=== PATIENT | female | born 1945 | race Caucasian/White ===

== ENCOUNTER → 2016-09-24 | Outpatient (CLI) | payer BC ==
[~2016-09-24] MED LIST: ATEN-173 PO; PRAV20TA PO; SYN75 PO
[2016-09-24 09:40] LABS: ALT/SGPT 16 U/L (12-78); AST/SGOT 17 U/L (15-37); BLOOD UREA NITROGEN 14 mg/dl (7-18); BUN/CREATININE RATIO 16.9 (10-20); CARBON DIOXIDE 29 mmol/L (21-32); CHLORIDE 105 mmol/L (98-107); CHOLESTEROL 179 mg/dl (0-200); CREATININE 0.83 mg/dl (0.60-1.20); GLUCOSE 85 mg/dl (70-99); POTASSIUM 3.4 mmol/L (3.5-5.1); SODIUM 142 mmol/L (136-145); TRIGLYCERIDES 87 mg/dl (0-150); VERY LOW DENSITY LIPOPROT CALC 17 mg/dl
[2016-09-24 09:45] LABS: CALCIUM 9.5 mg/dl (8.5-10.1)
[2016-09-24 09:50] LABS: CHOLESTEROL/HDL RATIO 3.2; HDL CHOLESTEROL 56 mg/dl; LDL CHOLESTEROL CALCULATED 106 mg/dl
[2016-09-24 09:58] LABS: ESTIMATED AVERAGE GLUCOSE 117 mg/dl; HA1C FLAG Normal (Normal)
--- NOTE | 2016-09-30 09:58 | CODING QUERY MEDICAL NECESSITY ---
SUPPORTING DIAGNOSIS NEEDED Dr. Francisco, A supporting diagnosis is required for the test/procedure performed on this patient in order for us to be reimbursed by the patient's insurance. Please provide a supporting diagnosis for the following test/procedure listed below next to the test name along with your signature. *If there is no additional diagnosis for this patient that would support the following test/procedure please document that below next to the test/procedure. Test(s)/Procedure(s) that require a supporting diagnosis: * [id number] GLYCATED HEMOGLOBIN DIAGNOSIS: DATE OF SERVICE: 09/24/16 Provider Signature: Date: Thank you Christopher Olivia [facility] Information Management Once completed, please kindly fax back to [phone] For questions please call [phone]
== END | disposition home or self-care (01) ==
LOC: C.LAB 06:41
PROVIDERS: ATTEND Internal Medicine
DX: R73.03 Prediabetes (principal); E03.9 Hypothyroidism, unspecified; E78.5 Hyperlipidemia, unspecified; R73.01 Impaired fasting glucose; Z13.1 Encounter for screening for diabetes mellitus

== ENCOUNTER → 2016-11-06 | Outpatient (CLI) | payer BC ==
--- NOTE | 2016-11-06 11:24 | DIAGNOSTIC IMAGING REPORT ---
ULTRASOUND SOFT TISSUES HEAD CLINICAL HISTORY: Soft tissue lump at the crown of the head. COMPARISON STUDY: No priors. FINDINGS: Real-time, grayscale, and color flow sonography of the soft tissues of the scalp is performed at the indicated site of interest. No mass or fluid collection is identified in this region. Phelps appearing subcutaneous fat is observed. IMPRESSION: No sonographic abnormality is identified in the scalp at the indicated site of interest. Electronically signed by: Beni Urban M.D. 11/06/2016 11:23 AM Dictated Date/Time: 11/06/2016 11:22 AM
== END | disposition home or self-care (01) ==
PROVIDERS: ATTEND Physician Assistant
DX: R22.0 Localized swelling, mass and lump, head (principal); R22.1 Localized swelling, mass and lump, neck

== ENCOUNTER → 2016-11-08 | Outpatient (CLI) | payer BC | END | disposition home or self-care (01) | LOC: C.RDSM 09:00 | PROVIDERS: ATTEND Orthopaedic Surgery Sports Medicine | DX: M17.0 Bilateral primary osteoarthritis of knee (principal) ==

== ENCOUNTER → 2017-01-03 | Outpatient (CLI) | payer BC ==
--- NOTE | 2017-01-03 15:49 | MAMMOGRAPHY REPORT ---
BILATERAL DIGITAL SCREENING MAMMOGRAM TOMOSYNTHESIS WITH CAD: 01/03/2017 TECHNIQUE: Breast tomosynthesis in addition to standard 2D mammography was performed. Current study was also evaluated with a Computer Aided Detection (CAD) system. COMPARISON: Comparison is made to exams dated: 01/02/2016 mammogram, 12/26/2014 mammogram, 12/22/2013 ma mmogram, 12/21/2012 mammogram, 12/19/2011 mammogram, and 12/20/2010 mammogram - [facility] nter. BREAST COMPOSITION: There are scattered areas of fibroglandular density in both breasts. FINDINGS: No suspicious masses, calcifications, or areas of architectural distortion are noted in ei ther breast. There has been no significant interval change compared to prior exams. There are stable post surgical changes in the left breast from prior lumpectomy, including stable architectural disto rtion, surgical clips, and benign dystrophic calcification at the lumpectomy bed. Nodular focal asym metry in the right lower inner quadrant anteriorly is stable. IMPRESSION: ACR BI-RADS CATEGORY 2: BENIGN There is no mammographic evidence of malignancy. A 1 year screening mammogram is recommended. The pa tient will receive written notification of the results. Approximately 10% of breast cancers are not detected with mammography. A negative mammographic report should not delay biopsy if a clinically suggestive mass is present. Jennifer Mahmood M.D. ah/:01/03/2017 15:39:38 Alarm Mechanism Adjuster: Lynnette Noble RT(R)(M), [facility] letter sent: Normal 1/2 BI-RADS Code: ACR BI-RADS Category 2: Benign
== END | disposition home or self-care (01) ==
LOC: C.MAMM 09:25
PROVIDERS: ATTEND Internal Medicine
DX: Z12.31 Encounter for screening mammogram for malignant neoplasm of breast (principal)

== ENCOUNTER → 2017-03-26 | Outpatient (CLI) | payer BC ==
[2017-03-26 09:56] LABS: BLOOD UREA NITROGEN 13 mg/dl (7-18); BUN/CREATININE RATIO 14.4 (10-20); CALCIUM 9.1 mg/dl (8.5-10.1); CARBON DIOXIDE 31 mmol/L (21-32); CHLORIDE 105 mmol/L (98-107); CHOLESTEROL 175 mg/dl (0-200); CREATININE 0.88 mg/dl (0.60-1.20); GLUCOSE 100 mg/dl (70-99); POTASSIUM 3.8 mmol/L (3.5-5.1); SODIUM 139 mmol/L (136-145); TRIGLYCERIDES 116 mg/dl (0-150); VERY LOW DENSITY LIPOPROT CALC 23 mg/dl
[2017-03-26 10:16] LABS: CHOLESTEROL/HDL RATIO 3.2; HDL CHOLESTEROL 54 mg/dl; LDL CHOLESTEROL CALCULATED 98 mg/dl
== END | disposition home or self-care (01) ==
LOC: C.LAB 08:10
PROVIDERS: ATTEND Internal Medicine
DX: E03.9 Hypothyroidism, unspecified (principal); I10 Essential (primary) hypertension; E78.5 Hyperlipidemia, unspecified; E55.9 Vitamin D deficiency, unspecified

== ENCOUNTER 2017-07-12 15:38 | Emergency (ER) | payer BC ==
[~2017-07-12] VITALS: Ht 149.9 cm; Wt 71.8 kg
[2017-07-12 15:42] VITALS: TEMP 36.6; Ht 149.9 cm; Wt 71.8 kg
--- NOTE | 2017-07-12 16:07 | DIAGNOSTIC IMAGING REPORT ---
CHEST 2 VIEWS ROUTINE CLINICAL HISTORY: cough eval for pna dyspnea COMPARISON STUDY: No previous studies for comparison. FINDINGS: The bones soft tissues and hemidiaphragms are normal. The cardiomediastinal silhouette is normal. The lungs are clear. The pulmonary vasculature is normal. IMPRESSION: Negative chest. The above report was generated using voice recognition software. It may contain grammatical, syntax or spelling errors. Electronically signed by: Neto Mason M.D. 07/12/2017 4:06 PM Dictated Date/Time: 07/12/2017 4:06 PM
[2017-07-12] MEDS ORDERED: PRVHFAIN INH (16:30)
[2017-07-12 16:33] VITALS: BP 145/79; PULSE 79; O2SAT 95
--- NOTE | 2017-07-12 16:40 | EMERGENCY ROOM VISIT NOTE ---
History Report prepared by iJ: Suman Bhatti Under the Supervision of: Dr. Suman Shultz M.D. First contact with patient: 15:46 Chief Complaint: COUGH Stated Complaint: COUGH History of Present Illness The patient is a 72 year old female who presents to the Emergency Room with complaints of a constant cough for the past 4 weeks. The patient had congestion as well but this seemed to get better after she was treated with Zithromax. She also takes Tessalon Perles. Today she had an episode of vomiting after a coughing fit. Patient denies fevers, chest pain, shortness of breath, diarrhea, and abdominal pain. Source of History: patient Onset: 4 weeks ago Position: other (Chest) Quality: other (Cough) Timing: intermittent Modifying Factors (Relieving): other (Zithromax and Tessalon) Associated Symptoms: + vomiting, No fevers, No SOB, No abdominal pain, No diarrhea Note: Patient has congestion. Review of Systems See HPI for pertinent positives & negatives. A total of 10 systems reviewed and were otherwise negative. Past Medical & Surgical Medical Problems: (1) Arthritis (2) Hypertension Surgical Problems: (1) Hx of hysterectomy (2) Hx of partial mastectomy Family History Cancer Diabetes mellitus Hypertension Social History Smoking Status: Never Smoker Alcohol Use: none Marital Status: Housing Status: lives with significant other Occupation Status: unemployed Current/Historical Medications Scheduled Atenolol (Tenormin), 25 MG PO DAILY Levothyroxine (Synthroid *), 0.075 MG PO DAILY Pravastatin (Pravachol ), 20 MG PO DAILY Scheduled PRN Albuterol (Ventolin Hfa), 2 PUFFS INH Q4H PRN for Cough Allergies Coded Allergies: No Known Allergies (Verified , 09/20/12) Physical Exam Vital Signs Date Time Temp Pulse Resp B/P (MAP) Pulse Ox O2 Delivery O2 Flow Rate FiO2 07/12/17 16:33 79 20 145/79 95 Room Air 07/12/17 16:33 95 Room Air 07/12/17 15:42 36.6 84 18 147/87 98 Room Air Physical Exam Constitutional: Vital signs reviewed. Eyes: Pupils are equal round reactive to light. Conjunctiva are noninjected. ENT: Pharynx is clear without erythema or exudate. Mucous membranes are moist. Neck supple without meningeal signs. Respiratory: Clear to auscultation bilaterally. Breath sounds are equal bilaterally. Cardiovascular: Regular rate and rhythm. No rubs or gallops. GI: Soft, nondistended and nontender. Bowel sounds are present. Musculoskeletal: No peripheral edema. Integumentary: No cyanosis. Neurological: The patient is awake and alert. No focal deficits. Psychiatric: Normal affect. Medical Decision & Procedures ER Provider Diagnostic Interpretation: Radiology results as stated below per my review and the radiologist's interpretation: CHEST 2 VIEWS ROUTINE CLINICAL HISTORY: cough eval for pna dyspnea COMPARISON STUDY: No previous studies for comparison. FINDINGS: The bones soft tissues and hemidiaphragms are normal. The cardiomediastinal silhouette is normal. The lungs are clear. The pulmonary vasculature is normal. IMPRESSION: Negative chest. The above report was generated using voice recognition software. It may contain grammatical, syntax or spelling errors. Electronically signed by: Neto Mason M.D. 07/12/2017 4:06 PM ED Course 1343: The patient was evaluated in room C11. A complete history and physical exam was performed. 1642: Upon reevaluation, the patient appeared to have improvement of her symptoms. I discussed tonight's findings with her. She verbalized agreement of the treatment plan. She was discharged home. Medical Decision This is a 72-year-old female who presents with a cough. Differential diagnosis includes bronchitis, pneumonia, viral syndrome, mass. I did perform a limited focused review of portions of the patient's old chart on the electronic medical record. The patient has had no recent pertinent visits to this hospital. I did evaluate the patient as noted above. The patient is presenting with a cough for the past 4 weeks. She did have congestion previously but this seemed to get better after she took Zithromax. She is presenting today because she has a persistent cough. I did order and personally review the patient's chest x -ray as described above. There is no evidence of pneumonia. I did discuss the test results with the patient. I did give her prescription for an albuterol MDI to help with her cough. She was advised to follow-up with her doctor. She was discharged in good condition. Medication Reconcilliation Current Medication List: was personally reviewed by me Blood Pressure Screening Patient's blood pressure: Elevated blood pressure Blood pressure disposition: Referred to PCP Impression Primary Impression: Bronchitis Scribe Attestation The scribe's documentation has been prepared under my direct and personally reviewed by me in its entirety. I confirm that the note above accurately reflects all work, treatment, procedures, and medical decision making performed by me. Departure Information Dispostion Home / Self-Care Prescriptions Albuterol (Ventolin Hfa) 60 Puffs/5400 Mcg Aers 2 PUFFS INH Q4H Y for Cough, #1 INHALER Prov: Suman Shultz M.D. 07/12/17 Referrals ProPatrick M.D. (PCP) Forms HOME CARE DOCUMENTATION FORM, IMPORTANT VISIT INFORMATION Patient Instructions Bronchitis Acute, [facility] Additional Instructions You have been examined and treated today on an emergency basis only. This is not a substitute for, or an effort to provide, complete comprehensive medical care. It is impossible to recognize and treat all injuries or illnesses in a single emergency department visit. It is therefore important that you follow up closely with your physician. Call as soon as possible for an appointment. Return for worsening symptoms or if you develop fever, chest pain, shortness of breath or any other concerning symptoms.
[2017-07-12] MEDS ORDERED: LEVO75TA5 PO (16:59)
[2017-07-12] MEDS ORDERED: AZIT-57 PO (16:59)
[2017-07-12] MEDS ORDERED: PRVC/20 PO (16:59)
[2017-07-12] MEDS ORDERED: BENZ100C7 PO (16:59)
== END 2017-07-12 16:39 | disposition home or self-care (01) ==
LOC: C.EDB 15:40 → C.EDC 16:39
DX: J40 Bronchitis, not specified as acute or chronic (principal); I10 Essential (primary) hypertension; M19.90 Unspecified osteoarthritis, unspecified site; Z90.710 Acquired absence of both cervix and uterus; Z90.10 Acquired absence of unspecified breast and nipple; Z83.3 Family history of diabetes mellitus; Z82.49 Family history of ischemic heart disease and other diseases of the circulatory system

== ENCOUNTER → 2017-11-12 | Outpatient (CLI) | payer BC ==
[~2017-11-12] MED LIST changes: +AZIT-57 PO; +BENZ100C7 PO; +IBUP-1050 PO; +LEVO75TA5 PO; -PRAV20TA PO; +PRVC/20 PO; +PRVHFAIN INH; -SYN75 PO; +VITAMIN D PO
== END | disposition home or self-care (01) ==
LOC: C.RDSM 08:59
PROVIDERS: ATTEND Orthopaedic Surgery Sports Medicine
DX: M17.0 Bilateral primary osteoarthritis of knee (principal)

== ENCOUNTER → 2017-11-17 | Outpatient (CLI) | payer BC ==
[~2017-11-17] MED LIST changes: -AZIT-57 PO; -BENZ100C7 PO; -PRVHFAIN INH
[2017-11-17 15:47] LABS: BASO % 0.5 %; BASO ABS # 0.03 K/uL (0-0.2); EOS % 3.2 %; HEMATOCRIT 40.7 % (37-47); HEMOGLOBIN 13.2 g/dL (12.0-16.0); IG# 0.01 K/uL (0.00-0.02); LYMPH ABS # 1.38 K/uL (1.2-3.4); MEAN CELL VOLUME 88.7 fL (80-100); MEAN CORPUSCULAR HEMOGLOBIN 28.8 pg (25-34); MEAN CORPUSCULAR HGB CONC 32.4 g/dl (32-36); MEAN PLATELET VOLUME 11.7 fL (7.4-10.4); MONO % 9.9 %; MONO ABS # 0.62 K/uL (0.11-0.59); NEUT % 64.2 %; NEUT ABS # 4.03 K/uL (1.4-6.5); PLATELET COUNT 189 K/uL (130-400); RED CELL DISTRIBUTION WIDTH CV 13.6 % (11.5-14.5); RED CELL DISTRIBUTION WIDTH SD 44.5 fL (36.4-46.3); WHITE BLOOD COUNT 6.27 K/uL (4.8-10.8)
[2017-11-17 15:52] LABS: INR 1.1 (0.9-1.1); PTT PATIENT 25.4 SECONDS (21.0-31.0)
[2017-11-17 16:41] LABS: ALBUMIN 3.7 gm/dl (3.4-5.0); ALKALINE PHOSPHATASE 140 U/L (45-117); ALT/SGPT 12 U/L (12-78); AST/SGOT 19 U/L (15-37); BLOOD UREA NITROGEN 9 mg/dl (7-18); CALCIUM 9.8 mg/dl (8.5-10.1); CARBON DIOXIDE 32 mmol/L (21-32); GLUCOSE 100 mg/dl (70-99); POTASSIUM 4.3 mmol/L (3.5-5.1); SODIUM 141 mmol/L (136-145); TOTAL PROTEIN 7.1 gm/dl (6.4-8.2)
== END | disposition home or self-care (01) ==
LOC: C.CPL 14:14
PROVIDERS: ATTEND Orthopaedic Surgery Sports Medicine
DX: Z01.818 Encounter for other preprocedural examination (principal); M17.12 Unilateral primary osteoarthritis, left knee

== ENCOUNTER → 2017-11-21 | Outpatient (CLI) | payer BC | END | disposition home or self-care (01) | LOC: C.LAB1850 09:23 | PROVIDERS: ATTEND Physician Assistant | DX: Z01.818 Encounter for other preprocedural examination (principal) ==

== ENCOUNTER 2017-12-02 08:11 | Inpatient (IN) | payer BC, OTHER ==
[2017-11-14 10:58] VITALS: BMI 29.0
[2017-11-17 14:42] VITALS: BMI 29.0
--- NOTE | 2017-11-17 14:57 | PAT Medication Instructions ---
Service Date Nov 17, 2017. Current Home Medication List Atenolol (Tenormin), 25 MG PO QAM Ibuprofen (Advil), 600 MG PO PRN Levothyroxine Sodium (Levothyroxine Sodium), 75 MCG PO QAM Pravastatin Sod (Pravastatin Sodium), 20 MG PO HS [Vitamin D], 5,000 UNITS PO QAM Medication Instructions For Your Scheduled Surgery - Check with surgeon for instructions: Ibuprofen (Advil), 600 MG PO PRN - Hold the following medications the morning of surgery: [Vitamin D], 5,000 UNITS PO QAM - Take the following medications the morning of surgery with a sip of water: Atenolol (Tenormin), 25 MG PO QAM Levothyroxine Sodium (Levothyroxine Sodium), 75 MCG PO QAM - Take the following medications as scheduled the night before surgery: Pravastatin Sod (Pravastatin Sodium), 20 MG PO HS If you have any questions please call us at [phone] or [phone] or [phone]
[2017-12-02] VITALS (9 sets, daily range): BP systolic 114–156; BP diastolic 72–85; PULSE 54–70; TEMP 36.4–37; O2SAT 94–100; Ht 152.4 cm; Wt 69.0 kg
[~2017-12-02] VITALS: Ht 152.4 cm; Wt 69.0 kg
[~2017-12-02 08:11] MED LIST changes: +BUPIVACAINE 0.5 % 5 MG/1 ML PF 10ML VIAL ONE; +CEFAZOLIN 2000MG IV PUSH 15 ML IV SCH; +CEFAZOLIN 3000MG IV PUSH 22.5 ML IV SCH; +CeleBREX 200 MG CAP PO SCH; +LACTATED RINGER'S 1000ML 1,000 ML IV SCH; +LACTATED RINGER'S 1000ML 500 ML IV SCH; +LACTATED RINGER'S 1000ML IV SCH; +ROPIVACAINE 0.5% 5 MG/ML 30 ML VIAL ONE; +ROPIVACAINE 5MG/ML 30 ML 150 MG, BUPIVACAINE 0.5% MPF INJ 30 ML, EpINEphrine HCL INJ 0.... INFIL SCH; +SCOPOLAMINE 1.5 MG TDSY TD SCH
[2017-12-02] MEDS ORDERED: PHENYLEPHRINE 100MCG/ML 5ML SYR IV PRN (09:15)
[2017-12-02] MEDS ORDERED: EpHEDrine SULFATE INJ 50 MG/ML AMP IV PRN (09:15)
[2017-12-02] MEDS ORDERED: HYDROmorphone INJ 2 MG/ML SYR/VIAL IV PRN (09:15)
[2017-12-02] MEDS ORDERED: ONDANSETRON INJ 2 MG/ML 2 ML VIAL IV PRN ×2 (09:15→14:30)
[2017-12-02] MEDS ORDERED: ATROPINE SULFATE 0.1 MG/ML 5ML SYR IV PRN (09:15)
[2017-12-02] MEDS ORDERED: KETAMINE HCL INJ 50 MG/ML 10 ML VIAL ONE (09:50)
[2017-12-02] MEDS ORDERED: LIDOCAINE HCL 2% 2 ML VIAL (20MG/ML) ONE (09:53)
[2017-12-02] MEDS ORDERED: MIDAZOLAM HCL 1 MG/ML 2ML VIAL ONE ×2 (09:54)
[2017-12-02] MEDS ORDERED: FENTANYL CITRATE INJ 50 MCG/1 ML 2 ML VIAL ONE (09:54)
--- NOTE | 2017-12-02 10:47 | History & Physical Bridge Note ---
H&P Re-Evaluation Bridge Note: I have examined the patient, reviewed the History & Physical and in the interval since the performance of the History & Physical I have noted the following changes of clinical significance: No changes noted
[2017-12-02] MEDS ORDERED: POVIDONE-IODINE OP SOLN 30 ML BTL ONE (10:54)
[2017-12-02] MEDS ORDERED: ORTHO JOINT ANESTHETIC ONE (10:54)
[2017-12-02] MEDS: TRANEXAMIC ACID INJ 1,000 MG x 2 Bags IV SCH ×4 (10:54→13:12)
[2017-12-02] MEDS ORDERED: PROPOFOL IV EMULSION 10 MG/ML 20 ML VIAL ONE (13:56)
[2017-12-02] MEDS ORDERED: ONDANSETRON INJ 2 MG/ML 2 ML VIAL ONE (13:56)
--- NOTE | 2017-12-02 14:11 | [facility] Post Operative Brief Note ---
Immediate Operative Summary Operative Date Dec 02, 2017. Pre-Operative Diagnosis Left Knee End-Stage Degenerative Joint Disease Post-Operative Diagnosis Left Knee End-Stage Degenerative Joint Disease Procedure(s) Performed Left Total Knee Arthroplasty Surgeon Dr. Chad Rosen General Administrator Surgeon(s) Bernice Burrell PA-c Estimated Blood Loss 100ML Findings Consistent with Post-Op Diagnosis Fluids (cc crystalloids) 1900 Specimens Specimen A: Left knee bone and tissue Drains None Anesthesia Type MAC Spinal Regional Complication(s) none Disposition Disposition: Recovery Room / PACU (Stable)
--- NOTE | 2017-12-02 14:11 | [facility] Operative Report ---
Operative Report Operative Date Dec 02, 2017. Pre-Operative Diagnosis Left Knee End-Stage Degenerative Joint Disease Post-Operative Diagnosis Left Knee End-Stage Degenerative Joint Disease Procedure(s) Performed Left Total Knee Arthroplasty Surgeon Dr. Chad Rosen Mouse Breeder Surgeon(s) Bernice Burrell PA-c Estimated Blood Loss 100ML Findings Examined Under Anesthesia: ROM -- There was 5 degrees to 115 degrees of flexion Ligamentous examination -- revealed stable Juma, posterior drawer, varus and valgus stress at 0 and 30 degrees. [place] Type IV changes of medial compartments. Large osteophytes in all 3 compartments. Large loose bodies behind the medial and lateral femoral condyles. Fluids 1900 Specimens Specimen A: Left knee bone and tissue Drains None Anesthesia Type MAC Spinal Regional Complication(s) none Disposition Recovery Room / PACU (Stable) Indications This is a 72-year-old female who has clinical and radiographic findings consistent with osteoarthritis of the a left knee. I recommended that a left total knee replacement be performed. The patient understands the risks of surgery, which include but not limited to: bleeding, infection, re-operation, damage to nerves and arteries, continued knee pain, knee stiffness, DVT, and . The patient understands all of these instructions and explanations, all of his questions have been satisfactorily addressed and the patient has elected to proceed. Informed consent was signed. Description of Procedure IMPLANTS: 1. Femur: Triathlon #1 Right PS. 2. Tibia: Triathlon #1 [place] baseplate. 3. Insert: Triathlon #1 x 13 mm TS X3 poly. 4. Patella: Triathlon S27 x 8 mm X3 poly. Procedure: The patient was taken to the Operating Room and placed in the supine position after spinal and adductor canal nerve block was administered. My initials and a multidisciplinary time-out were used to identify the left leg as the correct operative limb. A tourniquet was placed high in the thigh. Prior to the incision, 2 grams of intravenous Ancef were given. The left leg was then prepped and draped in a standard sterile fashion. An Esmarch was used to exsanguinate the leg and the tourniquet was inflated to 250 mmHg. The planned mid-line 20 cm incision was created exposing the extensor mechanism. The medial parapatellar arthrotomy was made and the patella was everted. The patella was addressed first. It was prepared by reaming from 24 mm down to 14 mm. An S27 button was found to fit best. The peg holes were made in the standard fashion. The femur was addressed next and the guide rigo was placed intramedullary. The initial cutting block was placed with 5 degrees of valgus and removing 10 mm for the anterior cut. The cut was made and the 4-in-1 cutting block for a size 1 femur was placed. These cuts and the cuts to place the box were made in the standard fashion. Our attention was then drawn to the tibia cut with the external cutting guide, taking 4mm from the medial low side. There was sufficient extension and flexion gap to fit a 13 mm spacer. A #1 Tibial baseplate fit well. A trial with a 13 mm spacer showed excellent stability in both flexion and extension, with good ligament balance. Range of motion of 0-130 degrees. The tibial baseplate was pinned and the final preparation for the keel and stem was made for the universal tibial baseplate. Large loose bodies were removed from the posterior medial and lateral femoral condyles. All the trial components were tested again, with good stability and thumbs free tracking of the patella. All components were removed. The tourniquet was deflated. Hemostasis was obtained. 90 ml of total knee cocktail were injected into the soft tissues and periosteum. A bone plug was placed in the femur and covered with bone wax. After a 15 minute break, the limb was exsanguinated again and the tourniquet was re-inflated. All surfaces were copiously irrigated prior to placement of the components. The femoral component and Tibial baseplate were placed and cemented first and a 13 mm trial placed, followed by cementing the patella. There was slight medial laxity and a 13 mm total stabilized trial was placed. Again there was good range of motion and improved stability. Once the cement had cured, the 13 mm TS, X3 poly was placed. The extensor mechanism was closed with 1-0 and 0 Vicryl with the knee bent approximately 60 degrees in a standard fashion. The deep fascia was closed with 2-0 Vicryl. The subcutaneous layer was closed with 3-0 Vicryl. The skin was closed with Zip-line. The limb was cleaned and dried. The incision was further covered by 4x4's, ABDs, sterile Webril, and a foot to thigh Dioni bandage. The patient was then transferred to the Recovery Room in stable condition. The sponge and needle counts were correct. POST-OP INSTRUCTIONS: The patient will be WBAT. The patient will be admitted to the hospital. The patient will use the knee immobilizer when ambulating and standing until good quad control is achieved. Labs will be obtained during her stay. DVT prophylaxis will included Lovenox for 3 weeks and switching to aspirin for 3 weeks, TEDs, and mechanical foot pumps. I attest to the content of the Intraoperative Record and any orders documented therein. Any exceptions are noted below.
[2017-12-02] MEDS ORDERED: BISACODYL 10 MG SUPP PR PRN (14:30)
[2017-12-02] MEDS ORDERED: ALUMINUM/MAGNESIUM/SIMETH (MAALOX MAX) 30 ML UDC PO PRN (14:30)
[2017-12-02] MEDS ORDERED: OXYCODONE HCL IR 5 MG TAB (IMMEDIATE RELEASE) PO PRN (14:30)
[2017-12-02] MEDS ORDERED: MAGNESIUM HYDROXIDE SUSP 30 ML UDC PO PRN (14:30)
[2017-12-02] MEDS ORDERED: ACETAMINOPHEN 325 MG TAB PO PRN (14:30)
[2017-12-02] MEDS ORDERED: CEFAZOLIN IV 2,000 MG in DEXTROSE 5% 50ML 50 ML IV SCH (14:30)
[2017-12-02] MEDS ORDERED: MoRPHine SULFATE 2 MG/ML CARP IV PRN (14:30)
[2017-12-02] MEDS ORDERED: METOCLOPRAMIDE HCL INJ 5 MG/ML 2 ML VIAL IV PRN (14:30)
--- NOTE | 2017-12-02 14:40 | Anesthesiology Progress Note ---
Anesthesia Post Op Note Date & Time Dec 02, 2017 at 14:40 Vital Signs Pain Intensity: 0 Vital Signs Past 12 Hours Date Time Temp Pulse Resp B/P (MAP) Pulse Ox O2 Delivery O2 Flow Rate FiO2 12/02/17 14:32 59 16 100 12/02/17 14:32 59 16 12/02/17 14:31 142/77 12/02/17 14:27 62 16 99 12/02/17 14:27 62 16 12/02/17 14:26 145/80 12/02/17 14:22 68 15 12/02/17 14:22 65 15 100 12/02/17 14:21 136/76 12/02/17 14:18 135/75 12/02/17 14:17 36.9 66 16 135/75 100 Nasal Cannula 2 12/02/17 14:17 73 13 100 12/02/17 14:17 71 13 12/02/17 08:54 37 70 18 153/83 96 Room Air Notes Mental Status: alert / awake / arousable, participated in evaluation Pt Amnestic to Procedure: Yes Nausea / Vomiting: adequately controlled Pain: adequately controlled Airway Patency, RR, SpO2: stable & adequate BP & HR: stable & adequate Hydration State: stable & adequate Neuraxial Anesthesia: was administered, sensory block is resolving Anesthetic Complications: no major complications apparent
--- NOTE | 2017-12-02 14:51 | DIAGNOSTIC IMAGING REPORT ---
L KNEE 1 OR 2 VIEWS ROUTINE CLINICAL HISTORY: Postoperative evaluation COMPARISON: Left knee radiographs November 12, 2017. FINDINGS: Alignment of the left knee arthroplasty is anatomic. There is no fracture or unexpected radiopaque foreign body. IMPRESSION: Expected findings following total left knee arthroplasty. Electronically signed by: Jesus Bradshaw M.D. 12/02/2017 2:49 PM Dictated Date/Time: 12/02/2017 2:48 PM
[2017-12-02] MEDS: CHECK SCOPOLAMINE PATCH PLACEMENT SCH ×2 (16:00→23:31)
--- NOTE | 2017-12-02 16:04 | Medical Consult ---
Consultation Date of Consultation: Dec 02, 2017. Attending Physician: Chad Rosen MD Reason for Consultation: post op medical management History of Present Illness Ms. Stroud is status post left TKA. She is very nauseas and vomiting. Her family is bedside and state that she is always nauseas after anesthesia. She otherwise has no complaints. Pmhx of dyslipidemia, hypothyroidism, hypertension and breast cancer ROS Constitutional: no chills, aches, sweats or fever Respiratory: no sob,cough, sputum, or wheezing Cardiac: no chest pain, palpitations, edema, orthopnea or lightheadedness GI: no abdominal pain, vomiting, diarrhea or constipation : no dysuria or hesitancy Extremities: no joint pain or weakness Skin: no rash All other systems reviewed and negative Past Medical/Surgical History Medical Problems: (1) Bronchitis Status: Acute (2) Hypertension Status: Chronic Family History Family history was reviewed; no changes noted. Social History Smoking Status: Never Smoker Smokeless Tobacco Use: No Alcohol Use: none Drug Use: none Marital Status: Housing Status: lives alone Occupation Status: unemployed Allergies Coded Allergies: No Known Allergies (Verified , 12/02/17) Home Medications Active Reported [Vitamin D] 5,000 Units PO QAM Advil (Ibuprofen) 200 Mg Tab 600 Mg PO PRN Pravastatin Sodium (Pravastatin Sod) 20 Mg Tab 20 Mg PO HS Levothyroxine Sodium 75 Mcg Tab 75 Mcg PO QAM Tenormin (Atenolol) 25 Mg Tab 25 Mg PO QAM Current Inpatient Medications Current Inpatient Medications Medications (Trade) Dose Ordered Sig/Kendra Route Start Time Stop Time Status Last Admin Dose Admin Lactated Ringer's 1,000 ml @ 15 mls/hr Q24H IV 12/02/17 06:00 12/03/17 05:59 Lactated Ringer's 1,000 ml @ 60 mls/hr [id number] IV 12/02/17 06:00 12/02/17 22:39 Celecoxib (CeleBREX CAP) 200 mg PREOP PO 12/02/17 06:00 12/02/17 18:00 12/02/17 09:19 200 MG Tranexamic Acid 1000 mg/Sodium Chloride 110 ml @ 660 mls/hr TODAY@06,0630 IV 12/02/17 06:00 12/02/17 18:00 12/02/17 13:12 660 MLS/HR Cefazolin Sodium 15 ml @ 3.75 mls/ min PREOP IV 12/02/17 06:00 12/02/17 18:00 12/02/17 11:14 3.75 MLS/MIN Miscellaneous (Remove Transderm-Scop Patch) 1 ea Q72H N/A 12/05/17 06:00 12/05/17 06:01 Miscellaneous Information (Check Scopolamine Patch Placement) 1 ea QS N/A 12/02/17 16:00 12/05/17 05:59 Ropivacaine 150 mg/Bupivacaine HCl 30 ml/ Epinephrine HCl 0.15 mg/Ketorolac Tromethamine 30 mg/Dexamethasone Sodium Phosphate 4 mg/Ketamine HCl 10 mg/Clonidine 100 mcg/Sodium Chloride 93.35 ml @ 0 mls/hr TODAY@06 INFIL 12/02/17 06:00 12/02/17 16:00 12/02/17 13:37 93.35 MLS/HR Potassium Chloride/Dextrose/ Sod Cl 1,000 ml @ 100 mls/hr Q10H IV 12/02/17 16:00 12/03/17 15:59 Ketorolac Tromethamine (Toradol Inj) 15 mg Q6H IV. 12/02/17 16:00 12/03/17 15:59 Celecoxib (CeleBREX CAP) 200 mg BID PO 12/03/17 21:00 01/02/18 20:59 Oxycodone HCl (Roxicodone Immediate Rel Tab) 1 TABLET FOR PAIN RATING... Q4H PRN PO 12/02/17 14:30 12/16/17 14:29 Morphine Sulfate (MoRPHine SULFATE INJ) 2 mg Q2HWA PRN IV 12/02/17 14:30 12/16/17 14:29 Acetaminophen (Tylenol Tab) 650 mg Q6H PRN PO 12/02/17 14:30 01/01/18 14:29 Magnesium Hydroxide (Milk Of Magnesia Susp) 30 ml Q6H PRN PO 12/02/17 14:30 01/01/18 14:29 Bisacodyl (Dulcolax Supp) 10 mg DAILY PRN TN 12/02/17 14:30 01/01/18 14:29 Senna (Senokot Tab) 17.2 mg HS PO 12/02/17 21:00 01/01/18 20:59 Docusate Sodium (coLACE CAP) 100 mg BID PO 12/02/17 21:00 01/01/18 20:59 Diphenhydramine HCl (Benadryl Cap) 25 mg Q8H PRN PO 12/02/17 14:30 01/01/18 14:29 Al Hydrox/Mg Hydrox/Simethicone (Maalox Max Susp) 15 ml Q4H PRN PO 12/02/17 14:30 01/01/18 14:29 Ondansetron HCl (Zofran Inj) 4 mg Q6H PRN IV 12/02/17 14:30 01/01/18 14:29 Metoclopramide HCl (Reglan Inj) 10 mg Q6H PRN IV 12/02/17 14:30 01/01/18 14:29 12/02/17 15:37 10 MG Ferrous Gluconate (Ferrous Gluconate Tab) 324 mg TIDM PO 12/02/17 17:45 01/01/18 17:59 Pantoprazole Sodium (Protonix Tab) 40 mg QAM PO 12/03/17 09:00 12/06/17 09:01 Enoxaparin Sodium (Lovenox Inj) 30 mg Q12H SQ 12/03/17 08:00 01/02/18 07:59 UNV Ascorbic Acid (Vitamin C Tab) 250 mg BID PO 12/02/17 21:00 01/01/18 20:59 Cefazolin Sodium 2000 mg/Syringe 15 ml @ 3.75 mls/ min Q8H IV 12/02/17 19:00 12/03/17 03:03 Physical Exam Date Time Temp Pulse Resp B/P (MAP) Pulse Ox O2 Delivery O2 Flow Rate FiO2 12/02/17 15:30 99 Nasal Cannula 2.0 12/02/17 15:30 99 Nasal Cannula 2.0 12/02/17 15:25 36.6 56 15 144/82 (102) 99 Nasal Cannula 2.0 12/02/17 15:13 54 15 12/02/17 15:13 55 15 100 12/02/17 15:11 138/72 12/02/17 15:08 54 14 12/02/17 15:08 53 14 100 12/02/17 15:07 56 16 100 12/02/17 15:07 56 16 12/02/17 15:06 148/72 12/02/17 15:02 56 16 12/02/17 15:02 56 16 100 12/02/17 15:01 135/79 12/02/17 14:57 55 16 12/02/17 14:57 55 16 100 12/02/17 14:56 137/77 12/02/17 14:52 56 16 100 12/02/17 14:52 56 16 12/02/17 14:51 141/85 12/02/17 14:47 58 16 100 12/02/17 14:47 57 16 12/02/17 14:46 149/84 12/02/17 14:43 36.9 12/02/17 14:42 58 16 12/02/17 14:42 58 16 100 12/02/17 14:41 132/72 12/02/17 14:38 58 13 12/02/17 14:38 60 13 100 12/02/17 14:36 152/81 12/02/17 14:33 61 12 100 12/02/17 14:33 59 12 12/02/17 14:32 59 16 100 12/02/17 14:32 59 16 12/02/17 14:31 142/77 12/02/17 14:27 62 16 99 12/02/17 14:27 62 16 12/02/17 14:26 145/80 12/02/17 14:22 68 15 12/02/17 14:22 65 15 100 12/02/17 14:21 136/76 12/02/17 14:18 135/75 12/02/17 14:17 36.9 66 16 135/75 100 Nasal Cannula 2 12/02/17 14:17 73 13 100 12/02/17 14:17 71 13 12/02/17 08:54 37 70 18 153/83 96 Room Air General: no distress Eyes: normal inspection, PERLL Respiratory: chest non tender, clear to auscultation, normal breath sounds, no respiratory distress, no accessory muscle use Cardiac: regular rate and rhythm, no rub or gallop, no murmur, no edema, no jvd GI/: active bowel sounds, no abd pain or tenderness, soft, non distended Extremities: normal range of motion, normal strength, non tender Neuro/Psych: alert and oriented x 3, normal mood and affect Skin: normal color, dry Assessment & Plan Ms. 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 Discussed with Noemy Connelly NP and agree with findings and plan as documented in the note. Any exceptions or clarifications are listed here: None Patient stable status post status post total knee replacement maintaining atenolol for hypertension and Synthroid for her thyroidism and pravastatin for dyslipidemia DVT prevention as per orthopedic choice and she is to use Lovenox twice daily Documented By: Suman Connolly
--- NOTE | 2017-12-02 16:17 | [facility] Operative Report ---
Operative Report Operative Date Dec 02, 2017. Pre-Operative Diagnosis Left Knee End-Stage Degenerative Joint Disease Post-Operative Diagnosis Left knee End Stage Degenerative Joint Disease Procedure(s) Performed Left total knee replacement Surgeon Dr. Chad Rosen Blogs Manager Surgeon(s) Bernice Burrell PA-c Estimated Blood Loss 100ML Findings See Dr Rosen operative report. Fluids 1900 Specimens Specimen A: Left knee bone and tissue Complication(s) None Disposition Recovery Room / PACU (Stable) Indications See Dr Rosen operative report. Description of Procedure See Dr Rosen operative report. I assisted during the entire case with instrument and limb handling, and wound closure. I attest to the content of the Intraoperative Record and any orders documented therein. Any exceptions are noted below.
[2017-12-02] MEDS: KETOROLAC TROMETHAMINE 15 MG/ML VIAL IV. SCH ×2 (16:31→21:05)
[2017-12-02] MEDS: FERROUS GLUCONATE 324 MG TAB PO SCH (18:10)
[2017-12-02] MEDS: CEFAZOLIN IV 2,000 MG in SYRINGE 0 ML IV SCH (18:43)
[2017-12-02] MEDS ORDERED: TRANEXAMIC ACID INJ 1,000 MG in SODIUM CHLORIDE 0.9% 100ML 100 ML IV SCH (20:15)
[2017-12-02] MEDS ORDERED: SENNA 8.6 MG TAB PO SCH (21:00)
[2017-12-02] MEDS: DOCUSATE SODIUM 100 MG CAP PO SCH (21:05)
[2017-12-02] MEDS: ASCORBIC ACID 500 MG TAB PO SCH (21:05)
[2017-12-02] MEDS: D5W AND 1/2NSS + 20MEQ KCL 1,000 ML IV SCH (23:32)
[2017-12-03] MEDS: D5W AND 1/2NSS + 20MEQ KCL 1,000 ML IV SCH ×2 (02:00→11:36)
[2017-12-03 03:42] VITALS: BP 100/66; PULSE 58; TEMP 36.8; O2SAT 96
[2017-12-03] MEDS: CEFAZOLIN IV 2,000 MG in SYRINGE 0 ML IV SCH (03:43)
[2017-12-03] MEDS: KETOROLAC TROMETHAMINE 15 MG/ML VIAL IV. SCH ×2 (03:43→10:19)
[2017-12-03 06:49] LABS: HEMATOCRIT 33.8 % (37-47); HEMOGLOBIN 11.1 g/dL (12.0-16.0); MEAN CELL VOLUME 88.5 fL (80-100); MEAN CORPUSCULAR HEMOGLOBIN 29.1 pg (25-34); MEAN CORPUSCULAR HGB CONC 32.8 g/dl (32-36); MEAN PLATELET VOLUME 11.5 fL (7.4-10.4); PLATELET COUNT 175 K/uL (130-400); RED CELL DISTRIBUTION WIDTH CV 13.6 % (11.5-14.5); WHITE BLOOD COUNT 11.55 K/uL (4.8-10.8)
[2017-12-03 07:18] VITALS: BP 108/70; PULSE 53; TEMP 36.8; O2SAT 96
[2017-12-03 07:24] LABS: CALCIUM 8.4 mg/dl (8.5-10.1); CREATININE 0.74 mg/dl (0.60-1.20); POTASSIUM 4.1 mmol/L (3.5-5.1)
[2017-12-03] MEDS: CHECK SCOPOLAMINE PATCH PLACEMENT SCH (07:55)
--- NOTE | 2017-12-03 07:56 | Anesthesiology Progress Note ---
Anesthesia Post Op Note Date & Time Dec 03, 2017 at 07:55 Vital Signs Pain Intensity: 0.0 Vital Signs Past 12 Hours Date Time Temp Pulse Resp B/P (MAP) Pulse Ox O2 Delivery O2 Flow Rate FiO2 12/03/17 07:53 Room Air 12/03/17 07:18 36.8 53 16 108/70 (83) 96 Room Air 12/03/17 03:42 36.8 58 16 100/66 (77) 96 Room Air 12/02/17 23:20 36.8 66 16 114/72 (86) 94 Room Air 12/02/17 23:15 Room Air Notes Mental Status: alert / awake / arousable, participated in evaluation Pt Amnestic to Procedure: Yes Nausea / Vomiting: adequately controlled Pain: adequately controlled Airway Patency, RR, SpO2: stable & adequate BP & HR: stable & adequate Hydration State: stable & adequate Neuraxial Anesthesia: was administered, sensory block resolved Anesthetic Complications: no major complications apparent
[2017-12-03] MEDS ORDERED: ENOXAPARIN 30 MG/0.3 ML SYR SQ SCH (08:00)
[2017-12-03] MEDS: FERROUS GLUCONATE 324 MG TAB PO SCH ×2 (08:18→12:50)
[2017-12-03] MEDS: ASCORBIC ACID 500 MG TAB PO SCH (08:18)
[2017-12-03] MEDS: DOCUSATE SODIUM 100 MG CAP PO SCH (08:18)
[2017-12-03] MEDS ORDERED: PANTOprazole SOD 40 MG TAB PO SCH (09:00)
--- NOTE | 2017-12-03 09:11 | Orthopedic Progress Note ---
Orthopedic Progress Note Date of Service Dec 03, 2017. Subjective Post OP Day: 1 Reports: feeling well, nausea / vomiting, pain controlled w PO medications, Denies: complaints, chest pain, SOB, light headedness, calf pain, using [employer] Additional Notes: had nausea and vomiting pod 0 and into last night. today she says she is feeling much better. she would like to go home today. Objective calves soft nontender, N/V intact, capillary refill less than 2 sec., dressing C /D/I, A&O x3, toes mobile, CMS intact sister in room with patient. patient was finishing with breakfast. immobilizer on left knee. tyra hose on r leg. Date Time Temp Pulse Resp B/P (MAP) Pulse Ox O2 Delivery O2 Flow Rate FiO2 12/03/17 07:53 Room Air 12/03/17 07:18 36.8 53 16 108/70 (83) 96 Room Air 12/03/17 03:42 36.8 58 16 100/66 (77) 96 Room Air 12/02/17 23:20 36.8 66 16 114/72 (86) 94 Room Air 12/02/17 23:15 Room Air 12/02/17 18:42 36.4 54 18 134/82 (99) 98 Room Air 12/02/17 17:39 36.7 57 16 125/79 (94) 12/02/17 16:36 156/85 (108) 12/02/17 16:25 100 Nasal Cannula 2.0 12/02/17 16:08 61 16 143/83 (103) 100 Nasal Cannula 2.0 12/02/17 15:30 99 Nasal Cannula 2.0 12/02/17 15:30 99 Nasal Cannula 2.0 12/02/17 15:25 36.6 56 15 144/82 (102) 99 Nasal Cannula 2.0 12/02/17 15:13 54 15 12/02/17 15:13 55 15 100 12/02/17 15:11 138/72 12/02/17 15:08 54 14 12/02/17 15:08 53 14 100 12/02/17 15:07 56 16 100 12/02/17 15:07 56 16 12/02/17 15:06 148/72 12/02/17 15:02 56 16 12/02/17 15:02 56 16 100 12/02/17 15:01 135/79 12/02/17 14:57 55 16 12/02/17 14:57 55 16 100 12/02/17 14:56 137/77 12/02/17 14:52 56 16 100 12/02/17 14:52 56 16 12/02/17 14:51 141/85 12/02/17 14:47 58 16 100 12/02/17 14:47 57 16 12/02/17 14:46 149/84 12/02/17 14:43 36.9 12/02/17 14:42 58 16 12/02/17 14:42 58 16 100 12/02/17 14:41 132/72 12/02/17 14:38 58 13 12/02/17 14:38 60 13 100 12/02/17 14:36 152/81 12/02/17 14:33 61 12 100 12/02/17 14:33 59 12 12/02/17 14:32 59 16 100 12/02/17 14:32 59 16 12/02/17 14:31 142/77 12/02/17 14:27 62 16 99 12/02/17 14:27 62 16 12/02/17 14:26 145/80 12/02/17 14:22 68 15 12/02/17 14:22 65 15 100 12/02/17 14:21 136/76 12/02/17 14:18 135/75 12/02/17 14:17 36.9 66 16 135/75 100 Nasal Cannula 2 12/02/17 14:17 73 13 100 12/02/17 14:17 71 13 Laboratory Results 24 Hours: Test 12/03/17 05:48 Hematocrit 33.8 % Hemoglobin 11.1 g/dL Assessment & Plan Assessment: s/p L TKA, pod 1 acute post-op anemia Plan: 1) patient feeling well this am. would like to go home today with family and start outpatient physical therapy. 2) aware needs to see PT this am prior to dc. 3) patient tolerating regular diet and drinking fluids. garcia pulled. 4) appreciate medical consult. 5) DVT prophylaxis: patient will be dc on lovenox 30mg SQ x 3 wks and then ASA 325mg BID x 3 wks. Will continue with TYRA hose x 4-6wks. She already filled lovenox script prior to surgery 6) Patient aware of immobilizer for 48hrs post-op. and use of walker for ambulation. 7) re wound care: will speak to Dr Rosen re changing dressing before she leaves this pm or for outpt therapy to change at her first appt. (she currently is scheduled for this friday). 8) re pain control: aware of use of ice, will send home with tylenol and oxycodone. 9) will provide scripts for ferrous sulfate and vit c upon dc. 10) plan to go home this afternoon. will see patient around 115 for plans to dc home this pm. I, Dr. Rosen, saw and examined the patient and discussed the management with my PA. I reviewed my PAs note and agree with the documented findings and the plan of care I developed. Will keep the dressing on and it will be changed at her first outpatient PT visit. Discharge Planning Discharge Planning: home with oppt Pain Management: PO Tylenol, Oxy IR DVT Prophylaxis: Nichelle Nava Therapy: Physical Therapy
[2017-12-03 10:30] VITALS: BP 117/72; PULSE 69; TEMP 36.9; O2SAT 98
--- NOTE | 2017-12-03 11:57 | Hospitalist Progress Note ---
Hospitalist Progress Note Date of Service Dec 03, 2017. (Noemy Connelly ., EVER) Subjective Pt evaluation today including: conversation w/ patient, conversation w/ family , physical exam, chart review, lab review, review of inpatient medication list Voiding: no voiding problems Ms. De Dios nausea and vomiting has resolved. She has no complaints, feel ready to go home. ROS Constitutional: no chills, aches, sweats or fever Respiratory: no sob,cough, sputum, or wheezing Cardiac: no chest pain, palpitations, edema, orthopnea or lightheadedness GI: no abdominal pain, nausea, vomiting, diarrhea or constipation : no dysuria or hesitancy Extremities: no joint pain or weakness Skin: no rash All other systems reviewed and negative (Noemy Connelly CRNP) Medications Medications Administered Medications (Trade) Dose Ordered Sig/Kendra Route Start Time Stop Time Status Last Admin Dose Admin Lactated Ringer's 500 ml @ 999 mls/hr Q31M IV 12/02/17 06:00 12/02/17 06:30 DC 12/02/17 09:15 999 MLS/HR Celecoxib (CeleBREX CAP) 200 mg PREOP PO 12/02/17 06:00 12/02/17 18:00 DC 12/02/17 09:19 200 MG Tranexamic Acid 1000 mg/Sodium Chloride 110 ml @ 660 mls/hr TODAY@06,0630 IV 12/02/17 06:00 12/02/17 18:00 DC 12/02/17 13:12 660 MLS/HR Cefazolin Sodium 15 ml @ 3.75 mls/ min PREOP IV 12/02/17 06:00 12/02/17 18:00 DC 12/02/17 11:14 3.75 MLS/MIN Scopolamine (Transderm-Scop Patch) 1.5 mg PREOP TD 12/02/17 06:00 12/02/17 15:00 DC 12/02/17 09:19 1.5 MG Miscellaneous Information (Check Scopolamine Patch Placement) 1 ea QS N/A 12/02/17 16:00 12/05/17 05:59 12/03/17 07:55 1 EA Ropivacaine 150 mg/Bupivacaine HCl 30 ml/ Epinephrine HCl 0.15 mg/Ketorolac Tromethamine 30 mg/Dexamethasone Sodium Phosphate 4 mg/Ketamine HCl 10 mg/Clonidine 100 mcg/Sodium Chloride 93.35 ml @ 0 mls/hr TODAY@06 INFIL 12/02/17 06:00 12/02/17 16:00 DC 12/02/17 13:37 93.35 MLS/HR Povidone Iodine (Betadine Ophthalmic Prep Solution) 30 ml STK-MED ONCE .ROUTE 12/02/17 10:54 12/02/17 10:55 DC 12/02/17 13:37 20 ML Potassium Chloride/Dextrose/ Sod Cl 1,000 ml @ 100 mls/hr Q10H IV 12/02/17 16:00 12/03/17 15:59 12/02/17 23:32 100 MLS/HR Ketorolac Tromethamine (Toradol Inj) 15 mg Q6H IV. 12/02/17 16:00 12/03/17 15:59 12/03/17 10:19 15 MG Senna (Senokot Tab) 17.2 mg HS PO 12/02/17 21:00 01/01/18 20:59 12/02/17 21:05 17.2 MG Docusate Sodium (coLACE CAP) 100 mg BID PO 12/02/17 21:00 01/01/18 20:59 12/03/17 08:18 100 MG Ondansetron HCl (Zofran Inj) 4 mg Q6H PRN IV 12/02/17 14:30 01/01/18 14:29 12/02/17 20:03 4 MG Metoclopramide HCl (Reglan Inj) 10 mg Q6H PRN IV 12/02/17 14:30 01/01/18 14:29 12/02/17 15:37 10 MG Ferrous Gluconate (Ferrous Gluconate Tab) 324 mg TIDM PO 12/02/17 17:45 01/01/18 17:59 12/03/17 08:18 324 MG Pantoprazole Sodium (Protonix Tab) 40 mg QAM PO 12/03/17 09:00 12/06/17 09:01 12/03/17 08:18 40 MG Enoxaparin Sodium (Lovenox Inj) 30 mg Q12H SQ 12/03/17 08:00 01/02/18 07:59 12/03/17 07:55 30 MG Ascorbic Acid (Vitamin C Tab) 250 mg BID PO 12/02/17 21:00 01/01/18 20:59 12/03/17 08:18 250 MG Cefazolin Sodium 2000 mg/Syringe 15 ml @ 3.75 mls/ min Q8H IV 12/02/17 19:00 12/03/17 03:03 DC 12/03/17 03:43 3.75 MLS/MIN Tranexamic Acid 1000 mg/Sodium Chloride 110 ml @ 660 mls/hr TODAY@2014 IV 12/02/17 20:15 12/02/17 20:24 DC 12/02/17 19:52 660 MLS/HR (Noemy Connelly, EVER) Objective Vital Signs Date Time Temp Pulse Resp B/P (MAP) Pulse Ox O2 Delivery O2 Flow Rate FiO2 12/03/17 10:30 36.9 69 16 117/72 (87) 98 Room Air 12/03/17 07:53 Room Air 12/03/17 07:18 36.8 53 16 108/70 (83) 96 Room Air 12/03/17 03:42 36.8 58 16 100/66 (77) 96 Room Air 12/02/17 23:20 36.8 66 16 114/72 (86) 94 Room Air 12/02/17 23:15 Room Air 12/02/17 18:42 36.4 54 18 134/82 (99) 98 Room Air 12/02/17 17:39 36.7 57 16 125/79 (94) 12/02/17 16:36 156/85 (108) 12/02/17 16:25 100 Nasal Cannula 2.0 12/02/17 16:08 61 16 143/83 (103) 100 Nasal Cannula 2.0 12/02/17 15:30 99 Nasal Cannula 2.0 12/02/17 15:30 99 Nasal Cannula 2.0 12/02/17 15:25 36.6 56 15 144/82 (102) 99 Nasal Cannula 2.0 12/02/17 15:13 54 15 12/02/17 15:13 55 15 100 12/02/17 15:11 138/72 12/02/17 15:08 54 14 12/02/17 15:08 53 14 100 12/02/17 15:07 56 16 100 12/02/17 15:07 56 16 12/02/17 15:06 148/72 12/02/17 15:02 56 16 12/02/17 15:02 56 16 100 12/02/17 15:01 135/79 12/02/17 14:57 55 16 12/02/17 14:57 55 16 100 12/02/17 14:56 137/77 12/02/17 14:52 56 16 100 12/02/17 14:52 56 16 12/02/17 14:51 141/85 12/02/17 14:47 58 16 100 12/02/17 14:47 57 16 12/02/17 14:46 149/84 12/02/17 14:43 36.9 12/02/17 14:42 58 16 12/02/17 14:42 58 16 100 12/02/17 14:41 132/72 12/02/17 14:38 58 13 12/02/17 14:38 60 13 100 12/02/17 14:36 152/81 12/02/17 14:33 61 12 100 12/02/17 14:33 59 12 12/02/17 14:32 59 16 100 12/02/17 14:32 59 16 12/02/17 14:31 142/77 12/02/17 14:27 62 16 99 12/02/17 14:27 62 16 12/02/17 14:26 145/80 12/02/17 14:22 68 15 12/02/17 14:22 65 15 100 12/02/17 14:21 136/76 12/02/17 14:18 135/75 12/02/17 14:17 36.9 66 16 135/75 100 Nasal Cannula 2 12/02/17 14:17 73 13 100 12/02/17 14:17 71 13 (Noemy Connelly, EVER) Physical Exam Notes: General: no distress Eyes: normal inspection, PERLL Respiratory: chest non tender, clear to auscultation, normal breath sounds, no respiratory distress, no accessory muscle use Cardiac: regular rate and rhythm, no rub or gallop, no murmur, no edema, no jvd GI/: active bowel sounds, no abd pain or tenderness, soft, non distended Extremities: normal range of motion, normal strength, non tender Neuro/Psych: alert and oriented x 3, normal mood and affect Skin: normal color, dry (Noemy Connelly CRNP) Laboratory Results Last 24 Hours Test 12/03/17 05:48 White Blood Count 11.55 K/uL Red Blood Count 3.82 M/uL Hemoglobin 11.1 g/dL Hematocrit 33.8 % Mean Corpuscular Volume 88.5 fL Mean Corpuscular Hemoglobin 29.1 pg Mean Corpuscular Hemoglobin Concent 32.8 g/dl RDW Standard Deviation 44.0 fL RDW Coefficient of Variation 13.6 % Platelet Count 175 K/uL Mean Platelet Volume 11.5 fL Sodium Level 138 mmol/L Potassium Level 4.1 mmol/L Chloride Level 106 mmol/L Carbon Dioxide Level 27 mmol/L Anion Gap 5.0 mmol/L Blood Urea Nitrogen 12 mg/dl Creatinine 0.74 mg/dl Est Creatinine Clear Calc Drug Dose 61.3 ml/min Estimated GFR () 95.1 Estimated GFR (Non- 82.1 BUN/Creatinine Ratio 15.8 Random Glucose 145 mg/dl Calcium Level 8.4 mg/dl (Noemy Connelly CRNP) Assessment and Plan Ms. Stroud is a 72 year old woman s/p left TKA L TKA 12/02, acute blood loss anemia - Hgb 11 down from 13 this morning, no s/s of acute hemorrhage - Bowel regimen, DVT prophylaxis, pain control, PT/OT per primary team - post op nausea resolved HTN - continue atenolol Hypothyroid - continue levothyroxine Dyslipidemia - continue pravastatin Medicine will sign of for now, please let us know if we can be of further help in the future (Noemy Connelly CRNP) CLINICAL ALLERGIST Physician Supervision Note: I discussed with Noemy Connelly CLINICAL ALLERGIST and agree with findings and plan as documented in the note. Any exceptions or clarifications are listed here: None Patient doing well postoperatively likely will sign off Documented By: Suman Cononlly (Suman Connolly M.D.)
[2017-12-03 13:16] VITALS: BP 117/72; PULSE 69; TEMP 36.9; O2SAT 98
[2017-12-03] MEDS ORDERED: ASCA500 PO (13:23)
[2017-12-03] MEDS ORDERED: CLB200 PO (13:23)
[2017-12-03] MEDS ORDERED: FERR1TAB13 PO (13:23)
[2017-12-03] MEDS ORDERED: RXC5 PO (13:23)
--- NOTE | 2017-12-03 13:33 | Discharge Instructions ---
Discharge Instructions Date of Service Dec 03, 2017. Admission Reason for Admission: Left Knee Osteoarthritis Discharge Discharge Diagnosis / Problem: left knee osteoarthritis; s/p LTKR Discharge Goals Goal(s): Decrease discomfort, Improve function, Increase independence Activity Recommendations Activity Limitations: as noted below Lifting Limitations: until after follow-up appointment Exercise/Sports Limitations: until after follow-up appointment May Resume Sexual Activity: after follow-up appointment Shower/Bathe: keep incision dry (can shower with incision covered for first week. after than can leave open to air when showering as long as no significant drainage) Driving or Machine Use: until after follow-up appointment Weightbearing Status: Left weightbearing (as tolerated) with immoblizer for first 48hrs after surgery; then may remove; use walker and progress to cane when tolerated with therapist . Instructions / Follow-Up Instructions / Follow-Up Post-operative Instructions Pain Expect to be in a fair amount of pain after surgery. Remember, our goal is not to eliminate your pain, but to make it tolerable. It is a good idea to stay ahead of your pain by taking the medications you were prescribed once you get home. Typically, the pain starts improving 3-7 days after surgery. You should start weaning off the narcotic pain medication (oxycodone, hydrocodone, hydromorphone, morphine) as soon as your pain improves. Please call our office if your pain is not adequately controlled. Ice Ice your operative site at least 5 times a day for 15-30 minutes at a time. Make sure you have a thin cloth between the ice or cooling unit and your skin to prevent borrero bite. This is especially important if you received a nerve block. Continue icing your operative site for the first 5-7 days after surgery , then as needed. Diet/Nausea/Vomiting Start by drinking clear liquids and eating crackers. If you can tolerate this, then you may resume your normal diet. If you feel nauseated or vomit, take Zofran/ondansetron (if prescribed). Please call our office if you have intractable nausea or vomiting, or, if after hours, you may go to the Emergency Room for help. Constipation Constipation is a common side effect of narcotic pain medication. If you have not had a bowel movement within 2 days after surgery, we recommend purchasing an over the counter laxative such as Milk of Magnesia, Dulcolax, or Miralax from a local pharmacy, and taking it as instructed. Call our clinic if any questions. Nerve block The anesthesia team sometimes places a nerve block to help with post-operative pain control. This results in significant numbness and inability to move the extremity. The nerve block usually wears off in 8-12 hours, but sometimes can last up to 24 hours. Please call our office if you are still unable to move your extremity after 24 hours, unless you received a pain pump to take home. Nerve blocks typically wear off quickly, so start taking pain medication as soon as you start feeling soreness near your surgical site. Physical therapy You will start outpatient physical therapy after surgery. Script will be provided. Wound care and showering Your dressing will be removed with physical therapist. They will then apply a director private dry dressing under the tyra hose. You can upon dc home but dressing needs to be kept dry. After 7 days after surgery you can shower with nothing covering dressing as long as no significant drainage. Your Z-line wound incision dressing will be removed when you come into your first appointment with provider. TYRA stockings If you were given white stockings, these are to be worn at all times except to shower (on both legs) for the first 2 weeks after surgery. (once bulky dressing has been removed) Driving You may not drive while taking narcotic pain medication or using a walker. You, the patient, need to make the final determination about when you are safe to drive, however, the earliest you may consider driving after surgery is below: Hip,/Knee/Ankle Surgery: approximately 2-4 weeks Return to Work Your return to work depends on what surgery was done and what type of work you do. Please bring any paperwork your employer needs completed to your first post -operative visit. Also, bring a description of your job duties, as this helps us to understand what risks you may face at work. Travel Avoid long distance travel (greater than 1-2 hour) in airplanes and cars for the first 4-6 weeks after surgery. If you do travel, take frequent rest breaks to get out and move around Follow-up with Dr Rosen on 12-17-17 at 9am You should have a follow-up appointment already scheduled 1-2 days after surgery. If not, please contact our office to make this appointment before you leave the hospital. When to call the office It is normal to have swelling and bruising in the limb that was operated on. This will improve with time. It is also normal to have fevers for the first 2 days after surgery. Reasons you should call your doctor include: Uncontrolled pain; Nausea, vomiting, or constipation that does not improve with medication; Fevers over 101.5, chills, sweats; Drainage or bleeding from the wound; Foul odor; Spreading areas of redness; Any other concerns Current Hospital Diet Patient's current hospital diet: Regular Diet Discharge Diet Recommended Diet: Regular Diet Procedures Procedures Performed: Left Total Knee Arthroplasty Pending Studies Studies pending at discharge: no Laboratory Results Hemoglobin A1c Test 09/23/17 08:20 Range/Units Estimated Average Glucose 108 mg/dl Hemoglobin A1c 5.4 4.5-5.6 % Lipid Panel Test 09/23/17 08:20 Range/Units Triglycerides Level 102 0-150 mg/dl Cholesterol Level 172 0-200 mg/dl HDL Cholesterol 52 mg/dl Cholesterol/HDL Ratio 3.3 LDL Cholesterol, Calculated 100 mg/dl Medical Emergencies . Who to Call and When: Medical Emergencies: If at any time you feel your situation is an emergency, please call 911 immediately. . Non-Emergent Contact Non-Emergency issues call your: Surgeon Call Non-Emergent contact if: temperature is above 101.5, your pain is not controlled, wound has increased drainage . "Provider Documentation" section prepared by Bernice Burrell. . [place] Drug Monitoring Program Search Results: patient reviewed within database
[2017-12-03] MEDS ORDERED: CeleBREX 200 MG CAP PO SCH (21:00)
--- NOTE | 2017-12-24 11:58 | Discharge Summary ---
Discharge Summary Date of Service Dec 24, 2017. Discharge Summary Admission Date: Dec 02, 2017 at 10:42 Discharge Date: Dec 03, 2017 Discharge Disposition: Home Principal Diagnosis: Left knee severe osteoarthritis Secondary Diagnoses/Problems: HTN, Hypothyroidism, Dyslipidemia Procedures: Left total knee replacement Consultations: Medicine Pending Studies/Follow-Up: none Medication Reconciliation New Medications: Ferrous Sulfate (Kp Ferrous Sulfate) 325 Mg Tab 1 TAB PO BID for 14 Days, #28 TAB 0 Refills Ascorbic Acid (Vitamin C) 500 Mg Tab 250 MG PO BID for 14 Days, #28 TAB Celecoxib (Celebrex) 200 Mg Cap 200 MG PO BID for 30 Days, #60 CAP with food Oxycodone HCl (Oxycodone HCl) 5 Mg Tab 5-10 MG PO Q4H PRN for Pain, #40 TAB Continued Medications: Atenolol (Tenormin) 25 Mg Tab 25 MG PO QAM, 0 Refills Levothyroxine Sodium (Levothyroxine Sodium) 75 Mcg Tab 75 MCG PO QAM Pravastatin Sod (Pravastatin Sodium) 20 Mg Tab 20 MG PO HS [Vitamin D] () 5000 UNITS PO QAM Discontinued Medications: Ibuprofen (Advil) 200 Mg Tab 600 MG PO PRN, TAB Hospital Course 72yr old female admitted to [facility] on 12-02-17 after undergoing a left total knee replacement. She had no issues with anesthesia and no complications during surgery. She received antibiotics prior to surgery and 24hr post-op. She experienced nausea and vomiting evening of POD 0. Improved with medication. Tolerated PO fluids and regular diet. Pain controlled with PO medications. On POD 1 patient anxious to go home with family and plan for outpatient physical therapy. She was seen by inpatient therapy and ambulated with walker and immobilizer without issue. She was deemed stable for discharge. DVT prophylaxis includes 30mg lovenox SQ BID x 3wks, followed by ASA 325mg BID x 3wks, and tyra hose. She was provided with appropriate DC medications and scripts. Follow-up appointment with Dr Rosen scheduled 10-14 days after surgery. Physical Therapy appointment scheduled as well. Total time spent on discharge = This includes examination of the patient, discharge planning, medication reconciliation, and communication with other providers. Discharge Instructions Post-operative Instructions Dear Patient and Family/Friends, Before you are discharged from the hospital, it is important to know what to expect when you get home after surgery. To that end, we have created this sheet of discharge instructions which covers many commonly asked questions. Make sure you go through this sheet in its entirety with your nurse before you are discharged. Please note that we will go over the specifics of your surgery and recovery when you return for your first post-operative visit. Sincerely, Dr. Ortiz Pain Expect to be in a fair amount of pain after surgery. Remember, our goal is not to eliminate your pain, but to make it tolerable. It is a good idea to stay ahead of your pain by taking the medications you were prescribed once you get home. Typically, the pain starts improving 3-7 days after surgery. You should start weaning off the narcotic pain medication (oxycodone, hydrocodone, hydromorphone, morphine) as soon as your pain improves. Please call our office if your pain is not adequately controlled. Ice Ice your operative site at least 5 times a day for 15-30 minutes at a time. Make sure you have a thin cloth between the ice or cooling unit and your skin to prevent borrero bite. This is especially important if you received a nerve block. Continue icing your operative site for the first 5-7 days after surgery , then as needed. Diet/Nausea/Vomiting Start by drinking clear liquids and eating crackers. If you can tolerate this, then you may resume your normal diet. If you feel nauseated or vomit, take Zofran/ondansetron (if prescribed). Please call our office if you have intractable nausea or vomiting, or, if after hours, you may go to the Emergency Room for help. Constipation Constipation is a common side effect of narcotic pain medication. If you have not had a bowel movement within 2 days after surgery, we recommend purchasing an over the counter laxative such as Milk of Magnesia, Dulcolax, or Miralax from a local pharmacy, and taking it as instructed. Call our clinic if any questions. Slings and Braces If you were placed in a sling or brace, it must be worn at all times, including sleep. You may remove your sling or brace for physical therapy, home exercises , and showering. The length of time you will be in your brace and range of motion restrictions depends on what surgery you had; these details will be reviewed at your first post-operative appointment. Nerve block The anesthesia team sometimes places a nerve block to help with post-operative pain control. This results in significant numbness and inability to move the extremity. The nerve block usually wears off in 8-12 hours, but sometimes can last up to 24 hours. Please call our office if you are still unable to move your extremity after 24 hours, unless you received a pain pump to take home. Nerve blocks typically wear off quickly, so start taking pain medication as soon as you start feeling soreness near your surgical site. Weight bearing and Range of Motion. Do not bear any weight through your operative extremity immediately after surgery. If you had upper extremity surgery, do not lift anything with that arm. If you are in a knee brace, keep it locked in place until your follow-up. We will discuss your weight bearing, range of motion, and lifting restrictions in detail at your first post-operative appointment. Continuous Passive Motion (CPM) Machine If you were prescribed a CPM machine, it will start after your first post- operative appointment, at which time we will give you instructions on the range of motion settings and duration of treatment Physical therapy You will be given a prescription for physical therapy or occupational therapy at your first post-operative appointment. Typically, patients start therapy within 1 week of surgery Wound care and showering We will inspect your wound at your first post-operative visit, and may do a dressing change at that time. Most patients will be in a water-proof dressing that is removed 14 days after surgery. It is normal to see some dried blood on the dressing. Do not remove your dressing, paper strips or sutures yourself unless you are given permission. Showering is allowed the day after surgery. Do not scrub or remove any dressings. The wound should not be submerged underwater (i.e. in a bathtub or pool) until 4 weeks after surgery TYRA stockings If you were given white stockings, these are to be worn at all times except to shower (on both legs) for the first 2 weeks after surgery. Driving You may not drive while taking narcotic pain medication or while in a cast, splint, sling or brace. You, the patient, need to make the final determination about when you are safe to drive, however, the earliest you may consider driving after surgery is below: Hand/Wrist/Elbow Surgery: 3 days Shoulder Surgery: 2 weeks Hip,/Knee/Ankle Surgery: 4 weeks Fracture repair: 6 weeks Return to Work Your return to work depends on what surgery was done and what type of work you do. Please bring any paperwork your employer needs completed to your first post -operative visit. Also, bring a description of your job duties, as this helps us to understand what risks you may face at work. Travel Avoid long distance travel (greater than 1 hour) in airplanes and cars for the first 6 weeks after surgery. If you must travel, you need to have a Doppler ultrasound done before you travel to rule out a blood clot in your legs. Follow-up You should have a follow-up appointment already scheduled 1-2 days after surgery. If not, please contact our office to make this appointment before you leave the hospital. When to call the office It is normal to have swelling and bruising in the limb that was operated on. This will improve with time. It is also normal to have fevers for the first 2 days after surgery. Reasons you should call your doctor include: Uncontrolled pain; Nausea, vomiting, or constipation that does not improve with medication; Fevers over 101.5, chills, sweats; Drainage or bleeding from the wound; Foul odor; Spreading areas of redness; Any other concerns
== END 2017-12-03 14:48 | disposition home or self-care (01) | DRG 470 ==
LOC: C.ACU 08:11 → C.3E 10:42 → ENRESERV 15:10
PROVIDERS: ADMIT Orthopaedic Surgery Sports Medicine; ATTEND Orthopaedic Surgery Sports Medicine
PROC: 0SRD0J9 Replacement of Left Knee Joint with Synthetic Substitute, Cemented, Open Approach (ICD-10-PCS; principal; 2017-12-02 10:30)
DX: M17.12 Unilateral primary osteoarthritis, left knee (principal); D62 Acute posthemorrhagic anemia; E78.5 Hyperlipidemia, unspecified; I10 Essential (primary) hypertension; E03.9 Hypothyroidism, unspecified; Z85.3 Personal history of malignant neoplasm of breast; R11.2 Nausea with vomiting, unspecified; Z90.10 Acquired absence of unspecified breast and nipple; T41.0X5A Adverse effect of inhaled anesthetics, initial encounter; Y92.230 Patient room in hospital as the place of occurrence of the external cause

== ENCOUNTER 2018-09-26 22:32 | Inpatient (IN) ==
[2018-09-26] MEDS ORDERED: SODIUM CHLORIDE 0.9% 1000ML 2,000 ML IV ONE (22:52)
[2018-09-26] MEDS ORDERED: PIPERACILL/TAZOBAC CONSULT ACTIVE PRN (22:52)
[2018-09-26] MEDS ORDERED: VANCOMYCIN HCL 1,200 MG in SODIUM CHLORIDE 0.9% 500 ML IV ONE (22:52)
[2018-09-26] MEDS ORDERED: VANCOMYCIN CONSULT ACTIVE PRN (22:52)
[2018-09-26] MEDS ORDERED: PIPERACILLIN/TAZOBACTAM 4.5 GM/120 ML BAG IV ONE (22:52)
[2018-09-26] MEDS ORDERED: VANCOMYCIN HCL 1,250 MG in SODIUM CHLORIDE 0.9% 500 ML IV STA (23:17)
[2018-09-26 23:25] LABS: Base Excess VBG -5.3 mEq/L; Oxygen Saturation VBG 65.1 %; pH VBG 7.37 (7.36-7.41)
[2018-09-26 23:32] LABS: INR 1.3 (0.9-1.1); Partial Thromboplastin Ratio 1.3; Partial Thromboplastin Time 35.2 Seconds (21.0-31.0); Prothrombin Time 13.5 Seconds (9.0-12.0)
[2018-09-26 23:43] LABS: Albumin Level 2.1 gm/dl (3.4-5.0); BUN Creatinine Ratio 11.5 (10-20); Bilirubin Direct 0.4 mg/dl (0-0.2); Calcium 7.6 mg/dl (8.5-10.1); Creatinine Clr Calc Pharmacy 13.8 ml/min; Est GFR (African American) 15.9; Est GFR (Non-African American) 13.7; Magnesium 1.8 mg/dl (1.8-2.4); Potassium 3.6 mmol/L (3.5-5.1)
[2018-09-26 23:50] LABS: Albumin Globulin Ratio 0.7 (0.9-2); Bilirubin,Total 0.6 mg/dl (0.2-1); Phosphorus 2.1 mg/dl (2.5-4.9); Total Protein 5.1 gm/dl (6.4-8.2)
[2018-09-27 00:23] LABS: ALC (manual) 0.27 K/uL (1.2-3.4); Basophils # (manual) 0.01 K/uL (0-0.2); Hemoglobin 9.1 g/dL (12.0-16.0); Lymphocytes # (manual) 0.27 K/uL (1.2-3.4); Mean Corpuscular Volume 82.8 fL (80-100); Mean Platelet Volume 10.9 fL (7.4-10.4); Metamyelocytes # (manual) 0.02 K/uL (0-0); Monocytes # (manual) 0.25 K/uL (0.11-0.59); Platelet Count 46 K/uL (130-400); RDW Coefficient of Variation 13.3 % (11.5-14.5); RDW Standard Deviation 40.5 fL (36.4-46.3); Red Blood Count 3.14 M/uL (4.2-5.4); White Blood Count 0.63 K/uL (4.8-10.8)
[2018-09-27 00:45] LABS: Platelet Estimate Decreased (Normal)
[2018-09-27] MEDS ORDERED: ALBUMIN HUMAN 25% 12.5 GM/50 ML VIAL IV ONE (01:25)
[2018-09-27] MEDS ORDERED: HYDROCORTISONE SOD SUCCINATE 100 MG/2 ML VIAL IV SCH (01:30)
[2018-09-27 01:41] LABS: iSTAT Arterial Blood Gas HCO3 16 meg/L (19-24); iSTAT Carbon Dioxide 17 mEq/l (24-31); iSTAT FiO2 35 %; iSTAT Site R Radial
[2018-09-27] MEDS: NOREPINEPHRINE BIT INJ 8 MG in DEXTROSE 5% 500 ML IV SCH ×6 (01:45→08:42)
[2018-09-27] MEDS ORDERED: NOREPINEPHRINE BIT INJ 8 MG in DEXTROSE 5% 500 ML IV PRN (01:45)
[2018-09-27] MEDS ORDERED: DEXTROSE 50% 50 ML SYRINGE IV PRN (02:35)
[2018-09-27] MEDS ORDERED: GLUCOSE 10 TABS/TUBE PO PRN (02:35)
[2018-09-27] MEDS ORDERED: GLUCAGON FOR INJ 1 MG VIAL SQ PRN (02:35)
[2018-09-27] MEDS ORDERED: CARBOHYDRATES FOR HYPOGLYCEMIA PO PRN (02:35)
[2018-09-27] MEDS ORDERED: ICU PROTOCOL FOR HYPERGLYCEMIA PRN (02:35)
[2018-09-27] MEDS ORDERED: VANCOMYCIN HCL 1,000 MG in SODIUM CHLORIDE 0.9% 250 ML IV SCH (02:35)
[2018-09-27] MEDS ORDERED: PIPERACILL/TAZOBAC CONSULT ACTIVE PRN (02:35)
[2018-09-27] MEDS ORDERED: VANCOMYCIN CONSULT ACTIVE PRN (02:35)
[2018-09-27] MEDS ORDERED: GLUCOSE 40% GEL 15 GM TUBE PO PRN (02:35)
--- NOTE | 2018-09-27 02:39 | Emergency Department Note ---
Entered by Radha Murcia acting as a scribe for Stuart Tran MD History of Present Illness General Chief complaint: Urinary Symptoms Stated complaint: Urinary Symptoms Time Seen by Provider: 09/26/18 22:48 Source: patient and family Limitations: no limitations History of Present Illness Onset (ago): day(s) (today) Location: head (generalized), upper extremity and lower extremity Pain Consistency: + constant Current Pain Intensity: 0 Quality: + other (weakness) Relieved By: + none Associated symptoms: + other (diarrhea); no shortness of breath Treatments prior to arrival: other (Advil) The patient is a 73 year old female who presents to the ED complaining of constant generalized weakness that began today. She complains of 2 episodes of diarrhea today. The patient denies any pain. She denies any SOB. The patient's family member, at bedside, reports that the patient had her first chemotherapy treatment 3 days ago. She notes a history of lymphoma. The patient denies taking any blood thinners. She reports that she took Advil DIP DYER, but it has not provided relief. Home Medications Home Medications Medication Instructions Recorded Confirmed Type atenolol 25 mg PO QAM 09/07/18 09/27/18 History levothyroxine 75 mcg PO QAM 09/07/18 09/27/18 History pravastatin 20 mg PO HS 09/07/18 09/27/18 History cephalexin [Keflex] 500 mg PO QID 7 Days #28 cap 09/22/18 09/27/18 Rx ondansetron HCl 8 mg PO Q8 PRN 09/27/18 09/27/18 History prednisone 100 mg PO UD 09/27/18 09/27/18 History prochlorperazine maleate 10 mg PO Q6 PRN 09/27/18 09/27/18 History Allergies Allergy/AdvReac Type Severity Reaction Status Date / Time No Known Allergies Allergy Unknown Verified 09/21/18 23:06 Past Med/Surg History Medical History Abnormal EKG (Chronic) Breast cancer (Chronic) H/O Left breast cancer - DCIS Hyperlipidemia (Chronic) Hypertension (Chronic) Hypothyroidism (Chronic) Non Hodgkin's lymphoma REASON FOR PORT PLACEMENT Surgical History H/O of hysterectomy with bilateral oophorectomy (Resolved) H/O partial mastectomy (Resolved) Left H/O total knee replacement (Resolved) LEFT Hx laparoscopic cholecystectomy (Resolved) History of colonoscopy History of esophagogastroduodenoscopy (EGD) History of tooth extraction Nausea and vomiting after administration of anesthetic agent Family History Mother , in her 70s Diabetes Stroke Father , at 72yo Myocardial infarction Brother No problems noted. Brother No problems noted. Brother No problems noted. Sister Liver disorder Sister No problems noted. Sister No problems noted. Sister No problems noted. Daughter No problems noted. Social History Preferred Language: Albanian Communication Ability: Effective Visual Impairment: No Limitations Hearing Ability: Hard of Hearing Canvassing Manager Required: No Beliefs That Will Affect Care: None marital status: Current Living Situation: Alone current occupational status: retired current occupation: [employer] Other Information That Helps Us Care for You: No Feels Safe at Home: Yes Safety Concerns: Feels Safe At This Time Smoking Status: Never smoker Do You Dip or Chew Tobacco: No Second Hand Exposure: No Tobacco Cessation Education Requested by Patient: No Hx Alcohol Use: No Hx Substance Use: No caffeine: No during the past year weight has: remained stable Review of Systems See HPI for pertinent positives & negatives. and A total of 10 systems reviewed and were otherwise negative Physical Exam Vital Signs Vital Signs - 24 hr 09/26/18 22:34 09/26/18 22:45 09/26/18 23:03 Temperature 36.7 C Temperature Source Oral Sepsis Recent Fever Within 48 Hours Yes Sepsis New/Unexplained Change in Mental Status Yes Sepsis Action Taken by Nursing No Action Required Pulse Rate 91 H 99 H 98 H Pulse Rate [Apical] Pulse Rate from SpO2 Sensor 99 H 97 H Pulse Rhythm [Apical] Respiratory Rate 16 31 H 31 H Respiratory Effort / Characteristics Respiratory Depth Normal Respiratory Pattern Blood Pressure 53/39 L 79/50 L 79/45 L Blood Pressure [Right Arm] Blood Pressure Mean 43 59 56 Blood Pressure Mean [Right Arm] Pulse Oximetry 97 93 94 Oxygen Delivery Method Room Air Room Air Room Air Fraction of Inspired Oxygen 09/26/18 23:10 09/26/18 23:15 09/26/18 23:16 Temperature Temperature Source Sepsis Recent Fever Within 48 Hours Sepsis New/Unexplained Change in Mental Status Sepsis Action Taken by Nursing Pulse Rate 95 H 94 H Pulse Rate [Apical] 91 H Pulse Rate from SpO2 Sensor 94 H 94 H Pulse Rhythm [Apical] Regular Respiratory Rate 14 26 H 26 H Respiratory Effort / Characteristics Non-Labored Spontaneous Respiratory Depth Normal Respiratory Pattern Regular Blood Pressure 69/46 L Blood Pressure [Right Arm] 78/45 L Blood Pressure Mean 53 Blood Pressure Mean [Right Arm] 56 Pulse Oximetry 99 95 96 Oxygen Delivery Method Room Air Fraction of Inspired Oxygen 09/26/18 23:30 09/26/18 23:45 09/26/18 23:46 Temperature Temperature Source Sepsis Recent Fever Within 48 Hours Sepsis New/Unexplained Change in Mental Status Sepsis Action Taken by Nursing Pulse Rate 95 H 91 H 91 H Pulse Rate [Apical] Pulse Rate from SpO2 Sensor 96 H 91 H 91 H Pulse Rhythm [Apical] Respiratory Rate 24 21 25 H Respiratory Effort / Characteristics Respiratory Depth Respiratory Pattern Blood Pressure 69/49 L 73/47 L Blood Pressure [Right Arm] Blood Pressure Mean 55 55 Blood Pressure Mean [Right Arm] Pulse Oximetry 97 98 99 Oxygen Delivery Method Fraction of Inspired Oxygen 09/27/18 00:19 09/27/18 00:20 09/27/18 00:30 Temperature Temperature Source Sepsis Recent Fever Within 48 Hours Sepsis New/Unexplained Change in Mental Status Sepsis Action Taken by Nursing Pulse Rate 97 H 97 H Pulse Rate [Apical] Pulse Rate from SpO2 Sensor 96 H 103 H Pulse Rhythm [Apical] Respiratory Rate 31 H 44 H 24 Respiratory Effort / Characteristics Respiratory Depth Respiratory Pattern Blood Pressure 82/56 L 97/62 L Blood Pressure [Right Arm] Blood Pressure Mean 64 73 Blood Pressure Mean [Right Arm] Pulse Oximetry 93 93 Oxygen Delivery Method Fraction of Inspired Oxygen 09/27/18 00:45 09/27/18 00:46 09/27/18 01:00 Temperature Temperature Source Sepsis Recent Fever Within 48 Hours Sepsis New/Unexplained Change in Mental Status Sepsis Action Taken by Nursing Pulse Rate 102 H 100 H 101 H Pulse Rate [Apical] Pulse Rate from SpO2 Sensor 103 H 101 H 101 H Pulse Rhythm [Apical] Respiratory Rate 23 33 H 28 H Respiratory Effort / Characteristics Respiratory Depth Respiratory Pattern Blood Pressure 104/53 L 97/54 L Blood Pressure [Right Arm] Blood Pressure Mean 70 68 Blood Pressure Mean [Right Arm] Pulse Oximetry 95 94 94 Oxygen Delivery Method Fraction of Inspired Oxygen 09/27/18 01:03 09/27/18 01:15 09/27/18 01:16 Temperature Temperature Source Sepsis Recent Fever Within 48 Hours Sepsis New/Unexplained Change in Mental Status Sepsis Action Taken by Nursing Pulse Rate 98 H 100 H 101 H Pulse Rate [Apical] Pulse Rate from SpO2 Sensor 97 H 101 H Pulse Rhythm [Apical] Respiratory Rate 28 H 24 31 H Respiratory Effort / Characteristics Respiratory Depth Respiratory Pattern Blood Pressure 100/70 Blood Pressure [Right Arm] Blood Pressure Mean 80 Blood Pressure Mean [Right Arm] Pulse Oximetry 100 100 100 Oxygen Delivery Method Fraction of Inspired Oxygen 35 GENERAL: Awake, alert, ill-appearing. HENT: Normocephalic, atraumatic. Oropharynx with dry mucous membranes and otherwise unremarkable. EYES: Normal conjunctiva. Sclera non-icteric. EOMI. No nystamgus. PEARRL. NECK: Supple. No nuchal rigidity. FROM. No JVD. RESPIRATORY: CTAB. CHEST: Right upper chest wall Port-A-Cath site clean, dry, and intact. CARDIAC: Regular rate, normal rhythm. Extremities warm and well perfused. Pulses equal. ABDOMEN: Soft, non-distended. No tenderness to palpation. No rebound or guarding. No masses. RECTAL: Deferred. MUSCULOSKELETAL: Chest examination reveals no tenderness. The back is symmetrical on inspection without obvious abnormality. There is no CVA tenderness to palpation. No joint edema. LOWER EXTREMITIES: Calves are equal size bilaterally and non-tender. No edema. No discoloration. NEURO: Normal sensorium. No sensory or motor deficits noted. SKIN: No rash or jaundice noted. Pale and clammy. Course 2250: The patient was evaluated in room C04. A complete history and physical exam was performed. 0001: I reevaluated the patient. 0017: I spoke with Dr. Moeller, [facility] hospitalist, about the patients case. He will further evaluate the patient. Consultations Consultation #1: I spoke with Dr. Moeller, [facility] hospitalist, about the patients case. He will further evaluate the patient. Time: 00:17 Administered Medications Norepinephrine Bitartrate 8 mg (/ Dextrose) 508 mls @ 0 mls/hr IV .Q0M PRN; Protocol PRN Reason: TITRATE Stop: 10/27/18 01:44 Last Admin: 09/27/18 02:51 Dose: 0.05 mcg/kg/min, 13.1 mls/hr Documented by: [id number] Cosigned by: [id number] Sodium Chloride (Nss 1000ml) 1,000 mls @ 150 mls/hr IV .Q6H40M SARAH Stop: 10/27/18 03:44 Last Admin: 09/27/18 03:46 Dose: 150 mls/hr Documented by: [id number] Discontinued Medications Albumin Human (Albumin 25%) Confirm Administered Dose 25 gm IV .STK-MED ONE Stop: 09/27/18 01:26 Last Admin: 09/27/18 02:56 Dose: Not Given Documented by: [id number] Piperacillin Sod/Tazobactam Sod (Zosyn) 4.5 gm in 120 mls @ 240 mls/hr IV NOW ONE Stop: 09/26/18 23:21 Last Infusion: 09/26/18 23:47 Dose: 0 mls/hr Documented by: [id number] Admin: 09/26/18 23:07 Dose: 240 mls/hr Documented by: [id number] Vancomycin HCl 1,200 mg/ (Sodium Chloride) 524 mls @ 200 mls/hr IV NOW ONE; Protocol Stop: 09/27/18 01:21 Last Admin: 09/27/18 05:16 Dose: Not Given Documented by: [id number] Sodium Chloride (Nss 1000ml) 2,000 mls @ 999 mls/hr IV .Q2H1M ONE Stop: 09/27/18 00:52 Last Infusion: 09/27/18 01:06 Dose: 0 mls/hr Documented by: [id number] Admin: 09/26/18 23:00 Dose: 999 mls/hr Documented by: [id number] Norepinephrine Bitartrate 8 mg (/ Dextrose) 508 mls @ 13.13 mls/hr IV .Q24H [facility]; Protocol Stop: 10/27/18 00:44 Last Titration: 09/27/18 05:15 Dose: 0 mcg/kg/min, 0 mls/hr Documented by: [id number] Admin: 09/27/18 02:56 Dose: Not Given Documented by: [id number] Admin: 09/27/18 02:06 Dose: 0.2 mcg/kg/min, 52.5 mls/hr Documented by: [id number] Cosigned by: [id number] Titration: 09/27/18 02:06 Dose: 0.3 mcg/kg/min, 78.8 mls/hr Documented by: [id number] Cosigned by: [id number] Admin: 09/27/18 01:45 Dose: 0.3 mcg/kg/min, 78.8 mls/hr Documented by: [id number] Cosigned by: [id number] Albumin Human (Albumin 5%) 250 mls @ 500 mls/hr IV Q1H SARAH Stop: 09/27/18 04:44 Last Admin: 09/27/18 05:15 Dose: Not Given Documented by: [id number] Admin: 09/27/18 05:15 Dose: Not Given Documented by: [id number] Admin: 09/27/18 05:14 Dose: Not Given Documented by: [id number] Infusion: 09/27/18 03:46 Dose: 0 mls/hr Documented by: [id number] Admin: 09/27/18 03:00 Dose: 500 mls/hr Documented by: [id number] Hydrocortisone Sodium (Succinate 100 mg/ Syringe) 2 mls @ 4 mls/min IV TODAY@0245 ONE Stop: 09/27/18 02:46 Last Admin: 09/27/18 03:59 Dose: 4 mls/min Documented by: [id number] Medical Decision Making Differential Diagnosis Etiologies such as sepsis, UTI, pneumonia, bacteremia, metabolic process, electrolyte abnormalities, cardiac sources, intracerebral event, intra-abdominal process, toxicological process, neurologic process, as well as others were entertained. Medical Records Attestation: I reviewed the patient's medical records. Home Medications Current Medication List: was personally reviewed by me Laboratory Data Attestation: I reviewed the patient's lab results. Result diagrams: 09/26/18 23:07 09/27/18 04:18 Lab Results 09/26/18 09/26/18 09/26/18 Range/Units 23:06 23:06 23:06 WBC (4.8-10.8) K/uL RBC (4.2-5.4) M/uL Hgb (12.0-16.0) g/dL Hct (37-47) % MCV (80-100) fL MCH (25-34) pg MCHC (32-36) g/dL RDW Std Deviation (36.4-46.3) fL RDW Coeff of Hosea (11.5-14.5) % Plt Count (130-400) K/uL MPV (7.4-10.4) fL Neutrophils % (Manual) % Band Neutrophils % % Lymphocytes % (Manual) % Reactive Lymphs % (Man) % Monocytes % (Manual) % Basophils % (Manual) % Metamyelocytes % (Man) % Neutrophils # (Manual) (1.4-6.5) K/uL Total Absolute Neuts (1.4-6.5) K/uL Lymphocytes # (Manual) (1.2-3.4) K/uL Total Abs Lymphocytes (1.2-3.4) K/uL Monocytes # (Manual) (0.11-0.59) K/uL Basophils # (Manual) (0-0.2) K/uL Metamyelocytes # (Man) (0-0) K/uL Large Granular Lymphs % Platelet Estimate (Normal) PT 13.5 H (9.0-12.0) Seconds INR 1.3 H (0.9-1.1) APTT 35.2 H (21.0-31.0) Seconds PTT Ratio 1.3 VBG pH (7.36-7.41) VBG pCO2 (38-50) mmHg VBG pO2 mmHg VBG HCO3 mmol/L VBG O2 Saturation % VBG Base Excess mEq/L Barometric Pressure mm/Hg Sodium (136-145) mmol/L Potassium (3.5-5.1) mmol/L Chloride (98-107) mmol/L Carbon Dioxide (21-32) mmol/L Anion Gap (3-11) BUN (7-18) mg/dl Creatinine (0.6-1.2) mg/dl Est Cr Clr Drug Dosing ml/min Est GFR ( Amer) Est GFR (Non-Af Amer) BUN/Creatinine Ratio (10-20) Glucose (70-99) mg/dl Osmolality 264 L (280-300) mOsm/kg Lactate (0.4-2.0) mmol/L Calcium (8.5-10.1) mg/dl Phosphorus (2.5-4.9) mg/dl Magnesium (1.8-2.4) mg/dl Total Bilirubin (0.2-1) mg/dl Direct Bilirubin (0-0.2) mg/dl AST (15-37) U/L ALT (12-78) U/L Alkaline Phosphatase (45-117) U/L Total Protein (6.4-8.2) gm/dl Albumin (3.4-5.0) gm/dl Globulin (2.5-4.0) gm/dl Albumin/Globulin Ratio (0.9-2) Procalcitonin 39.91 H (0-0.5) ng/ml Urine Osmolality (500-800) mOsm/kg Blood Type Antibody Screen 09/26/18 09/26/18 09/26/18 Range/Units 23:07 23:07 23:07 WBC 0.63 L* (4.8-10.8) K/uL RBC 3.14 L (4.2-5.4) M/uL Hgb 9.1 L (12.0-16.0) g/dL Hct 26.0 L (37-47) % MCV 82.8 (80-100) fL MCH 29.0 (25-34) pg MCHC 35.0 (32-36) g/dL RDW Std Deviation 40.5 (36.4-46.3) fL RDW Coeff of Hosea 13.3 (11.5-14.5) % Plt Count 46 L (130-400) K/uL MPV 10.9 H (7.4-10.4) fL Neutrophils % (Manual) 13.0 % Band Neutrophils % 0.0 % Lymphocytes % (Manual) 43.0 % Reactive Lymphs % (Man) 0.0 % Monocytes % (Manual) 40.0 % Basophils % (Manual) 1.0 % Metamyelocytes % (Man) 3.0 % Neutrophils # (Manual) 0.08 L (1.4-6.5) K/uL Total Absolute Neuts 0.08 L* (1.4-6.5) K/uL Lymphocytes # (Manual) 0.27 L (1.2-3.4) K/uL Total Abs Lymphocytes 0.27 L (1.2-3.4) K/uL Monocytes # (Manual) 0.25 (0.11-0.59) K/uL Basophils # (Manual) 0.01 (0-0.2) K/uL Metamyelocytes # (Man) 0.02 H (0-0) K/uL Large Granular Lymphs 0.0 % Platelet Estimate Decreased L (Normal) PT (9.0-12.0) Seconds INR (0.9-1.1) APTT (21.0-31.0) Seconds PTT Ratio VBG pH (7.36-7.41) VBG pCO2 (38-50) mmHg VBG pO2 mmHg VBG HCO3 mmol/L VBG O2 Saturation % VBG Base Excess mEq/L Barometric Pressure mm/Hg Sodium 127 L (136-145) mmol/L Potassium 3.6 (3.5-5.1) mmol/L Chloride 94 L (98-107) mmol/L Carbon Dioxide 23 (21-32) mmol/L Anion Gap 10.0 (3-11) BUN 37 H (7-18) mg/dl Creatinine 3.23 H (0.6-1.2) mg/dl Est Cr Clr Drug Dosing 13.8 ml/min Est GFR ( Amer) 15.9 Est GFR (Non-Af Amer) 13.7 BUN/Creatinine Ratio 11.5 (10-20) Glucose 107 H (70-99) mg/dl Osmolality (280-300) mOsm/kg Lactate 2.0 (0.4-2.0) mmol/L Calcium 7.6 L (8.5-10.1) mg/dl Phosphorus 2.1 L (2.5-4.9) mg/dl Magnesium 1.8 (1.8-2.4) mg/dl Total Bilirubin 0.6 (0.2-1) mg/dl Direct Bilirubin 0.4 H (0-0.2) mg/dl AST 18 (15-37) U/L ALT 23 (12-78) U/L Alkaline Phosphatase 90 (45-117) U/L Total Protein 5.1 L (6.4-8.2) gm/dl Albumin 2.1 L (3.4-5.0) gm/dl Globulin 3.0 (2.5-4.0) gm/dl Albumin/Globulin Ratio 0.7 L (0.9-2) Procalcitonin (0-0.5) ng/ml Urine Osmolality (500-800) mOsm/kg Blood Type Antibody Screen 09/26/18 09/26/18 09/27/18 Range/Units 23:07 23:07 00:44 WBC (4.8-10.8) K/uL RBC (4.2-5.4) M/uL Hgb (12.0-16.0) g/dL Hct (37-47) % MCV (80-100) fL MCH (25-34) pg MCHC (32-36) g/dL RDW Std Deviation (36.4-46.3) fL RDW Coeff of Hosea (11.5-14.5) % Plt Count (130-400) K/uL MPV (7.4-10.4) fL Neutrophils % (Manual) % Band Neutrophils % % Lymphocytes % (Manual) % Reactive Lymphs % (Man) % Monocytes % (Manual) % Basophils % (Manual) % Metamyelocytes % (Man) % Neutrophils # (Manual) (1.4-6.5) K/uL Total Absolute Neuts (1.4-6.5) K/uL Lymphocytes # (Manual) (1.2-3.4) K/uL Total Abs Lymphocytes (1.2-3.4) K/uL Monocytes # (Manual) (0.11-0.59) K/uL Basophils # (Manual) (0-0.2) K/uL Metamyelocytes # (Man) (0-0) K/uL Large Granular Lymphs % Platelet Estimate (Normal) PT (9.0-12.0) Seconds INR (0.9-1.1) APTT (21.0-31.0) Seconds PTT Ratio VBG pH 7.37 (7.36-7.41) VBG pCO2 35 L (38-50) mmHg VBG pO2 35 mmHg VBG HCO3 19 mmol/L VBG O2 Saturation 65.1 % VBG Base Excess -5.3 mEq/L Barometric Pressure 728.1 mm/Hg Sodium (136-145) mmol/L Potassium (3.5-5.1) mmol/L Chloride (98-107) mmol/L Carbon Dioxide (21-32) mmol/L Anion Gap (3-11) BUN (7-18) mg/dl Creatinine (0.6-1.2) mg/dl Est Cr Clr Drug Dosing ml/min Est GFR ( Amer) Est GFR (Non-Af Amer) BUN/Creatinine Ratio (10-20) Glucose (70-99) mg/dl Osmolality (280-300) mOsm/kg Lactate (0.4-2.0) mmol/L Calcium (8.5-10.1) mg/dl Phosphorus (2.5-4.9) mg/dl Magnesium (1.8-2.4) mg/dl Total Bilirubin (0.2-1) mg/dl Direct Bilirubin (0-0.2) mg/dl AST (15-37) U/L ALT (12-78) U/L Alkaline Phosphatase (45-117) U/L Total Protein (6.4-8.2) gm/dl Albumin (3.4-5.0) gm/dl Globulin (2.5-4.0) gm/dl Albumin/Globulin Ratio (0.9-2) Procalcitonin (0-0.5) ng/ml Urine Osmolality 321 L (500-800) mOsm/kg Blood Type O Positive Antibody Screen NEGATIVE Imaging Data Radiologist's Impression: Radiology results as stated below per my review and the radiologist's interpretation: CT CHEST Without Contrast: Cardiomegaly. Port-A-Cath. No effusion or confluent consolidation. Accentuation of bronchovascular markings. Radiologist: Margaret Chinchilla MD Study ready at 00:33 and initial results transmitted at 00:41. CT ABDOMEN & PELVIS Without Contrast: Colonic diverticular without diverticulitis. Unremarkable appendix. Hepatosplenomegaly. No hydronephrosis or perinephric collections. Cholecystectomy. Hysterectomy. Radiologist: Margaret Chinchilla MD Study ready at 00:33 and initial results transmitted at 00:46. ECG Data Attestation: I personally reviewed and interpreted this ECG as follows: Indication: weakness Rate (beats per minute): 98 Rhythm: normal sinus Findings: + other (normal axis; non specific T abnormality) and + nonspecific-ST abn Comparison ECG Date: from (11/17/2017) Change: no significant change Blood Pressure Blood Pressure Findings: Low blood pressure Blood Pressure Disposition: further management by hospitalist CHELSY Narrative The patient is a pleasant 73 y/o woman with a pmhx of non-Hodgkins lymphoma who presents to the emergency department with generalized weakness with repeat episodes of diarrhea today in the setting of having her first chemotherapy treatment several days ago per HPI. On arrival the patient is ill appearing, HR 90s and hypotensive 50s/30s. Patient appears clinically dry. Lungs are clear. Abdomen benign. Sepsis management immediately initiated with blood cultures drawn and 30cc/kg of IVF and empiric broad spectrum ABX ordered. EKG with nonspecfic ST abnormalities similar to prior and without overt evidence of acute ischemia. CXR with possible mild vascular congestion. No focal infiltrates. New Pancytopenia with WBC 0.63 and ANC 0.08, H/H 9.05/23, Platelets 46. Chemistry with new renal failure with Cr. 3.23 increased from 0.67 on 09/21. Sodium 127. Lactate 2.0 and Procalcitonin 39. UA pending. CT chest and abdomen pelvis negative for acute process. Patient re-evaluated and appearing more dyspneic although with lungs still clear. Give patient's renal failure in the setting of her fluid resuscitation, patient placed on Bipap and ordered for levophed. Case d/w Dr. Moeller, [facility] hospitalist, who will evaluate the patient for admission. Impression & Plan Sepsis, Acute renal failure, Respiratory failure, Neutropenia, Thrombocytopenia Critical Care Time I have personally spent greater than 95 minutes of critical care time in the direct management of this patient. This includes bedside care, interpretation of diagnostic studies, and testing, discussion with consultants, patient, and family members, and other required patient management activities. This 95 minutes is in excess of all separately billable procedures. Critical Care Time: Yes Total Critical Care Time: 95 Discharge Plan Visit Data *Final* Discharge Date/Time: 09/27/18 02:11 Chief Complaint: Urinary Symptoms Stated Complaint: Urinary Symptoms ED Provider: Stuart Tran Discharge Problem: Sepsis, Acute renal failure, Respiratory failure, Neutropenia, Thrombocytopenia Patient Disposition: Admitted As Inpatient Discharge Instructions Interventions: ED Discharge Assessment Last Done: 09/27/18 02:11 The scribe's documentation has been prepared under my direction and personally reviewed by me in its entirety. I confirm that the note above accurately reflects all work, treatment, procedures, and medical decision making performed by me.
[2018-09-27] MEDS ORDERED: HYDROCORTISONE SOD 100 MG in SYRINGE 0 ML IV ONE (02:45)
[2018-09-27] MEDS: ALBUMIN 5% 250 ML IV SCH ×3 (03:00→05:15)
--- NOTE | 2018-09-27 03:28 | Critical Care Consultation ---
Date of Consultation September 27, 2018 Assessment & Plan (1) Admitted to intensive care unit: Reason Critically Ill: 73-year-old female presenting with severe sepsis with septic shock in the setting of neutropenia with pancytopenia status post first dose of chemotherapy. NEURO - * CAM ICU: NEGATIVE * Pain: would avoid narcotics w/ presenting pressures. Acetaminophen as needed. CARDIAC/VASCULAR - * Hypotension: * In the setting of sepsis and likely hypovolemia. * Received 2L NSS in the ED. * Performed bedside US post resuscitation which demonstrated collapsable IVC to ~50%. * Will continue w/ IVF resuscitation. * Patient was reportedly tachypneic in the emergency department and placed on BiPAP for possible concerns of volume overload and congestive changes. On exam, the patient has clear breath sounds, however they are shallow. No rales noted. Clinically, the patient still appears volume down. Review of chest CT and chest x-ray demonstrate no overt signs of significant pulmonary edema. We will continue to monitor closely. * Patient appears to become more hypotensive with application of positive pressure intra-thoracically. I anticipate this is likely from patient's known restrictive diastolic dysfunction in combination of hypovolemia in the setting of elevated intrathoracic pressures. We will change the patient to CPAP at 5 cmH2O as she does not require gradient before ventilation at this point. * Currently requiring levo fed at low doses. We will try to treat as needed. Additional pressors as needed. * ??Possible cardiotoxicity effects of chemotherapeutics. * Agree with AM Echo. * ECHO (08/31/2018): LVH, Diastolic Dysfunction, Grade III (restrictive pattern), consistent with markedly increased left atrial pressure. The left atrium is moderately dilated. Right ventricular systolic pressure is elevated at 30- 40mmHg. Ejection fraction=60-65%. * Monitor on telemetry. RESPIRATORY - * Tachypnea: * Likely compensatory in the setting of developing metabolic acidosis. * ABG shows metabolic acidosis. * Exam not consistent with CHF at this time. * CT/CXR not consistent with vascular congestion. * Will switch from BiPAP to a CPAP for patient comfort alone as I feel that this tachypnea is completely compensatory at this point. * Will trend ABGs. GI/NUTRITION - * NPO in the setting of need for pressors and during current state of extremis. * Prophylaxis: Famotidine RENAL/LYTES - * ARF: * Likely multifactorial including recent chemotherapy w/ risks for renotoxic ity, hypovolemia w/ recent diarrhea, ischemic ATN in the setting of profound hypotension.. * Initially received appropriate aggressive IV fluids. * We will continue with IV fluids. * Thankfully, patient is making adequate amounts of urine at this time. * Hyponatremia: * Marginal. Likely 2/2 GI losses. * IVF: NSS@150mL/hr - * Possible UTI versus contamination. * Molina in place - Strict I&Os. ENDO - * No h/o DM. * BSGs per unit protocol. ISS --> gtt per unit policy. * Hypothyroidism: * Will check TSH, Free T4. * Continue home Levothyroxine dosing. HEME - * Pancytopenia: * Multifactorial in the setting of recent chemo and current c/o sepsis w/ possible consumptive coagulopathy. * Type and Screened --> Transfuse as needed. * Transfuse platelets if <20 or if c/o bleeding. * Neutropenic precautions. * DLBCL s/p R-CHOP treatment: * Likely contributory to a number of patient's s/s today. * Appreciate Heme/Onc consult. ID - * Severe sepsis w/ septic shock: * Urine does appear to most likely source at this time. * Other concerns must certainly include A-port, however there are no clinical s/s of infection at this point. * Will await blood cultures. * Procal >30. Will trend. * Vanc/Zosyn. * Lactate wnl. LINES/IV ACCESS - * PIVs x1 * RIGHT Checst A-port. * Molina. * RIGHT Radial A-line. DVT PROPHYLAXIS - * Will hold 2/2 pancytopenia w/ thrombocytopenia. * SCDs I have personally spent 60 minutes of critical care time in the direct management of this patient. This is a life/limb threatening event. This includes time spent evaluating patient, direct bedside care, chart review, placing order s, interpretation of diagnostic studies, discussion with consultants, patient, and family members, as well as other required patient management activities. This time is exclusive of all separately billable procedures, and teaching time and separate from and in addition to any other critical care service time. Thank you for allowing us to participate in the care of this patient. Please refer to my attending physician's documentation for any further recommendations. (2) Severe sepsis with septic shock: (3) Pancytopenia: (4) Thrombocytopenia: (5) Neutropenia: (6) Acute renal failure: (7) History of recent chemotherapy: (8) Lymphoma: Supervising Physician Co-Signing Physician Notes Isaw and evaluated the patient with CATALINA Kulkarni this am and I agree with the findings and plan. In addition I did POCUS and found IVC collapsibility of 64% therefore further 1 liters LR bolus and albumin will be given for volume expansion in the setting of distributive shock requiring IV pressors. (septic shock) Mg and P replaced. Contacted Dr Castano regarding filgrastim and he agreed to give her. 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 She had an A port placed to the RIGHT sided chest on 09/10 with initial dose of R-CHOP chemotherapy provided on 09/15. Status post initial treatment, the patient did have associated nausea and vomiting as well as generalized fatigue. She was placed on prednisone for 5 days afterwards which did seem to help with her symptoms. She did have some abdominal pain shortly after and was thoroughly evaluated in the emergency department with findings of slight leukopenia but otherwise no other concerning findings. CT of the abdomen pelvis performed that day demonstrated no acute findings otherwise. She was placed on antibiotics for concerns of possible early UTI versus what appears to be more likely contamination. She has been on Keflex. She had completely resolved abdominal pain and has no complaints of pain at this time. Over the last 72 hours, however, she has had progressively worsening generalized weakness. Upon arrival in the emergency department, the patient was found to be hypotensive with systolic blood pressures in the 50s. Despite that, the patient is mentating appropriately and able to answer questions. She was resuscitated w ith 2 L of crystalloid and started on levo fed drip. Patient found to be pancytopenic with a neutrophil count of 0.08. She received broad-spectrum coverage with vancomycin and Zosyn. Blood cultures were obtained. Urinalysis shows elevated leukocyte esterase and WBCs with findings of elevated epithelial cells again. Previous urine cultures had no significant growth. CT of the abdomen and pelvis as well as chest were obtained which demonstrated no acute findings or possible intra-abdominal/intrathoracic sources of infectious contribution. On evaluation in the emergency department, the patient is awake, alert, and oriented. She offers no complaints of pain at this time. Other than feeling generally weak, she denies complaints of headaches, dizziness, lightheadedness, blurry vision, double vision, slurred speech, facial droop, unilateral weakness/numbness, chest pain, palpitations shortness of breath, pleuritic pain, hemoptysis, nausea, vomiting, or abdominal pain. She did have to episodes of diarrhea yesterday, but did take Imodium today without return of loose stools. Allergies Allergy/AdvReac Type Severity Reaction Status Date / Time No Known Allergies Allergy Unknown Verified 09/21/18 23:06 Home Medications Home Medications Medication Instructions Recorded Confirmed Type atenolol 25 mg PO QAM 09/07/18 09/27/18 History levothyroxine 75 mcg PO QAM 09/07/18 09/27/18 History pravastatin 20 mg PO HS 09/07/18 09/27/18 History cephalexin [Keflex] 500 mg PO QID 7 Days #28 cap 09/22/18 09/27/18 Rx ondansetron HCl 8 mg PO Q8 PRN 09/27/18 09/27/18 History prednisone 100 mg PO UD 09/27/18 09/27/18 History prochlorperazine maleate 10 mg PO Q6 PRN 09/27/18 09/27/18 History Patient History Medical History Abnormal EKG (Chronic) Breast cancer (Chronic) H/O Left breast cancer - DCIS Hyperlipidemia (Chronic) Hypertension (Chronic) Hypothyroidism (Chronic) Non Hodgkin's lymphoma REASON FOR PORT PLACEMENT Surgical History H/O of hysterectomy with bilateral oophorectomy (Resolved) H/O partial mastectomy (Resolved) Left H/O total knee replacement (Resolved) LEFT Hx laparoscopic cholecystectomy (Resolved) History of colonoscopy History of esophagogastroduodenoscopy (EGD) History of tooth extraction Nausea and vomiting after administration of anesthetic agent Family History Mother , in her 70s Diabetes Stroke Father , at 72yo Myocardial infarction Brother No problems noted. Brother No problems noted. Brother No problems noted. Sister Liver disorder Sister No problems noted. Sister No problems noted. Sister No problems noted. Daughter No problems noted. 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 All else were negative. Physical Exam Physical Exam: VITAL SIGNS - Vital signs and nursing notes were reviewed. GENERAL - 73-year-old female appearing her stated age who is in no acute distress. Communicates well with provider and answers questions appropriately. SKIN - Without rashes. A-port in place to the RIGHT upper chest without surrounding erythema, edema, or discharge/drainage. HEAD - NC/AT. EYES - PERRL with EOMI bilaterally. Sclera anicteric. Palpebral conjunctiva pink and moist with no injection noted. EARS - No deformities of external structures noted on gross examination bilaterally. NOSE - Midline and without cyanosis. No epistaxis or purulent drainage noted. MOUTH/OROPHARYNX - Without perioral cyanosis. Buccal mucosa pink and dry. NECK - Neck with FROM. Supple to palpation. No lymphadenopathy noted. No nuchal rigidity. LUNGS - Chest wall symmetric without accessory muscle use, intercostals retractions, or central cyanosis. Normal vesicular breath sounds CTA B/L. No wheezes, rales, or rhonchi appreciated. CARDIAC - RRR with S1/S2. No murmur, rubs, or gallops appreciated. ABDOMEN - Abdominal contour flat without pulsations or visible masses. BS normoactive all four quadrants. No tenderness, palpable masses, hepatosplenomegaly, or ascites noted. EXTREMITIES - No clubbing or peripheral cyanosis. No pretibial edema present. +3/5 radial, posterior tibial, and dorsalis pedis pulses palpated throughout. +5/5 strength noted in UE/LE bilaterally. NEUROLOGIC - Cranial nerves II through XII grossly intact. Sensory intact to light touch throughout. PSYCH - A&Ox3 and cooperates fully with examiner. Pt is very pleasant and interacts well with examiner. Results & Data Vital Signs (Past 12 Hours) Vital Signs Temp Pulse Pulse Resp BP BP Pulse Ox 09/27/18 03:15 97 H 28 H 77/54 L 93 09/27/18 03:01 98 H 26 H 94/46 L 94 09/27/18 02:49 96 H 25 H 83/51 L 95 09/27/18 02:46 96 H 27 H 76/60 L 95 09/27/18 02:36 36.7 C 95 H 18 83/53 L 97 09/27/18 02:27 99 H 22 83/53 L 98 09/27/18 02:15 96 H 22 82/60 L 100 09/27/18 02:11 96 H 16 95/63 L 100 09/27/18 02:09 95 H 18 78/51 L 100 09/27/18 01:45 99 H 20 105/59 L 100 09/27/18 01:32 99 H 24 84/61 L 100 09/27/18 01:31 100 H 20 66/35 L 100 09/27/18 01:30 99 H 25 H 100 09/27/18 01:16 101 H 31 H 100/70 100 09/27/18 01:15 100 H 24 100 09/27/18 01:03 98 H 28 H 100 09/27/18 01:00 101 H 28 H 97/54 L 94 09/27/18 00:46 100 H 33 H 104/53 L 94 09/27/18 00:45 102 H 23 95 09/27/18 00:30 97 H 24 97/62 L 93 09/27/18 00:20 97 H 44 H 82/56 L 93 09/27/18 00:19 31 H 09/26/18 23:46 91 H 25 H 73/47 L 99 09/26/18 23:45 91 H 21 98 06/01/19 23:30 95 H 24 69/49 L 97 09/26/18 23:16 94 H 26 H 69/46 L 96 09/26/18 23:15 95 H 26 H 95 09/26/18 23:10 91 H 14 78/45 L 99 09/26/18 23:03 98 H 31 H 79/45 L 94 09/26/18 22:45 99 H 31 H 79/50 L 93 09/26/18 22:34 36.7 C 91 H 16 53/39 L 97 Critical Care Time Critical Care Time: Yes Total Critical Care Time: 60 (1) Acute renal failure Acute renal failure type: unspecified Qualified Code(s): N17.9 - Acute kidney failure, unspecified (2) Neutropenia Neutropenia type: secondary to cancer chemotherapy Qualified Code(s): D70.1 - Agranulocytosis secondary to cancer chemotherapy; T45.1X5A - Adverse effect of antineoplastic and immunosuppressive drugs, initial encounter
--- NOTE | 2018-09-27 03:30 | Procedure Note ---
Procedure Note Date of Service September 27, 2018 Procedure: Arterial Line Placement Attending: Dr. Denny APC: Oliverio Kulkarni PA-C Indication: Monitoring on Pressors Anesthesia: Lidocaine 1% Emergent consent obtained verbally in the setting of need for titration of pressors, frequent lab draws, metabolic acidosis. Indication, risks, and bene fits were explained at length. Patient and family consent. A time-out was completed verifying correct patient, procedure, site, positioning, and implant(s) or special equipment if applicable. Allens test was performed to ensure adequate perfusion. Patients RIGHT wrist was prepped and draped in the usual sterile fashion. Ultrasound guidance was used to aid needle placement. A 20g Arrow arterial line was introduced into the RIGHT Radial artery. Catheter was threaded, and the needle was removed with appropriate blood return. Good waveform was observed. The patient tolerated the procedure well. Confirmation of placement with ultrasound. Blood Loss: Minimal Complications: None Procedural Ultrasound Guidance: Procedure Date: 09/27/2018 Indication: Pressors, Labs Attending: Dr. Denny APC: Oliverio Kulkarni PA-C Artery Identified: YES Line confirmed in Artery with ultrasound: YES Complications: NONE Patient tolerated procedure: WELL Coding
[2018-09-27] MEDS ORDERED: SODIUM CHLORIDE 0.9% 1000ML 1,000 ML IV SCH (03:45)
[2018-09-27 04:42] LABS: INR 1.4 (0.9-1.1); Partial Thromboplastin Ratio 1.5; Partial Thromboplastin Time 39.6 Seconds (21.0-31.0); Prothrombin Time 14.3 Seconds (9.0-12.0)
[2018-09-27 05:00] LABS: Albumin Level 2.1 gm/dl (3.4-5.0); BUN Creatinine Ratio 12.1 (10-20); Bilirubin Direct 0.5 mg/dl (0-0.2); Bilirubin,Total 0.7 mg/dl (0.2-1); Calcium 6.3 mg/dl (8.5-10.1); Est GFR (African American) 18.6; Magnesium 1.6 mg/dl (1.8-2.4); Phosphorus 2.4 mg/dl (2.5-4.9); Potassium 3.6 mmol/L (3.5-5.1); Total Protein 4.5 gm/dl (6.4-8.2)
[2018-09-27 05:44] LABS: Hematocrit (blood only) 21.3 % (37-47); Hemoglobin 7.6 g/dL (12.0-16.0); Mean Corpuscular Hgb Conc 35.7 g/dL (32-36); Mean Corpuscular Volume 82.6 fL (80-100); Mean Platelet Volume 10.3 fL (7.4-10.4); Platelet Count 43 K/uL (130-400); RDW Coefficient of Variation 13.4 % (11.5-14.5); RDW Standard Deviation 41.1 fL (36.4-46.3); Red Blood Count 2.58 M/uL (4.2-5.4); White Blood Count 1.04 K/uL (4.8-10.8)
--- NOTE | 2018-09-27 05:56 | History & Physical Report ---
Date of Service September 27, 2018 Assessment & Plan (1) Admitted to intensive care unit: The patient is admitted to the ICU with severe sepsis and septic shock, was started on levophed drip while in the ED. Present on Admission?: Yes (2) Severe sepsis with septic shock: Severe sepsis with septic shock/neutropenic fever/lymphoma with recent chemotherapy- Patient has been undergoing chemotherapy for lymphoma. She presented to the emergency department with neutropenic fever and hypotension. She received appropriate IV fluid resuscitation, however, continue to have a systolic pressure in the 70s, precipitating the institution of Levophed drip. Patient also received IV albumin x4 doses. Empiric antibiotic therapy with IV vancomycin, Zosyn and azithromycin IV. Present on Admission?: Yes (3) History of recent chemotherapy: See above Present on Admission?: Yes (4) Neutropenic fever: See above Present on Admission?: Yes (5) Lymphoma: See above Present on Admission?: Yes (6) Acute renal failure: Creatinine upon admission was 3.23. Patient is receiving IV fluid resuscitation and Levophed for pressure support. We will repeat laboratories in a.m. Present on Admission?: Yes (7) Respiratory failure: BiPAP has been begun in the ED. This will be continued until she is in the ICU. We will titrate as soon as possible back to nasal cannula. Present on Admission?: Yes (8) Hyponatremia: Sodium 127 upon admission. We will check a serum osmolality and urine osmolality. Undergoing fluid resuscitation as noted above. Follow serial laboratories Present on Admission?: Yes (9) Hypoalbuminemia: Low albumin predisposing to third spacing and hypotension. Receiving IV albumin as noted above. Continue to follow. Present on Admission?: Yes (10) Hepatosplenomegaly: Hepatosplenomegaly noted on CT associate with lymphoma. Present on Admission?: Yes (11) Pancytopenia: Pancytopenia noted on admission labs. ANC 80. Hemoglobin 9.1 Platelets 46. Secondary to chemotherapy. Follow serial laboratories Present on Admission?: Yes History of Present Illness Chief Complaint: The patient presented to the emergency department with complaint of progressive generalized weakness that began earlier in the day. She reports having 2 episodes of diarrhea earlier in the day. She of note, did undergo her first chemotherapy treatment for lymphoma 3 days ago. Primary Care Provider: Patrick Francisco MD The patient is a 73-year-old female who just underwent her first chemotherapy treatment for lymphoma 3 days ago. Since that time is but she has become progressively more weak, with decreased oral intake, and had 2 episodes of loose stools earlier in the day today. Patient herself is very fatigued, and has difficulty contributing to her HPI and review of systems, with her family readily supplies. Allergies Allergy/AdvReac Type Severity Reaction Status Date / Time No Known Allergies Allergy Unknown Verified 09/21/18 23:06 Home Medications Home Medications Medication Instructions Recorded Confirmed Type atenolol 25 mg PO QAM 09/07/18 09/27/18 History levothyroxine 75 mcg PO QAM 09/07/18 09/27/18 History pravastatin 20 mg PO HS 09/07/18 09/27/18 History cephalexin [Keflex] 500 mg PO QID 7 Days #28 cap 09/22/18 09/27/18 Rx ondansetron HCl 8 mg PO Q8 PRN 09/27/18 09/27/18 History prednisone 100 mg PO UD 09/27/18 09/27/18 History prochlorperazine maleate 10 mg PO Q6 PRN 09/27/18 09/27/18 History Past Med/Surg History Medical History Abnormal EKG (Chronic) Breast cancer (Chronic) H/O Left breast cancer - DCIS Hyperlipidemia (Chronic) Hypertension (Chronic) Hypothyroidism (Chronic) Non Hodgkin's lymphoma REASON FOR PORT PLACEMENT Surgical History H/O of hysterectomy with bilateral oophorectomy (Resolved) H/O partial mastectomy (Resolved) Left H/O total knee replacement (Resolved) LEFT Hx laparoscopic cholecystectomy (Resolved) History of colonoscopy History of esophagogastroduodenoscopy (EGD) History of tooth extraction Nausea and vomiting after administration of anesthetic agent Family History Mother , in her 70s Diabetes Stroke Father , at 72yo Myocardial infarction Brother No problems noted. Brother No problems noted. Brother No problems noted. Sister Liver disorder Sister No problems noted. Sister No problems noted. Sister No problems noted. Daughter No problems noted. 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 Other Information That Helps Us Care for You: No Feels Safe at Home: Yes Safety Concerns: Feels Safe At This Time Smoking Status: Never smoker Do You Dip or Chew Tobacco: No Second Hand Exposure: No Tobacco Cessation Education Requested by Patient: No Hx Alcohol Use: No Hx Substance Use: No caffeine: No during the past year weight has: remained stable Review of Systems Review of Systems: The patient denies chest pain, palpitations, shortness of breath, dyspnea on exertion, cough, lower extremity swelling, sore throat, fevers, chills, sweats, constipation, abdominal pain, pelvic pain, blood in urine or stool, dysuria, urinary frequency or urgency, loss of consciousness, rash, abnormal bruising or bleeding, imbalance, focal weakness, numbness or tingling in arms or legs, generalized arthralgias or myalgias, back or neck pain, or night sweats. The review of systems is otherwise negative other than for that already noted above, and at least 10 systems have been reviewed. Physical Exam Physical Exam: The patient is very lethargic, responding minimally, normocephalic and atraumatic, lying in bed and in no acute distress. HEENT--PERRL, EOMI, mucous membranes and oropharynx dry. Neck--supple. No JVD. No bruits. Thyroid normal, trachea midline, no adenopathy. Heart--normal S1 and S2. No murmurs, rubs or gallops. Lungs--diminished no respiratory distress, no accessory muscle use. Abdomen--normal bowel sounds and soft. Nontender. Nondistended. Extremities--no cyanosis or clubbing. No edema. There are good distal pulses b/l. Dermatologic--normal skin turgor, normal color, no abnormal lymph nodes, no rash. Neurologic--cranial nerves II through XII grossly intact. Rheumatologic--limited exam Psychiatric-very lethargic Results & Data Vital Signs (Past 12 Hours) Vital Signs Temp Pulse Pulse Resp BP BP Pulse Ox 09/27/18 05:35 91 H 19 72/45 L 100 09/27/18 05:30 90 18 79/53 L 100 09/27/18 05:16 90 20 88/52 L 100 09/27/18 05:05 92 H 26 H 95/32 L 100 09/27/18 05:00 90 25 H 78/55 L 100 09/27/18 04:48 90 21 73/53 L 100 09/27/18 04:45 92 H 23 76/50 L 99 09/27/18 04:31 94 H 27 H 88/53 L 92 09/27/18 04:18 99 H 26 H 98/59 L 91 09/27/18 04:01 95 H 25 H 91/53 L 93 09/27/18 03:45 95 H 33 H 103/64 93 09/27/18 03:30 90 29 H 88/45 L 93 09/27/18 03:15 97 H 28 H 77/54 L 93 09/27/18 03:01 98 H 26 H 94/46 L 94 09/27/18 02:49 96 H 25 H 83/51 L 95 09/27/18 02:46 96 H 27 H 76/60 L 95 09/27/18 02:36 98.1 F 95 H 18 83/53 L 97 02 02:27 99 H 22 83/53 L 98 09/27/18 02:15 96 H 22 82/60 L 100 09/27/18 02:11 96 H 16 95/63 L 100 09/27/18 02:09 95 H 18 78/51 L 100 09/27/18 01:45 99 H 20 105/59 L 100 09/27/18 01:32 99 H 24 84/61 L 100 09/27/18 01:31 100 H 20 66/35 L 100 09/27/18 01:30 99 H 25 H 100 09/27/18 01:16 101 H 31 H 100/70 100 09/27/18 01:15 100 H 24 100 09/27/18 01:03 98 H 28 H 100 09/27/18 01:00 101 H 28 H 97/54 L 94 09/27/18 00:46 100 H 33 H 104/53 L 94 09/27/18 00:45 102 H 23 95 09/27/18 00:30 97 H 24 97/62 L 93 09/27/18 00:20 97 H 44 H 82/56 L 93 09/27/18 00:19 31 H 09/26/18 23:46 91 H 25 H 73/47 L 99 09/26/18 23:45 91 H 21 98 09/26/18 23:30 95 H 24 69/49 L 97 09/26/18 23:16 94 H 26 H 69/46 L 96 09/26/18 23:15 95 H 26 H 95 09/26/18 23:10 91 H 14 78/45 L 99 09/26/18 23:03 98 H 31 H 79/45 L 94 09/26/18 22:45 99 H 31 H 79/50 L 93 09/26/18 22:34 98.1 F 91 H 16 53/39 L 97 Laboratory Results Laboratory Results WBC 1.04 K/uL (4.8-10.8) L 09/27/18 04:18 RBC 2.58 M/uL (4.2-5.4) L 09/27/18 04:18 Hgb 7.6 g/dL (12.0-16.0) L 09/27/18 04:18 Hct 21.3 % (37-47) L 09/27/18 04:18 MCV 82.6 fL (80-100) 09/27/18 04:18 MCH 29.5 pg (25-34) 09/27/18 04:18 MCHC 35.7 g/dL (32-36) 09/27/18 04:18 RDW Std Deviation 41.1 fL (36.4-46.3) 09/27/18 04:18 RDW Coeff of Hosea 13.4 % (11.5-14.5) 09/27/18 04:18 Plt Count 43 K/uL (130-400) L 09/27/18 04:18 MPV 10.3 fL (7.4-10.4) 09/27/18 04:18 13.0 % 09/26/18 23:07 0.0 % 09/26/18 23:07 43.0 % 09/26/18 23:07 Reactive Lymphs % (Man) 0.0 % 09/26/18 23:07 40.0 % 09/26/18 23:07 1.0 % 09/26/18 23:07 Metamyelocytes % (Man) 3.0 % 09/26/18 23:07 0.08 K/uL (1.4-6.5) L 09/26/18 23:07 Total Absolute Neuts 0.08 K/uL (1.4-6.5) L* 09/26/18 23:07 0.27 K/uL (1.2-3.4) L 09/26/18 23:07 Total Abs Lymphocytes 0.27 K/uL (1.2-3.4) L 09/26/18 23:07 0.25 K/uL (0.11-0.59) 09/26/18 23:07 0.01 K/uL (0-0.2) 09/26/18 23:07 Metamyelocytes # (Man) 0.02 K/uL (0-0) H 09/26/18 23:07 Large Granular Lymphs 0.0 % 09/26/18 23:07 Decreased (Normal) L 09/26/18 23:07 PT 14.3 Seconds (9.0-12.0) H 09/27/18 04:18 INR 1.4 (0.9-1.1) H 09/27/18 04:18 APTT 39.6 Seconds (21.0-31.0) H 09/27/18 04:18 PTT Ratio 1.5 09/27/18 04:18 Sample Site R Radial 09/27/18 01:24 POC HCO3 16 karl/L (19-24) L 09/27/18 01:24 POC Total CO2 17 mEq/l (24-31) L 09/27/18 01:24 POC Base Excess -11.0 karl/L (-9-1.8) L 09/27/18 01:24 POC ABG O2 Sat 98.0 % (90-95) H 09/27/18 01:24 NA 09/27/18 01:24 VBG pH 7.37 (7.36-7.41) 09/26/18 23:07 VBG pCO2 35 mmHg (38-50) L 09/26/18 23:07 VBG pO2 35 mmHg 09/26/18 23:07 VBG HCO3 19 mmol/L 09/26/18 23:07 VBG O2 Saturation 65.1 % 09/26/18 23:07 VBG Base Excess -5.3 mEq/L 09/26/18 23:07 Barometric Pressure 728.1 mm/Hg 09/26/18 23:07 O2 Delivery Device BIPAP 09/27/18 01:24 POC O2 Rate 12 09/27/18 01:24 POC FiO2 35 % 09/27/18 01:24 IPAP 10 09/27/18 01:24 Sodium 131 mmol/L (136-145) L 09/27/18 04:18 Potassium 3.6 mmol/L (3.5-5.1) 09/27/18 04:18 Chloride 103 mmol/L (98-107) 09/27/18 04:18 Carbon Dioxide 18 mmol/L (21-32) L 09/27/18 04:18 10.0 (3-11) 09/27/18 04:18 BUN 34 mg/dl (7-18) H 09/27/18 04:18 2.84 mg/dl (0.6-1.2) H D 09/27/18 04:18 Est Cr Clr Drug Dosing 16.0 ml/min 09/27/18 04:18 Est GFR ( Amer) 18.6 09/27/18 04:18 Est GFR (Non-Af Amer) 16.0 09/27/18 04:18 12.1 (10-20) 09/27/18 04:18 Glucose 102 mg/dl (70-99) H 09/27/18 04:18 264 mOsm/kg (280-300) L 09/26/18 23:06 1.8 mmol/L (0.4-2.0) 09/27/18 04:18 Calcium 6.3 mg/dl (8.5-10.1) L D 09/27/18 04:18 Phosphorus 2.4 mg/dl (2.5-4.9) L 09/27/18 04:18 Magnesium 1.6 mg/dl (1.8-2.4) L 09/27/18 04:18 0.7 mg/dl (0.2-1) 09/27/18 04:18 0.5 mg/dl (0-0.2) H 09/27/18 04:18 AST 15 U/L (15-37) 09/27/18 04:18 ALT 18 U/L (12-78) 09/27/18 04:18 82 U/L (45-117) 09/27/18 04:18 73 U/L (26-192) 09/27/18 04:18 < 0.015 ng/ml (0-0.045) 09/27/18 04:18 4.5 gm/dl (6.4-8.2) L 09/27/18 04:18 2.1 gm/dl (3.4-5.0) L 09/27/18 04:18 3.0 gm/dl (2.5-4.0) 09/26/18 23:07 0.7 (0.9-2) L 09/26/18 23:07 16 U/L (73-393) L 09/27/18 04:18 32.43 ng/ml (0-0.5) H 09/27/18 04:18 321 mOsm/kg (500-800) L 09/27/18 00:44 Blood Type O Positive 09/26/18 23:07 Antibody Screen NEGATIVE 09/26/18 23:07 Diagnostic Findings [facility] Patient: NICHELLE HOBSON (Female) Age: 73 MR #: [id number] Status: ER Date: 09/27/18 00:29 Slices: 307 History: sepsis gfr 13 Priors: Tech: Ric Zaman @ [phone] Exams: CT CHEST Without Contrast Accession Numbers: [id number] Preliminary Findings Only See Final Report For Complete Findings CT CHEST Without Contrast: Cardiomegaly. Port-A-Cath. No effusion or confluent consolidation. Accentuation of bronchovascular markings. Radiologist: Margaret Chinchilla M.D. Study ready at 00:33 and initial results transmitted at 00:41 *This report constitutes a preliminary interpretation only. Non-acute findings felt to be unrelated to the clinical presentation may not be discussed in this report. The study will be interpreted and a final report will be generated by the local Radiologist the following shift. To reach the hospital radiology department call [phone]. If a discrepancy is found between the preliminary and final interpretations of this study, please notify us via our Client Portal at [email or web address], under QA Exams. You can also fax this report with a description of the discrepancy, or include the final report, to our daytime fax number [phone]. If faxing, please indicate the severity of discrepancy using one of the following categories: [ ] 1 - Agree/Informational [ ] 2 - Unlikely to Affect Management [ ] 3 - Possible Eventual Change of Management [ ] 4 - Probable Immediate Change of Management For all other patient related information, please fax us at [phone]. [facility] Patient: NICHELLE HOBSON (Female) Age: 73 MR #: [id number] Status: ER Date: 09/27/18 00:29 Slices: 545 History: sepsis gfr 13 Priors: Tech: Ric Zaman @ [phone] Exams: CT ABDOMEN & PELVIS Without Contrast Accession Numbers: [id number] Preliminary Findings Only See Final Report For Complete Findings CT ABDOMEN & PELVIS Without Contrast: Colonic diverticula without diverticulitis. Unremarkable appendix. Hepatosplenomegaly. No hydronephrosis or perinephric collections Cholecystectomy. Hysterectomy. Radiologist: Margaret Chinchilla M.D. Study ready at 00:33 and initial results transmitted at 00:46 *This report constitutes a preliminary interpretation only. Non-acute findings felt to be unrelated to the clinical presentation may not be discussed in this report. The study will be interpreted and a final report will be generated by the local Radiologist the following shift. To reach the hospital radiology department call [phone]. If a discrepancy is found between the preliminary and final interpretations of this study, please notify us via our Client Portal at [email or web address], under QA Exams. You can also fax this report with a description of the discrepancy, or include the final report, to our daytime fax number [phone]. If faxing, please indicate the severity of discrepancy using one of the following categories: [ ] 1 - Agree/Informational [ ] 2 - Unlikely to Affect Management [ ] 3 - Possible Eventual Change of Management [ ] 4 - Probable Immediate Change of Management For all other patient related information, please fax us at [phone]. Code Status & VTE Plan Code Status Full code VTE Prophylaxis Plan VTE Prophylaxis will be ordered: Yes Critical Care Time Critical Care Time: Yes Total Critical Care Time: 50 Prolonged Care Time Total Time: Total critical care time was 50 minutes. (1) Acute renal failure Acute renal failure type: unspecified Qualified Code(s): N17.9 - Acute kidney failure, unspecified (2) Respiratory failure Chronicity: unspecified Respiratory failure complication: unspecified whether with hypoxia or hypercapnia Qualified Code(s): J96.90 - Respiratory failure, unspecified, unspecified whether with hypoxia or hypercapnia
[2018-09-27 06:03] LABS: ALC (manual) 0.46 K/uL (1.2-3.4); Basophils # (manual) 0.01 K/uL (0-0.2); Echinocytes 2+; Eosinophils # (manual) 0.01 K/uL (0-0.5); Lymphocytes # (manual) 0.46 K/uL (1.2-3.4); Metamyelocytes # (manual) 0.02 K/uL (0-0); Monocytes # (manual) 0.37 K/uL (0.11-0.59)
[2018-09-27 06:06] LABS: iSTAT Arterial Blood Gas HCO3 16 meg/L (19-24); iSTAT Carbon Dioxide 17 mEq/l (24-31); iSTAT FiO2 35 %; iSTAT Site R Radial
[2018-09-27 06:07] LABS: Appearance Urine Turbid (Clear); Bacteria Urine Automated Negative (Negative); Bilirubin Urine Negative (Negative); Blood Urine 1+ (Negative); Color Urine Dark Yellow; Epithelial Cell Urine Auto >30 /lpf (0-5); Glucose Urine UA Trace (Negative); Ketones Urine Trace (Negative); Leukocyte Esterase Urine Negative (Negative); Nitrite Urine Negative (Negative); Protein Urine Trace (Negative); RBC Urine Automated 0-4 /hpf (0-4); Specific Gravity Urine 1.024 (1.000-1.030); Urobilinogen Urine Negative (Negative)
[2018-09-27] MEDS: SODIUM BICARBONATE 8.4% 150 MEQ in DEXTROSE 5% 1,000 ML IV SCH ×2 (06:53→17:13)
[2018-09-27 07:21] LABS: T4 Free Thyroxine 1.27 ng/dl (0.8-1.6)
--- NOTE | 2018-09-27 08:56 | CT Scan Report ---
CT SCAN OF THE CHEST, ABDOMEN, AND PELVIS WITHOUT IV CONTRAST CLINICAL HISTORY: Sepsis. History of lymphoma. COMPARISON STUDY: Chest x-ray dated 09/26/2018. Chest CT dated 03/23/2018. Abdominal CT dated 9. TECHNIQUE: Unenhanced CT scan of the chest, abdomen, and pelvis was performed from the thoracic inlet to the proximal femora. Images are reviewed in the axial, sagittal, and coronal planes. IV contrast was not administered due to poor renal function. Note that the examination is significantly suboptima l without oral and IV contrast. A dose lowering technique was utilized adhering to the principles of ALARA. CT DOSE: 505.66 mGy.cm FINDINGS: CHEST: Thyroid: Atrophic. Thoracic aorta: A right subclavian central venous infusion port is in place. The thoracic aorta is no rmal in caliber and demonstrates bovine variant arch anatomy. Heart: The heart is mildly enlarged and without pericardial effusion. The coronary arteries are dense ly calcified. There is diffusely diminished attenuation of the cardiac blood pool as compared to the myocardium suggesting anemia. The pulmonary trunk is dilated, measuring 3.6 cm. This suggests pulmona ry artery hypertension. Lungs and pleural spaces: Evaluation of the lung parenchyma is degraded by motion artifact. No airspa ce consolidation or pleural effusion is identified. There are foci of bilateral scarring/atelectasis. The trachea and central airways are clear. Mediastinum: There is no mediastinal lymphadenopathy. Alina: Not well assessed without IV contrast. Axillae: There is no axillary lymphadenopathy. Bony thorax: The skeletal structures are osteopenic. Degenerative change is noted in the shoulders an d thoracic spine. No lytic or blastic lesions are identified. ABDOMEN AND PELVIS: Liver: The unenhanced liver is enlarged, measuring 18.6 cm in length. The liver is otherwise normal i n contour and attenuation. There is no intrahepatic or ductal dilatation. Gallbladder: Surgically absent noting clips in the gallbladder fossa. Spleen: The spleen is enlarged, measuring 14.3 cm in length. Pancreas: The unenhanced pancreas is mildly atrophic and grossly unremarkable. Adrenal glands: Unremarkable. Kidneys: The unenhanced kidneys demonstrate cortical atrophy and are without hydronephrosis. There is a small nonobstructing right renal calculus. No left renal calculi are identified. There is no evide nce of contour deforming renal mass lesion. Abdominal vasculature: The abdominal aorta is normal in course and caliber noting scattered foci of a therosclerotic calcification. Bowel: There is moderate colonic diverticulosis without CT evidence of acute diverticulitis. No bowel obstruction is seen. The appendix is well-visualized and normal. There is rectal wall thickening wi th perirectal inflammatory stranding. Peritoneum: There is no intraperitoneal free air or abdominal ascites. There is a fat-containing umbi lical hernia. Lymphadenopathy: None. Pelvic viscera: The bladder is normal as visualized. The uterus is surgically absent. No adnexal lesi on is seen. Skeletal structures: The skeletal structures are osteopenic. There is mild lumbosacral spondylosis. N o lytic or blastic lesions are seen. IMPRESSION: 1. Suboptimal examination without oral and IV contrast. 2. There is no airspace consolidation or pleural effusion. 3. Cardiomegaly with evidence of anemia. 4. No pathologically enlarged lymph nodes are identified in the chest, abdomen, or pelvis. 5. There is rectal wall thickening with perirectal inflammation. Correlate clinically for evidence of proctitis. 6. Nonobstructing right renal calculus. 7. Hepatosplenomegaly. 8. Moderate colonic diverticulosis without CT evidence of acute diverticulitis. 9. Additional findings as above. Electronically signed by: Beni Urban M.D. 09/27/2018 8:54 AM
[2018-09-27] MEDS: PIPERACILLIN/TAZOBACTAM 4.5 GM in DEXTROSE 5% 100 ML IV SCH ×2 (08:58→20:47)
[2018-09-27] MEDS: AZITHROMYCIN 500 MG in DEXTROSE 5% 250 ML IV SCH (08:58)
[2018-09-27] MEDS: FAMOTIDINE 20 MG in SYRINGE 3 ML IV SCH ×2 (08:59→20:48)
[2018-09-27] MEDS: HYDROCORTISONE SOD 100 MG in SYRINGE 0 ML IV SCH ×2 (08:59→17:15)
[2018-09-27] MEDS ORDERED: LACTATED RINGER'S 1,000 ML IV ONE (09:00)
[2018-09-27] MEDS ORDERED: POTASSIUM PHOS 3 MMOL/1 ML INFUSION IV STA (09:06)
[2018-09-27 09:18] LABS: Hematocrit (blood only) 24.4 % (37-47); Hemoglobin 8.7 g/dL (12.0-16.0)
[2018-09-27] MEDS ORDERED: FILGRASTIM 480 MCG/1.6 ML VIAL SC ONE (09:19)
[2018-09-27] MEDS: MAGNESIUM SULFATE / D5W 1 GM/100 ML BAG IV SCH ×4 (09:28→12:57)
[2018-09-27] MEDS: ALBUMIN 25% 50 ML IV SCH ×2 (09:28→17:14)
[2018-09-27] MEDS ORDERED: POTASSIUM PHOSPHATE 9 MMOL in SODIUM CHLORIDE 0.9% 250 ML IV ONE (09:30)
--- NOTE | 2018-09-27 11:20 | XRay Report ---
SINGLE VIEW CHEST CLINICAL HISTORY: Sepsis. FINDINGS: An AP, portable, upright chest radiograph is compared to study dated 09/10/2018 and correlat ed with chest CT dated 03/23/2018. The examination is degraded by portable technique and patient rota tion. A right subclavian central venous infusion port is unchanged in position. The heart is mildly enlarged. There is prominence of the pulmonary vasculature. There are low lung volumes. Bibasilar ate lectasis is observed. No focal airspace consolidation or large pleural effusion is identified. No pne umothorax is seen. The skeletal structures are osteopenic. The bony thorax is grossly intact. A surgi kylah clip is noted in the left chest wall. Cholecystectomy clips are identified in the right upper shankar drant. IMPRESSION: 1. Cardiomegaly with prominence of the pulmonary vasculature. Correlate clinically for evidence of mi ld congestive failure. 2. No airspace consolidation or large pleural effusion is identified. Electronically signed by: Beni Urban M.D. 09/27/2018 11:19 AM
--- NOTE | 2018-09-27 11:22 | XRay Report ---
SINGLE VIEW CHEST CLINICAL HISTORY: Sepsis. FINDINGS: An AP, portable, upright chest radiograph is compared to study dated 09/26/2018 and correlate d with chest CT performed the same day 09/27/2018. The examination is degraded by portable technique an d patient rotation. A right subclavian central venous infusion port is unchanged in position. The he art is mildly enlarged. There is prominence of the pulmonary vasculature. There are low lung volumes. Bibasilar atelectasis is observed. No focal airspace consolidation or large pleural effusion is iden tified. No pneumothorax is seen. The skeletal structures are osteopenic. The bony thorax is grossly i ntact. A surgical clip is noted in the left chest wall. Cholecystectomy clips are identified in the r ight upper quadrant. IMPRESSION: 1. Cardiomegaly with prominence of the pulmonary vasculature. Correlate clinically for evidence of mi ld congestive failure. 2. No airspace consolidation or large pleural effusion is identified. Electronically signed by: Beni Urban M.D. 09/27/2018 11:20 AM
[2018-09-27] MEDS ORDERED: VANCOMYCIN HCL 1,000 MG in SODIUM CHLORIDE 0.9% 250 ML IV ONE (12:00)
--- NOTE | 2018-09-27 12:00 | Pharmacy Report ---
Pharmacy Abx Initial Consult - Date of Service September 27, 2018 - Pharmacy Dosing Scope Date of Consult: 09/27/18 Consultation requested by: Dr. Moeller Pharmacy is consulted to initiate Vancomycin and zosyn IV dosing therapy, order appropriate labs and adjust drug dose/frequency. - Subjective The patient is a 73 year old F admitted on 09/27/18 01:24. - Objective Height: 5 ft Weight: 71.1 kg Vital Signs (Past 12hrs): Vital Signs Temp Pulse Pulse Resp BP BP Pulse Ox 09/27/18 05:46 94 H 24 100 09/27/18 05:35 91 H 19 72/45 L 100 09/27/18 05:30 90 18 79/53 L 100 09/27/18 05:16 90 20 88/52 L 100 09/27/18 05:05 92 H 26 H 95/32 L 100 09/27/18 05:00 90 25 H 78/55 L 100 09/27/18 04:48 90 21 73/53 L 100 09/27/18 04:45 92 H 23 76/50 L 99 09/27/18 04:31 94 H 27 H 88/53 L 92 09/27/18 04:18 99 H 26 H 98/59 L 91 09/27/18 04:01 95 H 25 H 91/53 L 93 09/27/18 03:45 95 H 33 H 103/64 93 09/27/18 03:30 90 29 H 88/45 L 93 09/27/18 03:15 97 H 28 H 77/54 L 93 09/27/18 03:01 98 H 26 H 94/46 L 94 09/27/18 02:49 96 H 25 H 83/51 L 95 09/27/18 02:46 96 H 27 H 76/60 L 95 09/27/18 02:36 36.7 C 95 H 18 83/53 L 97 09/27/18 02:27 99 H 22 83/53 L 98 09/27/18 02:15 96 H 22 82/60 L 100 09/27/18 02:11 96 H 16 95/63 L 100 09/27/18 02:09 95 H 18 78/51 L 100 09/27/18 01:45 99 H 20 105/59 L 100 09/27/18 01:32 99 H 24 84/61 L 100 09/27/18 01:31 100 H 20 66/35 L 100 09/27/18 01:30 99 H 25 H 100 09/27/18 01:16 101 H 31 H 100/70 100 09/27/18 01:15 100 H 24 100 09/27/18 01:03 98 H 28 H 100 09/27/18 01:00 101 H 28 H 97/54 L 94 09/27/18 00:46 100 H 33 H 104/53 L 94 09/27/18 00:45 102 H 23 95 09/27/18 00:30 97 H 24 97/62 L 93 09/27/18 00:20 97 H 44 H 82/56 L 93 09/27/18 00:19 31 H Lab Results (24hrs): Laboratory Tests (24 Hours) 09/27/18 09/27/18 09/27/18 10:45 04:18 04:18 WBC Creatinine 2.84 H D Est Cr Clr Drug Dosing 16.0 Total Creatine Kinase 73 Procalcitonin 32.43 H Random Vancomycin 13.2 09/27/18 09/26/18 09/26/18 04:18 23:07 23:07 WBC 1.04 L 0.63 L* Creatinine 3.23 H Est Cr Clr Drug Dosing 13.8 Total Creatine Kinase Procalcitonin Random Vancomycin 09/26/18 23:06 WBC Creatinine Est Cr Clr Drug Dosing Total Creatine Kinase Procalcitonin 39.91 H Random Vancomycin Micro Results: 09/27/18 00:44 Urine Culture - Pending Urine,Clean Catch 09/26/18 23:10 Aerobic Blood Culture - Pending Blood Anaerobic Blood Culture - Pending 09/26/18 23:06 Aerobic Blood Culture - Pending Blood Anaerobic Blood Culture - Pending - Risk Factors for Resistance * Immunocompromised (chronic steroid therapy, chemotherapy, immunomodulators) - Assessment & Plan Assessment 73 year old F admitted for neutropenic fever. Receiving chemo for lymphoma. * Pt in [facility], Baseline SCr ~0.7mg/dL. 09/21 SCr=0.69mg/dL; 09/26 SCr=3.23 mg/dL; today 2.84mg/dL * MRSA nasal swab negative * Loading vanc doses from ED both charted on as not given. Random vanc level ordered. Plan Vancomycin for empiric treatment of neutropenic fever. Vancomycin IV * Estimated t1/2 greater than 24 hr * Loading dose: 1250 mg (17 mg/kg) * Random vanc level=13.2mg/dL, ordered vanc 1000mg IV (15 mg/kg) x 1 * Goal trough level : 15 to 20 mcg/mL * Random level ordered for 09/28 with am labs Piperacillin/tazobactam * 4.5 g bolus administered over 30 minutes, then 4.5 g IV extended infusion every 12 hours for CrCl 20 mL/min or less. * Aggressive dosing selected due to critically ill status Pharmacy will continue to follow and will adjust dose/frequency as necessary. Thank you.
--- NOTE | 2018-09-27 15:42 | Oncology Consultation ---
Date of Consultation September 27, 2018 Assessment & Plan (1) Severe sepsis with septic shock: Ms. Stroud presented with likely sepsis, though the source is not entirely clear. She is improving with resuscitation and IV antibiotics. I would continue broad spectrum coverage until a pathogen is identified. Given her immune- compromised state, the lack of a febrile response does not necessarily rule against an infection. Often, these patients can have less typical presentations of infections. In light of her acute illness and neutropenia, I think GCSF support with neupogen 480 mcg daily would be reasonable for now. Otherwise, her counts should be rising in the next few days. Present on Admission?: Yes History of Present Illness Reason for Consultation: Septic shock Diffuse large B cell lymphoma Attending Physician: Saroj Tilley, DO History of Present Illness Ms. 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 She received her first cycle of R-CHOP on 09/15/18. Per her family, she did relatively well with treatment. However, she ended up coming to the ER last Friday complaining of abdominal pain. It was poorly localized and somewhat vague. A CT A/P was unrevealing. She had a UA that was possibly infectious, with 1+ leukocyte esterase and >30 WBCs. However, it was contaminated with epithelial cells and the culture grew out 3 species of skin rodrigo. Still, she was given a dose of Rocephin in the ER and discharged empirically on Keflex. She felt better at first, but started to get sick again late in the week. She came in yesterday due to severe fatigue and generalized weakness. She was found to be hypotensive, with a low of 60s/30s, but was only mildly tachycardic (low 100s) and afebrile. She was started on broad spectrum antibiotics and was briefly on pressors, though they are off now. She was initially anuric when she arrived and had an [facility]TH[facility]. However, her creatinine is better today and she is making urine. She was neutropenic on admission. Her UA was even less convincing for a UTI than last week, though cultures are pending. Imaging did not reveal any obvious sites of infection. She is feeling better today, though she is still pretty weak. She is slightly tachypneic, but was comfortable and denied any shortness of breath. Allergies Allergy/AdvReac Type Severity Reaction Status Date / Time No Known Allergies Allergy Unknown Verified 09/21/18 23:06 Home Medications Home Medications Medication Instructions Recorded Confirmed Type atenolol 25 mg PO QAM 09/07/18 09/27/18 History levothyroxine 75 mcg PO QAM 09/07/18 09/27/18 History pravastatin 20 mg PO HS 09/07/18 09/27/18 History cephalexin [Keflex] 500 mg PO QID 7 Days #28 cap 09/22/18 09/27/18 Rx ondansetron HCl 8 mg PO Q8 PRN 09/27/18 09/27/18 History prednisone 100 mg PO UD 09/27/18 09/27/18 History prochlorperazine maleate 10 mg PO Q6 PRN 09/27/18 09/27/18 History Patient History Medical History Abnormal EKG (Chronic) Breast cancer (Chronic) H/O Left breast cancer - DCIS Hyperlipidemia (Chronic) Hypertension (Chronic) Hypothyroidism (Chronic) Non Hodgkin's lymphoma REASON FOR PORT PLACEMENT Surgical History H/O of hysterectomy with bilateral oophorectomy (Resolved) H/O partial mastectomy (Resolved) Left H/O total knee replacement (Resolved) LEFT Hx laparoscopic cholecystectomy (Resolved) History of colonoscopy History of esophagogastroduodenoscopy (EGD) History of tooth extraction Nausea and vomiting after administration of anesthetic agent Family History Mother , in her 70s Diabetes Stroke Father , at 72yo Myocardial infarction Brother No problems noted. Brother No problems noted. Brother No problems noted. Sister Liver disorder Sister No problems noted. Sister No problems noted. Sister No problems noted. Daughter No problems noted. Social History Preferred Language: Malagasy Communication Ability: Effective Visual Impairment: No Limitations Hearing Ability: Hard of Hearing Home Comfort Advisor Required: No Beliefs That Will Affect Care: None marital status: Current Living Situation: Alone current occupational status: retired current occupation: [employer] Other Information That Helps Us Care for You: No Feels Safe at Home: Yes Safety Concerns: Feels Safe At This Time Smoking Status: Never smoker Do You Dip or Chew Tobacco: No Second Hand Exposure: No Tobacco Cessation Education Requested by Patient: No Hx Alcohol Use: No Hx Substance Use: No caffeine: No during the past year weight has: remained stable Review of Systems Constitutional: + fatigue and + weakness; no fever Eyes: no worsening vision Ear, Nose, Mouth, Throat: no nasal congestion and no sinus pain/pressure Respiratory: no cough and no dyspnea Cardiovascular: no chest pain and no palpitations Gastrointestinal: no abdominal pain, no nausea and no diarrhea/loose stools Genitourinary: no dysuria and no urinary frequency Musculoskeletal: no back pain and no joint pain Integumentary: no rash and no bleeding lesions Neurologic: no localized weakness and no headache(s) Hematologic / Lymphatic: no lymphadenopathy and no night sweats Physical Exam Constitutional: + ill appearing and comfortable; no acute distress Eyes: + anicteric sclerae and EOM intact bilaterally ENMT: external ear and nose normal, oropharynx normal Respiratory: + tachypneic; no respiratory distress Auscultation: lungs clear to auscultation bilaterally (anteriorly) Cardiovascular: Rate/Rhythm: regular rate and + tachycardic Extremities: + pedal edema Gastrointestinal (Abdomen): normal bowel sounds, soft, nontender, no hepatosplenomegaly Skin: no rashes, warm and dry Psychiatric: A+Ox3, euthymic affect Lymphatic: no cervical or axillary lymphadenopathy Results & Data Vital Signs (Past 12 Hours) Vital Signs Pulse Resp BP Pulse Ox 09/27/18 05:46 94 H 24 100 09/27/18 05:35 91 H 19 72/45 L 100 09/27/18 05:30 90 18 79/53 L 100 09/27/18 05:16 90 20 88/52 L 100 09/27/18 05:05 92 H 26 H 95/32 L 100 09/27/18 05:00 90 25 H 78/55 L 100 09/27/18 04:48 90 21 73/53 L 100 09/27/18 04:45 92 H 23 76/50 L 99 09/27/18 04:31 94 H 27 H 88/53 L 92 09/27/18 04:18 99 H 26 H 98/59 L 91 09/27/18 04:01 95 H 25 H 91/53 L 93 09/27/18 03:45 95 H 33 H 103/64 93 Laboratory Results Abnormal lab results 09/26/18 09/26/18 09/26/18 Range/Units 23:06 23:06 23:06 WBC (4.8-10.8) K/uL RBC (4.2-5.4) M/uL Hgb (12.0-16.0) g/dL Hct (37-47) % Plt Count (130-400) K/uL MPV (7.4-10.4) fL Neutrophils # (Manual) (1.4-6.5) K/uL Total Absolute Neuts (1.4-6.5) K/uL Lymphocytes # (Manual) (1.2-3.4) K/uL Total Abs Lymphocytes (1.2-3.4) K/uL Metamyelocytes # (Man) (0-0) K/uL Platelet Estimate (Normal) PT 13.5 H (9.0-12.0) Seconds INR 1.3 H (0.9-1.1) APTT 35.2 H (21.0-31.0) Seconds POC HCO3 (19-24) karl/L POC Total CO2 (24-31) mEq/l POC Base Excess (-9-1.8) karl/L POC ABG O2 Sat (90-95) % VBG pCO2 (38-50) mmHg Sodium (136-145) mmol/L Chloride (98-107) mmol/L Carbon Dioxide (21-32) mmol/L BUN (7-18) mg/dl Creatinine (0.6-1.2) mg/dl Glucose (70-99) mg/dl POC Glucose (other) (70-99) mg/dl Osmolality 264 L (280-300) mOsm/kg Calcium (8.5-10.1) mg/dl Phosphorus (2.5-4.9) mg/dl Magnesium (1.8-2.4) mg/dl Direct Bilirubin (0-0.2) mg/dl NT-Pro-B Natriuret Pep (0-900) pg/ml Total Protein (6.4-8.2) gm/dl Albumin (3.4-5.0) gm/dl Albumin/Globulin Ratio (0.9-2) Lipase (73-393) U/L Procalcitonin 39.91 H (0-0.5) ng/ml Urine Appearance (Clear) Urine Protein (Negative) Urine Glucose (UA) (Negative) Urine Ketones (Negative) Urine Blood (Negative) Urine WBC (Auto) (0-5) /hpf U Hyaline Cast (Auto) (0-5) /lpf U Epithel Cells (Auto) (0-5) /lpf WBC Casts (0) /lpf Urine Osmolality (500-800) mOsm/kg 09/26/18 09/26/18 09/26/18 Range/Units 23:07 23:07 23:07 WBC 0.63 L* (4.8-10.8) K/uL RBC 3.14 L (4.2-5.4) M/uL Hgb 9.1 L (12.0-16.0) g/dL Hct 26.0 L (37-47) % Plt Count 46 L (130-400) K/uL MPV 10.9 H (7.4-10.4) fL Neutrophils # (Manual) 0.08 L (1.4-6.5) K/uL Total Absolute Neuts 0.08 L* (1.4-6.5) K/uL Lymphocytes # (Manual) 0.27 L (1.2-3.4) K/uL Total Abs Lymphocytes 0.27 L (1.2-3.4) K/uL Metamyelocytes # (Man) 0.02 H (0-0) K/uL Platelet Estimate Decreased L (Normal) PT (9.0-12.0) Seconds INR (0.9-1.1) APTT (21.0-31.0) Seconds POC HCO3 (19-24) karl/L POC Total CO2 (24-31) mEq/l POC Base Excess (-9-1.8) karl/L POC ABG O2 Sat (90-95) % VBG pCO2 35 L (38-50) mmHg Sodium 127 L (136-145) mmol/L Chloride 94 L (98-107) mmol/L Carbon Dioxide (21-32) mmol/L BUN 37 H (7-18) mg/dl Creatinine 3.23 H (0.6-1.2) mg/dl Glucose 107 H (70-99) mg/dl POC Glucose (other) (70-99) mg/dl Osmolality (280-300) mOsm/kg Calcium 7.6 L (8.5-10.1) mg/dl Phosphorus 2.1 L (2.5-4.9) mg/dl Magnesium (1.8-2.4) mg/dl Direct Bilirubin 0.4 H (0-0.2) mg/dl NT-Pro-B Natriuret Pep (0-900) pg/ml Total Protein 5.1 L (6.4-8.2) gm/dl Albumin 2.1 L (3.4-5.0) gm/dl Albumin/Globulin Ratio 0.7 L (0.9-2) Lipase (73-393) U/L Procalcitonin (0-0.5) ng/ml Urine Appearance (Clear) Urine Protein (Negative) Urine Glucose (UA) (Negative) Urine Ketones (Negative) Urine Blood (Negative) Urine WBC (Auto) (0-5) /hpf U Hyaline Cast (Auto) (0-5) /lpf U Epithel Cells (Auto) (0-5) /lpf WBC Casts (0) /lpf Urine Osmolality (500-800) mOsm/kg 09/27/18 09/27/18 09/27/18 Range/Units 00:44 00:44 01:24 WBC (4.8-10.8) K/uL RBC (4.2-5.4) M/uL Hgb (12.0-16.0) g/dL Hct (37-47) % Plt Count (130-400) K/uL MPV (7.4-10.4) fL Neutrophils # (Manual) (1.4-6.5) K/uL Total Absolute Neuts (1.4-6.5) K/uL Lymphocytes # (Manual) (1.2-3.4) K/uL Total Abs Lymphocytes (1.2-3.4) K/uL Metamyelocytes # (Man) (0-0) K/uL Platelet Estimate (Normal) PT (9.0-12.0) Seconds INR (0.9-1.1) APTT (21.0-31.0) Seconds POC HCO3 16 L (19-24) karl/L POC Total CO2 17 L (24-31) mEq/l POC Base Excess -11.0 L (-9-1.8) karl/L POC ABG O2 Sat 98.0 H (90-95) % VBG pCO2 (38-50) mmHg Sodium (136-145) mmol/L Chloride (98-107) mmol/L Carbon Dioxide (21-32) mmol/L BUN (7-18) mg/dl Creatinine (0.6-1.2) mg/dl Glucose (70-99) mg/dl POC Glucose (other) (70-99) mg/dl Osmolality (280-300) mOsm/kg Calcium (8.5-10.1) mg/dl Phosphorus (2.5-4.9) mg/dl Magnesium (1.8-2.4) mg/dl Direct Bilirubin (0-0.2) mg/dl NT-Pro-B Natriuret Pep (0-900) pg/ml Total Protein (6.4-8.2) gm/dl Albumin (3.4-5.0) gm/dl Albumin/Globulin Ratio (0.9-2) Lipase (73-393) U/L Procalcitonin (0-0.5) ng/ml Urine Appearance Turbid A (Clear) Urine Protein Trace H (Negative) Urine Glucose (UA) Trace H (Negative) Urine Ketones Trace H (Negative) Urine Blood 1+ H (Negative) Urine WBC (Auto) 10-30 H (0-5) /hpf U Hyaline Cast (Auto) 5-10 H (0-5) /lpf U Epithel Cells (Auto) >30 H (0-5) /lpf WBC Casts 1-5 H (0) /lpf Urine Osmolality 321 L (500-800) mOsm/kg 09/27/18 09/27/18 09/27/18 Range/Units 04:18 04:18 04:18 WBC 1.04 L (4.8-10.8) K/uL RBC 2.58 L (4.2-5.4) M/uL Hgb 7.6 L (12.0-16.0) g/dL Hct 21.3 L (37-47) % Plt Count 43 L (130-400) K/uL MPV (7.4-10.4) fL Neutrophils # (Manual) 0.17 L (1.4-6.5) K/uL Total Absolute Neuts 0.17 L* (1.4-6.5) K/uL Lymphocytes # (Manual) 0.46 L (1.2-3.4) K/uL Total Abs Lymphocytes 0.46 L (1.2-3.4) K/uL Metamyelocytes # (Man) 0.02 H (0-0) K/uL Platelet Estimate (Normal) PT 14.3 H (9.0-12.0) Seconds INR 1.4 H (0.9-1.1) APTT 39.6 H (21.0-31.0) Seconds POC HCO3 (19-24) karl/L POC Total CO2 (24-31) mEq/l POC Base Excess (-9-1.8) karl/L POC ABG O2 Sat (90-95) % VBG pCO2 (38-50) mmHg Sodium 131 L (136-145) mmol/L Chloride (98-107) mmol/L Carbon Dioxide 18 L (21-32) mmol/L BUN 34 H (7-18) mg/dl Creatinine 2.84 H D (0.6-1.2) mg/dl Glucose 102 H (70-99) mg/dl POC Glucose (other) (70-99) mg/dl Osmolality (280-300) mOsm/kg Calcium 6.3 L D (8.5-10.1) mg/dl Phosphorus 2.4 L (2.5-4.9) mg/dl Magnesium 1.6 L (1.8-2.4) mg/dl Direct Bilirubin 0.5 H (0-0.2) mg/dl NT-Pro-B Natriuret Pep (0-900) pg/ml Total Protein 4.5 L (6.4-8.2) gm/dl Albumin 2.1 L (3.4-5.0) gm/dl Albumin/Globulin Ratio (0.9-2) Lipase 16 L (73-393) U/L Procalcitonin (0-0.5) ng/ml Urine Appearance (Clear) Urine Protein (Negative) Urine Glucose (UA) (Negative) Urine Ketones (Negative) Urine Blood (Negative) Urine WBC (Auto) (0-5) /hpf U Hyaline Cast (Auto) (0-5) /lpf U Epithel Cells (Auto) (0-5) /lpf WBC Casts (0) /lpf Urine Osmolality (500-800) mOsm/kg 09/27/18 09/27/18 09/27/18 Range/Units 04:18 04:18 05:52 WBC (4.8-10.8) K/uL RBC (4.2-5.4) M/uL Hgb (12.0-16.0) g/dL Hct (37-47) % Plt Count (130-400) K/uL MPV (7.4-10.4) fL Neutrophils # (Manual) (1.4-6.5) K/uL Total Absolute Neuts (1.4-6.5) K/uL Lymphocytes # (Manual) (1.2-3.4) K/uL Total Abs Lymphocytes (1.2-3.4) K/uL Metamyelocytes # (Man) (0-0) K/uL Platelet Estimate (Normal) PT (9.0-12.0) Seconds INR (0.9-1.1) APTT (21.0-31.0) Seconds POC HCO3 16 L (19-24) karl/L POC Total CO2 17 L (24-31) mEq/l POC Base Excess -10.0 L (-9-1.8) karl/L POC ABG O2 Sat 99.0 H (90-95) % VBG pCO2 (38-50) mmHg Sodium (136-145) mmol/L Chloride (98-107) mmol/L Carbon Dioxide (21-32) mmol/L BUN (7-18) mg/dl Creatinine (0.6-1.2) mg/dl Glucose (70-99) mg/dl POC Glucose (other) (70-99) mg/dl Osmolality (280-300) mOsm/kg Calcium (8.5-10.1) mg/dl Phosphorus (2.5-4.9) mg/dl Magnesium (1.8-2.4) mg/dl Direct Bilirubin (0-0.2) mg/dl NT-Pro-B Natriuret Pep 98876 H (0-900) pg/ml Total Protein (6.4-8.2) gm/dl Albumin (3.4-5.0) gm/dl Albumin/Globulin Ratio (0.9-2) Lipase (73-393) U/L Procalcitonin 32.43 H (0-0.5) ng/ml Urine Appearance (Clear) Urine Protein (Negative) Urine Glucose (UA) (Negative) Urine Ketones (Negative) Urine Blood (Negative) Urine WBC (Auto) (0-5) /hpf U Hyaline Cast (Auto) (0-5) /lpf U Epithel Cells (Auto) (0-5) /lpf WBC Casts (0) /lpf Urine Osmolality (500-800) mOsm/kg 09/27/18 09/27/18 Range/Units 06:17 09:12 WBC (4.8-10.8) K/uL RBC (4.2-5.4) M/uL Hgb 8.7 L (12.0-16.0) g/dL Hct 24.4 L (37-47) % Plt Count (130-400) K/uL MPV (7.4-10.4) fL Neutrophils # (Manual) (1.4-6.5) K/uL Total Absolute Neuts (1.4-6.5) K/uL Lymphocytes # (Manual) (1.2-3.4) K/uL Total Abs Lymphocytes (1.2-3.4) K/uL Metamyelocytes # (Man) (0-0) K/uL Platelet Estimate (Normal) PT (9.0-12.0) Seconds INR (0.9-1.1) APTT (21.0-31.0) Seconds POC HCO3 (19-24) karl/L POC Total CO2 (24-31) mEq/l POC Base Excess (-9-1.8) karl/L POC ABG O2 Sat (90-95) % VBG pCO2 (38-50) mmHg Sodium (136-145) mmol/L Chloride (98-107) mmol/L Carbon Dioxide (21-32) mmol/L BUN (7-18) mg/dl Creatinine (0.6-1.2) mg/dl Glucose (70-99) mg/dl POC Glucose (other) 111 H (70-99) mg/dl Osmolality (280-300) mOsm/kg Calcium (8.5-10.1) mg/dl Phosphorus (2.5-4.9) mg/dl Magnesium (1.8-2.4) mg/dl Direct Bilirubin (0-0.2) mg/dl NT-Pro-B Natriuret Pep (0-900) pg/ml Total Protein (6.4-8.2) gm/dl Albumin (3.4-5.0) gm/dl Albumin/Globulin Ratio (0.9-2) Lipase (73-393) U/L Procalcitonin (0-0.5) ng/ml Urine Appearance (Clear) Urine Protein (Negative) Urine Glucose (UA) (Negative) Urine Ketones (Negative) Urine Blood (Negative) Urine WBC (Auto) (0-5) /hpf U Hyaline Cast (Auto) (0-5) /lpf U Epithel Cells (Auto) (0-5) /lpf WBC Casts (0) /lpf Urine Osmolality (500-800) mOsm/kg Diagnostic Findings CT [facility], 09/26/18: IMPRESSION: 1. Suboptimal examination without oral and IV contrast. 2. There is no airspace consolidation or pleural effusion. 3. Cardiomegaly with evidence of anemia. 4. No pathologically enlarged lymph nodes are identified in the chest, abdomen, or pelvis. 5. There is rectal wall thickening with perirectal inflammation. Correlate clinically for evidence of proctitis. 6. Nonobstructing right renal calculus. 7. Hepatosplenomegaly. 8. Moderate colonic diverticulosis without CT evidence of acute diverticulitis. 9. Additional findings as above.
[2018-09-27 16:58] LABS: Calcium 6.8 mg/dl (8.5-10.1); Creatinine Clr Calc Pharmacy 19.7 ml/min; Est GFR (Non-African American) 20.7; Magnesium 3.1 mg/dl (1.8-2.4); Potassium 3.7 mmol/L (3.5-5.1)
[2018-09-27 17:01] LABS: Phosphorus 3.1 mg/dl (2.5-4.9)
[2018-09-27] MEDS ORDERED: POTASSIUM CHLORIDE 10 MEQ in SODIUM CHLORIDE 0.9% 1000ML 1,000 ML IV SCH (17:15)
[2018-09-27 17:34] LABS: ALC (manual) 0.36 K/uL (1.2-3.4); Dohle Bodies 1+; Echinocytes 1+; Giant Platelets 2+; Hematocrit (blood only) 25.3 % (37-47); Lymphocytes # (manual) 0.36 K/uL (1.2-3.4); Mean Corpuscular Hgb Conc 35.6 g/dL (32-36); Mean Corpuscular Volume 81.9 fL (80-100); Mean Platelet Volume 10.7 fL (7.4-10.4); Monocytes # (manual) 0.43 K/uL (0.11-0.59); Platelet Count 64 K/uL (130-400); RDW Coefficient of Variation 13.4 % (11.5-14.5); RDW Standard Deviation 40.6 fL (36.4-46.3); Red Blood Count 3.09 M/uL (4.2-5.4); White Blood Count 1.52 K/uL (4.8-10.8)
--- NOTE | 2018-09-27 18:12 | Family Medicine Progress Note ---
Date of Service September 27, 2018 Assessment & Plan (1) Neutropenia: Neutropenic fever with septic shockcontinue broad antibiotics and supportive care. She is now off pressors, and overall she is doing better/breathing better. Continue supportive care. ICU input greatly appreciated. Otherwise as per H&P and ICU. (2) Severe sepsis with septic shock: (3) Pancytopenia: (4) Lymphoma: (5) History of recent chemotherapy: (6) Acute renal failure: (7) Respiratory failure: (8) Thrombocytopenia: Subjective Patient seen in follow-up from early a.m. admission, case discussed with medical fee clerk, case discussed with Dr. Johnson. Patient feeling better, no significant pain, breathing better feeling better overall. Physical Exam Physical Exam: Other than appearing fatigue no significant findings on exam (1) Neutropenia Neutropenia type: secondary to cancer chemotherapy Qualified Code(s): D70.1 - Agranulocytosis secondary to cancer chemotherapy; T45.1X5A - Adverse effect of antineoplastic and immunosuppressive drugs, initial encounter (2) Acute renal failure Acute renal failure type: unspecified Qualified Code(s): N17.9 - Acute kidney failure, unspecified (3) Respiratory failure Chronicity: unspecified Respiratory failure complication: unspecified whether with hypoxia or hypercapnia Qualified Code(s): J96.90 - Respiratory failure, unspecified, unspecified whether with hypoxia or hypercapnia
[2018-09-28] MEDS: ALBUMIN 25% 50 ML IV SCH (02:15)
[2018-09-28] MEDS: HYDROCORTISONE SOD 100 MG in SYRINGE 0 ML IV SCH (02:24)
[2018-09-28 04:33] LABS: INR 1.3 (0.9-1.1); Partial Thromboplastin Ratio 1.4; Partial Thromboplastin Time 39.1 Seconds (21.0-31.0); Prothrombin Time 13.3 Seconds (9.0-12.0)
[2018-09-28 04:34] LABS: Hematocrit (blood only) 24.4 % (37-47); Hemoglobin 8.7 g/dL (12.0-16.0); Mean Corpuscular Hgb Conc 35.7 g/dL (32-36); Mean Corpuscular Volume 81.6 fL (80-100); Mean Platelet Volume 10.9 fL (7.4-10.4); Platelet Count 48 K/uL (130-400); RDW Coefficient of Variation 13.3 % (11.5-14.5); RDW Standard Deviation 40.3 fL (36.4-46.3); Red Blood Count 2.99 M/uL (4.2-5.4); White Blood Count 1.77 K/uL (4.8-10.8)
[2018-09-28 04:47] LABS: Albumin Level 2.3 gm/dl (3.4-5.0); BUN Creatinine Ratio 17.4 (10-20); Calcium 7.3 mg/dl (8.5-10.1); Creatinine Clr Calc Pharmacy 24.5 ml/min; Est GFR (African American) 31.2; Est GFR (Non-African American) 26.9; Magnesium 3.1 mg/dl (1.8-2.4); Potassium 3.3 mmol/L (3.5-5.1)
[2018-09-28 04:51] LABS: Bilirubin Direct 0.3 mg/dl (0-0.2); Bilirubin,Total 0.6 mg/dl (0.2-1); Phosphorus 2.9 mg/dl (2.5-4.9); Total Protein 4.7 gm/dl (6.4-8.2)
[2018-09-28] MEDS ORDERED: CALCIUM GLUCONATE 10% 1,000 MG in SODIUM CHLORIDE 0.9% 50 ML IV STA (05:06)
[2018-09-28 05:07] LABS: Basophils # (auto) 0.02 K/uL (0-0.2); Basophils % (auto) 1.1 %; Eosinophils # (auto) 0.01 K/uL (0-0.5); Eosinophils % (auto) 0.6 %; Immature Granulocytes # (auto) 0.13 K/uL (0.00-0.02); Immature Granulocytes % (auto) 7.3 %; Lymphocytes # (auto) 0.28 K/uL (1.2-3.4); Lymphocytes % (auto) 15.8 %; Monocytes # (auto) 0.63 K/uL (0.11-0.59); Monocytes % (auto) 35.6 %; Neutrophils % (auto) 39.6 %; Toxic Granulation 2+; Toxic Vacuolation Occasional
[2018-09-28] MEDS: POTASSIUM CHLORIDE / WTR 10 MEQ/100 ML PLCT IV SCH ×6 (05:13→23:25)
[2018-09-28 06:24] LABS: Giant Platelets 3+
[2018-09-28] MEDS ORDERED: METOPROLOL TARTRATE 1 MG/ML VIAL IV STA ×3 (06:51→07:49)
[2018-09-28] MEDS ORDERED: METOPROLOL TARTRATE 1 MG/ML VIAL IV ONE (06:53)
--- NOTE | 2018-09-28 07:00 | XRay Report ---
XR chest 1V portable HISTORY: 73 years-old Female f/u follow-up study in a patient with sepsis COMPARISON: Chest radiograph and chest CT 09/27/2018 TECHNIQUE: Portable AP view of the chest FINDINGS: Cardiomediastinal and hilar silhouettes are unchanged. Stable positioning of the right-sided Infuse-a -Port catheter. No pneumothorax or pleural effusion. Subsegmental bibasilar opacities have slightly p rogressed. Degenerative changes of the shoulders and spine. IMPRESSION: 1. Cardiomegaly without overt pulmonary edema. 2. Slightly progressed bibasilar opacities suggest probable atelectasis. Pneumonitis considered less likely. The above report was generated using voice recognition software. It may contain grammatical, syntax o r spelling errors. Electronically signed by: Phillip Brooke M.D. 09/28/2018 6:59 AM
[2018-09-28] MEDS: AZITHROMYCIN 500 MG in DEXTROSE 5% 250 ML IV SCH (08:39)
[2018-09-28] MEDS: FAMOTIDINE 20 MG in SYRINGE 3 ML IV SCH (08:40)
[2018-09-28] MEDS ORDERED: AMIODARONE / D5W 150 MG/100 ML BAG IV ONE (09:30)
--- NOTE | 2018-09-28 09:31 | Progress Note ---
DATE: 09/28/2018 DIAGNOSES: 1. Neutropenic fever. 2. Sepsis with suspected shock. 3. Pancytopenia attributable to chemotherapy. 4. Non-Hodgkin's lymphoma. 5. Acute renal failure. SUBJECTIVE: Maya is a pleasant 73-year-old female well known to see CCT currently under Dr. Dyer's care, recently treated for a newly diagnosed non-Hodgkin's lymphoma. She received R-CHOP approximately 10 days ago. Now admitted to the ICU, hemodynamically more stable than admission. However, she remains tachycardic. Maya admits to feeling better and is slowly on the way towards recovery. Blood cultures are positive for suspected pseudomonas. Nursing reports no overnight difficulties otherwise. PHYSICAL EXAMINATION: GENERAL: A very pleasant 73-year-old female, in no acute distress. VITAL SIGNS: Temperature 36.5, pulse 132, respiratory rate 22, blood pressure 120/76. SKIN: Without rash or lesion. HEENT: Oral mucosa without erythema or ulceration. No evidence of thrush. NECK: Supple. HEART: Tachycardic, but regular. LUNGS: Clear to auscultation bilaterally. ABDOMEN: Soft, nontender, nondistended. EXTREMITIES: No clubbing, cyanosis or edema. NEUROLOGIC: She is grossly intact. LABORATORY DATA: WBC count 1770, hemoglobin 8.7, platelet count 48,000, neutrophil count is now 700. PT mildly elevated at 13.3, PTT mildly elevated at 39.1 seconds. Sodium 132, potassium 3.3, chloride 101, carbon dioxide 23, BUN 32, creatinine 1.85. ASSESSMENT: 1. Pseudomonal bacteremia. 2. Septic shock. 3. Neutropenia/pancytopenia attributable to chemotherapy. 4. Acute renal failure. 5. Hypokalemia. The patient was seen and examined at bedside. Doing much better. She was awake, alert, and conversant. She remains tachycardic but is receiving appropriate IV hydration and broad-spectrum antibiotics, which I trust will be adjusted for pseudomonas. While speaking to Maya, it seems like she became acutely ill roughly within 24-48 hours after completing high-dose steroids, which is a part of the [facility] regimen. I suspect Dr. Dyer will make some dose adjustments moving forward. She obviously needs to recover from her current medical insult and seems to be well on her way doing so. We will continue to follow her periodically during her stay. I appreciate the help of the marine painter in Maya's care.
[2018-09-28] MEDS ORDERED: AMIODARONE / D5W 360 MG/200 ML BAG IV SCH ×2 (09:45→15:46)
[2018-09-28] MEDS ORDERED: 0.2 MICRON FILTER SET 1 EA IV SCH (09:45)
--- NOTE | 2018-09-28 09:50 | Critical Care Progress Note ---
Date of Service September 28, 2018 Assessment & Plan (1) Admitted to intensive care unit: Dr. Jacobo was resident physician during care of patient. I separately evaluated patient for epps portions of the history and the exam. I was present during the critical portion of medical decision making, and I discussed the case with the resident. I generally agree with the findings and plan. Reason Critically Ill: Atrial fibrillation with rapid ventricular response NEURO - * CAM ICU: NEGATIVE * Consented for sedation for possible elective cardioversion CARDIAC/VASCULAR - * Hypotension: resolved * Atrial fibrillation with RVR * EKG today * Reviewed Echo. * Amiodarone including bolus * Low-dose heparin infusion * Consented for possible elective cardioversion * Cardiology consult * ECHO (08/31/2018): LVH, Diastolic Dysfunction, Grade III (restrictive pattern), consistent with markedly increased left atrial pressure. The left atrium is moderately dilated. Right ventricular systolic pressure is elevated at 30- 40mmHg. Ejection fraction=60-65%. RESPIRATORY - * Tachypnea: Improving GI/NUTRITION - * Regular diet * N.p.o. at 11 for possible cardioversion RENAL/LYTES - * ARF: * Likely multifactorial including recent chemotherapy w/ risks for renotoxicity, hypovolemia w/ recent diarrhea, ischemic ATN in the setting of profound hypotension.. * Discontinue additional fluids at 5 PM * Hyponatremia: Improving * Marginal. Likely 2/2 GI losses. * IVF: NSS@150mL/hr discontinue at 5 PM - * Possible UTI: Reviewed amended CT scan, concern for proctitis could be sterile pyuria from adjacent inflammation * Molina in place - Strict I&Os. ENDO - * No h/o DM. * BSGs per unit protocol. ISS --> gtt per unit policy. * Hypothyroidism: * Discontinue stress dose steroids HEME - * Pancytopenia: * Multifactorial in the setting of recent chemo and current c/o sepsis w/ possible consumptive coagulopathy. * Type and Screened --> Transfuse as needed. * Transfuse platelets if <20 or if c/o bleeding. * Neutropenic precautions: Improved status post Neupogen * DLBCL s/p R-CHOP treatment: * Likely contributory to a number of patient's s/s today. * Appreciate Heme/Onc consult. ID - * Severe sepsis w/ septic shock: Pseudomonas bacteremia * Continue Zosyn given concerns for prostatitis and Pseudomonas bacteremia * Repeat blood cultures * Consented for PICC line for 10 days antibiotics given bacteremia * Vanc discontinued, discontinue azithromycin LINES/IV ACCESS - * PIVs x1 * RIGHT [place]. * Molina. * Consented for PICC placement will require long-term antibiotic DVT PROPHYLAXIS - * Heparin infusion * SCDs 1800 update patient's heart rate better controlled, will hold on cardioversion in the setting of probable paroxysmal atrial fibrillation. Reviewed cardiology consult. I have personally spent 55 minutes of critical care time in the direct management of this patient. This is a life/limb threatening event. This includes time spent evaluating patient, direct bedside care, chart review, placing orders, interpretation of diagnostic studies, discussion with consultants, patient, and family members, as well as other required patient management activities. This time is exclusive of all separately billable procedures, and teaching time and separate from and in addition to any other critical care service time. Subjective Ms Stroud is resting comfortably. She has no concerns at this time, resting comfortably and asking appropriate questions about her care. She tells me she has never had atrial fibrillation before, but she does not feel any palpitations or feel short of breath currently. She does not feel sick and has not had any fevers or chills. Patient's family present at bedside. Review of Systems Constitutional: no fever and no chills Respiratory: no cough and no dyspnea Cardiovascular: no chest pain, no dyspnea, no dyspnea at rest, no palpitations, no lightheadedness and no syncope Gastrointestinal: no abdominal pain, no nausea and no vomiting Integumentary: no unusual bruising Neurologic: no headache(s) Physical Exam Constitutional: cooperative and comfortable; no acute distress Eyes: PERRL, conjunctivae normal, anicteric sclerae Respiratory: normal respiratory effort, lungs clear to auscultation Cardiovascular: Rate/Rhythm: + tachycardic; + abnormal rate and + abnormal rhythm Heart Sounds: no click, no gallop, no murmur and no cardiac rub Irregularly irregular and tachycardic, atrial fibrillation on rhythm monitor Gastrointestinal (Abdomen): normal bowel sounds, soft, nontender, no hepatosplenomegaly Results & Data Vital Signs (Past 12 Hours) Vital Signs Temp Pulse Resp BP Pulse Ox 09/28/18 07:29 126 H 121/76 09/28/18 07:01 134 H 114/74 09/28/18 06:56 133 H 133/70 09/28/18 06:01 76 17 105/52 L 95 09/28/18 04:01 36.5 C 68 19 113/49 L 96 09/28/18 02:01 66 30 H 93/47 L 95 09/28/18 00:55 75 31 H 111/58 L 96 09/28/18 00:54 76 18 170/84 H 96 09/28/18 00:15 67 18 88/50 L 96 09/28/18 00:01 36.6 C 70 18 83/48 L 96 09/27/18 23:00 72 22 96 09/27/18 22:01 76 20 101/47 L 95 09/27/18 21:26 78 21 100/54 L 96 Resident Activity Tracking Resident Involvement: Resident Care Provided Care Provided: Adult Hospital Medicine
[2018-09-28] MEDS: PIPERACILLIN/TAZOBACTAM 4.5 GM in DEXTROSE 5% 100 ML IV SCH ×2 (10:26→18:08)
[2018-09-28 11:00] LABS: iSTAT Art Bld Gas pCO2 Correct 37 mmHg (35-46); iSTAT Art Bld Gas pH Corrected 7.249 (7.35-7.45); iSTAT Arterial Blood Gas pCO2 37 mmHg (35-46); iSTAT Arterial Blood Gas pH 7.25 (7.35-7.45)
[2018-09-28 11:01] LABS: Patient Temperature 37.1
[2018-09-28 11:02] LABS: Patient Temperature 36.9; iSTAT Art Bld Gas pCO2 Correct 34 mmHg (35-46); iSTAT Art Bld Gas pH Corrected 7.286 (7.35-7.45); iSTAT Arterial Blood Gas pCO2 34 mmHg (35-46); iSTAT Arterial Blood Gas pH 7.28 (7.35-7.45)
--- NOTE | 2018-09-28 11:36 | Cardiology Consultation ---
Date of Consultation September 28, 2018 Assessment & Plan (1) New onset atrial fibrillation: She developed atrial fibrillation this morning at about 6:30 AM with a rapid heart rate, however she was unaware of the rhythm. She remains in it, it is slightly better controlled heart rate after receiving intravenous metoprolol and on IV amiodarone. She is currently not on an anticoagulant due to her thrombocytopenia although that is now going to be started. She has no history of this, however since she is asymptomatic I cannot exclude the possibility that she has paroxysmal atrial fibrillation in the past. It may also be due to her presentation. This may be difficult to sort out over the long run but at the moment we need to control her heart rate and hopefully she will tolerate an anticoagulant on top of her thrombocytopenia. Since her blood pressure is borderline I am going to give digoxin to help control her heart rate without dropping her blood pressure. History of Present Illness Reason for Consultation: New onset atrial fibrillation Attending Physician: Shanice Gabriel MD History of Present Illness This is a very pleasant 73-year-old woman who has a history of hypertension, hyperlipidemia with prior breast cancer and now lymphoma. She is undergoing chemotherapy. She presented to the emergency room with progressive generalized weakness and was found to be hypotensive in the emergency room and was resuscitated with fluids and pressors. She is pancytopenic and received broad- spectrum antibiotic coverage. This morning at about 6:30 AM she was discovered on telemetry to go into atrial fibrillation with a rapid heart rate. She evidently was unaware of the rhythm, at the time my evaluation her rate was somewhat controlled after receiving intravenous metoprolol and IV amiodarone and she is unaware of the arrhythmia. She does not recall having it before, she has been told she has had an abnormal electrocardiogram but not an arrhythmia in the past. She has not been anticoagulated in the past. Allergies Allergy/AdvReac Type Severity Reaction Status Date / Time No Known Allergies Allergy Unknown Verified 09/21/18 23:06 Home Medications Home Medications Medication Instructions Recorded Confirmed Type atenolol 25 mg PO QAM 09/07/18 09/27/18 History levothyroxine 75 mcg PO QAM 09/07/18 09/27/18 History pravastatin 20 mg PO HS 09/07/18 09/27/18 History cephalexin [Keflex] 500 mg PO QID 7 Days #28 cap 09/22/18 09/27/18 Rx ondansetron HCl 8 mg PO Q8 PRN 09/27/18 09/27/18 History prednisone 100 mg PO UD 09/27/18 09/27/18 History prochlorperazine maleate 10 mg PO Q6 PRN 09/27/18 09/27/18 History Patient History Medical History Abnormal EKG (Chronic) Breast cancer (Chronic) H/O Left breast cancer - DCIS Hyperlipidemia (Chronic) Hypertension (Chronic) Hypothyroidism (Chronic) Non Hodgkin's lymphoma REASON FOR PORT PLACEMENT Surgical History H/O of hysterectomy with bilateral oophorectomy (Resolved) H/O partial mastectomy (Resolved) Left H/O total knee replacement (Resolved) LEFT Hx laparoscopic cholecystectomy (Resolved) History of colonoscopy History of esophagogastroduodenoscopy (EGD) History of tooth extraction Nausea and vomiting after administration of anesthetic agent Family History Mother , in her 70s Diabetes Stroke Father , at 72yo Myocardial infarction Brother No problems noted. Brother No problems noted. Brother No problems noted. Sister Liver disorder Sister No problems noted. Sister No problems noted. Sister No problems noted. Daughter No problems noted. 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 HEENT: Unremarkable Neck: No jugular venous distention, carotid pulses are irregular but otherwise normal and equal bilaterally without bruits. Pulmonary: Clear to auscultation bilaterally. Cardiac: Irregular rhythm with no murmur, gallop or rub. Abdomen: Soft, nontender with normal bowel sounds. Extremities: No edema. Distal pulses intact. Neurologic: No focal findings. Gait is steady. Skin: No rash, ecchymoses or petechiae. Results & Data Vital Signs (Past 12 Hours) Vital Signs Temp Pulse Resp BP Pulse Ox Pulse Ox 09/28/18 11:16 101 H 24 96 09/28/18 11:15 109 H 22 100/72 95 09/28/18 11:01 115 H 13 96 09/28/18 11:00 114 H 26 H 111/74 96 09/28/18 10:45 103 H 23 106/68 96 09/28/18 10:30 117 H 24 96 09/28/18 10:16 109 H 20 102/71 95 09/28/18 10:15 112 H 37 H 95 09/28/18 10:00 119 H 23 96 09/28/18 09:45 115 H 18 97 09/28/18 09:31 119 H 18 116/82 96 09/28/18 09:30 120 H 14 97 09/28/18 09:15 121 H 29 H 96 09/28/18 09:01 124 H 20 107/69 97 09/28/18 09:00 124 H 24 97 09/28/18 08:45 134 H 22 09/28/18 08:38 131 H 120/76 09/28/18 08:32 133 H 22 09/28/18 08:31 132 H 22 120/76 09/28/18 08:30 133 H 18 09/28/18 08:00 126 H 19 137/83 95 09/28/18 07:45 127 H 22 123/109 H 09/28/18 07:30 136 H 28 H 09/28/18 07:29 126 H 121/76 09/28/18 07:04 125 H 11 L 121/78 09/28/18 07:01 132 H 21 114/74 09/28/18 07:00 132 H 26 H 114/74 09/28/18 06:56 133 H 133/70 09/28/18 06:48 142 H 21 133/70 09/28/18 06:42 125 H 20 122/73 09/28/18 06:30 72 15 95 09/28/18 06:02 64 16 95 09/28/18 06:01 76 17 105/52 L 95 09/28/18 04:01 36.5 C 68 19 113/49 L 96 09/28/18 02:01 66 30 H 93/47 L 95 09/28/18 00:55 75 31 H 111/58 L 96 09/28/18 00:54 76 18 170/84 H 96 09/28/18 00:15 67 18 88/50 L 96 09/28/18 00:01 36.6 C 70 18 83/48 L 96 Diagnostic Findings Her electrocardiogram at 6:37 AM this morning showed sinus rhythm with frequent premature atrial beats, nonspecific inferior ST-T abnormalities. An electrocardiogram done just about 10 minutes later shows atrial fibrillation with a heart rate of 133 bpm with inferior and anterolateral ST-T abnormalities. This morning at 9:49 AM she remains in atrial fibrillation heart rate of 125 bpm with continued diffuse [address]-T abnormalities. Review of telemetry shows onset of atrial fibrillation around 6:30 AM today, initially a rapid heart rate with a somewhat reduced heart rate currently. An echocardiogram done September 27, 2018 shows normal left ventricular size and function with mild concentric left ventricular hypertrophy.
[2018-09-28] MEDS: Heparin Adult LOW DOSE Wt-Based Dextrose 5% 25,000 units/500 mL IV SCH (12:05)
[2018-09-28] MEDS ORDERED: HEPARIN 25000 UNIT/500 ML D5W IV ONE (12:05)
[2018-09-28] MEDS ORDERED: DIGOXIN 250 MCG in SYRINGE 9 ML IV ONE (12:30)
[2018-09-28] MEDS ORDERED: DIGOXIN 0.125 MG TAB PO ONE (14:42)
[2018-09-28] MEDS: Heparin IV Low Dose *NO* Bolus IV SCH (15:07)
[2018-09-28] MEDS ORDERED: DIGOXIN 0.125 MG TAB PO SCH (16:00)
--- NOTE | 2018-09-28 16:51 | Family Medicine Progress Note ---
Date of Service September 28, 2018 Assessment & Plan (1) New onset atrial fibrillation: 73 y/o F with PMH L breast cancer (DCIS), HLD, HTN, Hypothyroidism, Non Hodgkins Lymphoma presented with severe sepsis with septic shock in the setting of neutropenia with pancytopenia s/p first dose of chemotherapy and was initially started on levophed drip, d/c now. Now found to have findings of new onset Afib. New Onset Afib w/ RVR -better controlled heart rate after receiving IV metoprolol and now currently on IV amiodarone. Started low-dose heparin infusion -Cards consult: Since BP is borderline, will give digoxin .125 mg PO daily to help control HR w/o dropping BP -ECHO 08/31: LVH, Diastolic Dysfunction, Grade III (restrictive pattern), consistent with markedly increased left atrial pressure. The left atrium is moderately dilated. Right ventricular systolic pressure is elevated at 30- 40mmHg. EF 60-65%. -possible elective cardioversion moving forward Severe sepsis with septic shock/neutropenic fever/pancytopenia/lymphoma with recent chemotherapy -Pt has been undergoing chemotherapy for lymphoma -d/c Levophed drip -blood cx grew Pseudomonas bacteremia. Will Cont Zosyn and repeat blood cultures. Antibiotics x10 days through PICC -D/C Vanc and azithromycin -Neutropenia improving s/p Neupogen -Possible UTI: CT showed concern for proctitis, could be sterile pyuria from adjacent inflammation. Will cont antibiotic regimen as above Pancytopenia -likely multifactorial in the setting of recent chemo and current c/o sepsis w/ possible consumptive coagulopathy Acute renal failure -Creatinine upon admission was 3.23. Improving with IVF -Likely multifactorial including recent chemotherapy w/ risks for renotoxicity, hypovolemia w/ recent diarrhea, ischemic ATN in the setting of profound hypotension Hypoalbuminemia -On admit low albumin predisposed to third spacing and hypotension. Received IV albumin -improving, will cont to trend FEN/GI: NPO for possible cardioversion DVT Prophylaxis: Heparin, SCD's Full Code Dispo: ICU Supervising Physician Co-Signing Physician Notes Resident Physician Supervision Note: I independently interviewed and examined the patient and verified the epps history and physical, reviewed labs and image studies, discussed the case with the resident Dr. Freitas and agree with the findings and care plan. Subjective 73 y/o F found in bed this AM in NAD. Overnight reports of going into Afib w/RVR. At present, pt denies SOB, CP, palpitations. Resting comfortably. Still NPO. No other acute concerns or complaints. Review of Systems Review of Systems: All systems reviewed & are unremarkable except as noted in HPI & below Physical Exam Constitutional: WD/WN, vitals as above Eyes: PERRL, conjunctivae normal, anicteric sclerae ENMT: external ear and nose normal, oropharynx normal Respiratory: normal respiratory effort, lungs clear to auscultation Cardiovascular: Rate/Rhythm: + tachycardic and + irregularly irregular Gastrointestinal (Abdomen): normal bowel sounds, soft, nontender, no hepatosplenomegaly Skin: no rashes, warm and dry Psychiatric: A+Ox3, euthymic affect Results & Data Vital Signs (Past 12 Hours) Vital Signs Temp Pulse Resp BP Pulse Ox Pulse Ox 09/28/18 16:44 101 H 09/28/18 15:47 97 09/28/18 15:00 36.7 C 100 H 24 124/74 97 09/28/18 14:30 108 H 16 105/70 96 09/28/18 14:01 102 H 19 120/75 96 09/28/18 14:00 99 H 18 95 09/28/18 13:31 104 H 20 127/92 96 09/28/18 13:30 103 H 20 96 09/28/18 13:10 100 H 22 133/80 97 09/28/18 13:00 108 H 23 133/80 96 09/28/18 12:54 97 H 09/28/18 12:31 114 H 30 H 96 09/28/18 12:30 121 H 25 H 118/84 96 09/28/18 12:01 113 H 22 97 09/28/18 12:00 101 H 32 H 112/72 97 09/28/18 11:31 105 H 27 H 96 09/28/18 11:30 117 H 27 H 119/74 96 09/28/18 11:16 101 H 24 96 09/28/18 11:15 109 H 22 100/72 95 09/28/18 11:01 115 H 13 96 09/28/18 11:00 114 H 26 H 111/74 96 09/28/18 10:45 103 H 23 106/68 96 06/03/19 10:30 117 H 24 96 09/28/18 10:16 109 H 20 102/71 95 09/28/18 10:15 112 H 37 H 95 09/28/18 10:00 119 H 23 96 09/28/18 09:45 115 H 18 97 09/28/18 09:31 119 H 18 116/82 96 09/28/18 09:30 120 H 14 97 09/28/18 09:15 121 H 29 H 96 09/28/18 09:01 124 H 20 107/69 97 09/28/18 09:00 124 H 24 97 09/28/18 08:45 134 H 22 09/28/18 08:38 131 H 120/76 09/28/18 08:32 133 H 22 09/28/18 08:31 132 H 22 120/76 09/28/18 08:30 133 H 18 09/28/18 08:00 126 H 19 137/83 95 09/28/18 07:45 127 H 22 123/109 H 09/28/18 07:30 136 H 28 H 09/28/18 07:29 126 H 121/76 09/28/18 07:04 125 H 11 L 121/78 09/28/18 07:01 132 H 21 114/74 09/28/18 07:00 132 H 26 H 114/74 09/28/18 06:56 133 H 133/70 09/28/18 06:48 142 H 21 133/70 09/28/18 06:42 125 H 20 122/73 09/28/18 06:30 72 15 95 09/28/18 06:02 64 16 95 09/28/18 06:01 76 17 105/52 L 95 Laboratory Results Laboratory Results - last 24 hr 09/27/18 09/27/18 09/27/18 01:24 05:52 16:33 WBC RBC Hgb Hct MCV MCH MCHC RDW Std Deviation RDW Coeff of Hosea Plt Count MPV Immature Gran % (Auto) Neut % (Auto) Lymph % (Auto) Whitman % (Auto) Eos % (Auto) Baso % (Auto) Immature Gran # (Auto) Neut # (Auto) Lymph # (Auto) Whitman # (Auto) Eos # (Auto) Baso # (Auto) Neutrophils % (Manual) Lymphocytes % (Manual) Monocytes % (Manual) Neutrophils # (Manual) Total Absolute Neuts Lymphocytes # (Manual) Total Abs Lymphocytes Monocytes # (Manual) Toxic Granulation Toxic Vacuolation Dohle Bodies Giant Platelets Echinocytes PT INR APTT PTT Ratio Patient Temperature 37.1 36.9 POC pH 7.25 L 7.28 L POC pCO2 37 34 L POC pO2 126 H 171 H ABG pH (Temp Correct) 7.249 L 7.286 L ABG pCO2 (Temp Corrct 37 34 L POC ABG pO2 at Pt Temp 126 170 Sodium 128 L Potassium 3.7 Chloride 96 L Carbon Dioxide 23 Anion Gap 10.0 BUN 32 H Creatinine 2.30 H D Est Cr Clr Drug Dosing 19.7 Est GFR ( Amer) 24.0 Est GFR (Non-Af Amer) 20.7 BUN/Creatinine Ratio 14.0 Glucose 188 H Calcium 6.8 L Phosphorus 3.1 Magnesium 3.1 H Total Bilirubin Direct Bilirubin AST ALT Alkaline Phosphatase Total Protein Albumin Lipase Random Vancomycin 09/27/18 09/28/18 09/28/18 16:34 03:55 03:55 WBC 1.52 L 1.77 L RBC 3.09 L 2.99 L Hgb 9.0 L 8.7 L Hct 25.3 L 24.4 L MCV 81.9 81.6 MCH 29.1 29.1 MCHC 35.6 35.7 RDW Std Deviation 40.6 40.3 RDW Coeff of Hosea 13.4 13.3 Plt Count 64 L 48 L MPV 10.7 H 10.9 H Immature Gran % (Auto) 7.3 Neut % (Auto) 39.6 Lymph % (Auto) 15.8 Whitman % (Auto) 35.6 Eos % (Auto) 0.6 Baso % (Auto) 1.1 Immature Gran # (Auto) 0.13 H Neut # (Auto) 0.70 L* Lymph # (Auto) 0.28 L Whitman # (Auto) 0.63 H Eos # (Auto) 0.01 Baso # (Auto) 0.02 Neutrophils % (Manual) 48.0 Lymphocytes % (Manual) 24.0 Monocytes % (Manual) 28.0 Neutrophils # (Manual) 0.73 L Total Absolute Neuts 0.73 L* Lymphocytes # (Manual) 0.36 L Total Abs Lymphocytes 0.36 L Monocytes # (Manual) 0.43 Toxic Granulation 2+ Toxic Vacuolation Occasional Dohle Bodies 1+ Giant Platelets 2+ 3+ Echinocytes 1+ PT 13.3 H INR 1.3 H APTT 39.1 H PTT Ratio 1.4 Patient Temperature POC pH POC pCO2 POC pO2 ABG pH (Temp Correct) ABG pCO2 (Temp Corrct POC ABG pO2 at Pt Temp Sodium Potassium Chloride Carbon Dioxide Anion Gap BUN Creatinine Est Cr Clr Drug Dosing Est GFR ( Amer) Est GFR (Non-Af Amer) BUN/Creatinine Ratio Glucose Calcium Phosphorus Magnesium Total Bilirubin Direct Bilirubin AST ALT Alkaline Phosphatase Total Protein Albumin Lipase Random Vancomycin 09/28/18 09/28/18 03:55 03:55 WBC RBC Hgb Hct MCV MCH MCHC RDW Std Deviation RDW Coeff of Hosea Plt Count MPV Immature Gran % (Auto) Neut % (Auto) Lymph % (Auto) Whitman % (Auto) Eos % (Auto) Baso % (Auto) Immature Gran # (Auto) Neut # (Auto) Lymph # (Auto) Whitman # (Auto) Eos # (Auto) Baso # (Auto) Neutrophils % (Manual) Lymphocytes % (Manual) Monocytes % (Manual) Neutrophils # (Manual) Total Absolute Neuts Lymphocytes # (Manual) Total Abs Lymphocytes Monocytes # (Manual) Toxic Granulation Toxic Vacuolation Dohle Bodies Giant Platelets Echinocytes PT INR APTT PTT Ratio Patient Temperature POC pH POC pCO2 POC pO2 ABG pH (Temp Correct) ABG pCO2 (Temp Corrct POC ABG pO2 at Pt Temp Sodium 132 L Potassium 3.3 L Chloride 101 Carbon Dioxide 23 Anion Gap 8.0 BUN 32 H Creatinine 1.85 H D Est Cr Clr Drug Dosing 24.5 Est GFR ( Amer) 31.2 Est GFR (Non-Af Amer) 26.9 BUN/Creatinine Ratio 17.4 Glucose 91 Calcium 7.3 L Phosphorus 2.9 Magnesium 3.1 H Total Bilirubin 0.6 Direct Bilirubin 0.3 H AST 9 L ALT 15 Alkaline Phosphatase 67 Total Protein 4.7 L Albumin 2.3 L Lipase 33 L Random Vancomycin 17.8 Medications Administered Current Inpatient Medications Dextrose (Dextrose 50%) 25 - 50 ml IV UD PRN; Protocol PRN Reason: Hypoglycemia Protocol Stop: 10/27/18 02:34 Digoxin (Lanoxin) 0.125 mg PO DAILY@1600 [facility] Stop: 10/28/18 15:59 Last Admin: 09/28/18 16:44 Dose: 0.125 mg Documented by: Glucagon (Glucagen) 1 mg SQ UD PRN; Protocol PRN Reason: Hypoglycemia Protocol Stop: 10/27/18 02:34 Glucose (Glucose 40%) 15 - 30 gm PO UD PRN; Protocol PRN Reason: Hypoglycemia Protocol Stop: 10/27/18 02:34 Glucose (Dex4 Glucose) 4 - 8 tabs PO UD PRN; Protocol PRN Reason: Hypoglycemia Protocol Stop: 10/27/18 02:34 Heparin Sodium (Porcine) (Heparin Sod 100 Unit/Ml Flush) 5 ml FLUSH PRN PRN PRN Reason: Flush Stop: 10/28/18 00:44 Potassium Chloride 10 meq/ (Sodium Chloride) 1,005 mls @ 40 mls/hr IV .Q24H SARAH Stop: 09/28/18 17:14 Last Admin: 09/27/18 17:54 Dose: 40 mls/hr Documented by: Amiodarone HCl/Dextrose (Nexterone / D5w) 360 mg in 200 mls @ 16.7 mls/hr IV .[id number] SARAH Stop: 10/28/18 15:45 Last Admin: 09/28/18 15:21 Dose: 16.7 mls/hr Documented by: N/A (0.2 Micron Filter Set 17" W/Clave,Non-Dehp) mls @ 0 mls/hr IV TODAY@0945 [facility] Stop: 10/28/18 09:44 Last Infusion: 09/28/18 10:30 Dose: Infused Documented by: Piperacillin Sod/Tazobactam (Sod 4.5 gm/ Dextrose) 120 mls @ 30 mls/hr IV Q8H SARAH; Protocol Stop: 10/12/18 17:59 Heparin Sodium/Dextrose (Heparin Sodium/Dextrose) 25,000 units in 500 mls @ 14 mls/hr IV .Q24H SARAH; Protocol Stop: 10/28/18 14:14 Last Admin: 09/28/18 12:05 Dose: 700 units/hr, 14 mls/hr Documented by: Miscellaneous (Icu Protocol For Hyperglycemia) 1 ea N/A PRN PRN; Protocol PRN Reason: Hyperglycemia Protocol Stop: 09/29/18 02:34 Miscellaneous (Carbohydrates For Hypoglycemia) 15 - 30 gm PO UD PRN PRN Reason: Hypoglycemia Treatment Stop: 10/27/18 02:34 Miscellaneous Information (Consult) 1 ea N/A UD PRN PRN Reason: Consult Stop: 10/27/18 02:34 Resident Activity Tracking Resident Involvement: Resident Care Provided Care Provided: Adult Hospital Medicine
[2018-09-28 18:42] LABS: Partial Thromboplastin Ratio 1.5; Partial Thromboplastin Time 40.2 Seconds (21.0-31.0)
[2018-09-28] MEDS ORDERED: HEPARIN IV BOLUS 4,000 UNITS in SYRINGE 0 ML IV ONE (19:15)
[2018-09-28] MEDS ORDERED: DEXAMETHASONE SOD PHOSPHATE 8 MG in SYRINGE 0 ML IV SCH (21:00)
[2018-09-28] MEDS: METOPROLOL TARTRATE 25 MG TAB PO SCH (21:16)
[2018-09-28 21:26] LABS: INR 1.3 (0.9-1.1); Prothrombin Time 13.5 Seconds (9.0-12.0)
[2018-09-28 21:42] LABS: BUN Creatinine Ratio 19.3 (10-20); Calcium 7.7 mg/dl (8.5-10.1); Creatinine Clr Calc Pharmacy 28.5 ml/min; Est GFR (African American) 35.8; Est GFR (Non-African American) 30.9; Magnesium 2.9 mg/dl (1.8-2.4); Potassium 3.5 mmol/L (3.5-5.1)
[2018-09-28 21:52] LABS: Phosphorus 2.1 mg/dl (2.5-4.9)
[2018-09-28 22:03] LABS: Hematocrit (blood only) 30.2 % (37-47); Hemoglobin 10.7 g/dL (12.0-16.0); Mean Corpuscular Hgb Conc 35.4 g/dL (32-36); Mean Corpuscular Volume 81.8 fL (80-100); Mean Platelet Volume 12.2 fL (7.4-10.4); Platelet Count 72 K/uL (130-400); RDW Coefficient of Variation 13.6 % (11.5-14.5); Red Blood Count 3.69 M/uL (4.2-5.4)
[2018-09-28 22:19] LABS: Basophils # (auto) 0.02 K/uL (0-0.2); Basophils % (auto) 0.4 %; Echinocytes 1+; Eosinophils # (auto) 0.01 K/uL (0-0.5); Eosinophils % (auto) 0.2 %; Giant Platelets 3+; Immature Granulocytes # (auto) 0.05 K/uL (0.00-0.02); Immature Granulocytes % (auto) 0.9 %; Lymphocytes # (auto) 0.34 K/uL (1.2-3.4); Lymphocytes % (auto) 6.2 %; Monocytes # (auto) 1.59 K/uL (0.11-0.59); Monocytes % (auto) 28.9 %; Neutrophils # (auto) 3.49 K/uL (1.4-6.5); Neutrophils % (auto) 63.4 %; Ovalocytes 1+; Platelet Estimate Decreased (Normal)
[2018-09-29] MEDS: NSS + 20MEQ KCL 20 MEQ/1,000 ML BAG IV SCH ×2 (00:25→15:46)
[2018-09-29] MEDS: POTASSIUM CHLORIDE / WTR 10 MEQ/100 ML PLCT IV SCH ×2 (00:25→01:18)
[2018-09-29 00:55] LABS: Partial Thromboplastin Ratio 1.5; Partial Thromboplastin Time 40.5 Seconds (21.0-31.0)
[2018-09-29] MEDS ORDERED: HEPARIN IV BOLUS 4,000 UNITS in SYRINGE 0 ML IV ONE (01:45)
[2018-09-29] MEDS: PIPERACILLIN/TAZOBACTAM 4.5 GM in DEXTROSE 5% 100 ML IV SCH (02:00)
[2018-09-29] MEDS ORDERED: dexAMETHasone 8 MG in SYRINGE 0 ML IV SCH (04:45)
[2018-09-29] MEDS ORDERED: methylPREDNISolone 40 MG in SYRINGE 0 ML IV SCH (05:00)
[2018-09-29 05:03] LABS: Hematocrit (blood only) 30.6 % (37-47); Hemoglobin 10.8 g/dL (12.0-16.0); Mean Corpuscular Hgb Conc 35.3 g/dL (32-36); RDW Coefficient of Variation 13.6 % (11.5-14.5); RDW Standard Deviation 41.3 fL (36.4-46.3); Red Blood Count 3.73 M/uL (4.2-5.4); White Blood Count 6.44 K/uL (4.8-10.8)
[2018-09-29 05:16] LABS: Mean Platelet Volume 11.6 fL (7.4-10.4); Platelet Count 67 K/uL (130-400)
[2018-09-29 05:24] LABS: INR 1.3 (0.9-1.1); Partial Thromboplastin Ratio 2.7; Prothrombin Time 13.1 Seconds (9.0-12.0)
[2018-09-29 05:28] LABS: Partial Thromboplastin Time 72.6 Seconds (21.0-31.0)
[2018-09-29 05:52] LABS: Albumin Level 2.2 gm/dl (3.4-5.0); Bilirubin Direct 0.2 mg/dl (0-0.2); Bilirubin,Total 0.5 mg/dl (0.2-1); Calcium 7.8 mg/dl (8.5-10.1); Creatinine Clr Calc Pharmacy 31.4 ml/min; Est GFR (African American) 41.2; Est GFR (Non-African American) 35.5; Magnesium 2.8 mg/dl (1.8-2.4); Phosphorus 2.1 mg/dl (2.5-4.9); Potassium 4.4 mmol/L (3.5-5.1); Total Protein 4.9 gm/dl (6.4-8.2)
[2018-09-29 06:05] LABS: ALC (manual) 0.67 K/uL (1.2-3.4); Dohle Bodies 1+; Giant Platelets 2+; Lymphocytes # (manual) 0.67 K/uL (1.2-3.4); Lymphocytes % (manual) 10.4 %; Monocytes # (manual) 0.39 K/uL (0.11-0.59); Monocytes % (manual) 6.1 %; Myelocytes # (manual) 0.06 K/uL (0-0); Myelocytes % (manual) 0.9 %; Neutrophils % (manual) 82.6 %
[2018-09-29] MEDS: Heparin IV Low Dose *NO* Bolus IV SCH ×4 (07:37→07:43)
[2018-09-29] MEDS ORDERED: FAMOTIDINE 20 MG in SYRINGE 3 ML IV SCH (09:00)
[2018-09-29] MEDS ORDERED: AZTREONAM CONSULT ACTIVE PRN (09:01)
[2018-09-29] MEDS: METOPROLOL TARTRATE 25 MG TAB PO SCH ×2 (09:02→20:38)
[2018-09-29] MEDS: Heparin Adult LOW DOSE Wt-Based Dextrose 5% 25,000 units/500 mL IV SCH (09:07)
--- NOTE | 2018-09-29 09:43 | Progress Note ---
DATE: 09/29/2018 DIAGNOSES: 1. Neutropenic fever. 2. Pseudomonas bacteremia. 3. Sepsis with suspected shock. 4. Pancytopenia attributable to chemotherapy. 5. Non-Hodgkin's lymphoma. 6. Acute renal failure. SUBJECTIVE: Maya is a pleasant 73-year-old female well known to [facility] under Dr. Dyer's care, recently treated for newly diagnosed non-Hodgkin's lymphoma. Post-cycle 1 R-CHOP. Unfortunately, developed fever, was subsequently admitted, and found to be profoundly neutropenic and subsequently grew out Pseudomonas on the blood culture. In the last 24 hours, Maya has developed a maculopapular diffuse rash involving her trunk and upper and lower extremities. She had been receiving Zosyn and recently received Neupogen injection. The patient admits itching is somewhat better and from a hemodynamic standpoint, Maya has stabilized. PHYSICAL EXAMINATION: GENERAL: A very pleasant 73-year-old female. VITAL SIGNS: Temperature 37.2, pulse 71, respiratory rate 18, blood pressure 122/76. SKIN: Again, diffuse maculopapular rash with anterior and posterior trunk as well as extremity distribution. HEENT: Oral mucosa without evidence of thrush. NECK: Supple. HEART: Regular rate and rhythm. LUNGS: Clear to auscultation bilaterally. ABDOMEN: Soft, nontender, nondistended. EXTREMITIES: No clubbing, cyanosis or edema. NEUROLOGIC: Grossly intact. LABORATORY DATA: WBC count 6440, hemoglobin 10.8, platelet count 67,000, absolute neutrophil count 3490. Sodium 138, potassium 4.4, chloride 109, carbon dioxide 23, creatinine 1.47, BUN 29. IMPRESSION: 1. Pseudomonal bacteremia. 2. Septic shock (resolved). 3. Neutropenia/pancytopenia attributable to R-CHOP chemotherapy. 4. Acute renal failure. 5. Cutaneous drug rash. PLAN: Maya is a pleasant 73-year-old female patient recently received initial course of R-CHOP chemotherapy for non-Hodgkin's lymphoma. Not surprisingly developed neutropenia followed by discovery of pseudomonas in her blood. She was treated appropriately with Zosyn and during the course of treatment developed a maculopapular rash, which I believe in my humble opinion is definitely antibiotic and alternative antimicrobial should be sought to cover Pseudomonas. She was also recently reduced amiodarone and digoxin; however, those drugs have been discontinued as her arrhythmia has stabilized. I agree with current management of steroids, H2 blockers, and such until her rash begins to resolve. I suspect over the next 24-48 hours, she will be transferred out to a step-down telemetry bed. We will continue to follow up Maya periodically throughout her stay. I applaud the doctor of audiology for their assistance in the care of this very pleasant patient.
--- NOTE | 2018-09-29 09:54 | Cardiology Progress Note ---
Date of Service September 29, 2018 Assessment & Plan (1) New onset atrial fibrillation: She developed atrial fibrillation this morning at about 6:30 AM on September 28, 2018 with a rapid heart rate, however she was unaware of the rhythm. She remained in it with a slightly better controlled heart rate after receiving intravenous metoprolol and IV amiodarone. She has no history of this, however since she is asymptomatic I cannot exclude the possibility that she has paroxysmal atrial fibrillation in the past. It may also be due to her presentation. This may be difficult to sort out over the long run but at the moment we should maintain medications to control her heart rate should she have recurrence and and hopefully she will tolerate an anticoagulant on top of her thrombocytopenia. Both amiodarone and digoxin have been discontinued. She is on low-dose beta-blockade but that is not likely to control her heart rate should she have recurrent atrial fibrillation. Her digoxin level was 2.1 this morning, that reflects her loading dose of 0.625 mg, not the daily dose. As far as AV mehrdad blocking medications go I would recommend increasing her beta-blockade, restarting digoxin and less it is felt that that is a cause of her allergic reaction which I think is unlikely, and I would use some type of anticoagulant, preferably 1 of the newer agents for long run. For the moment these therapies are not important since she is in sinus rhythm but they may be important if she goes back into atrial fibrillation. Subjective She is feeling well today except that she has a rash on her chest. She is not having any palpitations, she notes no change in her symptoms when she converted back to normal rhythm this morning. Physical Exam Physical Exam: Constitutional: Alert, cooperative and in no distress. Pulmonary: Clear to auscultation bilaterally. Cardiac: Regular rhythm with no murmur, gallop or rub. Abdomen: Soft, nontender with normal bowel sounds. Extremities: No edema. Skin: No rash, ecchymoses or petechiae. Results & Data Vital Signs (Past 12 Hours) Vital Signs Temp Pulse Resp BP Pulse Ox 09/29/18 06:31 71 18 122/76 96 09/29/18 06:30 70 23 09/29/18 06:01 64 21 132/75 97 09/29/18 06:00 62 20 98 09/29/18 05:31 63 27 H 153/85 H 99 09/29/18 05:30 73 22 99 09/29/18 05:01 66 20 133/107 H 09/29/18 05:00 66 15 09/29/18 04:31 111 H 16 121/76 96 09/29/18 04:30 108 H 19 97 09/29/18 04:00 108 H 19 96 09/29/18 03:31 120 H 20 122/70 96 09/29/18 03:30 112 H 18 96 09/29/18 03:01 99 H 19 117/75 97 09/29/18 03:00 104 H 18 97 09/29/18 02:31 102 H 18 112/77 96 09/29/18 02:30 99 H 19 97 09/29/18 02:01 124 H 20 122/87 97 09/29/18 02:00 93 H 23 98 09/29/18 01:31 101 H 18 131/83 97 09/29/18 01:30 104 H 18 96 09/29/18 01:01 106 H 18 97 09/29/18 01:00 96 H 18 97 09/29/18 00:31 91 H 21 130/92 97 09/29/18 00:30 103 H 18 97 09/29/18 00:00 37.2 C 101 H 22 143/85 H 93 09/28/18 23:31 95 H 20 124/85 97 09/28/18 23:30 83 20 97 09/28/18 23:01 89 23 124/77 89 L 09/28/18 23:00 87 19 95 09/28/18 22:31 82 18 123/64 89 L 09/28/18 22:30 86 20 96 09/28/18 22:01 89 19 108/58 L 96 09/28/18 22:00 72 19 96 Diagnostic Findings Her electrocardiogram this morning shows sinus bradycardia with some minor ST-T changes. No significant abnormality. Telemetry shows reasonably well-controlled heart rate until about 530 this morning when she converted to sinus bradycardia.
[2018-09-29] MEDS ORDERED: IMIPENEM/CILASTATIN SODIUM 500 MG in DEXTROSE 5% 100 ML IV SCH (10:00)
--- NOTE | 2018-09-29 10:14 | Critical Care Progress Note ---
Date of Service September 29, 2018 Assessment & Plan (1) Admitted to intensive care unit: Dr. Jacobo was resident physician during care of patient. I separately evaluated patient for epps portions of the history and the exam. I was present during the critical portion of medical decision making, and I discussed the case with the resident. I generally agree with the findings and plan. Reason Critically Ill: Atrial fibrillation with rapid ventricular response NEURO - * CAM ICU: NEGATIVE * Consented for sedation for possible elective cardioversion CARDIAC/VASCULAR - * Hypotension: resolved * Atrial fibrillation with RVR: Resolved * Amiodarone: Discontinued * Low-dose heparin infusion: Discontinue * Consented for possible elective cardioversion * Cardiology consult reviewed RESPIRATORY - * Tachypnea: resolved * Breathing comfortably currently GI/NUTRITION - * Regular diet RENAL/LYTES - * ARF: Improving * Hyponatremia: Improving - * Molina discontinued ENDO - * No h/o DM. * BSGs per unit protocol. ISS --> gtt per unit policy. * Steroids for presumptive drug rash * Decrease steroids to 40 mg prednisone daily x4 days then stop HEME - * Pancytopenia: Improving * DLBCL s/p R-CHOP treatment: * Likely contributory to a number of patient's s/s today. * Appreciate Heme/Onc consult. ID - * Severe sepsis w/ septic shock: Pseudomonas bacteremia * Converted to aztreonam: Concern for drug reaction to Zosyn * Repeat blood cultures * Consented for PICC line: Unable to place due to vessel size LINES/IV ACCESS - * PIVs x1 * RIGHT [place] [facility]. * Mol[place]. * Consented for PICC placement will require long-term antibiotic DVT PROPHYLAXIS - * Heparin infusion * SCDs Skin: -Most likely drug reaction -No mucous membrane involvement if patient developed mucous membrane involvement we will proceed with punch biopsy to rule out toxic epidermal necrolysis Dr. Jacobo was resident physician during care of patient. I separately evaluated patient for epps portions of the history and the exam. I was present during the critical portion of medical decision making, and I discussed the case with the resident. I generally agree with the findings and plan. Patient's neutropenia has resolved, converted to normal sinus rhythm, critical care needs largely resolved, patient stable for downgrade to telemetry status. Subjective Maya Stroud has developed a new rash this morning, she says that it is itchy especially on her chest and back and that it is spreading down her back. She tells me that it is not painful and that it does not affect her mouth, genitals or anus. She has not had any associated symptoms besides the itching. Constitutional: Negative for fever/chills ENT: nasal discharge, sore throat, difficulty swallowing, mouth lesions, or hoarseness Cardiovascular: Negative for chest pain, palpitations, dizziness Respiratory: Negative for new shortness of breath, coughing or wheezing Gastrointestinal: Patient has had some diarrhea, No nausea, vomiting, or dyspepsia Integumentary (skin): New red rash of trunk, back and arms Neurological: Negative for weakness, headache, or dizziness Physical Exam Constitutional: cooperative and comfortable; no acute distress Eyes: PERRL, conjunctivae normal, anicteric sclerae Respiratory: normal respiratory effort, lungs clear to auscultation Cardiovascular: Rate/Rhythm: regular rate and regular rhythm Heart Sounds: no click, no gallop, no murmur and no cardiac rub Patient has returned to a normal sinus rhythm Gastrointestinal (Abdomen): normal bowel sounds, soft, nontender, no hepatosplenomegaly Skin: Patient with an erythematous raised maculopapular rash that blanches with pressure. Rash has spread throughout chest and back and starting to move down arms. Several lesions on palms of hands and a few on legs bilaterally. No tenderness to palpation. Results & Data Vital Signs (Past 12 Hours) Vital Signs Temp Pulse Resp BP Pulse Ox 09/29/18 02:30 99 H 19 97 09/29/18 02:01 124 H 20 122/87 97 09/29/18 02:00 93 H 23 98 09/29/18 01:31 101 H 18 131/83 97 09/29/18 01:30 104 H 18 96 09/29/18 01:01 106 H 18 97 09/29/18 01:00 96 H 18 97 09/29/18 00:31 91 H 21 130/92 97 09/29/18 00:30 103 H 18 97 09/29/18 00:00 37.2 C 101 H 22 143/85 H 93 09/28/18 23:31 95 H 20 124/85 97 09/28/18 23:30 83 20 97 09/28/18 23:01 89 23 124/77 89 L 09/28/18 23:00 87 19 95 09/28/18 22:31 82 18 123/64 89 L 09/28/18 22:30 86 20 96 09/28/18 22:01 89 19 108/58 L 96 09/28/18 22:00 72 19 96 09/28/18 21:32 102 H 20 97 09/28/18 21:31 92 H 21 110/66 97 09/28/18 21:30 106 H 20 96 09/28/18 21:01 101 H 24 103/57 L 94 09/28/18 21:00 89 21 95 09/28/18 20:31 111 H 24 127/67 93 09/28/18 20:30 106 H 20 96 09/28/18 20:25 115 H 24 122/77 95 09/28/18 20:01 111 H 30 H 123/75 89 L 09/28/18 20:00 104 H 23 85 L 09/28/18 19:30 91 H 19 129/76 98 09/28/18 19:01 107 H 20 131/69 96 09/28/18 19:00 101 H 20 96 09/28/18 18:31 115 H 30 H 89/65 L 92 09/28/18 18:30 115 H 20 96 09/28/18 18:01 111 H 21 118/73 97 09/28/18 18:00 106 H 20 96 Resident Activity Tracking Resident Involvement: Resident Care Provided Care Provided: Adult Hospital Medicine
[2018-09-29] MEDS: AZTREONAM 2,000 MG in DEXTROSE 5% 100 ML IV SCH ×2 (11:06→17:47)
[2018-09-29] MEDS: INSULIN ASPART 100 UNITS/ML 3 ML PEN SC SCH ×3 (12:01→20:36)
[2018-09-29 13:41] LABS: Hypogranular Neutrophils 2+
--- NOTE | 2018-09-29 15:34 | Family Medicine Progress Note ---
Date of Service September 29, 2018 Assessment & Plan (1) New onset atrial fibrillation: 73 y/o F with PMH L breast cancer (DCIS), HLD, HTN, Hypothyroidism, Non Hodgkins Lymphoma presented with severe sepsis with septic shock in the setting of neutropenia with pancytopenia s/p first dose of chemotherapy and was initially started on levophed drip, d/c now. Later found to have findings of new onset Afib, resolved now. Had maculopapular rash rxn after starting Zosyn overnight. Severe Sepsis in the setting of neutropenia/panctopenia -Off pressors. -blood cx grew Pseudomonas bacteremia. Will Cont Aztreonam as above and repeat blood cultures. Antibiotics x10 days. -Unclear source. Urine culture negative. New Onset Afib w/ RVR -Resolved. Sinus now -D/C IV amiodarone. Cont heparin, Metoprolol Tartrate 25 mg PO BID -Cards consult: Recs increasing her beta-blockade, restarting digoxin, tr ansitioning to NOAC. Not urgent as pt is in sinus rhythm currently -ECHO 08/31: LVH, Diastolic Dysfunction, Grade III (restrictive pattern), consistent with markedly increased left atrial pressure. The left atrium is moderately dilated. Right ventricular systolic pressure is elevated at 30- 40mmHg. EF 60-65%. Maculopapular Rash -likely 2/2 Zosyn. Switched to aztreonam -Will cont on steroids, H1 [place] -Will decrease steroids to 40 mg prednisone daily x4 days then stop DLBCL s/p R-CHOP treatment -Pt has been undergoing chemotherapy for lymphoma -Neutropenia resolved -appreciate Heme/Onc recs moving forward Acute renal failure -Creatinine upon admission was 3.23. Improving with IVF -Likely multifactorial including recent chemotherapy w/ risks for renotoxicity, hypovolemia w/ recent diarrhea, ischemic ATN in the setting of profound hypotension FEN/GI: NS at 75. Regular Diet DVT Prophylaxis: Heparin, SCD's Full Code Dispo: Stable for Downgrade out of ICU to PCU/Tele (2) Hypoalbuminemia: (3) Neutropenic fever: (4) Sepsis: (5) Acute renal failure: (6) Pancytopenia: Supervising Physician Co-Signing Physician Notes Resident Physician Supervision Note: I independently interviewed and examined the patient and verified the epps history and physical, reviewed labs and image studies, discussed the case with the resident Dr. Freitas and agree with the findings and care plan. Subjective 73 y/o F found in chair this AM in NAD. Overnight reports of developing a maculopapular rash. Seems to be improving now. A fib w/ RVR resolved at present. Pt denies SOB, CP, palpitations. Resting comfortably. No other acute concerns or complaints. Review of Systems Review of Systems: All systems reviewed & are unremarkable except as noted in HPI & below Physical Exam Constitutional: WD/WN, vitals as above Eyes: PERRL, conjunctivae normal, anicteric sclerae ENMT: external ear and nose normal, oropharynx normal Respiratory: normal respiratory effort, lungs clear to auscultation Cardiovascular: RRR, no murmur, no edema Gastrointestinal (Abdomen): normal bowel sounds, soft, nontender, no hepatosplenomegaly Skin: Diffuse maculopapular rash trunk/back. Legs resolved Psychiatric: A+Ox3, euthymic affect Results & Data Vital Signs (Past 12 Hours) Vital Signs Temp Pulse Resp BP Pulse Ox 09/29/18 10:01 62 23 123/68 99 09/29/18 09:01 70 22 141/72 H 96 09/29/18 08:31 69 26 H 137/59 L 98 09/29/18 08:01 36.6 C 68 14 133/70 97 09/29/18 07:31 72 21 144/86 H 98 09/29/18 07:01 66 19 124/93 99 09/29/18 06:31 71 18 122/76 96 09/29/18 06:30 70 23 09/29/18 06:01 64 21 132/75 97 09/29/18 06:00 62 20 98 09/29/18 05:31 63 27 H 153/85 H 99 09/29/18 05:30 73 22 99 09/29/18 05:01 66 20 133/107 H 09/29/18 05:00 66 15 09/29/18 04:31 111 H 16 121/76 96 09/29/18 04:30 108 H 19 97 09/29/18 04:00 108 H 19 96 Laboratory Results Laboratory Results - last 24 hr 09/28/18 09/28/18 09/28/18 18:22 20:48 20:48 WBC 5.50 RBC 3.69 L Hgb 10.7 L Hct 30.2 L MCV 81.8 MCH 29.0 MCHC 35.4 RDW Std Deviation 41.0 RDW Coeff of Hosea 13.6 Plt Count 72 L MPV 12.2 H Immature Gran % (Auto) 0.9 Neut % (Auto) 63.4 Lymph % (Auto) 6.2 [place] % (Auto) 28.9 Eos % (Auto) 0.2 Baso % (Auto) 0.4 Immature Gran # (Auto) 0.05 H Neut # (Auto) 3.49 Lymph # (Auto) 0.34 L [place] # (Auto) 1.59 H Eos # (Auto) 0.01 Baso # (Auto) 0.02 Neutrophils % (Manual) Lymphocytes % (Manual) Monocytes % (Manual) Myelocytes % (Man) Neutrophils # (Manual) Total Absolute Neuts Lymphocytes # (Manual) Total Abs Lymphocytes Monocytes # (Manual) Myelocytes # (Manual) Hypogranular Neuts Dohle Bodies Platelet Estimate Decreased L Giant Platelets 3+ Ovalocytes 1+ Echinocytes 1+ PT 13.5 H INR 1.3 H APTT 40.2 H PTT Ratio 1.5 Sodium Potassium Chloride Carbon Dioxide Anion Gap BUN Creatinine Est Cr Clr Drug Dosing Est GFR ( Amer) Est GFR (Non-Af Amer) BUN/Creatinine Ratio Glucose POC Glucose Calcium Phosphorus Magnesium Total Bilirubin Direct Bilirubin AST ALT Alkaline Phosphatase Total Protein Albumin Lipase Digoxin 09/28/18 09/29/18 09/29/18 20:48 00:36 04:41 WBC RBC Hgb Hct MCV MCH MCHC RDW Std Deviation RDW Coeff of [place]osea Plt Count MPV Immature Gran % (Auto) Neut % (Auto) Lymph % (Auto) [place] % (Auto) Eos % (Auto) Baso % (Auto) Immature Gran # (Auto) Neut # (Auto) Lymph # (Auto) [place] # (Auto) Eos # (Auto) Baso # (Auto) Neutrophils % (Manual) Lymphocytes % (Manual) Monocytes % (Manual) Myelocytes % (Man) Neutrophils # (Manual) Total Absolute Neuts Lymphocytes # (Manual) Total Abs Lymphocytes Monocytes # (Manual) Myelocytes # (Manual) Hypogranular Neuts Dohle Bodies Platelet Estimate Giant Platelets Ovalocytes Echinocytes PT INR APTT 40.5 H PTT Ratio 1.5 Sodium 137 Potassium 3.5 Chloride 105 Carbon Dioxide 22 Anion Gap 10.0 BUN 32 H Creatinine 1.65 H Est Cr Clr Drug Dosing 28.5 Est GFR ( Amer) 35.8 Est GFR (Non-Af Amer) 30.9 BUN/Creatinine Ratio 19.3 Glucose 158 H POC Glucose Calcium 7.7 L Phosphorus 2.1 L Magnesium 2.9 H Total Bilirubin Direct Bilirubin AST ALT Alkaline Phosphatase Total Protein Albumin Lipase Digoxin 2.1 H 09/29/18 09/29/18 09/29/18 04:41 04:41 04:41 WBC 6.44 RBC 3.73 L Hgb 10.8 L Hct 30.6 L MCV 82.0 MCH 29.0 MCHC 35.3 RDW Std Deviation 41.3 RDW Coeff of [place]ose[place] 13.6 Plt Count 67 L MPV 11.6 H Immature Gran % (Auto) Neut % (Auto) Lymph % (Auto) [place] % (Auto) Eos % (Auto) Baso % (Auto) Immature Gran # (Auto) Neut # (Auto) Lymph # (Auto) [place] # (Auto) Eos # (Auto) Baso # (Auto) Neutrophils % (Manual) 82.6 Lymphocytes % (Manual) 10.4 Monocytes % (Manual) 6.1 Myelocytes % (Man) 0.9 Neutrophils # (Manual) 5.32 Total Absolute Neuts 5.32 Lymphocytes # (Manual) 0.67 L Total Abs Lymphocytes 0.67 L Monocytes # (Manual) 0.39 Myelocytes # (Manual) 0.06 H Hypogranular Neuts 2+ Dohle Bodies 1+ Platelet Estimate Giant Platelets 2+ Ovalocytes Echinocytes PT 13.1 H INR 1.3 H APTT 72.6 H* PTT Ratio 2.7 Sodium 138 Potassium 4.4 D Chloride 109 H Carbon Dioxide 23 Anion Gap 6.0 BUN 29 H Creatinine 1.47 H Est Cr Clr Drug Dosing 31.4 Est GFR ( Amer) 41.2 Est GFR (Non-Af Amer) 35.5 BUN/Creatinine Ratio 20.0 Glucose 127 H POC Glucose Calcium 7.8 L Phosphorus 2.1 L Magnesium 2.8 H Total Bilirubin 0.5 Direct Bilirubin 0.2 AST 6 L ALT 13 Alkaline Phosphatase 65 Total Protein 4.9 L Albumin 2.2 L Lipase 196 Digoxin 09/29/18 09/29/18 04:41 11:03 WBC RBC Hgb Hct MCV MCH MCHC RDW Std Deviation RDW Coeff of Hosea Plt Count MPV Immature Gran % (Auto) Neut % (Auto) Lymph % (Auto) [place] % (Auto) Eos % (Auto) Baso % (Auto) Immature Gran # (Auto) Neut # (Auto) Lymph # (Auto) [place] # (Auto) Eos # (Auto) Baso # (Auto) Neutrophils % (Manual) Lymphocytes % (Manual) Monocytes % (Manual) Myelocytes % (Man) Neutrophils # (Manual) Total Absolute Neuts Lymphocytes # (Manual) Total Abs Lymphocytes Monocytes # (Manual) Myelocytes # (Manual) Hypogranular Neuts Dohle Bodies Platelet Estimate Giant Platelets Ovalocytes Echinocytes PT INR APTT Cancelled PTT Ratio Cancelled Sodium Potassium Chloride Carbon Dioxide Anion Gap BUN Creatinine Est Cr Clr Drug Dosing Est GFR ( Amer) Est GFR (Non-Af Amer) BUN/Creatinine Ratio Glucose POC Glucose 192 H Calcium Phosphorus Magnesium Total Bilirubin Direct Bilirubin AST ALT Alkaline Phosphatase Total Protein Albumin Lipase Digoxin Medications Administered Current Inpatient Medications Aztreonam (Aztreonam Consult Active) 1 ea N/A UD PRN PRN Reason: Consult Stop: 10/29/18 09:00 Dextrose (Dextrose 50%) 25 - 50 ml IV UD PRN; Protocol PRN Reason: Hypoglycemia Protocol Stop: 10/27/18 02:34 Diphenhydramine HCl (Benadryl Capsule) 25 mg PO Q6H PRN PRN Reason: Itching Stop: 10/29/18 04:51 Last Admin: 09/29/18 12:01 Dose: 25 mg Documented by: Glucagon (Glucagen) 1 mg SQ UD PRN; Protocol PRN Reason: Hypoglycemia Protocol Stop: 10/27/18 02:34 Glucose (Glucose 40%) 15 - 30 gm PO UD PRN; Protocol PRN Reason: Hypoglycemia Protocol Stop: 10/27/18 02:34 Glucose (Dex4 Glucose) 4 - 8 tabs PO UD PRN; Protocol PRN Reason: Hypoglycemia Protocol Stop: 10/27/18 02:34 Heparin Sodium (Porcine) (Heparin Sod 100 Unit/Ml Flush) 5 ml FLUSH PRN PRN PRN Reason: Flush Stop: 10/28/18 00:44 Heparin Sodium (Porcine) (Heparin Sodium (Porcine)) 5,000 units SQ Q12 SARAH Stop: 10/30/18 08:59 Potassium Chloride/Sodium Chloride (Normal Saline W/20 Meq Kcl) 20 meq in 1,000 mls @ 75 mls/hr IV .[id number] [facility] Stop: 10/29/18 00:14 Last Admin: 09/29/18 15:46 Dose: 75 mls/hr Documented by: Aztreonam 2,000 mg/ Dextrose 110 mls @ 110 mls/hr IV Q8H [facility]; Protocol Stop: 10/05/18 23:59 Last Infusion: 09/29/18 12:06 Dose: Infused Documented by: Methylprednisolone 40 mg/ (Syringe) 0.64 mls @ 1.5 mls/min IV Q24H [facility] Stop: 10/03/18 06:01 Ranitidine HCl 50 mg/ Dextrose 102 mls @ 200 mls/hr IV Q24H [facility] Stop: 10/30/18 07:59 Insulin Aspart (Novolog Flexpen) 0 units SC ACHS SARAH Stop: 10/29/18 11:29 Last Admin: 09/29/18 12:01 Dose: 1 units Documented by: Metoprolol Tartrate (Lopressor) 25 mg PO BID [facility] Stop: 10/28/18 20:59 Last Admin: 09/29/18 09:02 Dose: 25 mg Documented by: Miscellaneous (Carbohydrates For Hypoglycemia) 15 - 30 gm PO UD PRN PRN Reason: Hypoglycemia Treatment Stop: 10/27/18 02:34 Resident Activity Tracking Resident Involvement: Resident Care Provided Care Provided: Adult Hospital Medicine (1) Acute renal failure Acute renal failure type: unspecified Qualified Code(s): N17.9 - Acute kidney failure, unspecified (2) Sepsis Sepsis type: sepsis due to unspecified organism Qualified Code(s): A41.9 - Sepsis, unspecified organism
[2018-09-30] MEDS: AZTREONAM 2,000 MG in DEXTROSE 5% 100 ML IV SCH ×3 (02:02→17:48)
[2018-09-30] MEDS: methylPREDNISolone 40 MG in SYRINGE 0 ML IV SCH (05:55)
[2018-09-30] MEDS: NSS + 20MEQ KCL 20 MEQ/1,000 ML BAG IV SCH (05:55)
[2018-09-30 06:26] LABS: Hematocrit (blood only) 29.6 % (37-47); Hemoglobin 10.1 g/dL (12.0-16.0); Mean Corpuscular Hgb Conc 34.1 g/dL (32-36); Mean Corpuscular Volume 84.3 fL (80-100); Mean Platelet Volume 11.9 fL (7.4-10.4); Platelet Count 99 K/uL (130-400); RDW Coefficient of Variation 14.3 % (11.5-14.5); RDW Standard Deviation 44.4 fL (36.4-46.3); Red Blood Count 3.51 M/uL (4.2-5.4); White Blood Count 17.72 K/uL (4.8-10.8)
[2018-09-30 06:49] LABS: ALC (manual) 0.92 K/uL (1.2-3.4); Eosinophils # (manual) 0.16 K/uL (0-0.5); Eosinophils % (manual) 0.9 %; Giant Platelets 1+; Lymphocytes # (manual) 0.92 K/uL (1.2-3.4); Lymphocytes % (manual) 5.2 %; Metamyelocytes # (manual) 0.46 K/uL (0-0); Metamyelocytes % (manual) 2.6 %; Monocytes # (manual) 0.92 K/uL (0.11-0.59); Monocytes % (manual) 5.2 %; Myelocytes # (manual) 0.16 K/uL (0-0); Myelocytes % (manual) 0.9 %; Neutrophils % (manual) 85.2 %; Toxic Granulation 1+
[2018-09-30 07:01] LABS: Albumin Level 2.4 gm/dl (3.4-5.0); BUN Creatinine Ratio 22.2 (10-20); Calcium 8.1 mg/dl (8.5-10.1); Est GFR (African American) 38.9; Est GFR (Non-African American) 33.6; Potassium 4.6 mmol/L (3.5-5.1)
[2018-09-30 07:04] LABS: Albumin Globulin Ratio 0.9 (0.9-2); Bilirubin,Total 0.4 mg/dl (0.2-1); Globulin 2.7 gm/dl (2.5-4.0); Total Protein 5.1 gm/dl (6.4-8.2)
[2018-09-30] MEDS: METOPROLOL TARTRATE 25 MG TAB PO SCH (07:52)
[2018-09-30] MEDS: INSULIN ASPART 100 UNITS/ML 3 ML PEN SC SCH ×4 (07:58→20:21)
[2018-09-30] MEDS ORDERED: HEPARIN SOD 5,000 UNIT/0.5 ML VIAL SQ SCH (09:00)
--- NOTE | 2018-09-30 10:18 | Progress Note ---
DATE: 09/30/2018 DIAGNOSES: 1. Neutropenic fever. 2. Pseudomonas bacteremia. 3. Sepsis with suspected shock. 4. Pancytopenia attributable to chemotherapy. 5. Non-Hodgkin's lymphoma. 6. Acute renal failure. SUBJECTIVE: The patient was seen and examined at bedside, accompanied by her daughter this morning. She developed what I believe is a drug-induced maculopapular rash involving her trunk and all 4 extremities. I believe Zosyn was the culprit, which has been discontinued. The patient denies any further itching; however, the redness is increasingly coalesced. The patient otherwise feels well. She has been devoid of fever and her counts have recovered nicely. She continues to be mildly pancytopenic and anemic, which is to be expected. We will leave to the discretion of the Medical Service on when to appropriately discharge the patient. I understand Infectious Disease consultation is being requested. PHYSICAL EXAMINATION: GENERAL: Very pleasant 73-year-old female, in no acute distress. VITAL SIGNS: Temperature 36.9, pulse 68, respiratory rate 16, blood pressure 145/85. SKIN: Diffuse maculopapular rash involving her trunk and 4 extremities. HEENT: Oral mucosa without erythema or ulceration. HEART: Regular rate and rhythm. LUNGS: Clear to auscultation bilaterally. ABDOMEN: Soft, nontender, nondistended. EXTREMITIES: No clubbing, cyanosis or edema. NEUROLOGIC: Grossly intact. LABORATORY DATA: WBC count 70,720, hemoglobin 10.1, platelet count 99,000, absolute neutrophil count 15,000. Sodium 140, potassium 4.6, chloride 112, carbon dioxide 21, creatinine 1.54, BUN 34. IMPRESSION: 1. New onset atrial fibrillation. 2. Sepsis. 3. Pseudomonal bacteremia. 4. Drug rash attributable to antibiotics. 5. Diffuse large B cell lymphoma, status post cycle 1 R-CHOP. 6. Acute renal failure. PLAN: The patient was seen and examined at bedside. Clinically, she is doing much better obviously. Her counts for the most part have recovered. She will need pseudomonal coverage upon discharge and I suspect that is why the Infectious Disease consult has been requested. Her renal function is not completely recovered and will have Dr. Dyer follow up with the patient as she is scheduled to be seen next week in preparation for cycle #2. I suspect either a delay or perhaps dose adjustment may be in order and again we will leave that to Dr. Dyer's discretion. I agree with her medical management otherwise. I will officially sign off on the patient. Thank you very much for assisting us in the care of this very pleasant patient.
--- NOTE | 2018-09-30 13:55 | Infectious Disease Consult ---
Date of Consultation September 30, 2018 Assessment & Plan (1) Pseudomonas sepsis: would continue aztreonam x 14 days from first negative blood culture, / culture remains negative. would avoid additional zosyn due to rash. discussed with primary. no signs of port infection, would suggest antibiotic infusion via port in attempt to maintain port, if repeat infection, may need removal. (2) Neutropenia: History of Present Illness Attending Physician: Shanice Gabriel MD pt admitted with neutropenic fever. Initially placed on zosyn, developed a diffuse body rash, itchy and red c/w drug eruption, now on aztreonam and tole rating well. blood cultures on admission, 1/2 sets growing pseudomonas - west sensitive. has right chest wall port, placed a few weeks ago for chemo, tolerating chemo well at home. no f/c. no pain at port site. family at bedside, help provide history. wbc increaed to 1 from 0.6. Repeat blood cultures from 09/27 negative to date, urine culture negative, cxr negative. creat 1.5, procalcitonin elevated at 32. overall feeling better, asking to go home, rash improving, remains on trunk and b/l arms, improved on legs. no f/c. denies abd pain, no n/v/d, no cp, sob, cough. Allergies Allergy/AdvReac Type Severity Reaction Status Date / Time No Known Allergies Allergy Unknown Verified 09/21/18 23:06 Home Medications Home Medications Medication Instructions Recorded Confirmed Type atenolol 25 mg PO QAM 09/07/18 09/27/18 History levothyroxine 75 mcg PO QAM 09/07/18 09/27/18 History pravastatin 20 mg PO HS 09/07/18 09/27/18 History ondansetron HCl 8 mg PO Q8 PRN 09/27/18 09/27/18 History prednisone 100 mg PO UD 09/27/18 09/27/18 History prochlorperazine maleate 10 mg PO Q6 PRN 09/27/18 09/27/18 History diphenhydramine HCl 25 mg PO BID #8 tab 09/30/18 Rx metoprolol tartrate 25 mg PO BID #30 tab 09/30/18 Rx prednisone 40 mg PO DAILY #16 tab 09/30/18 Rx Patient History Medical History Abnormal EKG (Chronic) Breast cancer (Chronic) H/O Left breast cancer - DCIS Hyperlipidemia (Chronic) Hypertension (Chronic) Hypothyroidism (Chronic) Non Hodgkin's lymphoma REASON FOR PORT PLACEMENT Surgical History H/O of hysterectomy with bilateral oophorectomy (Resolved) H/O partial mastectomy (Resolved) Left H/O total knee replacement (Resolved) LEFT Hx laparoscopic cholecystectomy (Resolved) History of colonoscopy History of esophagogastroduodenoscopy (EGD) History of tooth extraction Nausea and vomiting after administration of anesthetic agent Family History Mother , in her 70s Diabetes Stroke Father , at 72yo Myocardial infarction Brother No problems noted. Brother No problems noted. Brother No problems noted. Sister Liver disorder Sister No problems noted. Sister No problems noted. Sister No problems noted. Daughter No problems noted. 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 Other Information That Helps Us Care for You: No Feels Safe at Home: Yes Safety Concerns: Feels Safe At This Time Smoking Status: Never smoker Do You Dip or Chew Tobacco: No Second Hand Exposure: No Tobacco Cessation Education Requested by Patient: No Hx Alcohol Use: No Hx Substance Use: No caffeine: No during the past year weight has: remained stable Review of Systems Review of Systems: All systems reviewed & are unremarkable except as noted in HPI & below Physical Exam Constitutional: WD/WN, vitals as above Eyes: PERRL, conjunctivae normal, anicteric sclerae ENMT: external ear and nose normal, oropharynx normal Neck: normal visual inspection Respiratory: normal respiratory effort, lungs clear to auscultation Cardiovascular: RRR, no murmur, no edema Gastrointestinal (Abdomen): normal bowel sounds, soft, nontender, no hepatosplenomegaly Musculoskeletal: no cyanosis or clubbing, extremities motor strength 5/5 Skin: + rash (diffuse rash trunk, arms c/w drug eruption, non tender, no warmth) port dressing intact, no surrounding warmth, edema, rash noted in area Psychiatric: A+Ox3, euthymic affect Results & Data Vital Signs (Past 12 Hours) Vital Signs Temp Pulse Pulse Resp BP Pulse Ox 09/30/18 12:00 36.3 C L 87 22 165/82 H 98 09/30/18 08:00 69 09/30/18 07:11 36.9 C 68 16 145/85 H 97 09/30/18 03:29 36.9 C 66 16 143/79 H 97 Laboratory Results Microbiology 09/28/18 10:44 Blood Aerobic Blood Culture - Preliminary No growth in Aerobic bottle after 48 hours. 09/28/18 10:44 Blood Anaerobic Blood Culture - Preliminary No growth in Anaerobic bottle after 48 hours. 09/28/18 10:22 Blood Aerobic Blood Culture - Preliminary No growth in Aerobic bottle after 48 hours. 09/28/18 10:22 Blood Anaerobic Blood Culture - Preliminary No growth in Anaerobic bottle after 48 hours. 09/28/18 20:15 Stool Shiga Toxin Test - Preliminary 09/28/18 20:15 Stool Stool Culture - Preliminary No Salmonella isolated to date, No Shigella isolated to date, No Campylobacter jejuni isolated to date. 09/27/18 00:44 Urine,Clean Catch Urine Culture - Final No growth - less than 1,000 colonies/mL. 09/26/18 23:06 Blood Aerobic Blood Culture - Preliminary Pseudomonas aeruginosa 09/26/18 23:06 Blood Anaerobic Blood Culture - Preliminary No growth in Anaerobic bottle after 48 hours. 09/28/18 20:15 Stool WBC Smear - Final 09/26/18 23:10 Blood Aerobic Blood Culture - Preliminary No growth in Aerobic bottle after 48 hours. 09/26/18 23:10 Blood Anaerobic Blood Culture - Preliminary No growth in Anaerobic bottle after 48 hours. (1) Neutropenia Neutropenia type: secondary to cancer chemotherapy Qualified Code(s): D70.1 - Agranulocytosis secondary to cancer chemotherapy; T45.1X5A - Adverse effect of antineoplastic and immunosuppressive drugs, initial encounter
--- NOTE | 2018-09-30 14:09 | Cardiology Progress Note ---
Date of Service September 30, 2018 Assessment & Plan (1) New onset atrial fibrillation: She developed atrial fibrillation this morning at about 6:30 AM on September 28, 2018 with a rapid heart rate, however she was unaware of the rhythm. She remained in it with a slightly better controlled heart rate after receiving intravenous metoprolol and IV amiodarone. She has no history of this, however since she is asymptomatic I cannot exclude the possibility that she has paroxysmal atrial fibrillation in the past. It may also be due to her presentation. This may be difficult to sort out over the long run but at the moment we should maintain medications to control her heart rate should she have recurrence and hopefully she will tolerate an anticoagulant on top of her thrombocytopenia (which is substantially improved). Both amiodarone and digoxin have been discontinued. She is on low-dose beta-blockade but that is not likely to control her heart rate should she have recurrent atrial fibrillation. As far as AV mehrdad blocking medications go I would recommend continuing her beta-blockade, and I would use some type of anticoagulant, preferably one of the newer agents for long run. Perhaps with her renal insufficiency we do not need to fuss with digoxin. I would recommend sending her home on metoprolol succinate (rather than atenolol) 100 mg daily and Eliquis 5 mg twice daily. Subjective She is feeling well from the cardiovascular standpoint, no palpitations (which she did not have with her atrial fibrillation anyhow), no chest discomfort. She is bothered a little bit by her rash but does want to go home. Physical Exam Physical Exam: Constitutional: Alert, cooperative and in no distress. Pulmonary: Clear to auscultation bilaterally. Cardiac: Regular rhythm with no murmur, gallop or rub. Abdomen: Soft, nontender with normal bowel sounds. Extremities: No edema. Skin: No rash, ecchymoses or petechiae. Results & Data Vital Signs (Past 12 Hours) Vital Signs Temp Pulse Pulse Resp BP Pulse Ox 09/30/18 12:00 36.3 C L 87 22 165/82 H 98 09/30/18 08:00 69 09/30/18 07:11 36.9 C 68 16 145/85 H 97 09/30/18 03:29 36.9 C 66 16 143/79 H 97 Diagnostic Findings Telemetry: Sinus rhythm, just very brief episodes of PAT, no significant arrhythmia and no atrial fibrillation.
[2018-09-30] MEDS ORDERED: RIVAROXABAN 20 MG TAB PO SCH (14:15)
--- NOTE | 2018-09-30 18:37 | Family Medicine Progress Note ---
Date of Service September 30, 2018 Assessment & Plan (1) Pseudomonas sepsis: 73 y/o F with PMH L breast cancer (DCIS), HLD, HTN, Hypothyroidism, Non Hodgkins Lymphoma presented with severe sepsis with septic shock in the setting of neutropenia with pancytopenia s/p first dose of chemotherapy and was initially started on levophed drip, d/c now. Later found to have findings of new onset Afib, resolved now. Had maculopapular rash rxn after starting Zosyn, now on Aztreonam. Severe Sepsis in the setting of neutropenia/panctopenia -Off pressors. -Counts for the most part have recovered -blood cx grew Pseudomonas bacteremia x1. ID consult: continue aztreonam x 14 days from first negative blood culture -Repeat blood cultures NGTD x2 days -Unclear source. Urine culture negative. No signs of port infection New Onset Afib w/ RVR -Resolved. Sinus now -D/C IV amiodarone/Heparin. Cont on Metoprolol succinate 100 mg daily, Eliquis 5 mg BID -Cards consult: No digoxin 2/2 renal insufficiency -ECHO 08/31: LVH, Diastolic Dysfunction, Grade III (restrictive pattern), consistent with markedly increased left atrial pressure. The left atrium is moderately dilated. Right ventricular systolic pressure is elevated at 30- 40mmHg. EF 60-65%. Maculopapular Rash -likely 2/2 Zosyn. Switched to aztreonam as above -Will cont on steroids, H1 [place] -Will decrease steroids to 40 mg prednisone daily x3 days then stop DLBCL s/p R-CHOP treatment -Pt has been undergoing chemotherapy for lymphoma -Neutropenia resolved -appreciate Heme/Onc recs moving forward: arrangements made for f/u next week Acute renal failure -Creatinine upon admission was 3.23. D/C IVF as tolerating PO intake well -Likely multifactorial including recent chemotherapy w/ risks for renotoxicity, hypovolemia w/ recent diarrhea, ischemic ATN in the setting of profound hypotension FEN/GI: Regular Diet DVT Prophylaxis: HSAY Baker[facility] Full Code Dispo: Downgrade off Tele today. Pt's family does not feel comfortable giving IV med through port, so now working on arranging for care facility/home services (2) New onset atrial fibrillation: (3) Acute renal failure: (4) Neutropenic fever: (5) Pancytopenia: Supervising Physician Co-Signing Physician Notes Resident Physician Supervision Note: I independently interviewed and examined the patient and verified the epps history and physical, reviewed labs and image studies, discussed the case with the resident Dr. Freitas and agree with the findings and care plan. Subjective 73 y/o F found in bed this AM in NAD. No reported overnight events. Rash seems to be slowly improving. A fib w/ RVR resolved at present. Nothing on tele overnight. Pt denies SOB, CP, palpitations. Resting comfortably. No other acute concerns or complaints. Pt states wants to go home. Review of Systems Review of Systems: All systems reviewed & are unremarkable except as noted in HPI & below Physical Exam Constitutional: WD/WN, vitals as above Eyes: PERRL, conjunctivae normal, anicteric sclerae ENMT: external ear and nose normal, oropharynx normal Respiratory: normal respiratory effort, lungs clear to auscultation Cardiovascular: RRR, no murmur, no edema Gastrointestinal (Abdomen): normal bowel sounds, soft, nontender, no hepatosplenomegaly Skin: diffuse rash on trunk, chest, back, palmar hands Psychiatric: A+Ox3, euthymic affect Results & Data Vital Signs (Past 12 Hours) Vital Signs Temp Pulse Pulse Resp BP Pulse Ox 09/30/18 15:32 36.4 C L 66 20 162/77 H 09/30/18 12:00 36.3 C L 87 22 165/82 H 98 09/30/18 08:00 69 09/30/18 07:11 36.9 C 68 16 145/85 H 97 Laboratory Results Laboratory Results - last 24 hr 09/29/18 09/30/18 09/30/18 20:21 05:24 05:24 WBC 17.72 H RBC 3.51 L Hgb 10.1 L Hct 29.6 L MCV 84.3 MCH 28.8 MCHC 34.1 RDW Std Deviation 44.4 RDW Coeff of Hosea 14.3 Plt Count 99 L MPV 11.9 H Neutrophils % (Manual) 85.2 Lymphocytes % (Manual) 5.2 Monocytes % (Manual) 5.2 Eosinophils % (Manual) 0.9 Metamyelocytes % (Man) 2.6 Myelocytes % (Man) 0.9 Neutrophils # (Manual) 15.10 H Total Absolute Neuts 15.10 H Lymphocytes # (Manual) 0.92 L Total Abs Lymphocytes 0.92 L Monocytes # (Manual) 0.92 H Eosinophils # (Manual) 0.16 Metamyelocytes # (Man) 0.46 H Myelocytes # (Manual) 0.16 H Toxic Granulation 1+ Giant Platelets 1+ Sodium 140 Potassium 4.6 Chloride 112 H Carbon Dioxide 21 Anion Gap 7.0 BUN 34 H Creatinine 1.54 H Est Cr Clr Drug Dosing 30.0 Est GFR ( Amer) 38.9 Est GFR (Non-Af Amer) 33.6 BUN/Creatinine Ratio 22.2 H Glucose 85 POC Glucose 138 H Calcium 8.1 L Total Bilirubin 0.4 AST 6 L ALT 12 Alkaline Phosphatase 72 Total Protein 5.1 L Albumin 2.4 L Globulin 2.7 Albumin/Globulin Ratio 0.9 09/30/18 09/30/18 09/30/18 07:45 11:32 16:16 WBC RBC Hgb Hct MCV MCH MCHC RDW Std Deviation RDW Coeff of Hosea Plt Count MPV Neutrophils % (Manual) Lymphocytes % (Manual) Monocytes % (Manual) Eosinophils % (Manual) Metamyelocytes % (Man) Myelocytes % (Man) Neutrophils # (Manual) Total Absolute Neuts Lymphocytes # (Manual) Total Abs Lymphocytes Monocytes # (Manual) Eosinophils # (Manual) Metamyelocytes # (Man) Myelocytes # (Manual) Toxic Granulation Giant Platelets Sodium Potassium Chloride Carbon Dioxide Anion Gap BUN Creatinine Est Cr Clr Drug Dosing Est GFR ( Amer) Est GFR (Non-Af Amer) BUN/Creatinine Ratio Glucose POC Glucose 80 139 H 141 H Calcium Total Bilirubin AST ALT Alkaline Phosphatase Total Protein Albumin Globulin Albumin/Globulin Ratio Medications Administered Current Inpatient Medications Apixaban (Eliquis) 5 mg PO BID [facility] Stop: 10/30/18 20:59 Aztreonam (Aztreonam Consult Active) 1 ea N/A UD PRN PRN Reason: Consult Stop: 10/12/18 23:59 Dextrose (Dextrose 50%) 25 - 50 ml IV UD PRN; Protocol PRN Reason: Hypoglycemia Protocol Stop: 10/27/18 02:34 Diphenhydramine HCl (Benadryl Capsule) 25 mg PO Q6H PRN PRN Reason: Itching Stop: 10/29/18 04:51 Last Admin: 09/30/18 02:05 Dose: 25 mg Documented by: Glucagon (Glucagen) 1 mg SQ UD PRN; Protocol PRN Reason: Hypoglycemia Protocol Stop: 10/27/18 02:34 Glucose (Glucose 40%) 15 - 30 gm PO UD PRN; Protocol PRN Reason: Hypoglycemia Protocol Stop: 10/27/18 02:34 Glucose (Dex4 Glucose) 4 - 8 tabs PO UD PRN; Protocol PRN Reason: Hypoglycemia Protocol Stop: 10/27/18 02:34 Heparin Sodium (Porcine) (Heparin Sod 100 Unit/Ml Flush) 5 ml FLUSH PRN PRN PRN Reason: Flush Stop: 10/28/18 00:44 Aztreonam 2,000 mg/ Dextrose 110 mls @ 110 mls/hr IV Q8H SARAH; Protocol Stop: 10/12/18 23:59 Last Admin: 09/30/18 17:48 Dose: 110 mls/hr Documented by: Methylprednisolone 40 mg/ (Syringe) 0.64 mls @ 1.5 mls/min IV Q24H SARAH Stop: 10/03/18 06:01 Last Admin: 09/30/18 05:55 Dose: 1.5 mls/min Documented by: Ranitidine HCl 50 mg/ Dextrose 102 mls @ 200 mls/hr IV Q24H SARAH Stop: 10/30/18 07:59 Last Infusion: 09/30/18 08:37 Dose: Infused Documented by: Insulin Aspart (Novolog Flexpen) 0 units SC ACHS [facility] Stop: 10/29/18 11:29 Last Admin: 09/30/18 17:35 Dose: Not Given Documented by: Metoprolol Succinate (Toprol Xl) 100 mg PO QAM [facility] Stop: 10/31/18 08:59 Metoprolol Tartrate (Lopressor) 25 mg PO ONE ONE Stop: 09/30/18 21:01 Miscellaneous (Carbohydrates For Hypoglycemia) 15 - 30 gm PO UD PRN PRN Reason: Hypoglycemia Treatment Stop: 10/27/18 02:34 Resident Activity Tracking Resident Involvement: Resident Care Provided Care Provided: Adult Hospital Medicine (1) Acute renal failure Acute renal failure type: unspecified Qualified Code(s): N17.9 - Acute kidney failure, unspecified
[2018-09-30] MEDS: APIXABAN 5 MG TABLET PO SCH (20:21)
[2018-09-30] MEDS ORDERED: METOPROLOL TARTRATE 25 MG TAB PO ONE (21:00)
[2018-09-30] MEDS ORDERED: CALCIUM CARBONATE 500 MG CHEWABLE TAB PO PRN (22:24)
[2018-09-30] MEDS ORDERED: SIMETHICONE 80 MG CHEW PO PRN (22:24)
[2018-10-01] MEDS: AZTREONAM 2,000 MG in DEXTROSE 5% 100 ML IV SCH ×3 (02:06→17:49)
[2018-10-01] MEDS: HEPARIN 100 UNIT/ML 5ML FLUSH FLUSH PRN ×3 (03:05→18:52)
[2018-10-01] MEDS: methylPREDNISolone 40 MG in SYRINGE 0 ML IV SCH (06:01)
[2018-10-01 06:05] LABS: Hematocrit (blood only) 26.3 % (37-47); Mean Corpuscular Hgb Conc 34.2 g/dL (32-36); Mean Corpuscular Volume 86.2 fL (80-100); RDW Coefficient of Variation 14.5 % (11.5-14.5); RDW Standard Deviation 45.9 fL (36.4-46.3); Red Blood Count 3.05 M/uL (4.2-5.4); White Blood Count 17.95 K/uL (4.8-10.8)
[2018-10-01 06:40] LABS: BUN Creatinine Ratio 28.1 (10-20); Calcium 8.6 mg/dl (8.5-10.1); Creatinine Clr Calc Pharmacy 39.2 ml/min; Est GFR (African American) 52.1; Potassium 4.5 mmol/L (3.5-5.1)
[2018-10-01 06:43] LABS: Albumin Globulin Ratio 0.8 (0.9-2); Bilirubin,Total 0.3 mg/dl (0.2-1); Globulin 2.4 gm/dl (2.5-4.0); Total Protein 4.4 gm/dl (6.4-8.2)
[2018-10-01 07:04] LABS: Mean Platelet Volume 11.5 fL (7.4-10.4); Platelet Count 92 K/uL (130-400)
[2018-10-01 07:14] LABS: ALC (manual) 0.61 K/uL (1.2-3.4); Eosinophils # (manual) 0.16 K/uL (0-0.5); Eosinophils % (manual) 0.9 %; Hypogranular Neutrophils 3+; Lymphocytes # (manual) 0.61 K/uL (1.2-3.4); Lymphocytes % (manual) 3.4 %; Metamyelocytes # (manual) 0.47 K/uL (0-0); Metamyelocytes % (manual) 2.6 %; Monocytes # (manual) 0.93 K/uL (0.11-0.59); Monocytes % (manual) 5.2 %; Myelocytes # (manual) 0.47 K/uL (0-0); Myelocytes % (manual) 2.6 %; Neutrophils % (manual) 84.4 %; Promyelocytes # (manual) 0.16 K/uL (0-0); Promyelocytes % (manual) 0.9 %
[2018-10-01] MEDS: METOPROLOL SUCC 50MG EXT REL TAB PO SCH (08:20)
[2018-10-01] MEDS: APIXABAN 5 MG TABLET PO SCH ×2 (08:20→21:16)
[2018-10-01] MEDS: INSULIN ASPART 100 UNITS/ML 3 ML PEN SC SCH ×4 (09:42→21:51)
--- NOTE | 2018-10-01 15:13 | Cardiology Progress Note ---
Date of Service October 01, 2018 Assessment & Plan (1) New onset atrial fibrillation: She developed atrial fibrillation this morning at about 6:30 AM on September 28, 2018 with a rapid heart rate, however she was unaware of the rhythm. She remained in it with a slightly better controlled heart rate after receiving intravenous metoprolol and IV amiodarone. She has no history of this, however since she is asymptomatic I cannot exclude the possibility that she has paroxysmal atrial fibrillation in the past. It may also be due to her presentation. This may be difficult to sort out over the long run but at the moment we should maintain medications to control her heart rate should she have recurrence and hopefully she will tolerate an anticoagulant on top of her thrombocytopenia (which is substantially improved). Both amiodarone and digoxin have been discontinued. She is now on metoprolol succinate (rather than atenolol) 100 mg daily and Eliquis 5 mg twice daily. Her blood pressure seems marginally better with this, I would probably leave it alone for now and we can adjust as an outpatient. Subjective She is feeling well today and continues to want to go home. She feels that she could manage at home, however she does need IV antibiotics which I believe is holding up her discharge. Her metoprolol was increased starting this morning and she seems to be tolerating that well, she is doing well on Eliquis with no side effects and no bleeding. No palpitations. Physical Exam Physical Exam: Constitutional: Alert, cooperative and in no distress. Pulmonary: Clear to auscultation bilaterally. Cardiac: Regular rhythm with no murmur, gallop or rub. Abdomen: Soft, nontender with normal bowel sounds. Extremities: No edema. Skin: Somewhat improved rash over her trunk, no ecchymoses or petechiae. Results & Data Vital Signs (Past 12 Hours) Vital Signs Temp Pulse Resp BP Pulse Ox 10/01/18 07:43 36.9 C 91 H 18 149/84 H 100
--- NOTE | 2018-10-01 17:20 | Family Medicine Progress Note ---
Date of Service October 01, 2018 Assessment & Plan (1) Pseudomonas sepsis: 73 y/o F with PMH L breast cancer (DCIS), HLD, HTN, Hypothyroidism, Non Hodgkins Lymphoma presented with severe sepsis with septic shock in the setting of neutropenia with pancytopenia s/p first dose of chemotherapy and was initially started on levophed drip, d/c now. Later found to have findings of new onset Afib, resolved now. Had maculopapular rash rxn after starting Zosyn, now on Aztreonam. Severe Sepsis in the setting of neutropenia/panctopenia -Off pressors. -Counts for the most part have recovered -blood cx grew Pseudomonas bacteremia x1. Unclear source. ID consult: continue aztreonam x 14 days from first negative blood culture. End date will be October 12. -Repeat blood cultures NGTD -Unclear source. Urine culture negative. No signs of port infection New Onset Afib w/ RVR -Resolved. Sinus now -D/C IV amiodarone/Heparin. Cont on Metoprolol succinate 100 mg daily, Eliquis 5 mg BID. Cards can adjust as an outpatient -ECHO 08/31: LVH, Diastolic Dysfunction, Grade III (restrictive pattern), consistent with markedly increased left atrial pressure. The left atrium is moderately dilated. Right ventricular systolic pressure is elevated at 30- 40mmHg. EF 60-65%. Maculopapular Rash -likely 2/2 Zosyn. Switched to aztreonam as above -Will cont on steroids, H1 dayton -Will decrease steroids to 40 mg prednisone daily x1 days then stop -cold compresses for burning sensation DLBCL s/p R-CHOP treatment -Pt has been undergoing chemotherapy for lymphoma -Neutropenia resolved -appreciate Heme/Onc recs moving forward: Pt will not be getting chemo while antibiotic regimen is going on. Will need to confirm with heme/onc what, if any, outpt f/u is needed for next week Acute renal failure -Creatinine upon admission was 3.23. D/C IVF as tolerating PO intake well -Likely multifactorial including recent chemotherapy w/ risks for renotoxicity, hypovolemia w/ recent diarrhea, ischemic ATN in the setting of profound hypotension LE Swelling -likely 2/2 prolonged immobilization -no concerns for DVT -cont to monitor FEN/GI: Regular Diet DVT Prophylaxis: Lesliequdavid SCD's Full Code Dispo: D/C tomorrow to family member's home. Family will administer IV antibiotic. [facility] liaison will do teaching tomorrow at 9AM. (2) New onset atrial fibrillation: (3) Acute renal failure: (4) Neutropenic fever: (5) Pancytopenia: Supervising Physician Co-Signing Physician Notes Resident Physician Supervision Note: I independently interviewed and examined the patient and verified the epps history and physical, reviewed labs and image studies, discussed the case with the resident Dr. Freitas and agree with the findings and care plan. Subjective 73 y/o F found in chair this AM in NAD. Reports no acute overnight events. Some burning in arms where rash is, but cold towels on top help. States ready to go home. Tolerating PO intake. No issues voiding. No other acute concerns or complaints. Review of Systems Review of Systems: All systems reviewed & are unremarkable except as noted in HPI & below Physical Exam Constitutional: WD/WN, vitals as above Eyes: PERRL, conjunctivae normal, anicteric sclerae ENMT: external ear and nose normal, oropharynx normal Respiratory: normal respiratory effort, lungs clear to auscultation Cardiovascular: RRR, no murmur, no edema Gastrointestinal (Abdomen): normal bowel sounds, soft, nontender, no hepatosplenomegaly Skin: no rashes, warm and dry Psychiatric: A+Ox3, euthymic affect Lymphatic: +1 LE Edema Results & Data Vital Signs (Past 12 Hours) Vital Signs Temp Pulse Resp BP Pulse Ox 10/01/18 15:10 36.4 C L 67 20 149/70 H 97 10/01/18 07:43 36.9 C 91 H 18 149/84 H 100 Laboratory Results Laboratory Results - last 24 hr 09/30/18 10/01/18 10/01/18 20:14 05:20 05:20 WBC 17.95 H RBC 3.05 L Hgb 9.0 L Hct 26.3 L MCV 86.2 MCH 29.5 MCHC 34.2 RDW Std Deviation 45.9 RDW Coeff of Hosea 14.5 Plt Count 92 L MPV 11.5 H Neutrophils % (Manual) 84.4 Lymphocytes % (Manual) 3.4 Monocytes % (Manual) 5.2 Eosinophils % (Manual) 0.9 Metamyelocytes % (Man) 2.6 Myelocytes % (Man) 2.6 Promyelocytes % (Man) 0.9 Neutrophils # (Manual) 15.15 H Total Absolute Neuts 15.15 H Lymphocytes # (Manual) 0.61 L Total Abs Lymphocytes 0.61 L Monocytes # (Manual) 0.93 H Eosinophils # (Manual) 0.16 Metamyelocytes # (Man) 0.47 H Myelocytes # (Manual) 0.47 H Promyelocytes # (Man) 0.16 H Hypogranular Neuts 3+ Blood Smear Review Sodium 141 Potassium 4.5 Chloride 112 H Carbon Dioxide 23 Anion Gap 6.0 BUN 34 H Creatinine 1.21 H D Est Cr Clr Drug Dosing 39.2 Est GFR ( Amer) 52.1 Est GFR (Non-Af Amer) 45.0 BUN/Creatinine Ratio 28.1 H Glucose 88 POC Glucose 166 H Calcium 8.6 Total Bilirubin 0.3 AST 6 L ALT 11 L Alkaline Phosphatase 70 Total Protein 4.4 L Albumin 2.0 L Globulin 2.4 L Albumin/Globulin Ratio 0.8 L 10/01/18 10/01/18 10/01/18 08:17 11:53 16:41 WBC RBC Hgb Hct MCV MCH MCHC RDW Std Deviation RDW Coeff of Hosea Plt Count MPV Neutrophils % (Manual) Lymphocytes % (Manual) Monocytes % (Manual) Eosinophils % (Manual) Metamyelocytes % (Man) Myelocytes % (Man) Promyelocytes % (Man) Neutrophils # (Manual) Total Absolute Neuts Lymphocytes # (Manual) Total Abs Lymphocytes Monocytes # (Manual) Eosinophils # (Manual) Metamyelocytes # (Man) Myelocytes # (Manual) Promyelocytes # (Man) Hypogranular Neuts Blood Smear Review Sodium Potassium Chloride Carbon Dioxide Anion Gap BUN Creatinine Est Cr Clr Drug Dosing Est GFR ( Amer) Est GFR (Non-Af Amer) BUN/Creatinine Ratio Glucose POC Glucose 72 137 H 130 H Calcium Total Bilirubin AST ALT Alkaline Phosphatase Total Protein Albumin Globulin Albumin/Globulin Ratio Medications Administered Current Inpatient Medications Apixaban (Eliquis) 5 mg PO BID SARAH Stop: 10/30/18 20:59 Last Admin: 10/01/18 08:20 Dose: 5 mg Documented by: Aztreonam (Aztreonam Consult Active) 1 ea N/A UD PRN PRN Reason: Consult Stop: 10/12/18 23:59 Calcium Carbonate (Tums) 1,500 mg PO Q2H PRN PRN Reason: Indigestion Stop: 10/30/18 22:23 Last Admin: 09/30/18 23:51 Dose: 1,500 mg Documented by: Dextrose (Dextrose 50%) 25 - 50 ml IV UD PRN; Protocol PRN Reason: Hypoglycemia Protocol Stop: 10/27/18 02:34 Diphenhydramine HCl (Benadryl Capsule) 25 mg PO Q6H PRN PRN Reason: Itching Stop: 10/29/18 04:51 Last Admin: 10/01/18 06:01 Dose: 25 mg Documented by: Glucagon (Glucagen) 1 mg SQ UD PRN; Protocol PRN Reason: Hypoglycemia Protocol Stop: 10/27/18 02:34 Glucose (Glucose 40%) 15 - 30 gm PO UD PRN; Protocol PRN Reason: Hypoglycemia Protocol Stop: 10/27/18 02:34 Glucose (Dex4 Glucose) 4 - 8 tabs PO UD PRN; Protocol PRN Reason: Hypoglycemia Protocol Stop: 10/27/18 02:34 Heparin Sodium (Porcine) (Heparin Sod 100 Unit/Ml Flush) 5 ml FLUSH PRN PRN PRN Reason: Flush Stop: 10/28/18 00:44 Last Admin: 10/01/18 11:20 Dose: 5 ml Documented by: Aztreonam 2,000 mg/ Dextrose 110 mls @ 110 mls/hr IV Q8H SARAH; Protocol Stop: 10/01/18 23:59 Last Infusion: 10/01/18 10:43 Dose: Infused Documented by: Methylprednisolone 40 mg/ (Syringe) 0.64 mls @ 1.5 mls/min IV Q24H SARAH Stop: 10/03/18 06:01 Last Admin: 10/01/18 06:01 Dose: 1.5 mls/min Documented by: Ranitidine HCl 50 mg/ Dextrose 102 mls @ 200 mls/hr IV Q24H SARAH Stop: 10/30/18 07:59 Last Infusion: 10/01/18 08:59 Dose: Infused Documented by: Aztreonam 2,000 mg/ Dextrose 110 mls @ 110 mls/hr IV Q8H SARAH; Protocol Stop: 10/09/18 23:59 Insulin Aspart (Novolog Flexpen) 0 units SC ACHS [facility] Stop: 10/29/18 11:29 Last Admin: 10/01/18 12:21 Dose: Not Given Documented by: Metoprolol Succinate (Toprol Xl) 100 mg PO QAM [facility] Stop: 10/31/18 08:59 Last Admin: 10/01/18 08:20 Dose: 100 mg Documented by: Miscellaneous (Carbohydrates For Hypoglycemia) 15 - 30 gm PO UD PRN PRN Reason: Hypoglycemia Treatment Stop: 10/27/18 02:34 Simethicone (Mylicon) 80 mg PO Q6H PRN PRN Reason: Gas or Constipation Stop: 10/30/18 22:23 Resident Activity Tracking Resident Involvement: Resident Care Provided Care Provided: Adult Hospital Medicine (1) Acute renal failure Acute renal failure type: unspecified Qualified Code(s): N17.9 - Acute kidney failure, unspecified
[2018-10-01] MEDS ORDERED: ACETAMINOPHEN 325 MG TAB PO PRN (19:02)
[2018-10-01] MEDS ORDERED: NYSTATIN POWDER 15GM BTL EXT PRN (19:03)
[2018-10-01] MEDS ORDERED: METOPROLOL TARTRATE 25 MG TAB PO ONE (21:00)
[2018-10-02] MEDS ORDERED: AZTREONAM 2,000 MG in DEXTROSE 5% 100 ML IV SCH (05:00)
[2018-10-02] MEDS: methylPREDNISolone 40 MG in SYRINGE 0 ML IV SCH (06:15)
[2018-10-02] MEDS: HEPARIN 100 UNIT/ML 5ML FLUSH FLUSH PRN ×2 (07:39→09:38)
[2018-10-02] MEDS: INSULIN ASPART 100 UNITS/ML 3 ML PEN SC SCH (07:56)
[2018-10-02 08:05] LABS: Hematocrit (blood only) 29.3 % (37-47); Hemoglobin 9.9 g/dL (12.0-16.0); Mean Corpuscular Hgb Conc 33.8 g/dL (32-36); Mean Corpuscular Volume 86.9 fL (80-100); Mean Platelet Volume 11.4 fL (7.4-10.4); Platelet Count 136 K/uL (130-400); RDW Coefficient of Variation 14.6 % (11.5-14.5); RDW Standard Deviation 45.7 fL (36.4-46.3); Red Blood Count 3.37 M/uL (4.2-5.4); White Blood Count 19.57 K/uL (4.8-10.8)
[2018-10-02] MEDS: METOPROLOL SUCC 50MG EXT REL TAB PO SCH (08:32)
[2018-10-02] MEDS: APIXABAN 5 MG TABLET PO SCH (08:32)
[2018-10-02 08:37] LABS: Albumin Level 2.3 gm/dl (3.4-5.0); BUN Creatinine Ratio 29.7 (10-20); Calcium 8.3 mg/dl (8.5-10.1); Est GFR (African American) 71.7; Est GFR (Non-African American) 61.8; Potassium 4.5 mmol/L (3.5-5.1)
[2018-10-02 08:40] LABS: Albumin Globulin Ratio 0.9 (0.9-2); Bilirubin,Total 0.3 mg/dl (0.2-1); Globulin 2.6 gm/dl (2.5-4.0); Total Protein 4.9 gm/dl (6.4-8.2)
[2018-10-02 09:13] LABS: ALC (manual) 0.67 K/uL (1.2-3.4); Dohle Bodies 1+; Hypogranular Neutrophils 1+; Lymphocytes # (manual) 0.67 K/uL (1.2-3.4); Lymphocytes % (manual) 3.4 %; Metamyelocytes # (manual) 0.49 K/uL (0-0); Metamyelocytes % (manual) 2.5 %; Monocytes # (manual) 0.33 K/uL (0.11-0.59); Monocytes % (manual) 1.7 %; Myelocytes % (manual) 5.1 %; Neutrophils % (manual) 85.6 %; Promyelocytes # (manual) 0.33 K/uL (0-0); Promyelocytes % (manual) 1.7 %; Toxic Granulation 1+
--- NOTE | 2018-10-02 10:32 | Discharge Summary ---
Date of Service October 02, 2018 Admission HPI Per Admitting Provider The patient is a 73-year-old female who just underwent her first chemotherapy treatment for lymphoma 3 days ago. Since that time is but she has become progressively more weak, with decreased oral intake, and had 2 episodes of loose stools earlier in the day today. Patient herself is very fatigued, and has difficulty contributing to her HPI and review of systems, with her family readily supplies. Principal Diagnosis Pseudomonas Bactermeia Neutropenia Atrial Fibrillation with RVR Discharge Exam Constitutional WD/WN, vitals as above cooperative and comfortable; no acute distress Eyes PERRL, conjunctivae normal, anicteric sclerae EOM intact bilaterally ENMT external ear and nose normal, oropharynx normal Neck normal visual inspection Respiratory normal respiratory effort, lungs clear to auscultation no respiratory distress Auscultation: lungs clear to auscultation bilaterally (anteriorly) Cardiovascular RRR, no murmur, no edema Rate/Rhythm: regular rate and regular rhythm Heart Sounds: no click, no gallop, no murmur and no cardiac rub Extremities: + pedal edema Gastrointestinal (Abdomen) normal bowel sounds, soft, nontender, no hepatosplenomegaly Musculoskeletal no cyanosis or clubbing, extremities motor strength 5/5 Skin no rashes, warm and dry + rash (diffuse rash trunk, arms c/w drug eruption, non tender, no warmth) Psychiatric A+Ox3, euthymic affect Discharge Data Allergies Allergy/AdvReac Type Severity Reaction Status Date / Time piperacillin [From Zosyn] AdvReac Rash Verified 10/01/18 22:47 tazobactam [From Zosyn] AdvReac Rash Verified 10/01/18 22:47 Consultations 09/27/18 01:03 ED Decision to Admit Stat 09/27/18 02:35 Consult Case Management - Discharge Planning Routine Consult Plate Slitter And Inspector Routine 09/27/18 06:33 Consult Oncology Routine 09/28/18 09:18 Consult Cardiology Routine 09/30/18 07:56 Consult Infectious Diseases Routine Ordered Studies 09/26/18 23:52 CT abd pelvis wo con Urgent CT chest wo con Urgent Hospital Course (1) Pseudomonas sepsis: 73 y/o F with PMH L breast cancer (DCIS), HLD, HTN, Hypothyroidism, Non Hodgkins Lymphoma presented with severe sepsis with septic shock in the setting of neutropenia with pancytopenia s/p first dose of chemotherapy. Severe Sepsis with pseudomonas bacteremia in the setting of neutropenia/panctopenia Pt was admitted to the ICU for septic shock and pressors were used. Blood cultures x1 grew Pseudomonas Bacteremia. ID consulted. Repeat blood cultures we re negative. Pt was discharged to the care of a niece who is to administer [id number] until October 12. -Unclear source. Urine culture negative. No signs of port infection -WBC counts for the most part have recovered New Onset Afib w/ RVR (Resolved) later in hospital course - noted to have new onset Afib which was controlled with a medication switch from Atenolol to Metorpolol and anticoagulated was started. ECHO 08/31: LVH, Diastolic Dysfunction, Grade III (restrictive pattern), consistent with markedly increased left atrial pressure. The left atrium is moderately dilated. Right ventricular systolic pressure is elevated at 30- 40mmHg. EF 60-65%. - New Med: Metoprolol Succinate 100mg daily and Eliquis 5mg BID. - stop Atenolol on discharge. - Cards follow up as outpatient. Maculopapular Rash developed a maculopapular rash rxn after starting Zosyn and was switched to Aztreonam. The rash was treated with a 5 day course of Prednisone. -likely 2/2 Zosyn. Switched to aztreonam as above -DC with one dose of 40mg Prednisone. DLBCL s/p R-CHOP treatment -Resume chemo as outpatient, recommend until after October 12. Acute renal failure (Resolved) -Creatinine upon admission was 3.23. -Likely multifactorial including recent chemotherapy w/ risks for renotoxicity, hypovolemia w/ recent diarrhea, ischemic ATN in the setting of profound hypotension LE Swelling -likely 2/2 prolonged immobilization -no concerns for DVT (2) New onset atrial fibrillation: (3) Acute renal failure: (4) Neutropenic fever: (5) Pancytopenia: Total Time Total Time Spent Total Time Spent (In Minutes): 54 Discharge Plan Discharge Items Patient Disposition: Home - Home Health Services Reason For Visit: NEUTROPENIC FEVER, HYPOTENSION Discharge Diagnosis: Sepsis/A fib Discharge Goals: Improve function and Therapeutic intervention Activity: Per 'Additional Instructions' section Non-emergency contact: Primary Care Provider and Oncologist Call non-emergency contact if: you have any medication questions and your temperature is above 101.5 Follow-up/Referrals: Patrick Francisco MD [Primary Care Provider] - Diet: Regular Addtl Provider Instructions: You were admitted with concerns of sepsis in the setting of chemotherapy. While in the hospital we found your heart rate to be in Atrial Fibrillation, which resolved and will require a blood thinner and a change from Atenolol to Metoprolol in your medication. Additionally a rash developed while you were on antibiotics, thus causing a change in antibiotics and a short course of Prednisone and Benadryl to treat your rash. Please follow the below instructions on discharge: -You will continue antibiotic aztreonam until October 12. The IV team will instruct you on how to administer this at home. It will be every 8 hrs: 5AM, 1PM, 9PM -For your drug rash reaction, you will continue one more day of steroids (Prednisone 40mg), please take the Prednisone tomorrow morning. - You may continue to use over the counter Benadryl as needed for itching. -For your Atrial fibrillation, we are stopping your Atenolol and are starting a new medication called Metoprolol Succinate 100 mg daily. You will also be started on Eliquis 5 mg twice daily. -Please call your Oncologist to resume therapy once your Intravenous Antibiotics have completed. -Please see your PCP within one week of discharge. We recommend follow up blood work called a BMP within one week of discharge to make sure your kidneys continue to work well. - You should be contacted with a follow up [facility] cardiology appointment sometime next week, please keep this appointment. - While on Aztreonam it may be beneficial to take probiotics to prevent against antibiotic associated diarrhea. Probiotics include yogurts and special probiotic drinks. Information on Atrial Fibrillation, Prednisone, Aztreonam, Metoprolol and Eliquis will be printed for you. Please read this information carefully. Prescriptions: New metoprolol succinate 50 mg Tablet Extended Release 24 Hr 100 mg PO QAM 30 Days Qty: 60 RF: 0 Eliquis 5 mg Tablet 5 mg PO BID 30 Days Qty: 60 RF: 0 aztreonam 2 gram recon soln 2 gm IV Q8H Qty: 10 RF: 0 Continued levothyroxine 75 mcg Tablet 75 mcg PO QAM RF: 0 pravastatin 20 mg Tablet 20 mg PO HS RF: 0 ondansetron HCl 8 mg tablet 8 mg PO Q8 PRN (Reason: Nausea) RF: 0 prochlorperazine maleate 10 mg tablet 10 mg PO Q6 PRN (Reason: Nausea) RF: 0 Discontinued atenolol 25 mg Tablet 25 mg PO QAM RF: 0 prednisone 20 mg tablet 100 mg PO UD RF: 0 Stand-Alone Forms: My [facility]/Other Patient Handouts: Apixaban Oral tablet, Aztreonam Solution for injection, Metoprolol Succinate Oral tablet extended-release, Prednisone Oral tablet, ED Afib Discharge Orders: Discharge Order (Routine); Ordered 10/02/18 Ordered By: Neto Vivas Admission Data Admit Date/Time: 09/27/18 01:24 Attending Provider: Shanice Gabriel Admit Provider: Edvin Moeller Primary Care Provider: Patrick Francisco Other Providers: Saroj Tilley ; Jaleel Hood ; Jacqui Douglas ; Brianna Denny ; Shaji Dyer ; Edvin Moeller Service: Oncology Other Interventions: Discharge Summary Assessment (RN) Last Done: 10/02/18 10:24 DC Date/Time DO NOT enter until pt leaves facility: 10/02/18 11:29 Supervising Physician Co-Signing Physician Notes Resident Physician Supervision Note: I independently interviewed and examined the patient and verified the epps history and physical, reviewed labs and image studies, discussed the case with the resident Dr. Vivas and agree with the findings and care plan. Time spent in discharge 35 min Resident Activity Tracking Resident Involvement: Resident Care Provided Care Provided: Adult Hospital Medicine
== END 2018-10-02 11:29 | disposition home health service (06) | DRG 871 ==
LOC: ED 22:32 → 1E 09-27 01:24 → SUATTDRO 09-27 01:24 → 1E 09-27 02:11 → 2N 09-29 18:04 → 4E 09-30 15:13

== ENCOUNTER 2018-11-09 21:44 | Inpatient (IN) ==
[2018-11-09] MEDS ORDERED: SODIUM CHLORIDE 0.9% 1000ML 1,000 ML IV ONE (22:38)
[2018-11-09] MEDS ORDERED: VANCOMYCIN CONSULT ACTIVE PRN (22:50)
[2018-11-09] MEDS ORDERED: AZTREONAM 2,000 MG in DEXTROSE 5% 100 ML IV STA (22:50)
[2018-11-09] MEDS ORDERED: VANCOMYCIN HCL 1,250 MG in SODIUM CHLORIDE 0.9% 500 ML IV ONE (22:50)
[2018-11-09 23:00] LABS: BUN Creatinine Ratio 17.6 (10-20); Calcium 8.4 mg/dl (8.5-10.1); Creatinine Clr Calc Pharmacy 52.9 ml/min; Est GFR (African American) 83.4; Potassium 4.1 mmol/L (3.5-5.1)
[2018-11-09 23:03] LABS: Albumin Globulin Ratio 1.1 (0.9-2); Bilirubin,Total 0.5 mg/dl (0.2-1); Globulin 2.7 gm/dl (2.5-4.0); INR 1.2 (0.9-1.1); Partial Thromboplastin Ratio 1.2; Partial Thromboplastin Time 31.9 Seconds (21.0-31.0); Total Protein 5.7 gm/dl (6.4-8.2)
[2018-11-09] MEDS ORDERED: ACETAMINOPHEN 325 MG TAB ONE (23:28)
[2018-11-09 23:50] LABS: Hematocrit (blood only) 23.2 % (37-47); Mean Corpuscular Hgb Conc 34.5 g/dL (32-36); Mean Corpuscular Volume 93.9 fL (80-100); Mean Platelet Volume 10.8 fL (7.4-10.4); Platelet Count 49 K/uL (130-400); RDW Coefficient of Variation 17.4 % (11.5-14.5); RDW Standard Deviation 59.3 fL (36.4-46.3); Red Blood Count 2.47 M/uL (4.2-5.4); White Blood Count 0.31 K/uL (4.8-10.8)
--- NOTE | 2018-11-10 01:02 | Emergency Department Note ---
Entered by Shaji Leslie acting as a scribe for History of Present Illness General Chief complaint: Fever Stated complaint: FEVER 103, WEAKNESS Time Seen by Provider: 11/09/18 22:32 Source: patient History of Present Illness Onset (ago): day(s) (yesterday) Severity: severe (103 degrees) and similar to prior episodes Pain Consistency: + constant Quality: + other (fever) Associated symptoms: + other (Positive for shakiness. Negative for urinary symptoms, cough, rash, sores, headache, and abdominal pain.) The patient is a 73 year old female who presents to the emergency department with complaints of a constant fever beginning yesterday. The patient states that she is currently being treated for non-hodgkins diffuse lymphoma. Per sister, the patient received her third treatment of chemotherapy on 11/03/2018. She notes that the patient had a similar episode after her first chemotherapy treatment and she reports that the patient had to spend a few days in the ICU. She states that the patients fever reached a high of 103 degrees. The patient also complains of shakiness but she denies any urinary symptoms, cough, rash, sores, headache, and abdominal pain. She notes that the patient had breast cancer 15 years ago. Home Medications Home Medications Medication Instructions Recorded Confirmed Type levothyroxine 75 mcg PO QAM 09/07/18 11/09/18 History pravastatin 20 mg PO HS 09/07/18 11/09/18 History ondansetron HCl 8 mg PO Q8H PRN 09/27/18 11/09/18 History aztreonam 2 gm IV Q8H #10 ea 10/02/18 11/09/18 Rx lactobacillus combination no.4 0 mmu cells PO DAILY 10/09/18 11/09/18 History [Probiotic] Allergies Allergy/AdvReac Type Severity Reaction Status Date / Time piperacillin [From Zosyn] AdvReac Unknown Rash Verified 11/09/18 22:55 tazobactam [From Zosyn] AdvReac Unknown Rash Verified 11/09/18 22:55 Past Med/Surg History Medical History Pseudomonas sepsis New onset atrial fibrillation Hepatosplenomegaly Hypoalbuminemia Hyponatremia Anemia Neutropenic fever Lymphoma (Acute) History of recent chemotherapy Pancytopenia (Acute) Severe sepsis with septic shock Admitted to intensive care unit Sepsis (Acute) Acute renal failure (Acute) Respiratory failure (Acute) Neutropenia (Acute) Thrombocytopenia (Acute) Encounter for pre-operative examination Arthritis (Chronic) Left knee pain (Acute) Abnormal EKG (Chronic) Breast cancer (Chronic) H/O Left breast cancer - DCIS Hyperlipidemia (Chronic) Hypertension (Chronic) Hypothyroidism (Chronic) Non Hodgkin's lymphoma REASON FOR PORT PLACEMENT Surgical History Status post total left knee replacement H/O of hysterectomy with bilateral oophorectomy (Resolved) H/O partial mastectomy (Resolved) Left H/O total knee replacement (Resolved) LEFT Hx laparoscopic cholecystectomy (Resolved) History of colonoscopy History of esophagogastroduodenoscopy (EGD) History of tooth extraction Nausea and vomiting after administration of anesthetic agent Social History Preferred Language: Austrian Communication Ability: Effective Visual Impairment: No Limitations Hearing Ability: Hard of Hearing Beliefs That Will Affect Care: None marital status: Current Living Situation: Alone current occupational status: 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 and A total of 10 systems reviewed and were otherwise negative Physical Exam Vital Signs Vital Signs - 24 hr 11/09/18 21:50 11/09/18 22:30 11/09/18 23:00 Temperature 38.1 C H 39.1 C H Temperature Source Oral Sepsis Recent Fever Within 48 Hours No Sepsis New/Unexplained Change in Mental Status No Sepsis Action Taken by Nursing No Action Required Pulse Rate 110 H 109 H 104 H Pulse Rate [Bilateral] Pulse Rate from SpO2 Sensor 109 H Pulse Rhythm Regular Pulse Rhythm [Bilateral] Pulse Strength Normal Pulse Strength [Bilateral] Respiratory Rate 22 24 25 H Respiratory Effort / Characteristics Non-Labored Spontaneous Respiratory Depth Normal Respiratory Pattern Regular Blood Pressure 94/60 L 105/67 126/80 Blood Pressure [Right Arm] Blood Pressure Mean 71 79 95 Blood Pressure Mean [Right Arm] Blood Pressure Position Sitting Blood Pressure Position [Right Arm] Pulse Oximetry 97 97 Oxygen Delivery Method Room Air Room Air 11/09/18 23:44 11/10/18 00:30 11/10/18 01:13 Temperature 39.2 C H 36.8 C Temperature Source Oral Oral Sepsis Recent Fever Within 48 Hours Sepsis New/Unexplained Change in Mental Status Sepsis Action Taken by Nursing Pulse Rate 83 Pulse Rate [Bilateral] 102 H 88 Pulse Rate from SpO2 Sensor Pulse Rhythm Pulse Rhythm [Bilateral] Regular Pulse Strength Pulse Strength [Bilateral] Normal Respiratory Rate 20 18 18 Respiratory Effort / Characteristics Non-Labored Spontaneous Non-Labored Spontaneous Respiratory Depth Normal Normal Respiratory Pattern Regular Blood Pressure 94/59 L Blood Pressure [Right Arm] 123/71 105/64 Blood Pressure Mean Blood Pressure Mean [Right Arm] 88 77 Blood Pressure Position Blood Pressure Position [Right Arm] Sitting Pulse Oximetry 95 97 98 Oxygen Delivery Method Room Air Room Air Room Air General: Chronically ill appearing but non-acutely ill appearing older female in no acute distress, wearing mask. HEENT: Normal cephalic atraumatic. Pupils are equal round and reactive to light. Extraocular movements are intact. Oropharynx is pink with moist mucous membranes. No swelling of the mouth lips or tongue. Neck: Supple with a midline trachea. No meningeal signs or stiffness, no JVD or bruits. No Stridor. Chest: Clear to auscultation bilaterally. No wheezes or rhonchi. No increased work of breathing. Port in right chest. Heart: regular rhythm and mildly tachycardic. Abdomen: Soft nontender, nondistended without rebound guarding or rigidity. Extremities: No cyanosis clubbing or edema. No calf tenderness or asymmetry Spine/Back. Non tender to palpation. No CVA tenderness Skin: Good turgor without rashes. Neurologic exam: Cranial nerves two through 12 are intact. Motor and sensation are intact and symmetrical throughout. Course 2233: The patient was evaluated in room A9. A complete history and physical exam was performed. 2251: I discussed the patient's case with the pharmacist. The pharmacist agrees with aztreonam. The patient previously had pseudomonas which was west sensitive. 0022: Upon reevaluation, the patient is stable. I discussed the findings and the treatment plan with the patient. She expresses agreement and understanding. I spoke with Dr. Olivas of the [facility] [place] Hospitalist Service. The patient will be evaluated for further management. Consultations Consultation #1: I reviewed the patient's case with Dr. Olivas - Hospitalist, [facility] [place]. He will evaluate the patient for further management. Time: 00:22 Administered Medications Discontinued Medications Acetaminophen (Tylenol) Confirm Administered Dose 650 mg .ROUTE .STK-MED ONE Stop: 11/09/18 23:29 Last Admin: 11/09/18 23:37 Dose: 650 mg Documented by: [id number] Sodium Chloride (Nss 1000ml) 1,000 mls @ 999 mls/hr IV .Q1H1M ONE Stop: 11/09/18 23:38 Last Infusion: 11/10/18 00:48 Dose: 0 mls/hr Documented by: [id number] Admin: 11/09/18 22:51 Dose: 999 mls/hr Documented by: [id number] Vancomycin HCl 1,250 mg/ (Sodium Chloride) 525 mls @ 200 mls/hr IV NOW ONE; Protocol Stop: 11/10/18 01:27 Last Admin: 11/10/18 01:06 Dose: 200 mls/hr Documented by: [id number] Aztreonam 2,000 mg/ Dextrose 120 mls @ 100 mls/hr IV NOW STA; Protocol Stop: 11/10/18 00:01 Last Infusion: 11/10/18 01:12 Dose: 0 mls/hr Documented by: [id number] Admin: 11/09/18 23:36 Dose: 100 mls/hr Documented by: [id number] Medical Decision Making Differential Diagnosis Differential diagnoses include: sepsis, cancer complication, electrolyte/metabolic abnormalities, pneumonia, UTI, and cardiac disease. Medical Records Attestation: I reviewed the patient's medical records. Home Medications Current Medication List: was personally reviewed by me Laboratory Data Attestation: I reviewed the patient's lab results. Result diagrams: 11/09/18 22:32 11/09/18 22:32 Lab Results 11/09/18 11/09/18 11/09/18 Range/Units 22:32 22:32 22:32 WBC 0.31 L* (4.8-10.8) K/uL RBC 2.47 L (4.2-5.4) M/uL Hgb 8.0 L (12.0-16.0) g/dL Hct 23.2 L (37-47) % MCV 93.9 (80-100) fL MCH 32.4 (25-34) pg MCHC 34.5 (32-36) g/dL RDW Std Deviation 59.3 H (36.4-46.3) fL RDW Coeff of Hosea 17.4 H (11.5-14.5) % Plt Count 49 L (130-400) K/uL MPV 10.8 H (7.4-10.4) fL Immature Gran % (Auto) Cancelled Neut % (Auto) Cancelled Lymph % (Auto) Cancelled [place] % (Auto) Cancelled Eos % (Auto) Cancelled Baso % (Auto) Cancelled Immature Gran # (Auto) Cancelled Neut # (Auto) Cancelled Lymph # (Auto) Cancelled [place] # (Auto) Cancelled Eos # (Auto) Cancelled Baso # (Auto) Cancelled Neutrophils % (Manual) Cancelled Band Neutrophils % Cancelled Lymphocytes % (Manual) Cancelled Prolymphocyte % Cancelled Reactive Lymphs % (Man) Cancelled Monocytes % (Manual) Cancelled Eosinophils % (Manual) Cancelled Basophils % (Manual) Cancelled Metamyelocytes % (Man) Cancelled Myelocytes % (Man) Cancelled Promyelocytes % (Man) Cancelled Blast Cells % (Manual) Cancelled Plasma Cell % (Manual) Cancelled Other Cells % Cancelled Nucleated RBC % Cancelled Neutrophils # (Manual) Cancelled Band Neutrophils # Cancelled Total Absolute Neuts Cancelled Lymphocytes # (Manual) Cancelled Prolymphocyte # Cancelled Reactive Lymphs # Cancelled Total Abs Lymphocytes Cancelled Monocytes # (Manual) Cancelled Eosinophils # (Manual) Cancelled Basophils # (Manual) Cancelled Metamyelocytes # (Man) Cancelled Myelocytes # (Manual) Cancelled Promyelocytes # (Man) Cancelled Blast Cells # (Man) Cancelled Plasma Cell # (Manual) Cancelled Other Cells # Cancelled Nucleated RBCs # (Man) Cancelled Hypersegmented Neuts Cancelled Hyposegmented Neuts Cancelled Hypogranular Neuts Cancelled Large Granular Lymphs Cancelled # Lrg Granular Lymphs Cancelled Hairy Cells Cancelled Smudge Cells Cancelled Toxic Granulation Cancelled Toxic Vacuolation Cancelled Dohle Bodies Cancelled Vasyl Rods Cancelled Hypogranular Platelets Cancelled Clumped Platelets Cancelled Giant Platelets Cancelled Platelet Satelliting Cancelled RBC Morphology Cancelled Polychromasia Cancelled Hypochromasia Cancelled Poikilocytosis Cancelled Basophilic Stippling Cancelled Anisocytosis Cancelled Microcytosis Cancelled Macrocytosis Cancelled Spherocytes Cancelled Pappenheimer Bodies Cancelled Sickle Cells Cancelled Target Cells Cancelled Tear Drop Cells Cancelled Ovalocytes Cancelled Stomatocytes Cancelled Ordaz-Dane Bodies Cancelled Echinocytes Cancelled Acanthocytes (Spur) Cancelled Rouleaux Cancelled RBC Agglutinates Cancelled Schistocytes Cancelled RBC Morph Comment Cancelled Sezary Cell Cancelled PT 12.0 (9.0-12.0) Seconds INR 1.2 H (0.9-1.1) APTT 31.9 H (21.0-31.0) Seconds PTT Ratio 1.2 Sodium 134 L (136-145) mmol/L Potassium 4.1 (3.5-5.1) mmol/L Chloride 102 (98-107) mmol/L Carbon Dioxide 26 (21-32) mmol/L Anion Gap 7.0 (3-11) BUN 15 (7-18) mg/dl Creatinine 0.82 (0.6-1.2) mg/dl Est Cr Clr Drug Dosing 52.9 ml/min Est GFR ( Amer) 83.4 Est GFR (Non-Af Amer) 72.0 BUN/Creatinine Ratio 17.6 (10-20) Glucose 122 H (70-99) mg/dl Lactate (0.4-2.0) mmol/L Calcium 8.4 L (8.5-10.1) mg/dl Total Bilirubin 0.5 (0.2-1) mg/dl AST 15 (15-37) U/L ALT 13 (12-78) U/L Alkaline Phosphatase 72 (45-117) U/L Total Protein 5.7 L (6.4-8.2) gm/dl Albumin 3.0 L (3.4-5.0) gm/dl Globulin 2.7 (2.5-4.0) gm/dl Albumin/Globulin Ratio 1.1 (0.9-2) Procalcitonin (0-0.5) ng/ml 11/09/18 11/09/18 Range/Units 22:32 23:12 WBC (4.8-10.8) K/uL RBC (4.2-5.4) M/uL Hgb (12.0-16.0) g/dL Hct (37-47) % MCV (80-100) fL MCH (25-34) pg MCHC (32-36) g/dL RDW Std Deviation (36.4-46.3) fL RDW Coeff of Hosea (11.5-14.5) % Plt Count (130-400) K/uL MPV (7.4-10.4) fL Immature Gran % (Auto) Neut % (Auto) Lymph % (Auto) St. Johns % (Auto) Eos % (Auto) Baso % (Auto) Immature Gran # (Auto) Neut # (Auto) Lymph # (Auto) [place] Johns # (Auto) Eos # (Auto) Baso # (Auto) Neutrophils % (Manual) Band Neutrophils % Lymphocytes % (Manual) Prolymphocyte % Reactive Lymphs % (Man) Monocytes % (Manual) Eosinophils % (Manual) Basophils % (Manual) Metamyelocytes % (Man) Myelocytes % (Man) Promyelocytes % (Man) Blast Cells % (Manual) Plasma Cell % (Manual) Other Cells % Nucleated RBC % Neutrophils # (Manual) Band Neutrophils # Total Absolute Neuts Lymphocytes # (Manual) Prolymphocyte # Reactive Lymphs # Total Abs Lymphocytes Monocytes # (Manual) Eosinophils # (Manual) Basophils # (Manual) Metamyelocytes # (Man) Myelocytes # (Manual) Promyelocytes # (Man) Blast Cells # (Man) Plasma Cell # (Manual) Other Cells # Nucleated RBCs # (Man) Hypersegmented Neuts Hyposegmented Neuts Hypogranular Neuts Large Granular Lymphs # Lrg Granular Lymphs Hairy Cells Smudge Cells Toxic Granulation Toxic Vacuolation Dohle Bodies Vasyl Rods Hypogranular Platelets Clumped Platelets Giant Platelets Platelet Satelliting RBC Morphology Polychromasia Hypochromasia Poikilocytosis Basophilic Stippling Anisocytosis Microcytosis Macrocytosis Spherocytes Pappenheimer Bodies Sickle Cells Target Cells Tear Drop Cells Ovalocytes Stomatocytes Ordaz-Dane Bodies Echinocytes Acanthocytes (Spur) Rouleaux RBC Agglutinates Schistocytes RBC Morph Comment Sezary Cell PT (9.0-12.0) Seconds INR (0.9-1.1) APTT (21.0-31.0) Seconds PTT Ratio Sodium (136-145) mmol/L Potassium (3.5-5.1) mmol/L Chloride (98-107) mmol/L Carbon Dioxide (21-32) mmol/L Anion Gap (3-11) BUN (7-18) mg/dl Creatinine (0.6-1.2) mg/dl Est Cr Clr Drug Dosing ml/min Est GFR ( Amer) Est GFR (Non-Af Amer) BUN/Creatinine Ratio (10-20) Glucose (70-99) mg/dl Lactate 2.4 H* (0.4-2.0) mmol/L Calcium (8.5-10.1) mg/dl Total Bilirubin (0.2-1) mg/dl AST (15-37) U/L ALT (12-78) U/L Alkaline Phosphatase (45-117) U/L Total Protein (6.4-8.2) gm/dl Albumin (3.4-5.0) gm/dl Globulin (2.5-4.0) gm/dl Albumin/Globulin Ratio (0.9-2) Procalcitonin 1.90 H (0-0.5) ng/ml Imaging Data Attestation: I personally reviewed and interpreted this imaging study as follo ws: My Impression: CHEST X-RAY: No acute infiltrate, failure, and pneumothorax. Blood Pressure Blood Pressure Findings: Normal blood pressure Blood Pressure Disposition: did not require urgent referral MDM Narrative This patient comes in as described above. She is being treated for non- Hodgkin's lymphoma and is on chemotherapy she spiked a temperature tonight besides fever and chills she has no focal complaints. She has had no cough or urinary symptoms. No rash. She does have a port in the right chest. She was admitted about 6 weeks ago or so and had Pseudomonas sepsis which was pansensitive. At the time, she had a likely allergic reaction to Zosyn. She did well on aztreonam IV and Vancomycin IV. I did discuss antibiotic coverage with the pharmacist and we agreed upon giving her aztreonam IV and vancomycin IV . Her blood work came back with a total white count of 300 and therefore she is neutropenic. She is also anemic with a hemoglobin of 8 and platelet to 43,000 so she has an mild pancytopenia as well. She has nothing to suggest pneumonia. She has no significant electrolyte or metabolic abnormalities. She was given IV fluid bolus. Her lactic acid is mildly elevated in the mid 2 range. I do think she needs to be admitted/observe for her neutropenic fever and possible sepsis. I tucker.ve consulted Dr. Agee Impression & Plan Neutropenic fever, Pancytopenia, Lymphoma, Thrombocytopenia Critical Care Time Critical Care Time: Yes Total Critical Care Time: 30 I have personally spent 30 minutes of critical care time in the direct managemen t of this patient. This includes bedside care, interpretation of diagnostic studies, and testing, discussion with consultants, patient, and family members, and other required patient management activities. This 30 minutes is in excess of all separately billable procedures. Discharge Plan Visit Data Chief Complaint: Fever Stated Complaint: FEVER 103, WEAKNESS ED Provider: Nicholas Scott Discharge Problem: Neutropenic fever, Pancytopenia, Lymphoma, Thrombocytopenia Patient Disposition: Being Evaluated by Hospitalist Discharge Instructions Interventions: ED Discharge Assessment Last Done: 11/10/18 01:13 Forms Stand Alone Forms: My [facility] Expert Prescriptions Prescriptions: No Action levothyroxine 75 mcg Tablet 75 mcg PO QAM RF: 0 pravastatin 20 mg Tablet 20 mg PO HS RF: 0 ondansetron HCl 8 mg tablet 8 mg PO Q8H PRN (Reason: Nausea) RF: 0 aztreonam 2 gram recon soln 2 gm IV Q8H Qty: 10 RF: 0 Probiotic 3 billion cell Capsule PO DAILY RF: 0 Referrals Referrals: Pro,Patrick Chanel MD [Primary Care Provider] - The scribe's documentation has been prepared under my direction and personally reviewed by me in its entirety. I confirm that the note above accurately reflects all work, treatment, procedures, and medical decision making performed by me.
--- NOTE | 2018-11-10 01:27 | History & Physical Report ---
Date of Service November 10, 2018 Assessment & Plan (1) Neutropenic fever: 73 y/o F Hx NHL - currently on chemo, PAF, HTN, HLD, hypothyroidism, Garde III diastolic dysfunction. Presents with a fever of 102. The pt has a mediport in her R chest and was admitted with severe pseudomonal sepsis 09/27. She was treated with IV Aztreonam until 10/12. She has had a total of 3 cycles of chemo and her most recent chemo took place 11/03. She denies a headache or visual changes, CP, SOB, nausea, vomiting, diarrhea, dysuria or rashes. Initial labs are notable for pancytopenia with a WBC count of .31 and an elevated lactic acid. A CXR is clear. 1) Neutropenic fever - Placed on isolation. Provided with Aztreonam based on her recent in infection in addition to Vanc as she has a Mediport. She will likely need the mediport removed and replaced with a temporary line. An echo could be considered. ID has been consulted. 2) PAF - We will hold her Xarelto pending her AM platelet count. Cont Metoprolol. 3) Pancytopenia - this should be discussed with her oncologist in the context of her current chemotherapy. 4) Hypothyroidism - cont levothyroxine 5) Diastolic dysfunction - this is not currently treated and she does not have a histroy of volume overload 6) HTN, HLD - cont Metoprolol, Pravastatin Full code - SCDS Total time for this admit including review of labs, meds, imaging, records - discussion with pt and ER attending - 39 min Present on Admission?: Yes History of Present Illness Chief Complaint: Neutropenic fever Primary Care Provider: Patrick Francisco MD 73 y/o F Hx NHL - currently on chemo, PAF, HTN, HLD, hypothyroidism, Garde III diastolic dysfunction. Presents with a fever of 102. The pt has a mediport in her R chest and was admitted with severe pseudomonal sepsis 09/27/18. She was treated with IV Aztreonam until 10/12. She has had a total of 3 cycles of chemo and her most recent chemo took place 11/03. She denies a headache or visual changes, CP, SOB, nausea, vomiting, diarrhea, dysuria or rashes. Initial labs are notable for pancytopenia with a WBC count of .31 and an elevated lactic acid. A CXR is clear. 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 Surgical: Partial mastectomy, R TKA Social: No history of smoking or drinking Family: Father following an VT Mother following a CVA Allergies Allergy/AdvReac Type Severity Reaction Status Date / Time piperacillin [From Zosyn] AdvReac Unknown Rash Verified 11/09/18 22:55 tazobactam [From Zosyn] AdvReac Unknown Rash Verified 11/09/18 22:55 Home Medications Home Medications Medication Instructions Recorded Confirmed Type levothyroxine 75 mcg PO QAM 09/07/18 11/09/18 History pravastatin 20 mg PO HS 09/07/18 11/09/18 History ondansetron HCl 8 mg PO Q8H PRN 09/27/18 11/09/18 History aztreonam 2 gm IV Q8H #10 ea 10/02/18 11/09/18 Rx lactobacillus combination no.4 0 mmu cells PO DAILY 10/09/18 11/09/18 History [Probiotic] Past Med/Surg History Medical History Pseudomonas sepsis New onset atrial fibrillation Hepatosplenomegaly Hypoalbuminemia Hyponatremia Anemia Neutropenic fever Lymphoma (Acute) History of recent chemotherapy Pancytopenia (Acute) Severe sepsis with septic shock Admitted to intensive care unit Sepsis (Acute) Acute renal failure (Acute) Respiratory failure (Acute) Neutropenia (Acute) Thrombocytopenia (Acute) Encounter for pre-operative examination Arthritis (Chronic) Left knee pain (Acute) Abnormal EKG (Chronic) Breast cancer (Chronic) H/O Left breast cancer - DCIS Hyperlipidemia (Chronic) Hypertension (Chronic) Hypothyroidism (Chronic) Non Hodgkin's lymphoma REASON FOR PORT PLACEMENT Surgical History Status post total left knee replacement H/O of hysterectomy with bilateral oophorectomy (Resolved) H/O partial mastectomy (Resolved) Left H/O total knee replacement (Resolved) LEFT Hx laparoscopic cholecystectomy (Resolved) History of colonoscopy History of esophagogastroduodenoscopy (EGD) History of tooth extraction Nausea and vomiting after administration of anesthetic agent Social History Preferred Language: Amharic Communication Ability: Effective Visual Impairment: No Limitations Hearing Ability: Hard of Hearing Beliefs That Will Affect Care: None marital status: Current Living Situation: Alone current occupational status: 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 Feels Safe at Home: Yes Smoking Status: Never smoker Second Hand Exposure: No Hx Alcohol Use: No Hx Substance Use: No caffeine: No during the past year weight has: remained stable Review of Systems Review of Systems: Gen: Fevers only reported ENT: Denies congestion, throat pain, hearing loss Eyes: Denies acute visual changes CV: Denies CP, palpitations Pulmonary: Denies SOB, cough, wheezing GI: Denies N/V, diarrhea, constipation Neuro: Denies acute or unilateral weakness, acute gait impairment, headache or acute visual changes Musculoskeletal: Denies joint pain, inflammation Endocrine: Denies polydipsia, polyuria Skin: Denies acute rashes or ulcers Physical Exam Physical Exam: General: AAO x 3, no distress ENT: No erythema or exudates, no thrush Eyes: DRAKE, EOMI Head and neck: Normocephalic, atraumatic, No JVD Chest/heart: Nontender, S1,2, RRR, no murmurs, no gallops - no induration at port site Lungs: CTAB, no wheezing or crackles Abdomen: Nontender, nondistended, BS+ Neuro: AAO x 3, speech is clear, no unilateral weakness or loss of sensation, coordination intact Musculoskeletal: No joint inflammation, muscle tenderness, FROM Skin: No acute rashes or ulcers Extremities: No clubbing, cyanosis, edema Results & Data Vital Signs (Past 12 Hours) Vital Signs Temp Pulse Pulse Resp BP BP Pulse Ox 11/10/18 01:13 83 18 94/59 L 98 11/10/18 00:30 98.2 F 88 18 105/64 97 11/09/18 23:44 102.5 F H 102 H 20 123/71 95 11/09/18 23:00 104 H 25 H 126/80 11/09/18 22:30 102.4 F H 109 H 24 105/67 97 11/09/18 21:50 100.6 F H 110 H 22 94/60 L 97 PG Care Time/CCT Total # of Minutes Spent Total Time Spent with Patient: Total time spent is greater than 50% in coordination of care (as documented) at patient's floor/unit and/or counseling patient:
[2018-11-10] MEDS ORDERED: ONDANSETRON INJ 2 MG/ML 2 ML VIAL IV PRN (02:23)
[2018-11-10] MEDS ORDERED: MAGNESIUM HYDROXIDE SUSP 30 ML UDC PO PRN (02:23)
[2018-11-10] MEDS ORDERED: VANCOMYCIN CONSULT ACTIVE PRN (02:23)
[2018-11-10] MEDS ORDERED: POLYETHYLENE (MIRALAX) 17 GM PACK PO PRN (02:23)
[2018-11-10] MEDS ORDERED: AZTREONAM IV SCH (02:23)
[2018-11-10 02:43] LABS: Hematocrit (blood only) 21.3 % (37-47); Hemoglobin 7.2 g/dL (12.0-16.0); Mean Corpuscular Hgb Conc 33.8 g/dL (32-36); Mean Platelet Volume 10.3 fL (7.4-10.4); Platelet Count 46 K/uL (130-400); RDW Coefficient of Variation 17.5 % (11.5-14.5); RDW Standard Deviation 59.7 fL (36.4-46.3); Red Blood Count 2.29 M/uL (4.2-5.4); White Blood Count 0.22 K/uL (4.8-10.8)
[2018-11-10 02:52] LABS: BUN Creatinine Ratio 20.2 (10-20); Calcium 7.8 mg/dl (8.5-10.1); Creatinine Clr Calc Pharmacy 68.9 ml/min; Est GFR (African American) 104.6; Est GFR (Non-African American) 90.2; Magnesium 2.3 mg/dl (1.8-2.4); Potassium 3.8 mmol/L (3.5-5.1)
[2018-11-10] MEDS: LACTATED RINGER'S 1,000 ML IV SCH ×2 (03:45→23:53)
[2018-11-10] MEDS: LEVOTHYROXINE SODIUM 75 MCG TABLET PO SCH (06:24)
--- NOTE | 2018-11-10 06:25 | XRay Report ---
XR chest 1V portable CLINICAL HISTORY: Sepsis COMPARISON STUDY: 10/25/2018 FINDINGS: The heart is normal in size. There is stable mild prominence of central pulmonary arteries. There is no focal pulmonary consolidation. As no failure. There are no pleural effusions. There is a right-sided A-Port catheter.[ IMPRESSION: No active disease in the chest. Electronically signed by: Lyle Perez M.D. 11/10/2018 6:23 AM
[2018-11-10] MEDS: ACETAMINOPHEN 325 MG TAB PO PRN ×3 (07:51→21:56)
[2018-11-10] MEDS: AZTREONAM 2,000 MG in DEXTROSE 5% 100 ML IV SCH ×3 (07:51→23:53)
--- NOTE | 2018-11-10 09:36 | Consultation Report ---
DATE OF CONSULTATION: 11/10/2018 MEDICAL ONCOLOGY CONSULTATION REASON FOR CONSULTATION: A 73-year-old with diffuse large B cell lymphoma and neutropenic fever. HISTORY OF PRESENT ILLNESS: Maya Stroud is a very pleasant 73-year-old female, patient of Dr. Shaji Vasquez with the underlying diagnosis of diffuse large B cell lymphoma, admitted early in the morning with neutropenic fever. She was originally diagnosed with lymphoma in early July, diffuse large B cell subtype. Stage of disease is incomplete; however, notable involvement of the calvarium and sinuses. She was prescribed R-CHOP and received her third cycle roughly 6 days ago. She received Neulasta on chemotherapy day 2. I was contacted by Maya's relative last night reporting a fever in excess of 102 degrees Fahrenheit. She was subsequently recommended to present to the ER. Other than a fever or chills, Maya has no complaints of pain, more specifically sore throat. She denies abdominal pain, diarrhea, nausea and vomiting at present. The patient had a previous history of pseudomonal bacteremia in September. She was treated with IV aztreonam. The patient appropriately has been admitted to the medical service, received IV hydration and broad-spectrum antibiotics including aztreonam and vancomycin. Blood and urine cultures are pending at the time of today's dictation. PAST MEDICAL HISTORY: Consists of non-Hodgkin's lymphoma, paroxysmal atrial fibrillation, Pseudomonas bacteremia, hypertension, hyperlipidemia, breast cancer/DCIS. PAST SURGICAL HISTORY: Includes partial mastectomy and right TKA. MEDICATIONS: Include levothyroxine 75 mcg p.o. daily, pravastatin 20 mg p.o. at bedtime, Zofran 8 mg p.o. q. 8 hours p.r.n., aztreonam 2 grams IV q. 8 hours, lactobacillus. ALLERGIES: PIPERACILLIN AND TAZOBACTAM SOCIAL HISTORY: The patient is retired. She is nonsmoker, nondrinker. FAMILY HISTORY: Father succumbed to myocardial infarction. Her mother succumbed to CVA. REVIEW OF SYSTEMS: As per HPI, most notably for fever and chills, rigors. She is not anorexic or losing weight presently. SKIN: No rashes or lesions. No history of dermatoses. HEENT: Negative for headaches, lightheadedness or dizziness. No acute visual or hearing deficits. No sinus symptoms, sore throat or dysphagia presently. LYMPH: Positive for non-Hodgkin's lymphoma. CARDIAC: Positive for atrial fibrillation. No current angina or palpitations. PULMONARY: Negative for COPD. No shortness of breath, dyspnea or orthopnea. No cough or hemoptysis. GASTROINTESTINAL: Negative for abdominal pain, nausea or vomiting, diarrhea or constipation. She reports no hematochezia, melena or prakash rectal bleeding. GENITOURINARY: No hematuria, dysuria and incontinence. MUSCULOSKELETAL: Negative for arthralgias or myalgias. No muscle weakness. ENDOCRINE: Positive for hypothyroidism. NEUROLOGIC: Negative for seizure, stroke, or migraine headache. PSYCHIATRIC: Negative for anxiety, depression or psychoses. HEMATOLOGIC: Cytopenias, attributable to chemotherapy effect. PHYSICAL EXAMINATION: GENERAL: Very pleasant 73-year-old female, awake, alert and appropriate, in no acute distress. VITAL SIGNS: Temperature presently 39.2, pulse 96, respiratory rate 18, blood pressure 94/58. SKIN: Warm, dry, noncyanotic with petechia, rash or ecchymosis. HEENT: Head is atraumatic, normocephalic. Eyes: PERRLA, EOMI. Sclerae nonicteric. Nares patent without rhinorrhea or discharge. Throat is clear. Tongue is midline. No evidence of thrush. NECK: Supple without JVD or thyromegaly. LYMPH: No cervical or supraclavicular palpable nodes. HEART: Regular rate and rhythm. No clicks, rubs, murmurs or gallops. LUNGS: Clear to auscultation bilaterally. ABDOMEN: Soft, nontender, nondistended without palpable hepatosplenomegaly. EXTREMITIES: Musculoskeletal strength and pulses are equal in all 4 quadrants. No clubbing, cyanosis or edema otherwise. NEUROLOGICALLY: She is awake, alert and oriented x3. Cranial nerves are grossly intact. LABORATORY DATA: WBC count 220, hemoglobin 7.2, platelet count 46,000. PT 12 seconds, PTT 31.9 seconds. Sodium 138, potassium 3.8, chloride 106, carbon dioxide 25, BUN 13, creatinine 0.63, albumin 3.0. RADIOGRAPHIC DATA: Chest x-ray done on admission reveals no active pulmonary disease. IMPRESSION: 1. Neutropenic fever. 2. Previous pseudomonas bacteremia. 3. Diffuse large B cell lymphoma. 4. Atrial fibrillation. 5. Hypothyroidism. PLAN: In summary, Maya is a very pleasant 73-year-old patient of Dr. Dyer's, currently under treatment for diffuse large B cell lymphoma. About 10 days ago, received a combination of rituximab, cyclophosphamide, Adriamycin, vincristine and prednisone. She received Neulasta on post-chemotherapy day #2 and therefore, expect neutrophils to recover in short order. She is also profoundly anemic and perhaps 2 units of packed RBCs. We will expedite her recovery. I agree with broad-spectrum antibiotics and await culture for identification and sensitivities. Would provide regular diet, have Maya ambulate as she is able with some assistance. Will advise Dr. Dyer of patient's admission to hospital. We will continue to follow her periodically throughout her hospital stay. Thank you very much for assisting us in the care of this very pleasant lady. TINO
[2018-11-10] MEDS: VANCOMYCIN HCL 1,000 MG in SODIUM CHLORIDE 0.9% 250 ML IV SCH ×2 (10:11→21:55)
--- NOTE | 2018-11-10 10:42 | Infectious Disease Consult ---
Date of Consultation November 10, 2018 Assessment & Plan (1) Neutropenic fever: 73-year-old female with diffuse B-cell lymphoma on chemotherapy now presents with fever with profound neutropenia. Agree with empiric use of vancomycin and aztreonam pending further culture results. If Pseudomonas again identified in blood cultures, will need to strongly consider removal of a port. Will discuss with all involved. Will follow. History of Present Illness Reason for Consultation: Recurrent neutropenic fever Attending Physician: Ashley Burch MD History of Present Illness 73-year-old female with known diffuse B-cell lymphoma diagnosed in July of this year, now on chemotherapy, admitted with 1 day history of fever and chills with profound neutropenia. Patient was hospitalized in September with pseudomonal sepsis, treated with IV aztreonam without removal of her indwelling a port. Has had no obvious difficulties with the port itself. Has been started empirically on vancomycin and aztreonam has had significant reaction to Zosyn in the recent past. Blood cultures are pending. Patient feeling slightly better this morning. No significant pain at a port site. Allergies Allergy/AdvReac Type Severity Reaction Status Date / Time piperacillin [From Zosyn] AdvReac Unknown Rash Verified 11/09/18 22:55 tazobactam [From Zosyn] AdvReac Unknown Rash Verified 11/09/18 22:55 Home Medications Home Medications Medication Instructions Recorded Confirmed Type levothyroxine 75 mcg PO QAM 09/07/18 11/09/18 History pravastatin 20 mg PO HS 09/07/18 11/09/18 History ondansetron HCl 8 mg PO Q8H PRN 09/27/18 11/09/18 History aztreonam 2 gm IV Q8H #10 ea 10/02/18 11/09/18 Rx lactobacillus combination no.4 0 mmu cells PO DAILY 10/09/18 11/09/18 History [Probiotic] Patient History Medical History Pseudomonas sepsis New onset atrial fibrillation Hepatosplenomegaly Hypoalbuminemia Hyponatremia Anemia Neutropenic fever Lymphoma (Acute) History of recent chemotherapy Pancytopenia (Acute) Severe sepsis with septic shock Admitted to intensive care unit Sepsis (Acute) Acute renal failure (Acute) Respiratory failure (Acute) Neutropenia (Acute) Thrombocytopenia (Acute) Encounter for pre-operative examination Arthritis (Chronic) Left knee pain (Acute) Abnormal EKG (Chronic) Breast cancer (Chronic) H/O Left breast cancer - DCIS Hyperlipidemia (Chronic) Hypertension (Chronic) Hypothyroidism (Chronic) Non Hodgkin's lymphoma REASON FOR PORT PLACEMENT Surgical History Status post total left knee replacement H/O of hysterectomy with bilateral oophorectomy (Resolved) H/O partial mastectomy (Resolved) Left H/O total knee replacement (Resolved) LEFT Hx laparoscopic cholecystectomy (Resolved) History of colonoscopy History of esophagogastroduodenoscopy (EGD) History of tooth extraction Nausea and vomiting after administration of anesthetic agent Family History Mother , in her 70s Diabetes Stroke Father , at 72yo Myocardial infarction Brother No problems noted. Brother No problems noted. Brother No problems noted. Sister Liver disorder Sister No problems noted. Sister No problems noted. Sister No problems noted. Daughter No problems noted. 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 Feels Safe at Home: Yes Smoking Status: Never smoker Second Hand Exposure: No Hx Alcohol Use: No Hx Substance Use: No caffeine: No during the past year weight has: remained stable Review of Systems Review of Systems: All systems reviewed & are unremarkable except as noted in HPI & below Physical Exam Constitutional: WD/WN, vitals as above comfortable; no acute distress Eyes: PERRL, conjunctivae normal, anicteric sclerae ENMT: external ear and nose normal, oropharynx normal Neck: trachea midline, no thyromegaly neck nontender Respiratory: normal respiratory effort, lungs clear to auscultation normal percussion; does not use accessory muscles Cardiovascular: Rate/Rhythm: regular rate and regular rhythm Heart Sounds: normal S1 and normal S2; no gallop, no murmur and no cardiac rub Vessels: normal peripheral pulses; no JVD Gastrointestinal (Abdomen): normal bowel sounds, soft, nontender, no hepatosplenomegaly Musculoskeletal: no cyanosis or clubbing, extremities motor strength 5/5 Spine: thoracic spine normal to inspection and lumbar spine normal to inspection; no cervical spinal tenderness Skin: no rashes, warm and dry normal turgor; no lesions A port site without erythema or drainage Neurologic: patellar DTR's 2+ bilat, sensation intact no focal motor deficits Psychiatric: A+Ox3, euthymic affect Orientation: cooperative Lymphatic: no cervical or axillary lymphadenopathy no inguinal lymphadenopathy Results & Data Vital Signs (Past 12 Hours) Vital Signs Temp Pulse Pulse Resp BP BP Pulse Ox 11/10/18 09:19 37 C 11/10/18 07:18 39.2 C H 96 H 18 94/58 L 97 11/10/18 03:54 37 C 102 H 20 110/62 97 11/10/18 02:23 36.7 C 94 H 18 99/67 L 98 11/10/18 01:13 83 18 94/59 L 98 11/10/18 00:30 36.8 C 88 18 105/64 97 11/09/18 23:44 39.2 C H 102 H 20 123/71 95 11/09/18 23:00 104 H 25 H 126/80 Laboratory Results Short CBC 11/09/18 11/10/18 Range/Units 22:32 02:28 WBC 0.31 L* 0.22 L* (4.8-10.8) K/uL Hgb 8.0 L 7.2 L (12.0-16.0) g/dL Hct 23.2 L 21.3 L (37-47) % Plt Count 49 L 46 L (130-400) K/uL BMP 11/09/18 11/10/18 22:32 02:28 Sodium 134 L 138 Potassium 4.1 3.8 Chloride 102 106 Carbon Dioxide 26 25 BUN 15 13 Creatinine 0.82 0.63 Glucose 122 H 119 H Calcium 8.4 L 7.8 L Liver Function 11/09/18 Range/Units 22:32 Total Bilirubin 0.5 (0.2-1) mg/dl AST 15 (15-37) U/L ALT 13 (12-78) U/L Alkaline Phosphatase 72 (45-117) U/L Albumin 3.0 L (3.4-5.0) gm/dl Diagnostic Findings XR chest 1V portable CLINICAL HISTORY: Sepsis COMPARISON STUDY: 10/25/2018 FINDINGS: The heart is normal in size. There is stable mild prominence of central pulmonary arteries. There is no focal pulmonary consolidation. As no failure. There are no pleural effusions. There is a right-sided A-Port catheter.[ IMPRESSION: No active disease in the chest. Electronically signed by: Lyle Perez M.D. 11/10/2018 6:23 AM Dictated: 11/10/18 0622 Transcribed: 11/10/18 0622
[2018-11-10] MEDS ORDERED: SODIUM CHLORIDE 0.9% 250 ML IV PRN (10:45)
[2018-11-10] MEDS ORDERED: POTASSIUM CHLORIDE 10 MEQ TABCR PO ONE (11:00)
--- NOTE | 2018-11-10 13:27 | History & Physical Bridge Note ---
Date of Service November 10, 2018 History & Physical Bridge Note I have examined the patient, reviewed the History & Physical and in the interval since the performance of the History & Physical I have noted the following changes of clinical significance: Hemoglobin trended downward to 7.2 and oncology recommending blood transfusion. I consented the patient for blood which she is agreeable to. We will give her 2 units of PRBCs irradiated. She is still having chills and is likely spiking another fever, blood cultures remain no growth to date Procalcitonin trended up to 6, UA was never collected and was ordered by myself this morning ECG shows anterolateral T wave inversions but troponin is negative and patient is without any chest pain or shortness of breath. She continues to deny headache or lightheadedness, no neck pain, no chest pain, cough, or shortness of breath. No abdominal pain, denies nausea/vomiting/diarrhea, denies dysuria or urinary frequency urgency. Denies rashes or joint pains. Vitals reviewed Gen: AAOx3, NAD HEENT: Anicteric sclerae, EOMI CV: RRR no mgr nl S1S2, port in place in the right anterior chest wall without surrounding erythema Pulm: CTAB no wcr Abd: +BS soft NT ND no masses or hernias Ext: No edema, 2+ DP pulses Skin: No rashes, warm/dry Neuro: Full strength throughout Continue empiric antibiotics, follow blood cultures, Tylenol as needed for fever. Increase IV fluids to 125 mL's per hour of LR for borderline hypotension and SIRS No source found at this time -Collect a UA with reflex to culture if indicated Repeat ECG fairly unchanged from previous, asymptomatic and likely nonspecific T wave changes. Had recent echocardiogram a few weeks ago without wall motion abnormalities Remains in normal sinus rhythm here Continue holding anticoagulation from home while platelets are less than 50,000 -Holding metoprolol from home due to hypotension
[2018-11-10 14:49] LABS: Appearance Urine Clear (Clear); Bilirubin Urine Negative (Negative); Blood Urine Negative (Negative); Color Urine Yellow; Glucose Urine UA Negative (Negative); Ketones Urine Negative (Negative); Leukocyte Esterase Urine Negative (Negative); Nitrite Urine Negative (Negative); Protein Urine Negative (Negative); Urobilinogen Urine Negative (Negative)
[2018-11-10 15:06] LABS: Bacteria Urine Automated Negative (Negative); Epithelial Cell Urine Auto 20-30 /lpf (0-5); RBC Urine Automated 0-4 /hpf (0-4)
[2018-11-10] MEDS: PRAVASTATIN SOD 20 MG TAB PO SCH (20:25)
[2018-11-11] MEDS: LACTATED RINGER'S 1,000 ML IV SCH ×4 (01:02→23:40)
[2018-11-11] MEDS: LEVOTHYROXINE SODIUM 75 MCG TABLET PO SCH (05:38)
[2018-11-11 06:39] LABS: Hemoglobin 9.1 g/dL (12.0-16.0); Mean Corpuscular Volume 92.2 fL (80-100); Mean Platelet Volume 10.3 fL (7.4-10.4); RDW Coefficient of Variation 16.4 % (11.5-14.5); Red Blood Count 2.82 M/uL (4.2-5.4); White Blood Count 0.23 K/uL (4.8-10.8)
[2018-11-11 06:57] LABS: BUN Creatinine Ratio 18.5 (10-20); Calcium 7.9 mg/dl (8.5-10.1); Creatinine Clr Calc Pharmacy 79.9 ml/min; Est GFR (African American) 109.4; Est GFR (Non-African American) 94.4; Potassium 3.6 mmol/L (3.5-5.1)
[2018-11-11] MEDS: ACETAMINOPHEN 325 MG TAB PO PRN ×2 (07:34→19:14)
[2018-11-11] MEDS: AZTREONAM 2,000 MG in DEXTROSE 5% 100 ML IV SCH ×2 (07:37→16:34)
--- NOTE | 2018-11-11 08:37 | Progress Note ---
DATE: 11/11/2018 MEDICAL ONCOLOGY PROGRESS NOTE DIAGNOSES: 1. Neutropenic fever. 2. Previous pseudomonas bacteremia. 3. Diffuse large B cell lymphoma. 4. Atrial fibrillation. 5. Anemia, attributable to chemotherapy. SUBJECTIVE: Maya was seen and examined at bedside, family members are present this morning. While she admits to feeling a bit better, nursing reports continued fevers overnight. Blood and urine cultures thus far negative. Her neutrophils have been slow to recover. She is tolerating her current diet. Denies diarrhea at present. Ambulating with some assistance, otherwise. Nursing reports no overnight difficulties. OBJECTIVE: GENERAL: A very pleasant 73-year-old female, in no acute distress. VITAL SIGNS: Temperature 39, pulse 94, respiratory rate 20, blood pressure 118/76. SKIN: Without rash or lesion. HEENT: No evidence of thrush. NECK: Supple. Trachea midline. HEART: Regular rate and rhythm. LUNGS: Clear to auscultation bilaterally. ABDOMEN: Soft, nontender, nondistended. EXTREMITIES: No clubbing, cyanosis or edema. NEUROLOGICAL: The patient is intact. LABORATORY DATA: WBC count 230, hemoglobin 9.1, platelet count 24,000. Sodium 136, potassium 3.6, chloride 106, carbon dioxide 24, creatinine 0.55, BUN 10. IMPRESSION: 1. Neutropenic fever. 2. Severe anemia, attributable to chemotherapy. 3. Diffuse large B cell non-Hodgkin's lymphoma. 4. History of pseudomonal bacteremia. 5. Neutropenic fever. PLAN: Maya received 2 units of packed RBCs yesterday, transiently improving her hemoglobin level. Her platelets continue to fall, and if she falls below 15,000, would then proceed with a single donor platelet pheresis transfusion. If she continues to fever another 24 hours, suggest adding an antifungal. Please check with infectious disease to see if they agree. Additionally, I would like to Neupogen 480 mcg subQ daily for the next couple of days in hopes of jump starting neutrophil production. Clinically, Maya seems to be much better, but again somewhat concerned that she continues to fever despite broad-spectrum antimicrobials. We will continue to follow her daily until her counts head towards recovery. Thank you very much for assisting us in the care of this very pleasant lady. TINO
[2018-11-11] MEDS: VANCOMYCIN HCL 1,000 MG in SODIUM CHLORIDE 0.9% 250 ML IV SCH ×2 (10:15→21:44)
--- NOTE | 2018-11-11 11:42 | Pharmacy Report ---
Pharmacy Abx Initial Consult - Date of Service November 11, 2018 - Pharmacy Dosing Scope Date of Consult: [] Consultation requested by: [] Pharmacy is consulted to initiate [] IV/PO dosing therapy, order appropriate labs and adjust drug dose/frequency. - Subjective The patient is a 73 year old F admitted on 11/10/18 00:28. - Objective Height: 5 ft Weight: 66.7 kg Vital Signs (Past 12hrs): Vital Signs Temp Pulse Resp BP Pulse Ox 11/11/18 08:44 37 C 11/11/18 07:18 39.0 C H 94 H 20 118/76 97 11/11/18 04:33 37.6 C H 84 18 110/67 98 Lab Results (24hrs): Laboratory Tests (24 Hours) 11/11/18 11/11/18 11/11/18 05:39 05:39 05:39 WBC 0.23 L* Neut # (Auto) Cancelled Creatinine 0.55 L Est Cr Clr Drug Dosing 79.9 Procalcitonin 5.40 H 11/10/18 10:58 WBC Neut # (Auto) Creatinine Est Cr Clr Drug Dosing Procalcitonin 6.51 H - Risk Factors for Resistance * Immunocompromised (chronic steroid therapy, chemotherapy, immunomodulators) * - Assessment & Plan Assessment 73 year old F with diffuse B-cell lymphoma on chemotherapy presented with neutropenia and fever. Patient continues to have fevers and neutropenia. Empirically on vancomycin and aztreonam, previously had pseudomonas bacteremia. Current blood cultures are negative at 24 hours. SCr continues to trend down, vancomycin level planned for this evening to assess current vancomycin dose. Plan Vancomycin IV * Estimated PK Parameters: Ramon 0.069 hr-1, t1/2 10 hr * Loading dose: 1250 mg (19.2mg/kg) * Maintenance dose: 1000 mg IV (15.4 mg/kg) every 12 hours * Goal trough level 15-20 mcg/mL * Trough ordered for 11/11 @2130 Aztreonam also dosed appropriately for renal function. Pharmacy will continue to follow and will adjust dose/frequency as necessary. Thank you.
[2018-11-11] MEDS: FILGRASTIM 480 MCG/1.6 ML VIAL SC SCH (13:03)
[2018-11-11] MEDS ORDERED: CASPOFUNGIN 70 MG in SODIUM CHLORIDE 0.9% 250 ML IV STA (13:17)
[2018-11-11] MEDS ORDERED: CASPOFUNGIN 50 MG in SODIUM CHLORIDE 0.9% 250 ML IV SCH (13:30)
--- NOTE | 2018-11-11 13:34 | Hospitalist Progress Note ---
Date of Service November 11, 2018 Assessment & Plan (1) Neutropenic fever: This pt is a 73 y/o female w/ a h/o NHL - currently on chemo, PAF, HTN, HLD, hypothyroidism, Grade III diastolic dysfunction. Presents with a fever of 102. The pt has a mediport in her R chest and was admitted with severe Pseudomonal sepsis 09/27. She was treated with IV Aztreonam until 10/12. She has had a total of 3 cycles of chemo and her most recent chemo took place 11/03. She denies a headache or visual changes, CP, SOB, nausea, vomiting, diarrhea, dysuria or rashes. Initial labs are notable for pancytopenia with a WBC count of .31 and an elevated lactic acid. A CXR is clear. Meets criteria for SIRS, but no source identified and therefore is not sepsis She is still spiking fevers, blood cultures remain no growth to date Procalcitonin trended up to 6 and now slightly down to 5.4 UA was not collected on admission and was collected then after abx administration and was normal ECG shows anterolateral T wave inversions but troponin is negative and patient is without any chest pain or shortness of breath. She continues to deny headache or lightheadedness, no neck pain, no chest pain, cough, or shortness of breath. No abdominal pain, denies nausea/vomiting/diarrhea, denies dysuria or urinary fr equency urgency. Denies rashes or joint pains. She does however have a h/o sinus involvement of her lymphoma on PET scan from 08/2018, as well as mention of possible proctitis on CT abd/pel from 09/2018 [address] a port in place as well as a left TKA-neither appear infected -check CT sinuses and consider CT abd/pel to look again at the possible area of proctitis although not having pain or diarrhea -Continue empiric antibiotics with Aztreonam, Vano, and will add IV Caspofungin to cover for fungal infection as well as IV doxycycline to cover for sinusitis as she is PCN allergic - follow blood cultures, add fungal cultures -continue Tylenol as needed for fever. 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 -on chemo with R-CHOP, last chemo was 1 week ago -Oncology consult appreciated (4) Paroxysmal atrial fibrillation: Remains in normal sinus rhythm here Continue holding anticoagulation from home while platelets are less than 50,000 -Holding metoprolol from home due to hypotension (5) HTN (hypertension), benign: hypotensive on arrival and now improved -holding home metoprolol (6) Hyperlipidemia: continue statin (7) Hypothyroidism: Recent TSH normal at 1.08 - cont levothyroxine (8) Abnormal ECG: ECG on admission abnormal with TWIs anterolat leads Trop negative, no chest pain Repeat ECG fairly unchanged from previous, asymptomatic and likely nonspecific T wave changes. Had recent echocardiogram a few weeks ago without wall motion abnormalities No further workup needed (9) DVT prophylaxis: SCDs only due to thrombocytopenia Dispo-remain hospitalized Subjective Pt reports she is feeling much better today despite that she still spiked a fever this AM. Continues to deny any headache, neck pain, chest pain, SOB, cough, no sore throat, no N/V/D, no abd pain, no urinary symptoms. Appetite is good. She is OOB to chair and feeling stronger. Review of Systems Review of Systems: All systems reviewed & are unremarkable except as noted in HPI & below Physical Exam Constitutional: WD/WN, vitals as above Eyes: PERRL, conjunctivae normal, anicteric sclerae ENMT: external ear and nose normal, oropharynx normal alopecia Neck: trachea midline, no thyromegaly Respiratory: normal respiratory effort, lungs clear to auscultation Cardiovascular: RRR, no murmur, no edema Chest (Breasts): Chest: + vascular access device or port (right chest wall, no surrounding erythema) Gastrointestinal (Abdomen): normal bowel sounds, soft, nontender, no hepatosplenomegaly Musculoskeletal: Extremities: extremities normal to inspection; no cyanosis and no clubbing Skin: no rashes, warm and dry Neurologic: moves all extremities and awake; no focal motor deficits Psychiatric: A+Ox3, euthymic affect Results & Data Vital Signs (Past 12 Hours) Vital Signs Temp Pulse Resp BP Pulse Ox 11/11/18 08:44 37 C 11/11/18 07:18 39.0 C H 94 H 20 118/76 97 11/11/18 04:33 37.6 C H 84 18 110/67 98 Laboratory Results 11/11/18 11/11/18 11/11/18 Range/Units 21:34 05:39 05:39 WBC (4.8-10.8) K/uL RBC (4.2-5.4) M/uL Hgb (12.0-16.0) g/dL Hct (37-47) % MCV (80-100) fL MCH (25-34) pg MCHC (32-36) g/dL RDW Std Deviation (36.4-46.3) fL RDW Coeff of Hosea (11.5-14.5) % Plt Count (130-400) K/uL MPV (7.4-10.4) fL Immature Gran % (Auto) Neut % (Auto) Lymph % (Auto) [place] % (Auto) Eos % (Auto) Baso % (Auto) Immature Gran # (Auto) Neut # (Auto) Lymph # (Auto) [place] # (Auto) Eos # (Auto) Baso # (Auto) Neutrophils % (Manual) Band Neutrophils % Lymphocytes % (Manual) Prolymphocyte % Reactive Lymphs % (Man) Monocytes % (Manual) Eosinophils % (Manual) Basophils % (Manual) Metamyelocytes % (Man) Myelocytes % (Man) Promyelocytes % (Man) Blast Cells % (Manual) Plasma Cell % (Manual) Other Cells % Nucleated RBC % Neutrophils # (Manual) Band Neutrophils # Total Absolute Neuts Lymphocytes # (Manual) Prolymphocyte # Reactive Lymphs # Total Abs Lymphocytes Monocytes # (Manual) Eosinophils # (Manual) Basophils # (Manual) Metamyelocytes # (Man) Myelocytes # (Manual) Promyelocytes # (Man) Blast Cells # (Man) Plasma Cell # (Manual) Other Cells # Nucleated RBCs # (Man) Hypersegmented Neuts Hyposegmented Neuts Hypogranular Neuts Large Granular Lymphs # Lrg Granular Lymphs Hairy Cells Smudge Cells Toxic Granulation Toxic Vacuolation Dohle Bodies Vasyl Rods Hypogranular Platelets Clumped Platelets Giant Platelets Platelet Satelliting RBC Morphology Polychromasia Hypochromasia Poikilocytosis Basophilic Stippling Anisocytosis Microcytosis Macrocytosis Spherocytes Pappenheimer Bodies Sickle Cells Target Cells Tear Drop Cells Ovalocytes Stomatocytes Ordaz-[place] Bodies Echinocytes Acanthocytes (Spur) Rouleaux RBC Agglutinates Schistocytes RBC Morph Comment Sezary Cell Sodium 136 (136-145) mmol/L Potassium 3.6 (3.5-5.1) mmol/L Chloride 106 (98-107) mmol/L Carbon Dioxide 24 (21-32) mmol/L Anion Gap 6.0 (3-11) BUN 10 (7-18) mg/dl Creatinine 0.55 L (0.6-1.2) mg/dl Est Cr Clr Drug Dosing 79.9 ml/min Est GFR ( Amer) 109.4 Est GFR (Non-Af Amer) 94.4 BUN/Creatinine Ratio 18.5 (10-20) Glucose 83 (70-99) mg/dl Calcium 7.9 L (8.5-10.1) mg/dl Procalcitonin 5.40 H (0-0.5) ng/ml Vancomycin Trough 12.7 (See Comment) mcg/ml 11/11/18 Range/Units 05:39 WBC 0.23 L* (4.8-10.8) K/uL RBC 2.82 L (4.2-5.4) M/uL Hgb 9.1 L (12.0-16.0) g/dL Hct 26.0 L (37-47) % MCV 92.2 (80-100) fL MCH 32.3 (25-34) pg MCHC 35.0 (32-36) g/dL RDW Std Deviation 55.0 H (36.4-46.3) fL RDW Coeff of Hosea 16.4 H (11.5-14.5) % Plt Count 24 L* (130-400) K/uL MPV 10.3 (7.4-10.4) fL Immature Gran % (Auto) Cancelled Neut % (Auto) Cancelled Lymph % (Auto) Cancelled [place] % (Auto) Cancelled Eos % (Auto) Cancelled Baso % (Auto) Cancelled Immature Gran # (Auto) Cancelled Neut # (Auto) Cancelled Lymph # (Auto) Cancelled [place] # (Auto) Cancelled Eos # (Auto) Cancelled Baso # (Auto) Cancelled Neutrophils % (Manual) Cancelled Band Neutrophils % Cancelled Lymphocytes % (Manual) Cancelled Prolymphocyte % Cancelled Reactive Lymphs % (Man) Cancelled Monocytes % (Manual) Cancelled Eosinophils % (Manual) Cancelled Basophils % (Manual) Cancelled Metamyelocytes % (Man) Cancelled Myelocytes % (Man) Cancelled Promyelocytes % (Man) Cancelled Blast Cells % (Manual) Cancelled Plasma Cell % (Manual) Cancelled Other Cells % Cancelled Nucleated RBC % Cancelled Neutrophils # (Manual) Cancelled Band Neutrophils # Cancelled Total Absolute Neuts Cancelled Lymphocytes # (Manual) Cancelled Prolymphocyte # Cancelled Reactive Lymphs # Cancelled Total Abs Lymphocytes Cancelled Monocytes # (Manual) Cancelled Eosinophils # (Manual) Cancelled Basophils # (Manual) Cancelled Metamyelocytes # (Man) Cancelled Myelocytes # (Manual) Cancelled Promyelocytes # (Man) Cancelled Blast Cells # (Man) Cancelled Plasma Cell # (Manual) Cancelled Other Cells # Cancelled Nucleated RBCs # (Man) Cancelled Hypersegmented Neuts Cancelled Hyposegmented Neuts Cancelled Hypogranular Neuts Cancelled Large Granular Lymphs Cancelled # Lrg Granular Lymphs Cancelled Hairy Cells Cancelled Smudge Cells Cancelled Toxic Granulation Cancelled Toxic Vacuolation Cancelled Dohle Bodies Cancelled Vasyl Rods Cancelled Hypogranular Platelets Cancelled Clumped Platelets Cancelled Giant Platelets Cancelled Platelet Satelliting Cancelled RBC Morphology Cancelled Polychromasia Cancelled Hypochromasia Cancelled Poikilocytosis Cancelled Basophilic Stippling Cancelled Anisocytosis Cancelled Microcytosis Cancelled Macrocytosis Cancelled Spherocytes Cancelled Pappenheimer Bodies Cancelled Sickle Cells Cancelled Target Cells Cancelled Tear Drop Cells Cancelled Ovalocytes Cancelled Stomatocytes Cancelled Ordaz-[place] Bodies Cancelled Echinocytes Cancelled Acanthocytes (Spur) Cancelled Rouleaux Cancelled RBC Agglutinates Cancelled Schistocytes Cancelled RBC Morph Comment Cancelled Sezary Cell Cancelled Sodium (136-145) mmol/L Potassium (3.5-5.1) mmol/L Chloride (98-107) mmol/L Carbon Dioxide (21-32) mmol/L Anion Gap (3-11) BUN (7-18) mg/dl Creatinine (0.6-1.2) mg/dl Est Cr Clr Drug Dosing ml/min Est GFR ( Amer) Est GFR (Non-Af Amer) BUN/Creatinine Ratio (10-20) Glucose (70-99) mg/dl Calcium (8.5-10.1) mg/dl Procalcitonin (0-0.5) ng/ml Vancomycin Trough (See Comment) mcg/ml BCxs NGTD PG Care Time/CCT Total # of Minutes Spent Total Time Spent with Patient: Total time spent is greater than 50% in coordination of care (as documented) at patient's floor/unit and/or counseling patient:
--- NOTE | 2018-11-11 14:38 | Infectious Disease Progress Nt ---
Date of Service November 11, 2018 Assessment & Plan (1) Neutropenic fever: 33-year-old female with diffuse B-cell lymphoma on chemotherapy with profound neutropenia and fever. Clinically slightly better, but remains febrile. If cultures remain negative and patient remains febrile, would consid er addition of IV caspofungin tomorrow. Will discuss with all involved. Will follow. Subjective Patient seen in follow-up for neutropenic fever. Feeling slightly better today, though remains febrile. Blood cultures negative to date. No other new specific complaints. Oncology follow-up noted. Review of Systems Review of Systems: All systems reviewed & are unremarkable except as noted in HPI & below Physical Exam Constitutional: WD/WN, vitals as above comfortable; no acute distress Eyes: PERRL, conjunctivae normal, anicteric sclerae ENMT: external ear and nose normal, oropharynx normal Neck: trachea midline, no thyromegaly neck nontender Respiratory: normal respiratory effort, lungs clear to auscultation normal percussion; does not use accessory muscles Cardiovascular: Rate/Rhythm: regular rate and regular rhythm Heart Sounds: normal S1 and normal S2; no gallop, no murmur and no cardiac rub Vessels: normal peripheral pulses; no JVD Gastrointestinal (Abdomen): normal bowel sounds, soft, nontender, no hepatosplenomegaly Musculoskeletal: no cyanosis or clubbing, extremities motor strength 5/5 Spine: thoracic spine normal to inspection and lumbar spine normal to inspection; no cervical spinal tenderness Skin: no rashes, warm and dry normal turgor; no lesions Neurologic: patellar DTR's 2+ bilat, sensation intact no focal motor deficits Psychiatric: A+Ox3, euthymic affect Orientation: cooperative Lymphatic: no cervical or axillary lymphadenopathy no inguinal lymphadenopathy Results & Data Vital Signs (Past 12 Hours) Vital Signs Temp Pulse Resp BP Pulse Ox 11/11/18 08:44 37 C 11/11/18 07:18 39.0 C H 94 H 20 118/76 97 11/11/18 04:33 37.6 C H 84 18 110/67 98 Laboratory Results Short CBC 11/11/18 Range/Units 05:39 WBC 0.23 L* (4.8-10.8) K/uL Hgb 9.1 L (12.0-16.0) g/dL Hct 26.0 L (37-47) % Plt Count 24 L* (130-400) K/uL BMP 11/11/18 05:39 Sodium 136 Potassium 3.6 Chloride 106 Carbon Dioxide 24 BUN 10 Creatinine 0.55 L Glucose 83 Calcium 7.9 L Urine 11/10/18 Range/Units 00:41 Urine Color Yellow Urine Appearance Clear (Clear) Urine pH 7.0 (4.5-7.5) Ur Specific [place] 1.010 (1.000-1.030) Urine Protein Negative (Negative) Urine Glucose (UA) Negative (Negative) Diagnostic Findings Microbiology 11/09/18 23:12 Blood Aerobic Blood Culture - Preliminary No growth in Aerobic bottle after 24 hours. 11/09/18 23:12 Blood Anaerobic Blood Culture - Preliminary No growth in Anaerobic bottle after 24 hours. 11/09/18 22:30 Blood Aerobic Blood Culture - Preliminary No growth in Aerobic bottle after 24 hours. 11/09/18 22:30 Blood Anaerobic Blood Culture - Preliminary No growth in Anaerobic bottle after 24 hours.
[2018-11-11] MEDS: PRAVASTATIN SOD 20 MG TAB PO SCH (20:32)
[2018-11-11] MEDS ORDERED: VANCOMYCIN TROUGH ONE (21:30)
[2018-11-11] MEDS: ALUMINUM/MAGNESIUM SUSP 30 ML UDC PO PRN (21:43)
[2018-11-11] MEDS: DOXYCYCLINE HYCLATE 100 MG in DEXTROSE 5% 100 ML IV SCH (23:46)
[2018-11-12] MEDS: AZTREONAM 2,000 MG in DEXTROSE 5% 100 ML IV SCH ×3 (00:15→15:21)
[2018-11-12] MEDS: LACTATED RINGER'S 1,000 ML IV SCH (03:16)
--- NOTE | 2018-11-12 06:10 | CT Scan Report ---
CT sinus wo con CT DOSE: 502.47 mGy.cm HISTORY: Pain lymphoma,fever,sinus involvement TECHNIQUE: Multiaxial CT images of the paranasal sinuses were performed and reformatted in the villa l plane without the use of contrast. A dose lowering technique was utilized adhering to the principl es of JAMES. COMPARISON: 06/19/2018 FINDINGS: Moderate mucosal thickening of the inferior aspects of the maxillary sinuses. Mild mucosal thickening of the ethmoid and to a lesser extent mastoid air cells. Trace fluid within the posterior sphenoid sinus. Sinuses show partial opacification but are congenitally atrophic. Bony metastatic change is similar as compared to the prior study. The orbits appear symmetric. The bi lateral ostiomeatal units are patent. The nasal septum is midline. The orbits are unremarkable. IMPRESSION: 1. Diffuse bony metastatic change unaltered from the prior study. 2. Moderate mucosal thickening of all major sinuses The above report was generated using voice recognition software. It may contain grammatical, syntax or spelling errors. Electronically signed by: eNto Mason M.D. 11/12/2018 6:09 AM
[2018-11-12] MEDS: LEVOTHYROXINE SODIUM 75 MCG TABLET PO SCH (06:20)
[2018-11-12 06:23] LABS: Hemoglobin 9.1 g/dL (12.0-16.0); Mean Corpuscular Volume 90.6 fL (80-100); Mean Platelet Volume 12.7 fL (7.4-10.4); RDW Coefficient of Variation 16.1 % (11.5-14.5); RDW Standard Deviation 53.3 fL (36.4-46.3); Red Blood Count 2.87 M/uL (4.2-5.4); White Blood Count 0.52 K/uL (4.8-10.8)
[2018-11-12 06:27] LABS: Basophils # (auto) 0.05 K/uL (0-0.2); Basophils % (auto) 9.6 %; Eosinophils # (auto) 0.12 K/uL (0-0.5); Eosinophils % (auto) 23.1 %; Giant Platelets 3+; Immature Granulocytes # (auto) 0.02 K/uL (0.00-0.02); Immature Granulocytes % (auto) 3.8 %; Lymphocytes # (auto) 0.19 K/uL (1.2-3.4); Lymphocytes % (auto) 36.5 %; Monocytes % (auto) 19.2 %; Neutrophils % (auto) 7.8 %; Toxic Granulation 3+
[2018-11-12 06:30] LABS: BUN Creatinine Ratio 12.6 (10-20); Calcium 8.1 mg/dl (8.5-10.1); Creatinine Clr Calc Pharmacy 80.3 ml/min; Est GFR (African American) 109.4; Est GFR (Non-African American) 94.4; Potassium 3.5 mmol/L (3.5-5.1)
[2018-11-12] MEDS: FILGRASTIM 480 MCG/1.6 ML VIAL SC SCH (08:09)
[2018-11-12] MEDS: DOXYCYCLINE HYCLATE 100 MG in DEXTROSE 5% 100 ML IV SCH ×2 (09:12→21:36)
--- NOTE | 2018-11-12 09:19 | Pharmacy Report ---
Pharmacy Abx Dose Progress Nt - Date of Service November 12, 2018 - Pharmacy Dosing Scope The patient is currently receiving the following antimicrobial agents per Pharmacy consult: Vancomycin 1,000mg IV Q12hrs. Pt also receiving Azactam + Doxy + Caspo. - Objective Vital Signs (Past 12hrs): Vital Signs Temp Pulse Resp BP Pulse Ox 11/12/18 07: 37.5 C 66 16 121/78 99 11/12/18 04:00 37.2 C 95 H 20 114/74 99 11/11/18 23:00 37.1 C 75 20 100/64 98 Lab Results (24hrs): Laboratory Tests (24 Hours) 11/12/18 11/12/18 11/12/18 05:32 05:32 05:32 WBC 0.52 L* Neut # (Auto) 0.04 L* Creatinine 0.55 L Est Cr Clr Drug Dosing 80.3 Procalcitonin 3.23 H Vancomycin Trough 11/11/18 21:34 WBC Neut # (Auto) Creatinine Est Cr Clr Drug Dosing Procalcitonin Vancomycin Trough 12.7 Micro Results: 11/11/18 14:06 Fungal Smear - Final Blood Fungal Culture - Pending - Risk Factors for Resistance * Hospitalization for 48 hours or more within the past 90 days * Immunocompromised (chronic steroid therapy, chemotherapy, immunomodulators) * Antimicrobial use within the last 90 days: Azactam for severe pseudomonal sepsis 09/27-10/12 - Assessment & Plan Assessment 73 year old F receiving Vancomycin + Azactam + Doxycycline + Caspofungin for treatment of febrile neutropenia. Day # 4 of antimicrobial therapy Doxycycline + caspo started yesterday for continued fevers with Vanco + Azactam Blood cultures NGTD Fungal smear negative for yeast Vancomycin trough level obtained last evening- see plan below Plan Vancomycin IV * Trough level of 12.7 mcg/mL is slightly-subtherapeutic * Change to 1,000 mg (15mg/kg) IV every 10 hours * Goal trough level: 15 to 20 mcg/mL * Trough level ordered for: 11/14/18 @ 0200 Continue Azactam + Doxycycline + and Caspfungin as ordered. Pharmacy will continue to follow and will adjust dose/frequency as necessary. Thank you.
--- NOTE | 2018-11-12 09:57 | Progress Note ---
DATE: 11/12/2018 DIAGNOSES: 1. Neutropenic fever. 2. Previous pseudomonas bacteremia. 3. Diffuse large B-cell lymphoma. 4. Atrial fibrillation. 5. Anemia, attributable to chemotherapy. SUBJECTIVE: The patient was seen and examined at bedside. Her family member was present this morning as well. She continues to look well, but apparently did spike low grade fever at 9:00 p.m. yesterday. Informally spoke to Dr. Burch and advised her to add antifungal, which was done. The patient is also receiving daily Neupogen. Nursing reports no overnight difficulties. Her WBCs are inching forward; however, still far from normal. The patient has no particular complaints. OBJECTIVE: GENERAL: Very pleasant 73-year-old female patient in no acute distress. VITAL SIGNS: Temperature 37.5, pulse 66, respiratory rate 16, blood pressure 121/78. SKIN: Without rash or lesion. HEENT: No evidence of thrush. NECK: Supple. Trachea midline. HEART: Regular rate and rhythm. LUNGS: Clear to auscultation bilaterally. ABDOMEN: Soft, nontender, nondistended. EXTREMITIES: No clubbing, cyanosis or edema. NEUROLOGIC: Grossly intact. LABORATORY DATA: WBC count 520, hemoglobin 9.1, platelet count 22,000. Sodium 142, potassium 3.5, chloride 110, carbon dioxide 28, creatinine 0.55, BUN 7. Blood and stool cultures thus far have been negative. IMPRESSION: 1. Neutropenic fever. 2. Severe anemia attributable to chemotherapy. 3. Diffuse large B cell non-Hodgkin's lymphoma. 4. History of pseudomonal bacteremia. 5. Hypoalbuminemia. PLAN: The patient appears to make a slow and steady progress, but remained troubled by the persistent intermittent fevers. The antifungal was added and should continue until cultures are finalized. The patient's platelet count I believe had hit gil 22,000. Her hemoglobin has held steady at 9.2 g/dL. I believe she received her second shot of granulocyte colony stimulating growth factor and will hold on further growth factor while repeating her peripheral blood counts in the morning. She obviously is not ready to resume chemotherapy and anticipate. She remained hospitalized for the next 24 hours or so. We will continue to follow her periodically during inpatient status. [facility]
[2018-11-12] MEDS: VANCOMYCIN HCL 1,000 MG in SODIUM CHLORIDE 0.9% 250 ML IV SCH ×2 (10:06→19:22)
[2018-11-12] MEDS: CASPOFUNGIN 50 MG in SODIUM CHLORIDE 0.9% 250 ML IV SCH (12:19)
--- NOTE | 2018-11-12 17:47 | Hospitalist Progress Note ---
Date of Service November 12, 2018 Assessment & Plan (1) Neutropenic fever: This pt is a 73 y/o female w/ a h/o NHL - currently on chemo, PAF, HTN, HLD, hypothyroidism, Grade III diastolic dysfunction. Presents with a fever of 102. The pt has a mediport in her R chest and was admitted with severe Pseudomonal sepsis 09/27. She was treated with IV Aztreonam until 10/12. She has had a total of 3 cycles of chemo and her most recent chemo took place 11/03. She denies a headache or visual changes, CP, SOB, nausea, vomiting, diarrhea, dysuria or rashes. Initial labs are notable for pancytopenia with a WBC count of .31 and an elevated lactic acid. A CXR is clear. With Sepsis POA given SIRS criteria plus likely source of infection is sinusitis She is still spiking fevers, blood cultures remain no growth to date Procalcitonin trended up to 6 and now down to 3 UA was not collected on admission and was collected then after abx administration and was normal ECG shows anterolateral T wave inversions but troponin is negative and patient is without any chest pain or shortness of breath. She continues to deny headache or lightheadedness, no neck pain, no chest pain, cough, or shortness of breath. No abdominal pain, denies nausea/vomiting/diarrhea, denies dysuria or urinary frequency urgency. Denies rashes or joint pains. She does however have a h/o sinus involvement of her lymphoma on PET scan from 08/2018, as well as mention of possible proctitis on CT abd/pel from 09/2018 alth ough not having pain or diarrhea CT sinuses with lymphoma involvement and sinusitis Has a port in place as well as a left TKA-neither appear infected Fevers now resolving -Continue empiric antibiotics with Aztreonam, Vano, and added IV Caspofungin to cover for fungal infection as well as IV doxycycline to cover for sinusitis as she is PCN allergic and was having persistent fevers - follow blood cultures, fungal cultures NGTD -continue Tylenol as needed for fever. 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 -on chemo with R-CHOP, last chemo was 1 week ago -Oncology consult appreciated (4) Paroxysmal atrial fibrillation: Remains in normal sinus rhythm here Continue holding anticoagulation from home while platelets are less than 50,000 -Holding metoprolol from home due to hypotension (5) HTN (hypertension), benign: hypotensive on arrival and now improved -holding home metoprolol (6) Hyperlipidemia: continue statin (7) Hypothyroidism: Recent TSH normal at 1.08 - cont levothyroxine (8) Abnormal ECG: ECG on admission abnormal with TWIs anterolat leads Trop negative, no chest pain Repeat ECG fairly unchanged from previous, asymptomatic and likely nonspecific T wave changes. Had recent echocardiogram a few weeks ago without wall motion abnormalities No further workup needed (9) Sepsis: POA, now with known source of likely sinusitis (10) DVT prophylaxis: SCDs only due to thrombocytopenia Dispo-remain hospitalized Subjective Pt feeling well today. Denies headache, sinus pain. Does blow some white mucus out with blowing, no epistaxis. No hemoptysis, no cough. No SOB or chest pain. Denies abd pain. She is moving her bowels, no diarrhea. Review of Systems Review of Systems: All systems reviewed & are unremarkable except as noted in HPI & below Physical Exam Constitutional: WD/WN, vitals as above Eyes: + anicteric sclerae ENMT: Mouth: + oral mucosal abnormality (mild white exudate on tongue) Neck: trachea midline, no thyromegaly Respiratory: normal respiratory effort, lungs clear to auscultation Cardiovascular: RRR, no murmur, no edema Chest (Breasts): Chest: + vascular access device or port (right chest wall, no surrounding erythema) Gastrointestinal (Abdomen): normal bowel sounds, soft, nontender, no hepatosplenomegaly Musculoskeletal: Extremities: extremities normal to inspection; no cyanosis and no clubbing Skin: no rashes, warm and dry Neurologic: moves all extremities and awake; no focal motor deficits Psychiatric: A+Ox3, euthymic affect Results & Data Vital Signs (Past 12 Hours) Vital Signs Temp Pulse Resp BP Pulse Ox 11/12/18 14:57 36.5 C 81 16 108/68 99 11/12/18 11:35 36.7 C 74 16 114/70 91 11/12/18 07:19 37.5 C 66 16 121/78 99 Laboratory Results 11/12/18 11/12/18 11/12/18 Range/Units 05:32 05:32 05:32 WBC 0.52 L* (4.8-10.8) K/uL RBC 2.87 L (4.2-5.4) M/uL Hgb 9.1 L (12.0-16.0) g/dL Hct 26.0 L (37-47) % MCV 90.6 (80-100) fL MCH 31.7 (25-34) pg MCHC 35.0 (32-36) g/dL RDW Std Deviation 53.3 H (36.4-46.3) fL RDW Coeff of Hosea 16.1 H (11.5-14.5) % Plt Count 22 L* (130-400) K/uL MPV 12.7 H (7.4-10.4) fL Immature Gran % (Auto) 3.8 % Neut % (Auto) 7.8 % Lymph % (Auto) 36.5 % Steele % (Auto) 19.2 % Eos % (Auto) 23.1 % Baso % (Auto) 9.6 % Immature Gran # (Auto) 0.02 (0.00-0.02) K/uL Neut # (Auto) 0.04 L* (1.4-6.5) K/uL Lymph # (Auto) 0.19 L (1.2-3.4) K/uL Steele # (Auto) 0.10 L (0.11-0.59) K/uL Eos # (Auto) 0.12 (0-0.5) K/uL Baso # (Auto) 0.05 (0-0.2) K/uL Toxic Granulation 3+ Giant Platelets 3+ Sodium 142 (136-145) mmol/L Potassium 3.5 (3.5-5.1) mmol/L Chloride 110 H (98-107) mmol/L Carbon Dioxide 28 (21-32) mmol/L Anion Gap 4.0 (3-11) BUN 7 (7-18) mg/dl Creatinine 0.55 L (0.6-1.2) mg/dl Est Cr Clr Drug Dosing 80.3 ml/min Est GFR ( Amer) 109.4 Est GFR (Non-Af Amer) 94.4 BUN/Creatinine Ratio 12.6 (10-20) Glucose 79 (70-99) mg/dl Calcium 8.1 L (8.5-10.1) mg/dl Procalcitonin 3.23 H (0-0.5) ng/ml Vancomycin Trough (See Comment) mcg/ml 11/11/18 Range/Units 21:34 WBC (4.8-10.8) K/uL RBC (4.2-5.4) M/uL Hgb (12.0-16.0) g/dL Hct (37-47) % MCV (80-100) fL MCH (25-34) pg MCHC (32-36) g/dL RDW Std Deviation (36.4-46.3) fL RDW Coeff of Hosea (11.5-14.5) % Plt Count (130-400) K/uL MPV (7.4-10.4) fL Immature Gran % (Auto) % Neut % (Auto) % Lymph % (Auto) % Steele % (Auto) % Eos % (Auto) % Baso % (Auto) % Immature Gran # (Auto) (0.00-0.02) K/uL Neut # (Auto) (1.4-6.5) K/uL Lymph # (Auto) (1.2-3.4) K/uL Steele # (Auto) (0.11-0.59) K/uL Eos # (Auto) (0-0.5) K/uL Baso # (Auto) (0-0.2) K/uL Toxic Granulation Giant Platelets Sodium (136-145) mmol/L Potassium (3.5-5.1) mmol/L Chloride (98-107) mmol/L Carbon Dioxide (21-32) mmol/L Anion Gap (3-11) BUN (7-18) mg/dl Creatinine (0.6-1.2) mg/dl Est Cr Clr Drug Dosing ml/min Est GFR ( Amer) Est GFR (Non-Af Amer) BUN/Creatinine Ratio (10-20) Glucose (70-99) mg/dl Calcium (8.5-10.1) mg/dl Procalcitonin (0-0.5) ng/ml Vancomycin Trough 12.7 (See Comment) mcg/ml Diagnostic Findings CT sinus wo con CT DOSE: 502.47 mGy.cm HISTORY: Pain lymphoma,fever,sinus involvement TECHNIQUE: Multiaxial CT images of the paranasal sinuses were performed and reformatted in the coronal plane without the use of contrast. A dose lowering technique was utilized adhering to the principles of ALARA. COMPARISON: 06/19/2018 FINDINGS: Moderate mucosal thickening of the inferior aspects of the maxillary sinuses. Mild mucosal thickening of the ethmoid and to a lesser extent mastoid air cells. Trace fluid within the posterior sphenoid sinus. Sinuses show partial opacification but are congenitally atrophic. Bony metastatic change is similar as compared to the prior study. The orbits appear symmetric. The bilateral ostiomeatal units are patent. The nasal septum is midline. The orbits are unremarkable. IMPRESSION: 1. Diffuse bony metastatic change unaltered from the prior study. 2. Moderate mucosal thickening of all major sinuses PG Care Time/CCT Total # of Minutes Spent Total Time Spent with Patient: Total time spent is greater than 50% in coordination of care (as documented) at patient's floor/unit and/or counseling patient:
[2018-11-12] MEDS: ALUMINUM/MAGNESIUM SUSP 30 ML UDC PO PRN (17:58)
--- NOTE | 2018-11-12 20:59 | Infectious Disease Progress Nt ---
Date of Service November 12, 2018 Assessment & Plan (1) Neutropenic fever: 73-year-old female with B-cell lymphoma on chemotherapy with persistent neutropenia and fever. Agree with addition of IV caspofungin. Await further culture results. Will follow. Subjective Pt reports she is feeling much better today despite that she still spiked a fever this AM. Continues to deny any headache, neck pain, chest pain, SOB, cough, no sore throat, no N/V/D, no abd pain, no urinary symptoms. Appetite is good. She is OOB to chair and feeling stronger. Review of Systems Review of Systems: All systems reviewed & are unremarkable except as noted in HPI & below Physical Exam Constitutional: WD/WN, vitals as above comfortable; no acute distress Eyes: PERRL, conjunctivae normal, anicteric sclerae ENMT: external ear and nose normal, oropharynx normal Neck: trachea midline, no thyromegaly neck nontender Respiratory: normal respiratory effort, lungs clear to auscultation normal percussion; does not use accessory muscles Cardiovascular: Rate/Rhythm: regular rate and regular rhythm Heart Sounds: normal S1 and normal S2; no gallop, no murmur and no cardiac rub Vessels: normal peripheral pulses; no JVD Gastrointestinal (Abdomen): normal bowel sounds, soft, nontender, no hepatosplenomegaly Musculoskeletal: no cyanosis or clubbing, extremities motor strength 5/5 Spine: thoracic spine normal to inspection and lumbar spine normal to inspection; no cervical spinal tenderness Skin: no rashes, warm and dry normal turgor; no lesions Neurologic: patellar DTR's 2+ bilat, sensation intact no focal motor deficits Psychiatric: A+Ox3, euthymic affect Orientation: cooperative Lymphatic: no cervical or axillary lymphadenopathy no inguinal lymphadenopathy Results & Data Vital Signs (Past 12 Hours) Vital Signs Temp Pulse Resp BP Pulse Ox 11/12/18 14:57 36.5 C 81 16 108/68 99 11/12/18 11:35 36.7 C 74 16 114/70 91 Laboratory Results Short CBC 11/12/18 Range/Units 05:32 WBC 0.52 L* (4.8-10.8) K/uL Hgb 9.1 L (12.0-16.0) g/dL Hct 26.0 L (37-47) % Plt Count 22 L* (130-400) K/uL BMP 11/12/18 05:32 Sodium 142 Potassium 3.5 Chloride 110 H Carbon Dioxide 28 BUN 7 Creatinine 0.55 L Glucose 79 Calcium 8.1 L Diagnostic Findings Microbiology 11/11/18 14:06 Blood Fungal Smear - Final 11/09/18 23:12 Blood Aerobic Blood Culture - Preliminary No growth in Aerobic bottle after 48 hours. 11/09/18 23:12 Blood Anaerobic Blood Culture - Preliminary No growth in Anaerobic bottle after 48 hours. 11/09/18 22:30 Blood Aerobic Blood Culture - Preliminary No growth in Aerobic bottle after 48 hours. 11/09/18 22:30 Blood Anaerobic Blood Culture - Preliminary No growth in Anaerobic bottle after 48 hours.
[2018-11-12] MEDS: PRAVASTATIN SOD 20 MG TAB PO SCH (21:33)
[2018-11-13] MEDS: AZTREONAM 2,000 MG in DEXTROSE 5% 100 ML IV SCH ×3 (00:30→15:47)
[2018-11-13] MEDS: VANCOMYCIN HCL 1,000 MG in SODIUM CHLORIDE 0.9% 250 ML IV SCH ×2 (05:27→17:05)
[2018-11-13] MEDS: LEVOTHYROXINE SODIUM 75 MCG TABLET PO SCH (05:27)
[2018-11-13 06:15] LABS: Hematocrit (blood only) 24.3 % (37-47); Hemoglobin 8.5 g/dL (12.0-16.0); Mean Corpuscular Volume 91.7 fL (80-100); Mean Platelet Volume 11.8 fL (7.4-10.4); RDW Coefficient of Variation 16.2 % (11.5-14.5); RDW Standard Deviation 54.1 fL (36.4-46.3); Red Blood Count 2.65 M/uL (4.2-5.4); White Blood Count 1.53 K/uL (4.8-10.8)
[2018-11-13 06:21] LABS: BUN Creatinine Ratio 9.5 (10-20); Calcium 8.1 mg/dl (8.5-10.1); Creatinine Clr Calc Pharmacy 83.3 ml/min; Est GFR (African American) 110.7; Est GFR (Non-African American) 95.5; Potassium 2.9 mmol/L (3.5-5.1)
[2018-11-13 06:38] LABS: Dohle Bodies 1+; Giant Platelets 2+; Platelet Estimate SIGNIFIC DECREASED (Normal); Toxic Granulation 3+; Toxic Vacuolation 1+
[2018-11-13 06:39] LABS: ALC (manual) 0.42 K/uL (1.2-3.4); Basophils # (manual) 0.11 K/uL (0-0.2); Basophils % (manual) 7.1 %; Eosinophils # (manual) 0.18 K/uL (0-0.5); Eosinophils % (manual) 11.5 %; Lymphocytes # (manual) 0.42 K/uL (1.2-3.4); Lymphocytes % (manual) 27.4 %; Monocytes # (manual) 0.15 K/uL (0.11-0.59); Monocytes % (manual) 9.7 %; Myelocytes # (manual) 0.05 K/uL (0-0); Myelocytes % (manual) 3.5 %; Neutrophils % (manual) 40.8 %
[2018-11-13 07:36] LABS: Platelet Count 22 K/uL (130-400)
[2018-11-13 07:38] LABS: Neutrophils # (auto) 0.04 K/uL (1.4-6.5); Platelet Count 22 K/uL (130-400)
[2018-11-13 07:39] LABS: Platelet Count 24 K/uL (130-400)
[2018-11-13] MEDS: DOXYCYCLINE HYCLATE 100 MG in DEXTROSE 5% 100 ML IV SCH ×2 (08:48→21:17)
--- NOTE | 2018-11-13 09:13 | Progress Note ---
DATE: 11/13/2018 DIAGNOSES: 1. Neutropenic fever. 2. Previous pseudomonas bacteremia. 3. Diffuse large B cell lymphoma. 4. Anemia attributable to chemotherapy. 5. Atrial fibrillation. SUBJECTIVE: The patient was seen and examined at bedside this morning. She continues to make steady progress. She reports no fevers overnight. Cultures remain negative. She continues broad-spectrum antibiotics. Conceivably her fever was generated because of prolonged neutropenia. Neutrophils are on the rise right around the 600 absolute count. Her platelet count has remained stable at 22,000. Nursing reports no overnight difficulties otherwise. PHYSICAL EXAMINATION: GENERAL: Very pleasant 73-year-old female, in no acute distress. VITAL SIGNS: Temperature 36.8, pulse 81, respiratory rate 18, blood 116/72. SKIN: Without rash or lesion. HEENT: No evidence of thrush. NECK: Supple. Trachea midline. HEART: Regular rate and rhythm. LUNGS: Clear to auscultation bilaterally. ABDOMEN: Soft, nontender, nondistended. EXTREMITIES: No clubbing, cyanosis or edema. NEUROLOGIC: Grossly intact. LABORATORY DATA: WBC count 1530, hemoglobin 8.5, platelet count 22,000, absolute neutrophil count 620. Sodium 144, potassium 2.9, chloride 111, carbon dioxide 28, creatinine 0.53, BUN 5. IMPRESSION: 1. Neutropenic fever. 2. Hypokalemia. 3. Diffuse large B cell lymphoma. 4. Prior pseudomonal bacteremia. PLAN: The patient is a pleasant 73-year-old female patient of Dr. Dyer's, now on hospital day #3 for neutropenic fever. I also took note of her potassium being low today. With her chemotherapy regimen, she may have an underlying hypomagnesemia which should be identified and treated. Clinically, she seems to be doing well. I suspect her fever may have been solely because of her neutrophils being low for prolonged period of time. There is no infectious evidence by current culture. The patient feels well enough and probably could go home in the next 24 hours or so. Would definitely replace her electrolytes before she departs however. I believe she has followup arranged with Dr. Dyer as her next cycle appointment is coming up soon.
[2018-11-13] MEDS: POTASSIUM CHLORIDE / WTR 20 MEQ/100 ML PLCT IV SCH ×2 (10:03→12:05)
[2018-11-13] MEDS: CASPOFUNGIN 50 MG in SODIUM CHLORIDE 0.9% 250 ML IV SCH (12:56)
--- NOTE | 2018-11-13 16:04 | Hospitalist Progress Note ---
Date of Service November 13, 2018 Assessment & Plan (1) Neutropenic fever: This pt is a 73 y/o female w/ a h/o NHL - currently on chemo, PAF, HTN, HLD, hypothyroidism, Grade III diastolic dysfunction. Presents with a fever of 102. The pt has a mediport in her R chest and was admitted with severe Pseudomonal sepsis 09/27. She was treated with IV Aztreonam until 10/12. She has had a total of 3 cycles of chemo and her most recent chemo took place 11/03. She denies a headache or visual changes, CP, SOB, nausea, vomiting, diarrhea, dysuria or rashes. Initial labs are notable for pancytopenia with a WBC count of .31 and an elevated lactic acid. A CXR is clear. With Sepsis POA given SIRS criteria plus likely source of infection is sinusitis No longer spiking fevers, blood cultures remain no growth to date Procalcitonin trended up to 6 and now down to 1 UA was not collected on admission and was collected then after abx administration and was normal ECG shows anterolateral T wave inversions but troponin is negative and patient is without any chest pain or shortness of breath. She continues to deny headache or lightheadedness, no neck pain, no chest pain, cough, or shortness of breath. No abdominal pain, denies nausea/vomiting/diarrhea, denies dysuria or urinary frequency urgency. Denies rashes or joint pains. She does however have a h/o sinus involvement of her lymphoma on PET scan from 08/2018, as well as mention of possible proctitis on CT abd/pel from 09/2018 although not having pain or diarrhea CT sinuses with lymphoma involvement and sinusitis Has a port in place as well as a left TKA-neither appear infected Fevers now resolved -Continue empiric antibiotics with Aztreonam, Vano, and added IV Caspofungin to cover for fungal infection as well as IV doxycycline to cover for sinusitis as she is PCN allergic and was having persistent fevers - follow blood cultures, fungal cultures NGTD -continue Tylenol as needed for fever. - ID has been consulted-appreciate recommendation -neutropenic precautions, follow CBC -if cultures remain neg by tomorrow and remain afebrile, will dc IV abx and continue po doxy fo sinusitis (2) Pancytopenia: Pancytopenia due to Chemotherapy Hgb was down to 7.2 and then improved to 9.1 with 2 units PRBCs given on 11/10, now down again slightly to 8.5 Plts gil at 22k again, no evidence of bleeding WBC count still severely low but improving at 1.5, ANC up to 600 Oncology recommends transfusion of plts if <15k -follow CBC -neutropenic precautions as above -Neupogen ordered daily x 2 days as per Onco-appreciate consultation (3) Non-Hodgkin lymphoma: 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 -on chemo with R-CHOP, last chemo was 1 week ago -Oncology consult appreciated (4) Paroxysmal atrial fibrillation: Remains in normal sinus rhythm here Continue holding anticoagulation from home while platelets are less than 50,000 -Holding metoprolol from home due to hypotension--> restart tomorrow at 50mg reduced dose (5) HTN (hypertension), benign: hypotensive on arrival and now improved -holding home metoprolol but restarting tomorrow as above (6) Hyperlipidemia: continue statin (7) Hypothyroidism: Recent TSH normal at 1.08 - cont levothyroxine (8) Abnormal ECG: ECG on admission abnormal with TWIs anterolat leads Trop negative, no chest pain Repeat ECG fairly unchanged from previous, asymptomatic and likely nonspecific T wave changes. Had recent echocardiogram a few weeks ago without wall motion abnormalities No further workup needed (9) Sepsis: POA, now with known source of likely sinusitis (10) Hypokalemia: severely low today at 2.9, unclear reason -replacve with IV KCL -follow BMP, Mag in AM (11) DVT prophylaxis: SCDs only due to thrombocytopenia Dispo-remain hospitalized, possible dc tomorrow Subjective very eager to leave the hospital, denies any complaints, no CP or SOB, no cough. Some mucus blowing from nose, no headache No abd pain. Had some loose stools this AM now reoslved Review of Systems Review of Systems: All systems reviewed & are unremarkable except as noted in HPI & below Physical Exam Constitutional: WD/WN, vitals as above Eyes: PERRL, conjunctivae normal, anicteric sclerae + anicteric sclerae ENMT: external ear and nose normal, oropharynx normal Mouth: + oral mucosal abnormality (mild white exudate on tongue) Neck: trachea midline, no thyromegaly Respiratory: normal respiratory effort, lungs clear to auscultation Cardiovascular: RRR, no murmur, no edema Chest (Breasts): Chest: + vascular access device or port (right chest wall, no surrounding erythema) Gastrointestinal (Abdomen): normal bowel sounds, soft, nontender, no hepatosplenomegaly Musculoskeletal: Extremities: extremities normal to inspection; no cyanosis and no clubbing Skin: no rashes, warm and dry Neurologic: moves all extremities and awake; no focal motor deficits Psychiatric: A+Ox3, euthymic affect Results & Data Vital Signs (Past 12 Hours) Vital Signs Temp Pulse Resp BP Pulse Ox 11/13/18 15:12 36.8 C 95 H 18 121/77 99 11/13/18 07:35 36.8 C 81 18 116/72 98 Laboratory Results 11/14/18 11/14/18 11/14/18 Range/Units 05:50 05:50 01:40 WBC 4.89 (4.8-10.8) K/uL RBC 2.60 L (4.2-5.4) M/uL Hgb 8.4 L (12.0-16.0) g/dL Hct 24.6 L (37-47) % MCV 94.6 (80-100) fL MCH 32.3 (25-34) pg MCHC 34.1 (32-36) g/dL RDW Std Deviation 56.1 H (36.4-46.3) fL RDW Coeff of Hosea 16.3 H (11.5-14.5) % Plt Count 32 L (130-400) K/uL MPV 11.7 H (7.4-10.4) fL Neutrophils % (Manual) 76.0 % Lymphocytes % (Manual) 17.0 % Monocytes % (Manual) 1.0 % Eosinophils % (Manual) 5.0 % Myelocytes % (Man) 1.0 % Neutrophils # (Manual) 3.72 (1.4-6.5) K/uL Total Absolute Neuts 3.72 (1.4-6.5) K/uL Lymphocytes # (Manual) 0.83 L (1.2-3.4) K/uL Total Abs Lymphocytes 0.83 L (1.2-3.4) K/uL Monocytes # (Manual) 0.05 L (0.11-0.59) K/uL Eosinophils # (Manual) 0.24 (0-0.5) K/uL Myelocytes # (Manual) 0.05 H (0-0) K/uL Toxic Granulation 1+ Toxic Vacuolation 1+ Dohle Bodies 1+ Giant Platelets 1+ Sodium 145 (136-145) mmol/L Potassium 3.0 L (3.5-5.1) mmol/L Chloride 113 H (98-107) mmol/L Carbon Dioxide 27 (21-32) mmol/L Anion Gap 5.0 (3-11) BUN 4 L (7-18) mg/dl Creatinine 0.49 L (0.6-1.2) mg/dl Est Cr Clr Drug Dosing 90.6 ml/min Est GFR ( Amer) 113.6 Est GFR (Non-Af Amer) 98.0 BUN/Creatinine Ratio 9.1 L (10-20) Glucose 83 (70-99) mg/dl Calcium 8.2 L (8.5-10.1) mg/dl Magnesium 1.7 L (1.8-2.4) mg/dl Vancomycin Trough 16.9 (See Comment) mcg/ml PG Care Time/CCT Total # of Minutes Spent Total Time Spent with Patient: Total time spent is greater than 50% in coordination of care (as documented) at patient's floor/unit and/or counseling patient:
--- NOTE | 2018-11-13 16:34 | Infectious Disease Progress Nt ---
Date of Service November 13, 2018 Assessment & Plan (1) Neutropenic fever: 73-year-old female with B-cell lymphoma on chemotherapy with persistent neutropenia and fever. She will continue on antibiotics and and caspofungin ending recovery white blood cell count. Will follow. Subjective Patient seen in follow-up for neutropenic fever. Feeling better today. Still with intermittent temperature spikes. Blood cultures remain negative. Other new specific complaints. Review of Systems Review of Systems: All systems reviewed & are unremarkable except as noted in HPI & below Physical Exam Constitutional: WD/WN, vitals as above comfortable; no acute distress Eyes: PERRL, conjunctivae normal, anicteric sclerae ENMT: external ear and nose normal, oropharynx normal Neck: trachea midline, no thyromegaly neck nontender Respiratory: normal respiratory effort, lungs clear to auscultation normal percussion; does not use accessory muscles Cardiovascular: Rate/Rhythm: regular rate and regular rhythm Heart Sounds: normal S1 and normal S2; no gallop, no murmur and no cardiac rub Vessels: normal peripheral pulses; no JVD Gastrointestinal (Abdomen): normal bowel sounds, soft, nontender, no hepatosplenomegaly Musculoskeletal: no cyanosis or clubbing, extremities motor strength 5/5 Spine: thoracic spine normal to inspection and lumbar spine normal to inspection; no cervical spinal tenderness Skin: no rashes, warm and dry normal turgor; no lesions Neurologic: patellar DTR's 2+ bilat, sensation intact no focal motor deficits Psychiatric: A+Ox3, euthymic affect Orientation: cooperative Lymphatic: no cervical or axillary lymphadenopathy no inguinal lymphadenopathy Results & Data Vital Signs (Past 12 Hours) Vital Signs Temp Pulse Resp BP Pulse Ox 11/13/18 15:12 36.8 C 95 H 18 121/77 99 11/13/18 07:35 36.8 C 81 18 116/72 98 Laboratory Results Short CBC 11/11/18 11/12/18 11/13/18 Range/Units 05:39 05:32 05:18 WBC 1.53 L (4.8-10.8) K/uL Hgb 8.5 L (12.0-16.0) g/dL Hct 24.3 L (37-47) % Plt Count 24 L* 22 L* 22 L* (130-400) K/uL BMP 11/13/18 05:18 Sodium 144 Potassium 2.9 L D Chloride 111 H Carbon Dioxide 28 BUN 5 L Creatinine 0.53 L Glucose 82 Calcium 8.1 L Diagnostic Findings Microbiology 11/11/18 14:06 Blood Fungal Smear - Final 11/11/18 14:06 Blood Fungal Culture - Preliminary No yeast or fungus isolated - Report 1, Additional Report to Follow. 11/09/18 23:12 Blood Aerobic Blood Culture - Preliminary No growth in Aerobic bottle after 48 hours. 11/09/18 23:12 Blood Anaerobic Blood Culture - Preliminary No growth in Anaerobic bottle after 48 hours. 11/09/18 22:30 Blood Aerobic Blood Culture - Preliminary No growth in Aerobic bottle after 48 hours. 11/09/18 22:30 Blood Anaerobic Blood Culture - Preliminary No growth in Anaerobic bottle after 48 hours.
[2018-11-13] MEDS: PRAVASTATIN SOD 20 MG TAB PO SCH (22:28)
[2018-11-14] MEDS: AZTREONAM 2,000 MG in DEXTROSE 5% 100 ML IV SCH ×2 (00:23→08:43)
[2018-11-14] MEDS ORDERED: VANCOMYCIN TROUGH ONE (01:30)
[2018-11-14] MEDS: HEPARIN 100 UNIT/ML 5ML FLUSH FLUSH PRN ×4 (01:41→12:59)
[2018-11-14] MEDS: VANCOMYCIN HCL 1,000 MG in SODIUM CHLORIDE 0.9% 250 ML IV SCH (01:48)
[2018-11-14] MEDS: LEVOTHYROXINE SODIUM 75 MCG TABLET PO SCH (05:55)
[2018-11-14 06:14] LABS: Hematocrit (blood only) 24.6 % (37-47); Hemoglobin 8.4 g/dL (12.0-16.0); Mean Corpuscular Hgb Conc 34.1 g/dL (32-36); Mean Corpuscular Volume 94.6 fL (80-100); RDW Coefficient of Variation 16.3 % (11.5-14.5); RDW Standard Deviation 56.1 fL (36.4-46.3); White Blood Count 4.89 K/uL (4.8-10.8)
[2018-11-14 06:28] LABS: Mean Platelet Volume 11.7 fL (7.4-10.4); Platelet Count 32 K/uL (130-400)
[2018-11-14 06:36] LABS: Dohle Bodies 1+; Giant Platelets 1+; Toxic Granulation 1+; Toxic Vacuolation 1+
[2018-11-14 06:40] LABS: ALC (manual) 0.83 K/uL (1.2-3.4); Eosinophils # (manual) 0.24 K/uL (0-0.5); Lymphocytes # (manual) 0.83 K/uL (1.2-3.4); Monocytes # (manual) 0.05 K/uL (0.11-0.59); Myelocytes # (manual) 0.05 K/uL (0-0)
[2018-11-14 06:46] LABS: BUN Creatinine Ratio 9.1 (10-20); Calcium 8.2 mg/dl (8.5-10.1); Creatinine Clr Calc Pharmacy 90.6 ml/min; Est GFR (African American) 113.6; Magnesium 1.7 mg/dl (1.8-2.4)
[2018-11-14] MEDS ORDERED: POTASSIUM CHLORIDE 20 MEQ TABCR PO STA (08:05)
[2018-11-14] MEDS ORDERED: POTASSIUM CHLORIDE / WTR 20 MEQ/100 ML PLCT IV ONE (08:15)
[2018-11-14] MEDS: MAGNESIUM SULFATE / D5W 1 GM/100 ML BAG IV SCH ×2 (08:43→11:56)
[2018-11-14] MEDS ORDERED: METOPROLOL SUCC 50MG EXT REL TAB PO SCH (09:00)
--- NOTE | 2018-11-14 09:01 | Pharmacy Report ---
Pharmacy Abx Dose Short Note - Date of Service November 14, 2018 - Assessment & Plan Assessment 73 year old F receiving vancomycin for treatment of febrile neutropenia Day # 5 of antimicrobial therapy. Plan Vancomycin * Trough level came back therapeutic at ~16.9 mcg/ml (goal 15-20 mcg/ml). Previous dose given slightly late, therefore expect true level to be slightly lower, but likely still above ~15 mcg/ml * Will continue with current vancomycin regimen of 1gm iv q 10 hrs - renal function remains stable, CrCl ~90 ml/min * Blood cultures are no growth, prelim fungal culture negative, afebrile x 48 hrs * Per provider notes, likely will deescalate soon if final cultures negative and continue on just doxy for sinusitis Pharmacy will continue to follow and will adjust dose/frequency as necessary. Thank you.
[2018-11-14] MEDS ORDERED: DOXYCYCLINE HYCLATE 100 MG CAP PO SCH (11:15)
--- NOTE | 2018-11-14 12:10 | Discharge Summary ---
Date of Service November 14, 2018 Admission HPI Per Admitting Provider 73 y/o F Hx NHL - currently on chemo, PAF, HTN, HLD, hypothyroidism, Garde III diastolic dysfunction. Presents with a fever of 102. The pt has a mediport in her R chest and was admitted with severe pseudomonal sepsis 09/27/18. She was treated with IV Aztreonam until 10/12. She has had a total of 3 cycles of chemo and her most recent chemo took place 11/03. She denies a headache or visual changes, CP, SOB, nausea, vomiting, diarrhea, dysuria or rashes. Initial labs are notable for pancytopenia with a WBC count of .31 and an elevated lactic acid. A CXR is clear. 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 Surgical: Partial mastectomy, R TKA Social: No history of smoking or drinking Family: Father following an MD Mother following a CVA Principal Diagnosis Neutropenic Fever Acute sinusitis Discharge Exam Constitutional WD/WN, vitals as above Eyes PERRL, conjunctivae normal, anicteric sclerae + anicteric sclerae ENMT Mouth: + oral mucosal abnormality (mild white exudate on tongue) Neck trachea midline, no thyromegaly Respiratory normal respiratory effort, lungs clear to auscultation Cardiovascular RRR, no murmur, no edema Chest (Breasts) Chest: + vascular access device or port (right chest wall, no surrounding erythema) Gastrointestinal (Abdomen) normal bowel sounds, soft, nontender, no hepatosplenomegaly Musculoskeletal Extremities: extremities normal to inspection; no cyanosis and no clubbing Skin no rashes, warm and dry Neurologic moves all extremities and awake; no focal motor deficits Psychiatric A+Ox3, euthymic affect Discharge Data Allergies Allergy/AdvReac Type Severity Reaction Status Date / Time piperacillin [From Zosyn] AdvReac Unknown Rash Verified 11/09/18 22:55 tazobactam [From Zosyn] AdvReac Unknown Rash Verified 11/09/18 22:55 Consultations Infectious Diseases Oncology Ordered Studies 11/12/18 06:00 CT sinus wo con Urgent CXR Hospital Course (1) Neutropenic fever: This pt is a 73 y/o female w/ a h/o NHL - currently on chemo, PAF, HTN, HLD, hypothyroidism, Grade III diastolic dysfunction. Presents with a fever of 102. The pt has a mediport in her R chest and was admitted with severe Pseudomonal sepsis 09/27. She was treated with IV Aztreonam until 10/12. She has had a total of 3 cycles of chemo and her most recent chemo took place 11/03. She denies a headache or visual changes, CP, SOB, nausea, vomiting, diarrhea, dysuria or rashes. Initial labs were notable for pancytopenia with a WBC count of .31 and an elevated lactic acid. A CXR is clear. With Sepsis POA given SIRS criteria plus likely source of infection is sinusitis No longer spiking fevers fo rmany days, blood cultures including fungal cxs remain no growth to date Procalcitonin trended up to 6 and now down to 1 UA was not collected on admission and was collected then after abx administration and was normal ECG shows anterolateral T wave inversions but troponin is negative and patient is without any chest pain or shortness of breath. She continues to deny headache or lightheadedness, no neck pain, no chest pain, cough, or shortness of breath. No abdominal pain, denies nausea/vomiting/diarrhea, denies dysuria or urinary frequency urgency. Denies rashes or joint pains. She does however have a h/o sinus involvement of her lymphoma on PET scan from 08/2018, as well as mention of possible proctitis on CT abd/pel from 09/2018 although not having pain or diarrhea CT sinuses with lymphoma involvement and sinusitis Has a port in place as well as a left TKA-neither appear infected -Receved broad spectrum empiric antibiotics with Aztreonam, Vano, and then added IV Caspofungin to cover for fungal infection as well as IV doxycycline to cover for sinusitis as she is PCN allergic and was having persistent fevers - blood cultures, fungal cultures NGTD - ID has been consulted-appreciate recommendation -ANC now in the 3000s, can dc neutropenic precautions -will dc to home only on po doxy for sinusitis for 7 more days (total 10days) -dc Caspofungin (2) Pancytopenia: Pancytopenia due to Chemotherapy Hgb was down to 7.2 and then improved to 9.1 with 2 units PRBCs given on 11/10, now down again slightly to 8.4 Plts gil at 22k and now up on day of discharge to 32k, no evidence of bleeding WBC count was low but improving with Neupogen to 4.8, ANC up to 3720 Oncology recommends transfusion of plts if <15k -follow CBC on Friday as outpt -continue to hold Eliquis until plts>50k (3) Non-Hodgkin lymphoma: 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 -on chemo with R-CHOP, last chemo was 1 week [employer] -Oncology consult appreciated -keep f/u appt as outpt last of October (4) Paroxysmal atrial fibrillation: Remains in normal sinus rhythm here on exam Continue holding anticoagulation from home while platelets are less than 50,000- restart Elqiuis on Friday if plts>/= 50k on CBC--> defer to PCP to restart, will cc copy of CBC to PCP Held metoprolol from home due to hypotension--> was then restarted and can continue at home, BPs improved (5) HTN (hypertension), benign: hypotensive on arrival and now improved -restarted home metoprolol as above (6) Hyperlipidemia: continue statin (7) Hypothyroidism: Recent TSH normal at 1.08 - cont levothyroxine (8) Abnormal ECG: ECG on admission abnormal with TWIs anterolat leads Trop negative, no chest pain Repeat ECG fairly unchanged from previous, asymptomatic and likely nonspecific T wave changes. Had recent echocardiogram a few weeks ago without wall motion abnormalities No further workup needed (9) Sepsis: POA, now with known source of likely sinusitis Resolved (10) Hypokalemia: Low again today. likely from some poor po intake, low magnesium as well Appetite is improved now -replaced with IV Mag and IV potassium -check BMP on Friday as outpt w/ results to PCP -advised to increase potassium in diet (11) DVT prophylaxis: SCDs only due to thrombocytopenia Dispo-stable for dc to home today, no home health needed Total Time Total Time Spent Total Time Spent (In Minutes): >30 min Total Time Includes: Examination of the Patient, Discharge Planning and Medication Reconciliation Discharge Plan Discharge Items Patient Disposition: Home - Self-Care Reason For Visit: NEUTROPENIC FEVER Discharge Diagnosis: Neutropenic fever, acute sinusitis Condition: Good Discharge Goals: Decrease discomfort, Diagnostic testing, Improve disease control, Learn about illness and Therapeutic intervention Activity: Resume your previous activity Bathing: No limitations Exercise/Sports: Gradually increase as tolerated Non-emergency contact: Primary Care Provider and Oncologist Call non-emergency contact if: you have any medication questions, your symptoms worsen, you have a fever and your temperature is above 100.5 Follow-up/Referrals: Patrick Francisco MD [Primary Care Provider] - (Please follow up within 1-2 weeks.) Shaji Dyer [Physician] - (Follow up as scheduled) Diet: Regular Other Ambulatory Orders: Basic Metabolic Panel (Routine) Timeframe: 2 Days Location: Determined by Patient Ordered By: Ashley Burch Complete Blood Count with Diff (Routine) Timeframe: 2 Days Location: Determined by Patient Ordered By: Ashley Burch Addtl Provider Instructions: You were admitted with fever and a low neutrophil (white blood cell) count. You were treated with IV antibiotics and no bacteria grew from your blood stream. You do have a sinusitis appearance on the CT of your sinuses and therefore will finish out a course of doxycycline as an antibiotic for this. All other antibiotics will be discontinued. Your port is not infected. You had some low potassium levels before discharge which is likely due to not eating as much. Please eat potassium rich foods like potatoes, bananas, etc. and have your blood work checked on Friday. Dr. Francisco's office can let you know if you need to start taking a potassium supplement pill on Friday if your levels are still low. Please DO NOT TAKE your Eliquis until after your blood work on Friday as long as your platelet count is back up to [address] Francisco or Dr[address] Dyer's office can tell you these results. Please follow up with Dr. Francisco's office in 1-2 weeks, and keep your scheduled appointment with Sally at Oncology. Prescriptions: New doxycycline hyclate 100 mg Capsule 100 mg PO BID Qty: 14 RF: 0 Continued levothyroxine 75 mcg Tablet 75 mcg PO QAM RF: 0 pravastatin 20 mg Tablet 20 mg PO HS RF: 0 ondansetron HCl 8 mg tablet 8 mg PO Q8H PRN (Reason: Nausea) RF: 0 metoprolol succinate 100 mg tablet extended release 24 hr 100 mg PO DAILY RF: 0 Probiotic 3 billion cell Capsule PO DAILY RF: 0 Eliquis 5 mg tablet 5 mg PO BID Qty: 0 RF: 0 Discontinued aztreonam 2 gram recon soln 2 gm IV Q8H Qty: 10 RF: 0 Stand-Alone Forms: [facility], [facility] Discharge Orders: Discharge Order (Routine); Ordered 11/14/18 Ordered By: Ashley Burch Admission Data Admit Date/Time: 11/10/18 00:28 Attending Provider: Ashley Burch Admit Provider: Sidney Olivas Primary Care Provider: Patrick Francisco Other Providers: Sidney Olivas ; Jacqui Douglas Service: Medical Other Pending Studies at Discharge: Yes (Final Blood culture results)
== END 2018-11-14 13:20 | disposition home or self-care (01) | DRG 871 ==
LOC: ED 21:44 → 4E 11-10 00:28 → SUATTDRO 11-10 00:28 → 4E 11-10 01:13 → 4W 11-11 14:12